=== PATIENT | female | born 1995 | race Caucasian/White ===

== ENCOUNTER → 2017-12-27 08:48 | Outpatient (CLI) | payer OTHER, SELFPAY ==
[2017-12-27 12:28] LABS: Chlamydia Trachomatis by PCR Negative (Negative); Neisserai gonorrhoeae by PCR Negative (Negative); Probe Check PASS; Sample Adequacy Control PASS; Specimen Processing Control PASS
[2017-12-28 10:19] LABS: HIV - WCH Non-Reactive (Nonreactive)
[2017-12-28 20:07] LABS: HCV Quant. RNA PCR HCV Not Detected IU/mL (.)
[2017-12-29 09:24] LABS: HSV 2 IgG < 0.91 index (0.00-0.90)
[2017-12-30 02:54] LABS: Rapid Plasmin Reagin (RPR) NONREACTIVE (NONREACTIVE)
== END ==
PROVIDERS: Nurse Practitioner Women's Health; Family Provider Internal Medicine; PCP Internal Medicine; Visit Provider Obstetrics & Gynecology
DX: Z11.3 Encounter for screening for infections with a predominantly sexual mode of transmission (principal)
CPT/HCPCS: 36415; 86592; 86695; 86696; 86703; 87491; 87522; 87591

== ENCOUNTER → 2018-06-16 09:00 | Outpatient (CLI) | payer OTHER, SELFPAY ==
[2018-06-16 10:14] LABS: Absolute Lymphocyte Count 1.91 X10^3/ul (0.83-4.51); Absolute Neutrophil Count 4.5 X10^3/uL (2.0-7.7); Basophil# 0.04 X10^3/uL; Basophil% 0.5 % (0-1); Eosinophil# 0.52 X10^3/uL; Eosinophils% 6.9 % (0-5); Hematocrit 43.4 % (37-47); Hemoglobin 14.3 g/dl (12.0-15.0); Lymphocyte # 1.91 X10^3/ul (4.0); Lymphocyte % 25.4 % (19-41); Mean Corp Hgb Conc 32.9 g/gl (32-36); Mean Corpuscular Hgb 30.9 pg (27.0-32.0); Mean Corpuscular Volume 93.7 fL (81-99); Mean Platelet Vol. 9.9 fl (6.2-12.0); Monocyte# 0.56 X10^3/uL; Monocyte% 7.5 % (0-10); Neutrophil # 4.47 X10^3/uL (2.7-7.7); Neutrophil % 59.6 % (47-70); Platelet Count 320 K/mm3 (150-450); RBC Distribution Width CV 14.5 % (11.6-14.6); RBC Distribution Width SD 48.8 fl (35.1-43.9); Red Blood Count 4.63 M/mm3 (4.2-5.4); White Blood Count 7.5 K/mm3 (4.4-11.0)
[2018-06-16 10:16] LABS: POSITIVE COUNT NO; POSITIVE DIFFERENTIAL NO; POSITIVE MORPHOLOGY NO
[2018-06-16 10:41] LABS: Vitamin D,25 Hydroxy 53.7 ng/mL (29.95-100.01)
[2018-06-16 10:43] LABS: AST(SGOT) 40 U/L (15-37); Alanine Aminotransfer ALT/SGPT 91 U/L (13-56); Albumin, Serum 3.8 g/dL (3.2-5.0); Alkaline Phosphatase 64 U/L (45-117); Anion Gap 8 (5-15); BUN 21 mg/dL (7-18); BUN/Creat Ratio 22.2 RATIO (10-20); Chloride 105 mmol/L (98-107); Creatinine, Serum 0.94 mg/dL (0.55-1.02); EST Glomerular Filtration Rate 77 mL/min (>60); Est Glom Filt Rate - Afr Amer 93 mL/min (>60); Globulin 3.9 g/dL (2.2-4.2); Glucose 76 mg/dL (74-106); Potassium 4.2 mmol/L (3.5-5.1); Protein, Total 7.7 g/dL (6.4-8.2); Sodium Level 143 mmol/L (136-145)
== END ==
PROVIDERS: Family Provider Internal Medicine; PCP Internal Medicine; Visit Provider Internal Medicine
DX: R53.83 Other fatigue (principal); E55.9 Vitamin D deficiency, unspecified
CPT/HCPCS: 36415; 80053; 82306; 84443; 85025

== ENCOUNTER → 2018-07-13 20:00 | Outpatient (CLI) | payer OTHER, SELFPAY | PROVIDERS: Family Provider Internal Medicine; PCP Internal Medicine; Visit Provider Internal Medicine | DX: G47.10 Hypersomnia, unspecified (principal); R53.82 Chronic fatigue, unspecified | CPT/HCPCS: 95810 ==

== ENCOUNTER → 2018-08-02 07:42 | Outpatient (CLI) | payer OTHER, SELFPAY ==
--- NOTE | 2018-08-02 07:45 | US_ITS ---
STUDY: ULTRASOUND OF THE FEMALE PELVIS - COMPLETE REASON FOR EXAM: Female, 22 years old. Pelvic pain TECHNIQUE: Transabdominal and Transvaginal TECHNICAL QUALITY: Adequate. COMPARISON: None. FINDINGS: The uterus is anteverted and is in a midline position. The uterus measures 7.6 x 4.6 x 3.0 cm. Normal uterine cervix. The endometrium measures 5 mm in thickness, and is hyperechoic. There is no demonstrated endometrial mass. There is an intrauterine device in satisfactory position. There is no demonstrated myometrial mass. The right ovary is visualized. The right ovary measures 3.6 x 3.3 x 1.8 cm. There is no right ovarian cyst or ovarian mass. There is no visualized right adnexal mass or complex lesion. There is normal arterial and normal venous vascularity. The left ovary is visualized. The left ovary measures 3.7 x 3.6 x 1.9 cm. There is no left ovarian cyst or ovarian mass. There is no visualized left adnexal mass or complex lesion. There is normal arterial and normal venous vascularity. There is no fluid in the cul-de-sac. US/Pelvic (Non ) IMPRESSION: Normal female pelvis. Electronically Signed: Sajan Jaky, at 17:05 EDT Tel , Service support ,
--- NOTE | 2018-08-02 08:08 | US_ITS ---
STUDY: ULTRASOUND OF THE FEMALE PELVIS - COMPLETE REASON FOR EXAM: Female, 22 years old. Pelvic pain TECHNIQUE: Transabdominal and Transvaginal TECHNICAL QUALITY: Adequate. COMPARISON: None. FINDINGS: The uterus is anteverted and is in a midline position. The uterus measures 7.6 x 4.6 x 3.0 cm. Normal uterine cervix. The endometrium measures 5 mm in thickness, and is hyperechoic. There is no demonstrated endometrial mass. There is an intrauterine device in satisfactory position. There is no demonstrated myometrial mass. The right ovary is visualized. The right ovary measures 3.6 x 3.3 x 1.8 cm. There is no right ovarian cyst or ovarian mass. There is no visualized right adnexal mass or complex lesion. There is normal arterial and normal venous vascularity. The left ovary is visualized. The left ovary measures 3.7 x 3.6 x 1.9 cm. There is no left ovarian cyst or ovarian mass. There is no visualized left adnexal mass or complex lesion. There is normal arterial and normal venous vascularity. There is no fluid in the cul-de-sac. US/Transvaginal Non- IMPRESSION: Normal female pelvis. Electronically Signed: Sajan Starkey, at 17:05 EDT Tel , Service support ,
== END ==
PROVIDERS: Family Provider Internal Medicine; PCP Internal Medicine; Referring Provider Obstetrics & Gynecology; Visit Provider Obstetrics & Gynecology
DX: R10.2 Pelvic and perineal pain (principal)
CPT/HCPCS: 76830; 76856; 93976

== ENCOUNTER → 2018-08-28 23:37 | Outpatient (CLI) | payer OTHER, SELFPAY | PROVIDERS: Family Provider Internal Medicine; PCP Internal Medicine; Visit Provider Clinical Nurse Specialist Acute Care | DX: G47.10 Hypersomnia, unspecified (principal) | CPT/HCPCS: 95810 ==

== ENCOUNTER → 2018-08-30 14:02 | Outpatient (CLI) | payer OTHER, SELFPAY | PROVIDERS: Family Provider Internal Medicine; PCP Internal Medicine; Visit Provider Clinical Nurse Specialist Acute Care | DX: G47.10 Hypersomnia, unspecified (principal) | CPT/HCPCS: 95805 ==

== ENCOUNTER → 2018-09-19 11:45 | Outpatient (CLI) | payer OTHER, SELFPAY ==
[2018-09-19 11:38] VITALS: BMI 28.6
[2018-09-19 13:15] LABS: HIV - WCH Non-Reactive (Nonreactive)
[2018-09-20 00:37] LABS: Chlamydia Trachomatis by PCR POSITIVE (Negative); Neisserai gonorrhoeae by PCR Negative (Negative); Probe Check PASS; Sample Adequacy Control PASS; Specimen Processing Control PASS
[2018-09-21 16:06] LABS: HCV Quant. RNA PCR HCV Not Detected IU/mL (.)
[2018-09-22 02:02] LABS: Rapid Plasmin Reagin (RPR) NONREACTIVE (NONREACTIVE)
[2018-09-22 08:30] LABS: HSV 2 IgG < 0.91 index (0.00-0.90)
== END ==
PROVIDERS: Family Provider Internal Medicine; PCP Internal Medicine; Referring Provider Nurse Practitioner Women's Health; Visit Provider Nurse Practitioner Women's Health
DX: Z20.2 Contact with and (suspected) exposure to infections with a predominantly sexual mode of transmission (principal)
CPT/HCPCS: 36415; 86592; 86695; 86696; 86703; 87491; 87522; 87591

== ENCOUNTER → 2018-10-18 17:56 | Outpatient (CLI) | payer OTHER, SELFPAY ==
[2018-10-18 09:59] VITALS: BMI 28.6
[2018-10-18 21:21] LABS: Chlamydia Trachomatis by PCR Negative (Negative); Neisserai gonorrhoeae by PCR Negative (Negative); Probe Check PASS; Sample Adequacy Control PASS; Specimen Processing Control PASS
== END ==
PROVIDERS: Family Provider Internal Medicine; PCP Internal Medicine; Referring Provider Nurse Practitioner Women's Health; Visit Provider Nurse Practitioner Women's Health
DX: A64 Unspecified sexually transmitted disease (principal)
CPT/HCPCS: 87491; 87591

== ENCOUNTER → 2019-01-08 17:37 | Outpatient (CLI) | payer OTHER, SELFPAY ==
[2019-01-08 15:40] VITALS: BMI 28.6
[2019-01-08 20:49] LABS: Chlamydia Trachomatis by PCR Negative (Negative); Neisserai gonorrhoeae by PCR Negative (Negative); Probe Check PASS; Sample Adequacy Control PASS; Specimen Processing Control PASS
== END ==
PROVIDERS: Family Provider Internal Medicine; PCP Internal Medicine; Referring Provider Nurse Practitioner Women's Health; Visit Provider Nurse Practitioner Women's Health
DX: A64 Unspecified sexually transmitted disease (principal)
CPT/HCPCS: 87491; 87591

== ENCOUNTER → 2019-03-29 | Outpatient (CLI) | payer OTHER, SELFPAY ==
[2019-03-29 09:15] VITALS: BMI 27.8
--- NOTE | 2019-03-29 12:35 | RAD_ITS ---
STUDY: X-RAY - RIGHT FOOT CLINICAL: Female, 23 years old. Dropped heavy plate on right foot. TECHNIQUE: 3 view(s) of the foot. COMPARISON: None. FINDINGS: Normal talus, calcaneus, and tarsal bones. Normal visualized subtalar, talonavicular, calcaneocuboid, tarsal and tarsometatarsal articulations. Normal metatarsi. Normal metatarsophalangeal joint of the great toe. Normal interphalangeal joint of the great toe. There is a fracture within the distal metaphysis of the first distal phalanx. There is overlying soft tissue swelling. No displacement is visualized. Normal second through fifth metatarsophalangeal joints. Normal interphalangeal joints and phalanges of the lesser toes. RAD/Foot min 3 Views IMPRESSION: First distal phalanx fracture. Electronically Signed: Elaine Alves MD at 17:03 EDT Tel , Service support ,
== END | disposition home or self-care (01) ==
LOC: MTRAD 12:30
PROVIDERS: Family Provider Internal Medicine; PCP Internal Medicine; Referring Provider Nurse Practitioner Family; Visit Provider Nurse Practitioner Family
DX: S99.921A Unspecified injury of right foot, initial encounter (principal)
CPT/HCPCS: 73630

== ENCOUNTER → 2019-04-26 | Outpatient (CLI) | payer OTHER, SELFPAY ==
[2019-04-16 15:33] VITALS: BMI 27.8
--- NOTE | 2019-04-26 09:00 | RAD_ITS ---
STUDY: X-RAY - RIGHT FOOT CLINICAL: Female, 23 years old. Follow-up fracture TECHNIQUE: 3 view(s) of the foot. COMPARISON: 03/29/2019 FINDINGS: Normal talus, calcaneus, and tarsal bones. Normal visualized subtalar, talonavicular, calcaneocuboid, tarsal and tarsometatarsal articulations. Normal metatarsi. Normal metatarsophalangeal joint of the great toe. Normal tibial and fibular sesamoid bones. Normal interphalangeal joint of the great toe. Healing nondisplaced transverse fracture of the tuft of the first distal phalanx. Normal second through fifth metatarsophalangeal joints. Normal interphalangeal joints and phalanges of the lesser toes. The soft tissue structures are unremarkable. RAD/Foot min 3 Views IMPRESSION: Healing nondisplaced transverse fracture of the tuft of the first distal phalanx. Electronically Signed: Waldo Cunningham MD at 15:45 EDT Tel , Service support ,
== END | disposition home or self-care (01) ==
LOC: MTRAD 08:59
PROVIDERS: Family Provider Internal Medicine; PCP Internal Medicine; Referring Provider Nurse Practitioner Family; Visit Provider Nurse Practitioner Family
DX: S92.424A Nondisplaced fracture of distal phalanx of right great toe, initial encounter for closed fracture (principal)
CPT/HCPCS: 73630

== ENCOUNTER → 2019-07-26 13:24 | Outpatient (CLI) | payer OTHER, SELFPAY ==
[2019-07-26 08:49] VITALS: BMI 28.3
[2019-08-01 12:59] LABS: HPV Reflexed? NOT INDICATED
== END ==
PROVIDERS: Family Provider Internal Medicine; PCP Internal Medicine; Referring Provider Nurse Practitioner Women's Health; Visit Provider Nurse Practitioner Women's Health
DX: Z12.4 Encounter for screening for malignant neoplasm of cervix (principal)
CPT/HCPCS: 88175; G0145

== ENCOUNTER → 2019-09-21 14:40 | Outpatient (CLI) | payer OTHER, SELFPAY ==
[2019-09-21 06:45] VITALS: BMI 31.1
== END ==
PROVIDERS: Family Provider Internal Medicine; PCP Internal Medicine; Referring Provider Physician Assistant Surgical; Visit Provider Physician Assistant Surgical
DX: J02.9 Acute pharyngitis, unspecified (principal)
CPT/HCPCS: 87070

== ENCOUNTER → 2019-09-26 15:03 | Outpatient (CLI) | payer OTHER, SELFPAY ==
[2019-09-26 09:10] VITALS: BMI 30.4
[2019-09-26 18:10] LABS: Chlamydia Trachomatis by PCR Negative (Negative); Neisserai gonorrhoeae by PCR Negative (Negative); Probe Check PASS; Sample Adequacy Control PASS; Specimen Processing Control PASS
== END ==
PROVIDERS: Family Provider Internal Medicine; PCP Internal Medicine; Referring Provider Obstetrics & Gynecology; Visit Provider Obstetrics & Gynecology
DX: Z11.3 Encounter for screening for infections with a predominantly sexual mode of transmission (principal)
CPT/HCPCS: 87491; 87591

== ENCOUNTER → 2020-05-14 11:14 | Outpatient (CLI) | payer OTHER, SELFPAY ==
[2020-05-14 10:45] VITALS: BMI 30.4
[2020-05-14 11:16] LABS: Bacteria 0 SEEN /hpf (None Seen); Mucous, Urine 0 SEEN /hpf (<or=2+); Red Blood Cells-Urine 0 SEEN /hpf (0-5); White Blood Cells 0 SEEN /hpf (0-5)
[2020-05-14 12:51] LABS: Color, Urine Straw (Yellow); Glucose, Dipstick Normal (Normal); Ketone-Dipstick Negative (Negative); Leukocyte Esterase-Dipstick Negative /ul (Negative); Nitrite-Dipstick Negative (Negative); Occult Blood-Urine Negative /ul (Negative); Protein-Dipstick Negative (Negative); Urine Bilirubin Dipstick Negative (Negative); Urine Clarity Sl. Cloudy (Clear); Urine Urobilinogen Normal (Normal)
[2020-05-14 12:52] LABS: Absolute Lymphocyte Count 2.31 X10^3/uL (0.83-4.51); Absolute Neutrophil Count 4.8 X10^3/uL (2.0-7.7); Basophil# 0.04 X10^3/uL; Basophil% 0.5 % (0-1); Eosinophil# 0.15 X10^3/uL; Eosinophils% 1.9 % (0-5); Hematocrit 42.9 % (37-47); Lymphocyte # 2.31 X10^3/ul (4.0); Lymphocyte % 28.9 % (19-41); Mean Corp Hgb Conc 32.6 g/dL (32-36); Mean Corpuscular Hgb 30.8 pg (27.0-32.0); Mean Corpuscular Volume 94.3 fL (81-99); Mean Platelet Vol. 10.1 fl (6.2-12.0); Monocyte# 0.62 X10^3/uL; Monocyte% 7.8 % (0-10); NRBC Flagged by Analyzer 0 % (0-5); Neutrophil # 4.84 X10^3/uL (2.7-7.7); Neutrophil % 60.5 % (47-70); Platelet Count 325 K/mm3 (150-450); RBC Distribution Width CV 12.9 % (11.6-14.6); RBC Distribution Width SD 44.2 fl (35.1-43.9); Red Blood Count 4.55 M/mm3 (4.2-5.4)
[2020-05-14 12:58] LABS: Squamous Epithelial Cells - UA 0-5 SEEN /hpf (5-10)
[2020-05-14 13:09] LABS: Vitamin D,25 Hydroxy 43.2 ng/mL
[2020-05-14 13:56] LABS: BUN 24 mg/dL (7-18); Creatinine, Serum 0.91 mg/dL (0.55-1.02); Glucose 84 mg/dL (74-106)
[2020-05-14 13:57] LABS: ALB/GLOB Ratio 1.1 RATIO (0.9-2.4); AST(SGOT) 23 U/L (15-37); Alanine Aminotransfer ALT/SGPT 30 U/L (13-56); Alkaline Phosphatase 52 U/L (45-117); Anion Gap 9 (5-15); BUN/Creat Ratio 26.5 RATIO (10-20); Calcium,Total 9.2 mg/dL (8.5-10.1); Chloride 102 mmol/L (98-107); EST Glomerular Filtration Rate 79 mL/min (>60); Est Glom Filt Rate - Afr Amer 96 mL/min (>60); Globulin 3.7 g/dL (2.2-4.2); Potassium 3.6 mmol/L (3.5-5.1); Protein, Total 7.7 g/dL (6.4-8.2); Sodium Level 136 mmol/L (136-145); Thyroid Stim Hormone (TSH) 1.68 uIU/mL (0.358-3.74)
== END ==
PROVIDERS: Nurse Practitioner Family; PCP Internal Medicine; Referring Provider Internal Medicine; Visit Provider Internal Medicine
DX: R23.8 Other skin changes (principal); R53.82 Chronic fatigue, unspecified; G47.10 Hypersomnia, unspecified; E55.9 Vitamin D deficiency, unspecified
CPT/HCPCS: 36415; 80053; 81001; 82306; 84443; 85025

== ENCOUNTER → 2020-05-30 10:14 | Outpatient (CLI) | payer OTHER, SELFPAY ==
[2020-05-14 10:45] VITALS: BMI 30.4
[2020-05-30 12:43] LABS: ALB/GLOB Ratio 1.1 RATIO (0.9-2.4); AST(SGOT) 21 U/L (15-37); Alanine Aminotransfer ALT/SGPT 29 U/L (13-56); Albumin, Serum 4.1 g/dL (3.2-5.0); Alkaline Phosphatase 53 U/L (45-117); Anion Gap 4 (5-15); BUN 19 mg/dL (7-18); BUN/Creat Ratio 22.1 RATIO (10-20); Calcium,Total 9.3 mg/dL (8.5-10.1); Chloride 106 mmol/L (98-107); Creatinine, Serum 0.86 mg/dL (0.55-1.02); EST Glomerular Filtration Rate 85 mL/min (>60); Est Glom Filt Rate - Afr Amer 102 mL/min (>60); Globulin 3.6 g/dL (2.2-4.2); Glucose 82 mg/dL (74-106); Potassium 3.9 mmol/L (3.5-5.1); Protein, Total 7.7 g/dL (6.4-8.2); Sodium Level 138 mmol/L (136-145)
== END ==
PROVIDERS: PCP Internal Medicine; Referring Provider Nurse Practitioner Family; Visit Provider Nurse Practitioner Family
DX: R17 Unspecified jaundice (principal)
CPT/HCPCS: 36415; 80053

== ENCOUNTER → 2020-07-15 | Outpatient (CLI) | payer OTHER, SELFPAY ==
[2020-07-15 15:35] VITALS: BMI 30.4
[2020-07-17 20:07] LABS: Chlamydia By Nucleic Acid AMP Negative (Negative)
[2020-07-18 02:02] LABS: Gonococcus By Nucleic Acid AMP Negative (Negative)
== END | disposition home or self-care (01) ==
LOC: LABSPEC 16:42
PROVIDERS: PCP Internal Medicine; Referring Provider Nurse Practitioner Women's Health; Visit Provider Nurse Practitioner Women's Health
DX: N89.8 Other specified noninflammatory disorders of vagina (principal)
CPT/HCPCS: 87070; 87205; 87491; 87591

== ENCOUNTER → 2020-08-25 11:24 | Outpatient (CLI) | payer OTHER, SELFPAY ==
[2020-07-15 15:35] VITALS: BMI 30.4
== END ==
PROVIDERS: PCP Internal Medicine; Referring Provider Nurse Practitioner Women's Health; Visit Provider Nurse Practitioner Women's Health
DX: Z80.3 Family history of malignant neoplasm of breast (principal)
CPT/HCPCS: 36415

== ENCOUNTER → 2020-09-15 | Outpatient (CLI) | payer OTHER, SELFPAY ==
[2020-09-15 15:01] VITALS: BMI 28.4
[2020-09-23 11:57] LABS: HPV APTIMA, High Risk Negative (Negative)
[2020-09-23 11:58] LABS: HPV Reflexed? YES, CHARGE PATIENT
== END | disposition home or self-care (01) ==
LOC: LABSPEC 16:46
PROVIDERS: PCP Internal Medicine; Visit Provider Nurse Practitioner Women's Health
DX: N87.0 Mild cervical dysplasia (principal)
CPT/HCPCS: 87624; 88175; G0145

== ENCOUNTER → 2021-03-19 | Outpatient (CLI) | payer OTHER, SELFPAY ==
[2021-03-19 15:32] VITALS: BMI 30.4
== END | disposition home or self-care (01) ==
LOC: LABSPEC 16:55
PROVIDERS: PCP Internal Medicine; Referring Provider Obstetrics & Gynecology; Visit Provider Obstetrics & Gynecology
DX: N89.8 Other specified noninflammatory disorders of vagina (principal)
CPT/HCPCS: 87070; 87205

== ENCOUNTER → 2021-10-29 | Outpatient (CLI) | payer BC, SELFPAY ==
[2021-11-03 17:41] LABS: HPV Reflexed? NOT INDICATED
== END | disposition home or self-care (01) ==
LOC: LABSPEC 12:58
PROVIDERS: PCP Internal Medicine; Referring Provider Nurse Practitioner Women's Health; Visit Provider Nurse Practitioner Women's Health
DX: Z12.4 Encounter for screening for malignant neoplasm of cervix (principal); N87.0 Mild cervical dysplasia
CPT/HCPCS: 88175; G0145

== ENCOUNTER → 2022-12-07 | Outpatient (CLI) | payer BC, SELFPAY ==
[2022-12-13 20:15] LABS: HPV Reflexed? NOT INDICATED
== END | disposition home or self-care (01) ==
PROVIDERS: PCP Internal Medicine; Referring Provider Nurse Practitioner Women's Health; Visit Provider Nurse Practitioner Women's Health
DX: N87.0 Mild cervical dysplasia (principal)
CPT/HCPCS: 88175; G0145

== ENCOUNTER → 2023-03-30 | Outpatient (CLI) | payer BC, SELFPAY ==
[2023-03-31 22:06] LABS: Chlamydia By Nucleic Acid AMP Negative (Negative); Gonococcus By Nucleic Acid AMP Negative (Negative)
== END | disposition home or self-care (01) ==
LOC: LABSPEC 11:31
PROVIDERS: PCP Internal Medicine; Referring Provider Obstetrics & Gynecology; Visit Provider Obstetrics & Gynecology
DX: Z34.90 Encounter for supervision of normal pregnancy, unspecified, unspecified trimester (principal)
CPT/HCPCS: 87086; 87088; 87491; 87591

== ENCOUNTER → 2023-05-27 | Outpatient (CLI) | payer BC, SELFPAY ==
[2023-05-27 10:43] LABS: Absolute Lymphocyte Count 1.84 X10^3/uL (0.83-4.51); Absolute Neutrophil Count 6.7 X10^3/uL (2.0-7.7); Basophil# 0.03 X10^3/uL; Basophil% 0.3 % (0-1); Eosinophil# 0.08 X10^3/uL; Eosinophils% 0.9 % (0-5); Hematocrit 40.1 % (37-47); Hemoglobin 13.3 g/dL (12.0-15.0); Lymphocyte # 1.84 X10^3/ul (0.83-4.51); Lymphocyte % 20.1 % (19-41); Mean Corp Hgb Conc 33.2 g/dL (32-36); Mean Corpuscular Hgb 30.2 pg (27.0-32.0); Mean Corpuscular Volume 91.1 fL (81-99); Mean Platelet Vol. 9.9 fl (6.2-12.0); Monocyte# 0.45 X10^3/uL; Monocyte% 4.9 % (0-10); NRBC Flagged by Analyzer 0 % (0-5); Neutrophil # 6.72 X10^3/uL (2.7-7.7); Neutrophil % 73.5 % (47-70); Platelet Count 306 K/mm3 (150-450); RBC Distribution Width CV 12.3 % (11.6-14.6); RBC Distribution Width SD 41.1 fl (35.1-43.9); White Blood Count 9.2 K/mm3 (4.4-11.0)
[2023-05-27 11:48] LABS: HIV - WCH Non-Reactive (Nonreactive); Hepatitis B Surface Antigen Non-Reactive (Nonreactive); Hepatitis C Antibody Non-Reactive (Nonreactive); Rubella IgG Reactive (Nonreactive); Syphilis Antibodies Non-reactive
== END | disposition home or self-care (01) ==
PROVIDERS: Obstetrics & Gynecology; PCP Internal Medicine; Visit Provider Registered Nurse
DX: Z34.90 Encounter for supervision of normal pregnancy, unspecified, unspecified trimester (principal)
CPT/HCPCS: 36415; 85025; 86703; 86762; 86780; 86803; 86850; 86900; 86901; 87340

== ENCOUNTER → 2023-07-19 | Outpatient (CLI) | payer BC, SELFPAY ==
[2023-07-19 08:25] LABS: Absolute Lymphocyte Count 1.87 X10^3/uL (0.83-4.51); Absolute Neutrophil Count 7.2 X10^3/uL (2.0-7.7); Basophil# 0.04 X10^3/uL; Basophil% 0.4 % (0-1); Eosinophil# 0.28 X10^3/uL; Eosinophils% 2.8 % (0-5); Hematocrit 38.3 % (37-47); Hemoglobin 12.8 g/dL (12.0-15.0); Lymphocyte # 1.87 X10^3/ul (0.83-4.51); Lymphocyte % 18.7 % (19-41); Mean Corp Hgb Conc 33.4 g/dL (32-36); Mean Corpuscular Hgb 31.2 pg (27.0-32.0); Mean Corpuscular Volume 93.4 fL (81-99); Monocyte# 0.47 X10^3/uL; Monocyte% 4.7 % (0-10); NRBC Flagged by Analyzer 0 % (0-5); Neutrophil # 7.24 X10^3/uL (2.7-7.7); Neutrophil % 72.4 % (47-70); Platelet Count 286 K/mm3 (150-450); RBC Distribution Width CV 12.9 % (11.6-14.6); RBC Distribution Width SD 44.2 fl (35.1-43.9)
[2023-07-19 08:55] LABS: Glucose Challenge Gest 1H 50g 132 mg/dL (70-140)
[2023-07-19 09:17] LABS: HIV - WCH Non-Reactive (Nonreactive); Syphilis Antibodies Non-reactive
== END | disposition home or self-care (01) ==
LOC: PAVLAB 08:08
PROVIDERS: PCP Internal Medicine; Referring Provider Registered Nurse; Visit Provider Registered Nurse
DX: O09.90 Supervision of high risk pregnancy, unspecified, unspecified trimester (principal); Z3A.00 Weeks of gestation of pregnancy not specified
CPT/HCPCS: 36415; 82950; 85025; 86703; 86780

== ENCOUNTER → 2023-09-19 | Outpatient (CLI) | payer BC, SELFPAY | END | disposition home or self-care (01) | LOC: LABSPEC 13:32 | PROVIDERS: PCP Internal Medicine; Referring Provider Nurse Practitioner Women's Health; Visit Provider Nurse Practitioner Women's Health | DX: O99.891 Other specified diseases and conditions complicating pregnancy (principal); R30.0 Dysuria; Z3A.00 Weeks of gestation of pregnancy not specified | CPT/HCPCS: 87086 ==

== ENCOUNTER 2023-09-22 09:56 | Outpatient (CLI) | payer BC, SELFPAY ==
[2023-09-22 10:10] VITALS: BP 115/77; PULSE 68; O2SAT 96
[2023-09-22 10:16] VITALS: BMI 32.5
--- NOTE | 2023-09-22 10:30 | OB.TRI.HP_ITS ---
HPI - General General Date of Admission: 09/22/23 Date of Service: 09/22/23 Chief Complaint: decreased movement HPI Narrative SHIRA VELAZQUEZ, is a 27 F who presents at 33.6 with decreased movement over the past few hours. she has taken a bath, drank cold water and changed positions and has only felt the baby move a few times. denies vb/ctx/lof. Maternal Data Information DEE Calculator Estimated Delivery Date Method Current WG Current Estimate 11/04/23 LMP (Certain) 33w 6d Other Estimates 11/06/23 Ultrasound #1 33w 4d PFSH PFSH Medical History Acute pharyngitis, unspecified Contact with or exposure to other viral diseases Fatigue right big toe fracture URI (upper respiratory infection) Home Medications omega-3 fatty acids 1,000 mg capsule (Fish Oil Concentrate) 1,000 mg PO DAILY 08/13/19 [History Last Taken Unknown] prenat.vits,leonard,fvk-ldez-ecxzs 1 tab PO DAILY 12/07/22 [History Last Taken Unknown] doxylamine succinate 25 mg tablet (Unisom (doxylamine)) 25 mg PO QHS PRN see provider 08/09/23 [History Last Taken Unknown] sertraline 50 mg tablet (Zoloft) 50 mg PO QDAY #30 tabs 08/12/23 [Rx Last Taken Unknown] Allergy/AdvReac Type Severity Reaction Status Date / Time No Known Allergies Allergy Verified 09/22/23 10:19 Family History Grandfather Diabetes Hypertension Grandmother Hypertension Mother Rh D negative blood type Surgical History History of tonsillectomy History of wisdom tooth extraction, class II edentulism S/P ACL surgery Social History adopted: No household members: spouse current occupational status: employed 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[employer] current occupational exposures/hazards: No pets and animals: Yes pets and animals: dog(s) history of recent travel: No sexually active: Yes Smoking Status: Never smoker alcohol intake: never substance use type: does not use well-balanced diet: daily or most days caffeine: Yes Type: coffee Number of servings: 1 eating out: 1-3 times/week during the past year weight has: remained stable what type of physical activity do you participate in: walking and weight training frequency: 5-6 times per week duration: 45-60 minutes/day ross/sikhism: Judaism seatbelt use: always do you feel safe at home: Yes additional social history: - Bon History 1 Elective abortions Hx Para 0 Spontaneous abortions Hx # Term Pregnancies Ectopic pregnancies Hx # Pregnancies Multiple births # of living children Visit Details Expected Delivery Route/Plan Labor Preferences- CB/BF classes: encouraged. labor support person: Bon labor intervention preferences: [] pain management options preferred: potentially epidural cut cord/dad catch: yes : yes PP control planned: discussed discussed possible routes of delivery and associated risks: [] special requests: [] Plans Covid status: declined Flu vaccine: at work Tdap vaccine: given Rhogam: na LARC form signed: yes movement and labor precautions reviewed. Problem list reviewed and updated with the most current plan of care details and appropriate orders placed. Relevant counseling for the gestational age provided. Continue routine care and follow up unless otherwise noted in visit notes/problem list details OB Flowsheet Initial Weight: 166 lb Date -?-?-?-?-?-?-?-?-?-?-?-?- EGA Weight BP Urine Prot -?-?-?-?-?-?-?-?-?-?-?-?- Glucose FHR FuHt Pres Dilation -?-?-?-?-?-?-?-?-?-?-?-?- Effaced St Visit Note 03/30/23 -?-?-?-?-?-?-?-?-?-?-?-?- 8w 5d 166 lb 8 oz (+8 oz) 123/75 -?-?-?-?-?-?-?-?-?-?-?-?- 169 -?-?-?-?-?-?-?-?-?-?-?-?- JV- single live iup measuring 8 weeks 3 days and consistent with LMP. does not want NIPT at this time. 04/29/23 -?-?-?-?-?-?-?-?-?-?-?-?- 13w 0d 171 lb 6 oz (+5 lb 6 oz) 111/75 Negative -?-?-?-?-?-?-?-?-?-?-?-?- Negative 170 -?-?-?-?-?-?-?-?-?-?-?-?- KW-no vb/crampin g. no concerns. discussed US and AFP for next visit-desires. 05/27/23 -?-?-?-?-?-?-?-?-?-?-?-?- 17w 0d 168 lb 4 oz (+2 lb 4 oz) 105/69 Negative -?--?-?-?-?-?-?-?-?-?-?-?- Negative 140 -?-?-?-?-?-?-?-?-?-?-?-?- LC- no vb/crampi ng. afp accepted and ordered. has us scheduled. 06/20/23 -?-?-?-?-?-?-?-?-?--?-?-?- 20w 3d 171 lb 4 oz (+5 lb 4 oz) 171 lb 4 oz (+5 lb 4 oz) 115/72 Negative -?-?-?-?-?-?-?-?-?-?-?-?- Negative 145 -?-?-?-?-?-?-?-?-?-?-?-?- LC- no vb/crampi ng. +flutters. normal anatomy scan. 08/12/23 -?-?-?-?-?-?-?-?-?-?-?-?- 28w 0d 5 lb 4 oz (-160 lb 12 oz) 181 lb (+15 lb) 123/74 Negative -?-?-?-?-?-?-?-?-?-?-?-?- Negative 145 28 -?-?-?-?-?-?-?-?-?-?-?-?- SM- no vb lof go od fm no regular ctx 08/29/23 -?-?-?-?-?-?-?-?-?-?-?-?- 30w 3d 5 lb 4 oz (-160 lb 12 oz) 183 lb (+17 lb) 110/74 Negative -?-?-?-?-?-?-?-?-?-?-?-?- Negative 136 30 -?-?-?-?-?-?-?-?-?-?-?-?- MH-No Vb, LOF. G ood FM. Larc. No concerns. 09/12/23 -?-?-?-?-?-?-?-?-?-?-?-?- 32w 3d 185 lb 2 oz (+19 lb 2 oz) 108/72 Negative -?-?-?-?-?-?-?-?-?-?-?-?- Negative 135 31 -?-?-?-?-?-?-?-?-?-?-?-?- LC- no vb/ctx/lo f. good fm. having body image concerns. recommended removing scale from bathroom. LC- no vb/ctx/lof. good fm. having body image concerns. recommended removing scale from bathroom. pelvic floor referral sent for stress incontinence. 09/19/23 -?-?-?-?-?-?-?-?-?-?-?-?- 33w 3d 182 lb (+16 lb) 106/74 Negative -?-?-?-?-?-?-?-?-?-?-?-?- Negative 148 33 Cephalic 0 -?-?-?-?-?-?-?-?-?-?-?-?- -3 -Work in for increased discharge, backache and pressure. UA small leuks only. Cervix closed. Urine culture pending. Physical Exam Const alert, oriented x3 and no apparent distress Resp normal respiratory effort, normal air movement, no retractions and no use of accessory muscles Cardio regular rate and regular rhythm GI soft to palpation and non-tender Inspection: Palpation: soft Rectal Exam: deferred external exam normal Bimanual Exam - Vag & Uterus: uterus non-tender and other gravid uterus, normal for gestational age Manual OB Exam: estimated gestational size appropriate and presentation cephalic Amniotic Fluid: no amniotic fluid noted Extremity normal to inspection and full ROM NST FHR Rate Baby A Baseline: 130 Variability:: Moderate Accelerations:: 15 x 15 Decelerations:: None NST Reactive:: Yes FHR Category:: Category I Uterine Activity:: irreg, does not feel Assessment & Plan (1) Decreased movement: COMMENT: reactive NST, reassurance provided. d/c home. po hydration PLAN: Plan Patient presents for triage evaluation secondary to decreased movement, now with adequate movement FHT: Moderate variability reactive no decelerations category I tracing [place]: irreg Contractions, not felt by patient Assessment and plan: Reactive NST, reassuring maternal and status patient discharged to home to follow-up in office, has appt on tuesday. See problem list details for additional plan information. Charges/Coding Visit Charges Office Visits / Consults: 08095 OV L3 Est Multi Select Codes Urinary/Genital Urinary/Genital CPT Codes: 80106-29 non-stress test Interp
== END 2023-09-22 10:43 | disposition home or self-care (01) ==
LOC: WPOUT 09:59 → WP 10:00
PROVIDERS: PCP Internal Medicine; Referring Provider Registered Nurse; Visit Provider Registered Nurse
DX: O36.8130 Decreased fetal movements, third trimester, not applicable or unspecified (principal); Z79.899 Other long term (current) drug therapy; Z3A.33 33 weeks gestation of pregnancy
CPT/HCPCS: 59025; 59050; 99221; G0378

== ENCOUNTER 2023-09-27 15:45 | Inpatient (IN) | payer BC, SELFPAY ==
[2023-09-27] VITALS (37 sets, daily range): BP systolic 100–151; BP diastolic 51–87; PULSE 61–163; TEMP 36.3–37.7; O2SAT 80–100; BMI 32.8
[2023-09-27 15:42] LABS: ROM Internal Control Test YES-OK TO RESULT pt. (Internal QC)
[2023-09-27 15:43] LABS: ROM Patient Test POSITIVE (Negative); Record Kit Lot#, ROM+ K1409
--- NOTE | 2023-09-27 15:45 | PCM.PN.BLA ---
Progress Note Janice Fong is a 34.4 week who presents to L/D for possible SROM. Positive ROM. Referred to Dr Bryant for labor. Assessment & Plan Assessment/Plan (1) premature rupture of membranes (PPROM) with unknown onset of labor: PLAN: referred to Dr Bryant due to PPROM Multi Select Codes Urinary/Genital Urinary/Genital CPT Codes: No Charge
[2023-09-27] MEDS: Lactated Ringers 1,000 ML 50 ML IV (16:40)
--- NOTE | 2023-09-27 16:58 | HP.PCM.OB_ITS ---
HPI - General General Date of Admission: 09/27/23 HPI Narrative SHIRA VELAZQUEZ, is a 27 F who presents with clear PPROM no regular ctx. no vb no signs of infection at present. Maternal Data Information DEE Calculator Estimated Delivery Date Method Current WG Current Estimate 11/04/23 LMP (Certain) 34w 4d Other Estimates 11/06/23 Ultrasound #1 34w 2d PFSH PFSH Medical History Acute pharyngitis, unspecified Contact with or exposure to other viral diseases Fatigue right big toe fracture URI (upper respiratory infection) Home Medications prenat.vits,leonard,ndp-tynn-wfrrn 2 tab PO DAILY 12/07/22 [History Last Taken 09/26/23 20:30 2 tabs] doxylamine succinate 25 mg tablet (Unisom (doxylamine)) 25 mg PO QHS PRN see provider 08/09/23 [History Last Taken 09/26/23 20:30 25 mg] sertraline 50 mg tablet (Zoloft) 50 mg PO QDAY #30 tabs 08/12/23 [Rx Last Taken 09/26/23 20:30 50 mg] Allergy/AdvReac Type Severity Reaction Status Date / Time No Known Allergies Allergy Verified 09/27/23 15:30 Family History Grandfather Diabetes Hypertension Grandmother Hypertension Mother Rh D negative blood type Surgical History History of tonsillectomy History of wisdom tooth extraction, class II edentulism S/P ACL surgery Social History adopted: No household members: spouse current occupational status: employed 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/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: No pets and animals: Yes pets and animals: dog(s) history of recent travel: No sexually active: Yes Smoking Status: Never smoker alcohol intake: never substance use type: does not use well-balanced diet: daily or most days caffeine: Yes Type: coffee Number of servings: 1 eating out: 1-3 times/week during the past year weight has: remained stable what type of physical activity do you participate in: walking and weight training frequency: 5-6 times per week duration: 45-60 minutes/day ross/orthodoxy: Episcopalian seatbelt use: always do you feel safe at home: Yes additional social history: - Bon History 1 Elective abortions Hx Para 0 Spontaneous abortions Hx # Term Pregnancies Ectopic pregnancies Hx # Pregnancies Multiple births # of living children Visit Details Expected Delivery Route/Plan Labor Preferences- CB/BF classes: encouraged. labor support person: Bon labor intervention preferences: [] pain management options preferred: potentially epidural cut cord/dad catch: yes : yes PP control planned: discussed discussed possible routes of delivery and associated risks: [] special requests: [] Plans Covid status: declined Flu vaccine: at work Tdap vaccine: given Rhogam: na LARC form signed: yes movement and labor precautions reviewed. Problem list reviewed and updated with the most current plan of care details and appropriate orders placed. Relevant counseling for the gestational age provided. Continue routine care and follow up unless otherwise noted in visit notes/problem list details OB Flowsheet Initial Weight: 166 lb Date -?-?-?-?-?-?-?-?-?-?-?-?- EGA Weight BP Urine Prot -?-?-?-?-?-?-?-?-?-?-?-?- Glucose FHR FuHt Pres Dilation -?-?-?-?-?-?-?-?-?-?-?-?- Effaced St Visit Note 03/30/23 -?-?-?-?-?-?-?-?-?-?-?-?- 8w 5d 166 lb 8 oz (+8 oz) 123/75 -?-?-?-?-?-?-?-?-?-?-?-?- 169 -?-?-?-?-?-?-?-?-?-?-?-?- JV- single live iup measuring 8 weeks 3 days and consistent with LMP. does not want NIPT at this time. 04/29/23 -?-?-?-?-?-?-?-?-?-?-?-?- 13w 0d 171 lb 6 oz (+5 lb 6 oz) 111/75 Negative -?-?-?-?-?-?-?-?-?-?-?-?- Negative 170 -?-?-?-?-?-?-?-?-?-?-?-?- KW-no vb/crampin g. no concerns. discussed US and AFP for next visit-desires. 05/27/23 -?-?-?-?-?-?-?-?-?-?-?-?- 17w 0d 168 lb 4 oz (+2 lb 4 oz) 105/69 Negative -?-?-?-?-?-?-?-?-?-?-?-?- Negative 140 -?-?-?-?-?-?-?-?-?-?-?-?- LC- no vb/crampi ng. afp accepted and ordered. has us scheduled. 06/20/23 -?-?-?-?-?-?-?-?-?-?-?-?- 20w 3d 171 lb 4 oz (+5 lb 4 oz) 171 lb 4 oz (+5 lb 4 oz) 115/72 Negative -?-?-?-?-?-?-?-?-?-?-?-?- Negative 145 -?-?-?-?-?-?-?-?-?-?-?-?- LC- no vb/crampi ng. +flutters. normal anatomy scan. 08/12/23 -?-?-?-?-?-?-?-?-?-?-?-?- 28w 0d 5 lb 4 oz (-160 lb 12 oz) 181 lb (+15 lb) 123/74 Negative -?-?-?-?--?-?-?-?-?-?-?-?- Negative 145 28 -?-?-?-?-?-?-?-?-?-?-?-?- SM- no vb lof go od fm no regular ctx 08/29/23 -?-?-?-?-?-?-?-?-?-?-?-?- 30w 3d 5 lb 4 oz (-160 lb 12 oz) 183 lb (+17 lb) 110/74 Negative -?-?-?-?-?-?-?-?-?-?-?-?- Negative 136 30 -?-?-?-?--?-?-?-?-?-?-?-?- MH-No Vb, LOF. G ood FM. Larc. No concerns. 09/12/23 -?-?-?-?-?-?-?-?-?-?-?-?- 32w 3d 185 lb 2 oz (+19 lb 2 oz) 108/72 Negative -?-?-?-?-?-?-?-?-?-?-?-?- Negative 135 31 -?-?-?-?-?-?-?-?-?-?-?-?- LC- no vb/ctx/lo f. good fm. having body image concerns. recommended removing scale from bathroom. LC- no vb/ctx/lof. good fm. having body image concerns. recommended removing scale from bathroom. pelvic floor referral sent for stress incontinence. 09/19/23 -?-?-?-?-?-?-?-?-?-?-?-?- 33w 3d 182 lb (+16 lb) 106/74 Negative -?-?-?-?-?-?-?-?-?-?-?-?- Negative 148 33 Cephalic 0 -?-?-?-?--?-?-?-?-?-?-?-?- -3 -Work in for increased discharge, backache and pressure. UA small leuks only. Cervix closed. Urine culture pending. 09/26/23 -?-?-?-?-?-?-?-?-?-?-?-?- 34w 3d 185 lb 4 oz (+19 lb 4 oz) 114/79 -?-?-?-?-?-?-?-?-?-?-?-?- 140 34 -?-?-?-?-?-?-?-?-?-?-?-?- LC- no vb/ctx/lo f. good fm. no concerns today. NST FHR Rate Baby A Baseline: 130 Variability:: Moderate Accelerations:: 15 x 15 Decelerations:: None NST Reactive:: Yes FHR Category:: Category I Uterine Activity:: irregular ROS Constitutional Constitutional: Reports systems reviewed and no addt'l complaints, except as documented Eyes Eyes: Denies change in vision ENT HEENT: Reports systems reviewed and no addt'l complaints, except as documented; Denies headache(s) Cardiovascular Cardiovascular: Reports systems reviewed and no addt'l complaints, except as documented; Denies chest pain or dyspnea Respiratory/Chest Respiratory/Chest: Reports systems reviewed and no addt'l complaints, except as documented Gastrointestinal Gastrointestinal: Reports systems reviewed and no addt'l complaints, except as documented; Denies abdominal pain Genitourinary Genitourinary: Reports systems reviewed and no addt'l complaints, except as documented, contractions Details: present (irregular) and movement Detai ls: present; Denies dysuria or genital lesions Musculoskeletal Musculoskeletal: Reports systems reviewed and no addt'l complaints, except as documented Neurologic Neurologic: Reports systems reviewed and no addt'l complaints, except as documented Endocrine Endocrinology: Reports systems reviewed and no addt'l complaints, except as documented Vital Signs Vital Signs Vital Signs: 09/27/23 15:08 09/27/23 15:08 09/27/23 15:09 Pulse Rate 85 Blood Pressure 123/85 H BP Systolic 123 BP Diastolic 85 Pulse Ox 98 09/27/23 15:09 Pulse Rate 86 Blood Pressure BP Systolic BP Diastolic Pulse Ox Weight Weight: 185 lb 3.013 oz Body Mass Index (BMI) 32.8 Physical Exam Const alert, oriented x3, no apparent distress and healthy appearing HEENT normocephalic and moist oral mucous membranes Head and Scalp: atraumatic Neck full ROM, no lymphadenopathy, supple and thyroid normal General: trachea midline Lymph Lymphatic: no lymphadenopathy noted Chest inspection of chest normal Resp normal respiratory effort Cardio regular rate GI normal to inspection, nondistended, normoactive bowel sounds, soft to palpation and non-tender Inspection: gravid external exam normal Manual OB Exam: estimated gestational size appropriate, presentation cephalic, dilated 1.5, effaced 70 and station -2 Extremity normal to inspection General Extremity: Negative for edema Skin no rashes or lesions noted Neuro no focal motor deficits and deep tendon reflexes 2+ bilaterally Motor Exam: strength 5/5 throughout and clonus absent Psych mental status grossly normal Labs Labs Labs: Blood Type A POSITIVE Antibody Screen NEGATIVE Hct 38.3 % (37-47) Hgb 12.8 g/dL (12.0-15.0) Syphilis Total Ab Non-reactive Rubella IgG Antibody Reactive (Nonreactive) Hep Bs Antigen Non-Reactive (Nonreactive) Hepatitis C Antibody Non-Reactive (Nonreactive) Chlamydia DNA ([facility]IP) Negative (Negative) N.gonorrhoeae DNA ([facility]) Negative (Negative) HIV 1&2 Antibody Non-Reactive (Nonreactive) Glucose 1 Hr 50 gm 132 mg/dL (70-140) Miscellaneous Test Assessment & Plan (1) premature rupture of membranes (PPROM) with unknown onset of labor: (2) Depression: QUALIFIERS: Depression Type: major depressive disorder Major depression recurrence: recurrent Active/Remission status: in partial remission Qualified Code(s): F33.41 - Major depressive disorder, recurrent, in partial remission COMMENT: counseling, zoloft ordered; stable (3) : QUALIFIERS: Weeks of gestation: 34 weeks Qualified Code(s): Z3A.34 - 34 weeks gestation of COMMENT: Neg AFP discussed genetic & carrier testing. nl anatomy (4) Supervision of high-risk : QUALIFIERS: Trimester: third trimester Qualified Code(s): O09.93 - Supervision of high risk , unspecified, third trimester COMMENT: PRR , DEE 11/04/23 boy Romaine Bon PLAN: Plan Patient presents PPROM start ampicillin, give celestone, discussed exp management vs IOL, plan IOL with cytotec. Pain management: plans epidural most likely. GBS unknown give ampicillin. Management of any complications: PPROM and prematurity I have reviewed the [facility] and made any clinically relevant updates.
[2023-09-27] MEDS: Betamethasone/Betamethasone 30 MG/5 ML Vial 12 MG IM (16:59)
[2023-09-27] MEDS: Ampicillin 2 GM in 0.9% Normal Saline (100mL MB+) 100 ML IV (17:02)
[2023-09-27] MEDS: miSOPROStol 25 MCG TABLET PO (17:18)
[2023-09-27 17:21] LABS: Absolute Lymphocyte Count 1.59 X10^3/uL (0.83-4.51); Absolute Neutrophil Count 7.9 X10^3/uL (2.0-7.7); Basophil# 0.03 X10^3/uL; Basophil% 0.3 % (0-1); Eosinophil# 0.12 X10^3/uL; Eosinophils% 1.1 % (0-5); Hematocrit 40.1 % (37-47); Hemoglobin 13.3 g/dL (12.0-15.0); Lymphocyte # 1.59 X10^3/ul (0.83-4.51); Lymphocyte % 15.1 % (19-41); Mean Corp Hgb Conc 33.2 g/dL (32-36); Mean Corpuscular Hgb 30.4 pg (27.0-32.0); Mean Corpuscular Volume 91.8 fL (81-99); Monocyte# 0.81 X10^3/uL; Monocyte% 7.7 % (0-10); NRBC Flagged by Analyzer 0 % (0-5); Neutrophil # 7.93 X10^3/uL (2.7-7.7); Neutrophil % 75.4 % (47-70); Platelet Count 326 K/mm3 (150-450); RBC Distribution Width CV 12.8 % (11.6-14.6); RBC Distribution Width SD 42.8 fl (35.1-43.9); Red Blood Count 4.37 M/mm3 (4.2-5.4); White Blood Count 10.5 K/mm3 (4.4-11.0)
[2023-09-27] MEDS: 0.9% Saline Lock 10 ML Syringe IV (17:32)
[2023-09-27 18:19] LABS: Syphilis Antibodies Non-reactive
[2023-09-27 19:12] LABS: Group B Strep DNA By PCR Negative (Negative); Internal Control PASS; Probe Check PASS; Specimen Processing Control PASS
[2023-09-27] MEDS: LACTATED RINGERS 500 ML 999 ML IV (20:30)
[2023-09-27] MEDS: Ampicillin 1,000 MG in 0.9% Normal Saline (50mL MB+) 50 ML 150 MG IV (20:52)
[2023-09-27] MEDS: fentaNYL-bupivacaine (epidural) 100 ML BAG EPIDURAL (22:13)
[2023-09-27] MEDS: Sertraline 50 MG Tablet PO (22:46)
[2023-09-27] MEDS: Oxytocin 10 UNITS/ML Vial IM (23:32)
[2023-09-27] MEDS: Oxytocin 15 Units/NS 250ml 15 UNITS/250 ML IV.SOLN 334 UNITS IV (23:34)
[2023-09-27] MEDS: Methylergonovine 0.2 MG/ML Ampul IM (23:40)
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
--- NOTE | 2023-09-27 23:59 | DCINST_ITS ---
Discharge Instructions Diet Discharge Diet: No restrictions Activity Discharge Activity: Return to Normal Activity, May Not Drive (while taking narcotic pain medications.) and May Shower May resume sexual activity in: 4-6 weeks Dressing / Incision Call your doctor if your incision/area has: Continuous Slow Oozing, Sudden Increased Bleeding, Increased Pain/ Swelling, Increased Redness and Foul Smelling Discharge Follow Up Care Please Follow Up With: Chika Bryant MD When: Call [phone] to make an appointment with your doctor in 6 weeks. If you had elevated blood pressure or 4th degree laceration, you will need to be seen in 2 weeks. Test Results: Test results from this visit will be discussed in further detail at your follow- up appointment, if applicable. Discharge Plan Admission Admit Date/Time: 09/27/23 15:45 Attending Provider: Chika Bryant Primary Care Provider: Nirav Perez Discharge Orders/Prescriptions Prescriptions: No Action prenat.vits,leonard,cui-[id number] Tablet 2 tab PO DAILY sertraline [Zoloft] 50 mg tablet 50 mg PO QDAY Qty: 30 12RF Unisom (doxylamine) 25 mg tablet 25 mg PO QHS PRN (Reason: see provider ) Referrals / Follow Up: Nirav Perez MD [Primary Care Provider] -
[2023-09-28] VITALS (34 sets, daily range): BP systolic 107–126; BP diastolic 59–82; PULSE 63–98; RESP 14–16; TEMP 36.6–37.7; O2SAT 89–100
[2023-09-28] MEDS: Acetaminophen 500 MG Tablet 1000 MG PO ×3 (00:52→21:13)
[2023-09-28] MEDS: Benzocaine/Lanolin/Aloe Vera 1 SPRAY EACH TOPICAL (00:52)
--- NOTE | 2023-09-28 08:03 | PN.OBGYN_ITS ---
Subjective Subjective Patient doing well without complaints. Tolerating PO. Ambulating and voiding without difficulty. Pumping. Denies chest pain, shortness of breath, calf pain/swelling, fevers, chills, lightheadedness. Baby doing well in [facility] Objective Data Objective Data Vital Signs: Vital Signs Temp Pulse Resp BP Pulse Ox O2 Del Method 99.8 F H 73 14 115/64 100 Room Air 09/28/23 04:20 09/28/23 04:20 09/28/23 04:20 09/28/23 04:20 09/28/23 02:12 09/28/23 04:20 Oxygen Delivery Method Room Air Weight: 185 lb 3.013 oz Body Mass Index (BMI) 32.8 Intake & Output: Intake and Output for Last 24 Hours 09/26/23 09/27/23 09/28/23 23:59 23:59 23:59 Intake Total 1238.24 / 1238.24 160.93 / 160.93 Output Total 901 / 901 2300 / 2300 Balance 337.24 / 337.24 -2139.07 / -2139.07 Lab / Micro Data 09/27/23 16:40 Labs: Laboratory Results - last 24 hr 09/27/23 15:24: Vag Amniotic Fld Detect POSITIVE H 09/27/23 16:40: WBC 10.5, RBC 4.37, Hgb 13.3, Hct 40.1, MCV 91.8, MCH 30.4, MCHC 33.2, RDW Std Deviation 42.8, RDW Coeff of Dayne 12.8, Plt Count 326, MPV 11.0, Immature Gran % (Auto) 0.400, Neut % (Auto) 75.4 H, Lymph % (Auto) 15.1 L, [place] % (Auto) 7.7, Eos % (Auto) 1.1, Baso % (Auto) 0.3, Absolute Neuts (auto) 7.9 H, Absolute Lymphs (auto) 1.59, Nucleated RBC % 0, Syphilis Total Ab Non-reactive, Group B Strep DNA Negative, Specimen Comment Not Reportable, Blood Type A POSI TIVE, Antibody Screen NEGATIVE Micro: Microbiology 09/27/23 16:40 Interface Orders Chlamydia trachomatis (PCR) - Final 09/27/23 16:40 Interface Orders Neisseria gonorrhoeae (PCR) - Final Physical Exam Const alert and oriented x3 HEENT normocephalic Eyes PERRL Neck full ROM Resp normal respiratory effort GI soft to palpation GI Narrative: FF below U Assessment & Plan (1) Vaginal delivery: COMMENT: SM PPROM 34 boy Gavin PLAN: Plan s/p PPD # 1 1. routine post delivery care 2. breast feeding- support given 3. rh positive 4. rubella immune
[2023-09-28] MEDS: Senna/Docusate Sodium 1 Tablet PO (10:10)
[2023-09-28] MEDS: Naproxen 500 MG Tablet PO (14:10)
[2023-09-28] MEDS: Sertraline 50 MG Tablet PO (21:13)
[2023-09-29 03:11] VITALS: BP 112/80; PULSE 61; RESP 16
[2023-09-29] MEDS: Senna/Docusate Sodium 1 Tablet PO (04:12)
[2023-09-29 07:35] VITALS: BP 101/54; PULSE 60; RESP 16; TEMP 36.6; O2SAT 98
[2023-09-29] MEDS: Acetaminophen 500 MG Tablet 1000 MG PO (08:02)
[2023-09-29] MEDS: oxyCODONE 5 MG Tablet PO (08:03)
--- NOTE | 2023-09-29 13:56 | PN.OBGYN_ITS ---
Subjective Subjective Patient doing well without complaints. Tolerating PO. Ambulating and voiding without difficulty. feeding well. Denies chest pain, shortness of breath, calf pain/swelling, fevers, chills, lightheadedness. Objective Data Objective Data Vital Signs: Vital Signs Temp Pulse Resp BP Pulse Ox O2 Del Method 97.9 F 60 16 101/54 L 98 Room Air 09/29/23 07:35 09/29/23 07:35 09/29/23 07:35 09/29/23 07:35 09/29/23 07:35 09/29/23 07:35 Oxygen Delivery Method Room Air Weight: 185 lb 3.013 oz Body Mass Index (BMI) 32.8 Intake & Output: Intake and Output for Last 24 Hours 09/27/23 09/28/23 09/29/23 23:59 23:59 23:59 Intake Total 1238.24 / 1238.24 160.93 / 160.93 Output Total 901 / 901 2300 / 2300 Balance 337.24 / 337.24 -2139.07 / -2139.07 Lab / Micro Data 09/27/23 16:40 Micro: Microbiology 09/27/23 16:40 Interface Orders Chlamydia trachomatis (PCR) - Final 09/27/23 16:40 Interface Orders Neisseria gonorrhoeae (PCR) - Final ROS Constitutional Constitutional: Reports systems reviewed and no addt'l complaints, except as documented Cardiovascular Cardiovascular: Reports systems reviewed and no addt'l complaints, except as doc umented Respiratory/Chest Respiratory/Chest: Reports systems reviewed and no addt'l complaints, except as documented Gastrointestinal Gastrointestinal: Reports systems reviewed and no addt'l complaints, except as documented Physical Exam Const alert, oriented x3 and no apparent distress HEENT Head and Scalp: atraumatic Resp normal respiratory effort GI soft to palpation and non-tender Bimanual Exam - Vag & Uterus: uterus non-tender Uterus Palpation: uterus fundus firm (below Umbilicus) Assessment & Plan (1) Vaginal delivery: COMMENT: SM PPROM 34 boy Gavin PLAN: Plan s/p PPD # 2 1. routine post delivery care 2. pumping - support given 3. rh positive 4. rubella immune
[2023-09-29] MEDS: Naproxen 500 MG Tablet PO (14:22)
[2023-09-29 15:06] VITALS: BP 112/80; PULSE 74; RESP 16; TEMP 36.6
== END 2023-09-29 17:00 | disposition home or self-care (01) | DRG 807 ==
LOC: WPOUT 15:49 → WP 15:49
PROVIDERS: Admitting Provider Advanced Practice Midwife; PCP Internal Medicine; Referring Provider Advanced Practice Midwife; Visit Provider Obstetrics & Gynecology
DX: O42.913 Preterm premature rupture of membranes, unspecified as to length of time between rupture and onset of labor, third trimester (principal); Z37.0 Single live birth; O99.344 Other mental disorders complicating childbirth; F33.41 Major depressive disorder, recurrent, in partial remission; O69.81X0 Labor and delivery complicated by cord around neck, without compression, not applicable or unspecified; O70.1 Second degree perineal laceration during delivery; Z3A.34 34 weeks gestation of pregnancy; Z79.899 Other long term (current) drug therapy; O76 Abnormality in fetal heart rate and rhythm complicating labor and delivery; O75.89 Other specified complications of labor and delivery
CPT/HCPCS: 59025; 59050; 84112; 85025; 86780; 86850; 86900; 86901; 87081; 87491; 87591; 87653; 99221; J7120; A4216; G0378; J0290; J0702

== ENCOUNTER → 2024-07-18 | Outpatient (CLI) | payer BC, SELFPAY ==
--- NOTE | 2024-07-18 09:00 | RAD_ITS ---
STUDY: X-RAY - LUMBAR SPINE REASON FOR EXAM: Female, 28 years old. Back pain TECHNIQUE: 2 view(s) of the lumbar spine were obtained. COMPARISON: None FINDINGS: Normal lumbar lordosis. There is a levoscoliosis of the lumbar spine. Normal vertebral bodies and endplates. There is disc space narrowing at L5-S1. There is no demonstrated fracture. The soft tissue structures are unremarkable. RAD/Lumbar Spine 2 or 3 Views IMPRESSION: Mild degenerative change. Electronically Signed: Jules Kang MD at 8:55 EDT ,
== END | disposition home or self-care (01) ==
LOC: MTRAD 08:48
PROVIDERS: PCP Internal Medicine; Referring Provider Nurse Practitioner; Visit Provider Nurse Practitioner
DX: M54.50 Low back pain, unspecified (principal)
CPT/HCPCS: 72100

== ENCOUNTER → 2024-10-19 | Outpatient (CLI) | payer BC, SELFPAY ==
[2024-10-19 12:19] LABS: Absolute Neutrophil Count 5.9 X10^3/uL (2.0-7.7); Basophil# 0.04 X10^3/uL; Basophil% 0.5 % (0-1); Eosinophils% 1.1 % (0-5); Hematocrit 42.9 % (37-47); Hemoglobin 14.3 g/dL (12.0-15.0); Lymphocyte % 24.8 % (19-41); Mean Corp Hgb Conc 33.3 g/dL (32-36); Mean Corpuscular Hgb 29.5 pg (27.0-32.0); Mean Corpuscular Volume 88.6 fL (81-99); Mean Platelet Vol. 9.8 fl (6.2-12.0); Monocyte% 6.8 % (0-10); NRBC Flagged by Analyzer 0 % (0-5); Neutrophil % 66.5 % (47-70); Platelet Count 431 K/mm3 (150-450); RBC Distribution Width CV 12.6 % (11.6-14.6); Red Blood Count 4.84 M/mm3 (4.2-5.4); White Blood Count 8.9 K/mm3 (4.4-11.0)
[2024-10-19 13:18] LABS: HIV - WCH Non-Reactive (Nonreactive); Hepatitis B Surface Antigen Non-Reactive (Nonreactive); Hepatitis C Antibody Non-Reactive (Nonreactive); Rubella IgG Reactive (Nonreactive); Syphilis Antibodies Non-reactive
[2024-10-22 21:06] LABS: Chlamydia By Nucleic Acid AMP Negative (Negative); Gonococcus By Nucleic Acid AMP Negative (Negative)
== END | disposition home or self-care (01) ==
LOC: BWCLAB 11:56
PROVIDERS: PCP Internal Medicine; Referring Provider Registered Nurse; Visit Provider Registered Nurse
DX: O09.90 Supervision of high risk pregnancy, unspecified, unspecified trimester (principal); Z3A.00 Weeks of gestation of pregnancy not specified
CPT/HCPCS: 36415; 85025; 86703; 86762; 86780; 86803; 86850; 86900; 86901; 87086; 87340; 87491; 87591

== ENCOUNTER 2024-12-14 19:03 | Emergency (ER) | payer OTHER, SELFPAY ==
[2024-12-14 19:03] VITALS: BP 161/90; PULSE 78; RESP 16; TEMP 36.8; O2SAT 100; BMI 29.2
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
--- NOTE | 2024-12-14 20:14 | US_ITS ---
PROCEDURE: TRANSVAGINAL W/PREG US REASON FOR EXAM: Vaginal bleeding. COMPARISON: None. FINDINGS Single living intrauterine gestation. heart rate 153 beats per minute. No biometrics performed. Variable position. Amniotic fluid volume is subjectively normal. Posterior placenta without evidence of abruption. The lower placental margin completely covered the internal cervical os consistent with grade for previa. The cervix is closed without funneling. Cervical length is approximately 3.3 cm. US/Transvaginal w/Preg US IMPRESSION: Single living IUP. Lower placenta completely covers the internal cervical os c onsistent with grade 4 previa. Reading Location: [facility]
[2024-12-14 20:15] VITALS: BP 106/73
[2024-12-14] MEDS: 0.9% Normal Saline (1000mL) 1,000 ML 999 ML IV (20:23)
[2024-12-14 20:27] LABS: Absolute Lymphocyte Count 2.62 X10^3/uL (0.83-4.51); Basophil# 0.02 X10^3/uL; Basophil% 0.2 % (0-1); Eosinophils% 1.2 % (0-5); Hematocrit 35.6 % (37-47); Hemoglobin 12.4 g/dL (12.0-15.0); Lymphocyte # 2.62 X10^3/ul (0.83-4.51); Lymphocyte % 31.5 % (19-41); Mean Corp Hgb Conc 34.8 g/dL (32-36); Mean Corpuscular Hgb 30.6 pg (27.0-32.0); Mean Corpuscular Volume 87.9 fL (81-99); Mean Platelet Vol. 10.4 fl (6.2-12.0); Monocyte# 0.59 X10^3/uL; Monocyte% 7.1 % (0-10); NRBC Flagged by Analyzer 0 % (0-5); Neutrophil # 4.98 X10^3/uL (2.7-7.7); Neutrophil % 59.8 % (47-70); Platelet Count 330 K/mm3 (150-450); RBC Distribution Width CV 12.8 % (11.6-14.6); RBC Distribution Width SD 41.3 fl (35.1-43.9); Red Blood Count 4.05 M/mm3 (4.2-5.4); White Blood Count 8.3 K/mm3 (4.4-11.0)
[2024-12-14 20:40] LABS: Mucous, Urine 0 SEEN /hpf (<or=2+); White Blood Cells 0 SEEN /hpf (0-5)
[2024-12-14 20:40] LABS: International Normalized Ratio 0.9; Prothrombin Time (Protime)PT. 12.5 SECONDS (11.7-14.9)
[2024-12-14 20:45] LABS: Partial Thromboplast Time 26.2 Seconds (24.1-36.2)
[2024-12-14 20:48] LABS: ALB/GLOB Ratio 0.9 RATIO (0.9-2.4); AST(SGOT) 24 U/L (15-37); Alanine Aminotransfer ALT/SGPT 28 U/L (13-56); Alkaline Phosphatase 65 U/L (45-117); Anion Gap 8 (5-15); BUN 6 mg/dL (7-18); BUN/Creat Ratio 9.5 RATIO (10-20); Calcium,Total 8.8 mg/dL (8.5-10.1); Chloride 104 mmol/L (98-107); Creatinine, Serum 0.63 mg/dL (0.55-1.02); EST Glomerular Filtration Rate 117 mL/min (>60); Est Glom Filt Rate - Afr Amer 141 mL/min (>60); Estimated Creatinine Clearance 125.44 ml/min; Globulin 3.5 g/dL (2.2-4.2); Glucose 80 mg/dL (74-106); Potassium 3.3 mmol/L (3.5-5.1); Protein, Total 6.5 g/dL (6.4-8.2); Sodium Level 137 mmol/L (136-145)
[2024-12-14 20:52] LABS: Color, Urine Yellow (Yellow); Glucose, Dipstick Normal (Normal); Ketone-Dipstick Negative (Negative); Leukocyte Esterase-Dipstick Negative /ul (Negative); Nitrite-Dipstick Negative (Negative); Occult Blood-Urine 150 /ul (Negative); Protein-Dipstick Negative (Negative); Urine Bilirubin Dipstick Negative (Negative); Urine Clarity Clear (Clear); Urine Urobilinogen Normal (Normal); Urine pH 6.5 (5.0 - 8.0)
[2024-12-14 20:59] LABS: LDH 144 U/L (84-246)
[2024-12-14 21:02] LABS: Bacteria RARE /hpf (None Seen); Red Blood Cells-Urine 0-5 SEEN /hpf (0-5); Squamous Epithelial Cells - UA 0-5 SEEN /hpf (5-10)
[2024-12-14 22:00] VITALS: BP 101/68; PULSE 67; PULSE 70; RESP 16; RESP 22; O2SAT 100; O2SAT 98
== END 2024-12-14 23:05 | disposition home or self-care (01) ==
PROVIDERS: Emergency Provider Surgery; PCP Internal Medicine; Visit Provider Surgery
DX: O44.52 Low lying placenta with hemorrhage, second trimester (principal); Z3A.16 16 weeks gestation of pregnancy; Z87.59 Personal history of other complications of pregnancy, childbirth and the puerperium
CPT/HCPCS: 76817; 80053; 81001; 83615; 85025; 85610; 85730; 86900; 86901; 96360; 96361; 99284; A4216

== ENCOUNTER → 2024-12-27 | Outpatient (CLI) | payer OTHER, SELFPAY ==
[2024-12-27 10:00] LABS: ROM Internal Control Test YES-OK TO RESULT pt. (Internal QC); ROM Patient Test Negative (Negative); Record Kit Lot#, ROM+ K2871
== END | disposition home or self-care (01) ==
LOC: LABSPEC 09:21
PROVIDERS: PCP Internal Medicine; Referring Provider Nurse Practitioner Women's Health; Visit Provider Nurse Practitioner Women's Health
DX: R30.0 Dysuria (principal); N89.8 Other specified noninflammatory disorders of vagina
CPT/HCPCS: 84112; 87086; 87088

== ENCOUNTER 2025-02-22 11:55 | Outpatient (CLI) | payer OTHER, SELFPAY ==
[2025-02-22 12:07] VITALS: BP 117/73; PULSE 85; RESP 16; TEMP 36.6
[2025-02-22 12:09] VITALS: BMI 30.6
[2025-02-22 12:29] LABS: Color, Urine Yellow (Yellow); Glucose, Dipstick Normal (Normal); Ketone-Dipstick 5 mg/dl (Negative); Leukocyte Esterase-Dipstick 25 /ul (Negative); Nitrite-Dipstick Negative (Negative); Occult Blood-Urine Negative /ul (Negative); Protein-Dipstick 30 mg/dl (Negative); Specific Gravity, Urine 1.025 (1.002-1.030); Urine Bilirubin Dipstick Negative (Negative); Urine Clarity Sl. Cloudy (Clear); Urine Urobilinogen 1 mg/dl (Normal)
[2025-02-22] MEDS: Phenazopyridine 95 MG Tablet 190 MG PO (13:18)
[2025-02-22] MEDS: Nitrofurantoin Macrocrystals 100 MG Capsule PO (13:18)
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
== END 2025-02-22 13:20 | disposition home or self-care (01) ==
LOC: WPOUT 12:03 → WP 12:03
PROVIDERS: PCP Internal Medicine; Referring Provider Registered Nurse; Visit Provider Registered Nurse
DX: O23.42 Unspecified infection of urinary tract in pregnancy, second trimester (principal); Z3A.26 26 weeks gestation of pregnancy
CPT/HCPCS: 59050; 81002; 87086; 87088; 99221; G0378

== ENCOUNTER → 2025-03-06 | Outpatient (CLI) | payer OTHER, SELFPAY ==
[2025-03-06 13:19] LABS: Absolute Lymphocyte Count 1.77 X10^3/uL (0.83-4.51); Absolute Neutrophil Count 6.6 X10^3/uL (2.0-7.7); Basophil# 0.03 X10^3/uL; Basophil% 0.3 % (0-1); Eosinophil# 0.12 X10^3/uL; Eosinophils% 1.3 % (0-5); Hematocrit 38.2 % (37-47); Hemoglobin 12.7 g/dL (12.0-15.0); Lymphocyte # 1.77 X10^3/ul (0.83-4.51); Lymphocyte % 19.8 % (19-41); Mean Corp Hgb Conc 33.2 g/dL (32-36); Mean Corpuscular Hgb 30.2 pg (27.0-32.0); Mean Corpuscular Volume 90.7 fL (81-99); Mean Platelet Vol. 10.2 fl (6.2-12.0); Monocyte# 0.37 X10^3/uL; Monocyte% 4.1 % (0-10); NRBC Flagged by Analyzer 0 % (0-5); Neutrophil # 6.61 X10^3/uL (2.7-7.7); Neutrophil % 73.8 % (47-70); Platelet Count 298 K/mm3 (150-450); RBC Distribution Width CV 13.1 % (11.6-14.6); RBC Distribution Width SD 42.9 fl (35.1-43.9); Red Blood Count 4.21 M/mm3 (4.2-5.4)
[2025-03-06 14:16] LABS: Glucose Challenge Gest 1H 50g 143 mg/dL (70-140); HIV Nonreactive (Nonreactive); Syphilis Antibodies Nonreactive (Nonreactive)
== END | disposition home or self-care (01) ==
LOC: LAB 12:54
PROVIDERS: PCP Internal Medicine; Referring Provider Nurse Practitioner Women's Health; Visit Provider Nurse Practitioner Women's Health
DX: Z34.92 Encounter for supervision of normal pregnancy, unspecified, second trimester (principal)
CPT/HCPCS: 36415; 82950; 85025; 86703; 86780

== ENCOUNTER 2025-03-19 09:30 | Outpatient (CLI) | payer OTHER, SELFPAY ==
[2025-03-19 09:44] VITALS: BMI 32.0
[2025-03-19 10:01] VITALS: TEMP 36.8
[2025-03-19 10:02] VITALS: BP 117/72; PULSE 85; PULSE 86; RESP 16; TEMP 36.8; O2SAT 98
[2025-03-19 10:49] LABS: Bacteria 0 SEEN /hpf (None Seen); Mucous, Urine 0 SEEN /hpf (<or=2+); Red Blood Cells-Urine 0 SEEN /hpf (0-5); White Blood Cells 0 SEEN /hpf (0-5)
[2025-03-19 10:50] LABS: Color, Urine Yellow (Yellow); Glucose, Dipstick Normal (Normal); Ketone-Dipstick Negative (Negative); Leukocyte Esterase-Dipstick Negative /ul (Negative); Nitrite-Dipstick Negative (Negative); Occult Blood-Urine Negative /ul (Negative); Protein-Dipstick Negative (Negative); Urine Bilirubin Dipstick Negative (Negative); Urine Clarity Clear (Clear); Urine Urobilinogen Normal (Normal)
[2025-03-19 11:01] LABS: Squamous Epithelial Cells - UA 0-5 SEEN /hpf (5-10)
[2025-03-19 13:25] LABS: Fetal Fibronectin Negative; Record Kit Lot#, fFN J4938
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
== END 2025-03-19 13:39 | disposition home or self-care (01) ==
LOC: WPOUT 09:37 → WP 09:38
PROVIDERS: PCP Internal Medicine; Referring Provider Advanced Practice Midwife; Visit Provider Advanced Practice Midwife
DX: O23.13 Infections of bladder in pregnancy, third trimester (principal); N30.01 Acute cystitis with hematuria; O99.810 Abnormal glucose complicating pregnancy; O35.03X0 Maternal care for (suspected) central nervous system malformation or damage in fetus, choroid plexus cysts, not applicable or unspecified; O99.343 Other mental disorders complicating pregnancy, third trimester; F33.41 Major depressive disorder, recurrent, in partial remission; F43.12 Post-traumatic stress disorder, chronic; O34.43 Maternal care for other abnormalities of cervix, third trimester; N87.0 Mild cervical dysplasia; Z3A.29 29 weeks gestation of pregnancy; Z87.59 Personal history of other complications of pregnancy, childbirth and the puerperium; Z62.810 Personal history of physical and sexual abuse in childhood
CPT/HCPCS: 36415; 59025; 59050; 81001; 82731; 99221; G0378

== ENCOUNTER 2025-04-03 16:12 | Outpatient (CLI) | payer OTHER, SELFPAY ==
[2025-04-03 16:33] VITALS: RESP 16; TEMP 36.8; BMI 31.9
[2025-04-03 16:34] VITALS: BP 119/66; PULSE 81
[2025-04-03 17:12] LABS: Mucous, Urine 0 SEEN /hpf (<or=2+)
[2025-04-03] MEDS: Betamethasone/Betamethasone 30 MG/5 ML Vial 12 MG IM (17:44)
[2025-04-03 18:09] LABS: Glucose, Dipstick Normal (Normal); Ketone-Dipstick 15 mg/dl (Negative); Leukocyte Esterase-Dipstick 100 /ul (Negative); Nitrite-Dipstick Negative (Negative); Occult Blood-Urine 25 /ul (Negative); Protein-Dipstick 15 mg/dl (Negative); Specific Gravity, Urine 1.015 (1.002-1.030); Urine Bilirubin Dipstick Negative (Negative); Urine Urobilinogen Normal (Normal); Urine pH 6.5 (5.0 - 8.0)
[2025-04-03 18:14] LABS: Color, Urine Straw (Yellow); Urine Clarity Cloudy (Clear)
[2025-04-03] MEDS: Nitrofurantoin Macrocrystals 100 MG Capsule PO (18:37)
[2025-04-03 20:10] LABS: Red Blood Cells-Urine 0-5 SEEN /hpf (0-5); White Blood Cells 10-25 SEEN /hpf (0-5)
[2025-04-03 20:11] LABS: Bacteria 3+ /hpf (None Seen); Squamous Epithelial Cells - UA 5-10 SEEN /hpf (5-10)
--- OUTSIDE RECORDS SUMMARY | 2025-04-03 22:04 | XMS RPT_ITS | CCD ---
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 Negative [facility] Absolute lymphocyte countOrd ered By: Stephania Velasco on 05-27-2023 Lymphocytes Auto (Unsp spec) [#/Vol] 1.84 10*3/uL 0.83-4.51 [facility] Basophil percentageOrdered B y: Stephania Velasco on 05-27-2023 Basophils/100 WBC (Bld) 0.3 % 0-1 [facility] Eosinophils/100 WBC (Bld) 0.9 % 0-5 [facility] Neutrophils (Bld) [#/Vol] 6.7 10*3/uL 2.0-7.7 [facility] Neutrophils/100 WBC (Bld) 73.5 % 47-70 [facility] WBC (Bld) [#/Vol] 9.2 10*3/uL 4.4-11.0 [facility] Blood erythrocytes count (nu mber/volume)Ordered By: Stephania Velasco on 05-27-2023 RBC (Bld) [#/Vol] 4.40 10*6/uL 4.2-5.4 [facility] Blood hemoglobin measurement (mass/volume)Ordered By: Stephania Velasco on 05-27-2023 Hemoglobin (Bld) [Mass/Vol] 13.3 g/dL 12.0-15.0 [facility] Blood lymphocytes/100 leukoc ytesOrdered By: Stephania Velasco on 05-27-2023 Lymphocytes/100 WBC (Bld) 20.1 % 19-41 [facility] Blood monocytes/100 leukocyt esOrdered By: Stephania Velasco on 05-27-2023 Monocytes/100 WBC (Bld) 4.9 % 0-10 [facility] Blood platelet mean volumeOr dered By: Stephania Velasco on 05-27-2023 Platelet mean volume (Bld) [Entitic vol] 9.9 fL 6.2-12.0 [facility] Determination of erythrocyte mean corpuscular volume (MCV)Ordered By: Stephania Velasco on 05-27-2023 MCV (RBC) [Entitic vol] 91.1 fL 81-99 [facility] HIV 1 and HIV-2 antibody ass ay with HIV-1 p24 antigen detectionOrdered By: Stephania Velasco on 05-27-2023 HIV 1+2 Ab+HIV1 p24 Ag IA Ql Non-Reactive Nonreactive [facility] Hematocrit Auto (Bld) [Volum e fraction]Ordered By: Stephania Velasco on 05-27-2023 Hematocrit (Bld) [Volume fraction] 40.1 % 37-47 [facility] - Chemistry and C hemistry - challengeon 05-27-2023 Glucose Ql (U) Negative [facility] - Hematology and Cell countsOrdered By: Stephania Velasco on 05-27-2023 Erythrocyte distribution width (RBC) [Entitic vol] 41.1 fL 35.1-43.9 [facility] Erythrocyte distribution width (RBC) [Ratio] 12.3 % 11.6-14.6 [facility] Immature granulocytes/100 WBC (Bld) 0.300 % 0.0-0.9 [facility] Comment on above: IG% - Immature Granu locytes (promyelocytes, myelocytes and metamyelocytes) > 1% indicates that a LEFT SHIFT is Present. MCH (RBC) [Entitic mass] 30.2 pg 27.0-32.0 [facility] Nucleated RBC/100 WBC (Bld) [Ratio] 0 % 0-5 [facility] Laboratory - Urinalysison Protein Ql (U) Negative [facility] MCHC Auto (RBC) [Mass/Vol]Or dered By: Stephania Velasco on 05-27-2023 MCHC (RBC) [Mass/Vol] 33.2 g/dL 32-36 [facility] No Panel InformationOrdered By: Stephania Velasco on 05-27-2023 Hepatitis B Surface Antigen Non-Reactive Nonreactive [facility] Hepatitis C Antibody Non-Reactive Nonreactive [facility] Comment on above: Non Reactive: < 0.8 Equivocal: >/= 0.8 to < 1.0 Reactive: >/= 1.0The CDC recommends that a reactive/equivocal HCV antibody result be followed up by the HCV Nucleic Acid Amplificationtest (965661) Miscellaneous Test See comment [facility] Comment on above: TEST RESULTS LIMITSA FP, Serum, Open Spina BifidaResults ReportTest Results: *Screen Negative*Gest. Age on Collection Date 17.0 weeksGestat. Age Based On As providedRecalculations are not recommended when gestational dating by LMP and ultrasound are within 10 days.M[age] yrRace CaucasianWeight 168 lbsInsulin Dep Diabetes Not provided.Multiple Gestation NoAFP Value 67.5 ng/mLAFP MoM 1.84OSBR Risk 1 IN 1162InterpretationInterpretation: Screen NegativeThis result is screen negative for OSB. The AFP MoM calculated is based on the gestational age provided. MS-AFP can identify up to 80% of open neural tube defects. Closed neural tube defects and some open defects may not be detected by this test. This test does not screen for Down Syndrome or Trisomy 18. If screening for Down Syndrome or Trisomy 18 is desired, contact [employer] to discuss available options. The [employer] recommends amniocentesis be offered to women age 35 and older. Comment: Beronica Rutherford, Ph.D., DABCCDirectorReferences: Available Upon Request.Multiples Of Median Cutoffs For AFP ElevationsSingleton 2.5 Black 2.8IDD 2.0 Twins 4.5 Abbreviation DefinitionsIDD - Insulin Dep DiabetesOSBR - Open Spina Bifida RiskFor further inquiries contact [employer] at [phone].This test was developed and its performance characteristicsdetermined by [facility]. It has not been cleared or approvedby the Food and Drug Administration. TESTING PERFORMED AT [facility]. ORIGINAL REPORT ON FILE IN LAB CONTAINS ADDITIONAL TEST SITE INFORMATION. Rubella IgG Antibody Reactive Nonreactive [facility] Comment on above: Antibody Results Int erpretation of Immune Status Non Reactive Presumed Non-Immune Equivocal Equivocal Reactive Presumed Immune Platelets bldOrdered By: Hedy Velasco on 05-27-2023 Platelets (Bld) [#/Vol] 306 10*3/uL 150-450 [facility] Serum Treponema species anti body detectionOrdered By: Stephania Velasco on 05-27-2023 Treponema sp Ab Ql (S) Non-Reactive [facility] Laboratory - Chemistry and C hemistry - challengeon 04-29-2023 Glucose Ql (U) Negative [facility] Laboratory - Urinalysison Protein Ql (U) Negative [facility] Chlamydia trachomatis rRNA d etection by probe and target amplification methodOrdered By: Stephania Velasco on 03-30-2023 C. trachomatis rRNA PHILIP+probe Ql (Unsp spec) Negative Negative [facility] Culture, urineOrdered By: Fabio Velasco on 03-30-2023 Bacteria identified Cx Nom (U) Positive [facility] Laboratory - Microbiology an d Antimicrobial susceptibilityOrdered By: Stephania Velasco on 03-30-2023 N. gonorrhoeae DNA PHILIP+probe Ql (Unsp spec) Negative Negative [facility] Comment on above: Performed at: =[address] [id number] Director: Chantel Sánchez MD, Phone: [phone] Laboratory - Microbiology an d Antimicrobial susceptibilityon 12-13-2022 S. pyogenes Ag IA Ql (Unsp spec) Positive [facility] Cervical or vagninal specime n microscopic examination by cytology stain (reported asOrdered By: Vannessa Chirinos on 12-07-2022 Cytology report Cyto stain Doc (Cvx/Vag) Comment . [facility] Comment on above: The Pap smear is a s creening test designed to aid in thedetection of premalignant and malignant conditions of theuterine cervix. It is not a diagnostic procedure andshould not be used as the sole means of detecting cervicalcancer. Both false-positive and false-negative reports dooccur. Laboratory - CytologyOrdered By: Vannessa Chirinos on 12-07-2022 Waterproof Bag Sewer Cyto stain Nom (Cvx/Vag) [ID] Comment . [facility] Comment on above: Salvador Escobar hnologist (ASCP) Laboratory - Miscellaneous t estsOrdered By: Vannessa Chirinos on 12-07-2022 Service comment (Unsp spec) [Interp] Comment . [facility] Comment on above: This liquid based Th inPrep(R) pap test was screened withthe use of an image guided system. Service comment (Unsp spec) [Interp] . . [facility] No Panel InformationOrdered By: Vannessa Chirinos on 12-07-2022 Human Papillomavirus Screen Comment . [facility] Comment on above: The HPV DNA reflex c emili were not met with this specimenresult therefore, no HPV testing was performed.Performed at: [address] [id number] Director: Chantel Sánchez MD, Phone: [phone] Pathology report final diagnosis Narrative Comment . [facility] Comment on above: NEGATIVE FOR INTRAEP ITHELIAL LESION OR MALIGNANCY. Laboratory - Microbiology an d Antimicrobial susceptibilityon 11-06-2022 S. pyogenes Ag IA Ql (Unsp spec) Negative [facility] Office Visit: est annualon 1 10-31-2016 Documentation of current medications (procedure) Done Invalid Interpretation Code [facility] Fall risk assessment No Invalid Interpretation Code [facility] Tobacco smoking status NHIS Never Invalid Interpretation Code [facility] Tobacco use CPHS Never smoker Invalid Interpretation Code [facility] Lab Report: ,Urineo n 08-11-2017 HCG.beta subunit ( test) Ql (U) Negative Invalid Interpretation Code [facility] Work Phone: [phone] Microbiology: Culture, Throa ton 08-06-2017 CUT Vancomycin $ 1 S Invalid Interpretation Code [facility] Work Phone: [phone] Lab Report: CBC W/Diff, Auto matedon 08-02-2017 Lymphocytes variants/100 leukocytes RARE % Invalid Interpretation Code [facility] Work Phone: [phone] Platelets presence ADEQUATE Invalid Interpretation Code ADEQ [facility] Work Phone: [phone] REACTIVE LYMPH 1+ Invalid Interpretation Code [facility] Work Phone: [phone] SMEAR COMMENT SCANNED Invalid Interpretation Code [facility] Work Phone: [phone] Office Visit: Est. Pt. Visit on 08-02-2017 Documentation of current medications (procedure) Done Invalid Interpretation Code [facility] Work Phone: [phone] Fall risk assessment No Invalid Interpretation Code [facility] Work Phone: [phone] Protein mass conc Done Invalid Interpretation Code [facility] Work Phone: [phone] Tobacco smoking status NHIS Never Invalid Interpretation Code [facility] Work Phone: [phone] Tobacco smoking status NHIS Never smoker Invalid Interpretation Code [facility] Work Phone: [phone] Tobacco use [facility] Never smoker Invalid Interpretation Code [facility] Work Phone: [phone] Replaced Document: (P) CBC W /Diff, Automatedon 08-02-2017 Absolute Neut 3.1 X10 3/UL Invalid Interpretation Code 2.0-7.7 [facility] Work Phone: [phone] Basophils/100 WBC Auto (Bld) 0.6 % Invalid Interpretation Code 0-1 [facility] Work Phone: [phone] Eosinophils/100 leukocytes 0.5 % Invalid Interpretation Code 0-5 [facility] Work Phone: [phone] Erythrocyte distribution width Auto Ratio (RBC) 12.6 % Invalid Interpretation Code 11.6-14.6 [facility] Work Phone: [phone] Erythrocyte distribution width Auto Ratio (RBC) 41.8 fL Invalid Interpretation Code 35.1-43.9 [facility] Work Phone: [phone] Erythrocytes (RBC) 4.45 10*6/uL Invalid Interpretation Code 4.2-5.4 [facility] Work Phone: [phone] Hematocrit (HCT) 41.2 % Invalid Interpretation Code 37-47 [facility] Work Phone: [phone] Hemoglobin mass conc (Bld) 13.5 g/dL Invalid Interpretation Code 12.0-15.0 [facility] Work Phone: [phone] Immature granulocytes #/vol (Bld) 0.200 % Invalid Interpretation Code 0.0-0.9 [facility] Work Phone: [phone] Immature granulocytes/100 WBC (Bld) 0.200 % Invalid Interpretation Code 0.0-0.9 [facility] Work Phone: [phone] Lymphocytes 2.16 X10 3/UL Invalid Interpretation Code 0.83-4.51 [facility] Work Phone: [phone] Lymphocytes/100 leukocytes 34.4 % Invalid Interpretation Code 19-41 [facility] Work Phone: [phone] MCH 30.3 pg Invalid Interpretation Code 27.0-32.0 [facility] Work Phone: [phone] MCHC mass conc (RBC) 32.8 G/GL Invalid Interpretation Code 32-36 [facility] Work Phone: [phone] MCV 92.6 fL Invalid Interpretation Code 81-99 [facility] Work Phone: [phone] Monocytes/100 leukocytes 15.6 % High 0-10 [facility] Work Phone: [phone] Neutrophils Auto #/vol (Bld) 3.1 X10 3/UL Invalid Interpretation Code 2.0-7.7 [facility] Work Phone: [phone] Neutrophils/100 WBC Auto (Bld) 48.7 % Invalid Interpretation Code 47-70 [facility] Work Phone: [phone] Platelets 238 10*3/mm3 Invalid Interpretation Code 150-450 [facility] Work Phone: [phone] PMV by Naty 10.3 fL Invalid Interpretation Code 6.2-12.0 [facility] Work Phone: [phone] RDW SD 41.8 fL Invalid Interpretation Code 35.1-43.9 [facility] Work Phone: [phone] WBC (Leukocytes) 6.3 10*3/uL Invalid Interpretation Code 4.4-11.0 [facility] Work Phone: [phone] Microbiology: Culture, R/O S trep Aon 08-01-2017 CUSTREPA . Invalid Interpretation Code [facility] Work Phone: [phone] Append: UC: Still has a sore throaton 07-30-2017 Rapid strep test Negative Invalid Interpretation Code [facility] Work Phone: S. pyogenes DNA PHILIP+probe Ql (Throat) Negative Invalid Interpretation Code [facility] Work Phone: [phone] Office Visit: UC: Still has a sore throaton 07-30-2017 Documentation of current medications (procedure) Done Invalid Interpretation Code [facility] Work Phone: Fall risk assessment No Invalid Interpretation Code [facility] Work Phone: Tobacco smoking status NHIS Never Invalid Interpretation Code [facility] Work Phone: Tobacco use HS Never smoker Invalid Interpretation Code [facility] Work Phone: Office Visit: acute visit, s trep tonsillitison 07-20-2017 Documentation of current medications (procedure) Done Invalid Interpretation Code [facility] Work Phone: [phone] Fall risk assessment No Invalid Interpretation Code [facility] Work Phone: [phone] Tobacco smoking status NHIS Never Invalid Interpretation Code [facility] Work Phone: [phone] Tobacco use [facility] Never smoker Invalid Interpretation Code [facility] Work Phone: [phone] Office Visit: UC: Sore throa ton 07-19-2017 Documentation of current medications (procedure) Done Invalid Interpretation Code [facility] Work Phone: Fall risk assessment No Invalid Interpretation Code [facility] Work Phone: Tobacco smoking status PRIS Never Invalid Interpretation Code [facility] Work Phone: Tobacco use [facility] Never smoker Invalid Interpretation Code [facility] Work Phone: Lab Report: Hep B Surface An tibodies EMPon 06-29-2017 GE use only - for [employer] import when terms are not otherwise specified Reactive Invalid Interpretation Code . [facility] Work Phone: [phone] Hep B Pema AB Reactive Invalid Interpretation Code . [facility] Work Phone: [phone] Lab Report: CBC, Employeeon 06-28-2017 Absolute Neut 2.3 X10 3/UL Invalid Interpretation Code 2.0-7.7 [facility] Work Phone: [phone] Basophils/100 leukocytes 0.8 % Invalid Interpretation Code 0-1 [facility] Work Phone: [phone] Basophils/100 WBC (Bld) 0.8 % 0-1 [facility] Work Phone: [phone] Eosinophils/100 leukocytes 2.4 % Invalid Interpretation Code 0-5 [facility] Work Phone: [phone] Eosinophils/100 WBC (Bld) 2.4 % 0-5 [facility] Work Phone: [phone] Erythrocyte distribution width Auto Ratio (RBC) 44.0 fL High 35.1-43.9 [facility] Work Phone: [phone] Erythrocyte distribution width Ratio (RBC) 44.0 fL High 35.1-43.9 [facility] Work Phone: [phone] Erythrocyte distribution width Ratio (RBC) 13.2 % 11.6-14.6 [facility] Work Phone: [phone] Erythrocytes (RBC) 4.69 10*6/uL Invalid Interpretation Code 4.2-5.4 [facility] Work Phone: [phone] Hematocrit (HCT) 44.1 % Invalid Interpretation Code 37-47 [facility] Work Phone: [phone] Hematocrit Volume Fraction (Bld) 44.1 % 37-47 [facility] Work Phone: [phone] Hemoglobin (HGB) 14.4 g/dL Invalid Interpretation Code 12.0-15.0 [facility] Work Phone: [phone] Lymphocytes 2.04 X10 3/UL Invalid Interpretation Code 0.83-4.51 [facility] Work Phone: [phone] Lymphocytes #/vol (Bld) 2.04 X10 3/UL 0.83-4.51 [facility] Work Phone: [phone] Lymphocytes/100 leukocytes 41.1 % High 19-41 [facility] Work Phone: [phone] Lymphocytes/100 WBC (Bld) 41.1 % High 19-41 [facility] [facility] Work Phone: [phone] MCH 30.7 pg Invalid Interpretation Code 27.0-32.0 [facility] Work Phone: [phone] MCH Entitic mass (RBC) 30.7 pg 27.0-32.0 Bl [facility] Internal Medicine Work Phone: [phone] MCHC 32.7 G/GL Invalid Interpretation Code 32-36 [facility] Work Phone: [phone] MCHC mass conc (RBC) 32.7 G/GL 32-36 [facility] Internal Medicine Work Phone: [phone] MCV 94.0 fL Invalid Interpretation Code 81-99 [facility] Work Phone: [phone] MCV Entitic volume (RBC) 94.0 fL 81-99 [facility] Work Phone: [phone] Monocytes/100 leukocytes 9.7 % Invalid Interpretation Code 0-10 [facility] Work Phone: [phone] Monocytes/100 WBC (Bld) 9.7 % 0-10 [facility] Work Phone: [phone] neutrophil count, blood 2.3 X10 3/UL Invalid Interpretation Code 2.0-7.7 [facility] Work Phone: [phone] Neutrophils #/vol (Bld) 2.3 X10 3/UL 2.0-7.7 [facility] Work Phone: [phone] Neutrophils Auto #/vol (Bld) 2.3 X10 3/UL Invalid Interpretation Code 2.0-7.7 [facility] Work Phone: [phone] Neutrophils/100 leukocytes 46.0 % Low 47-70 [facility] Work Phone: [phone] Neutrophils/100 WBC (Bld) 46.0 % Low 47-70 [facility] Work Phone: [phone] Platelet mean volume Entitic volume (Bld) 10.8 fL 6.2-12.0 [facility] Work Phone: [phone] Platelets 315 10*3/mm3 Invalid Interpretation Code 150-450 [facility] Work Phone: [phone] Platelets #/vol (Bld) 315 10*3/mm3 150-450 [facility] Work Phone: [phone] PMV by Naty 10.8 fL Invalid Interpretation Code 6.2-12.0 [facility] Work Phone: [phone] RBC #/vol (Bld) 4.69 10*6/uL 4.2-5.4 [facility] Internal Medicine Work Phone: [phone] RDW SD 44.0 fL High 35.1-43.9 [facility] Work Phone: [phone] RDW-CA 13.2 % Invalid Interpretation Code 11.6-14.6 [facility] Work Phone: [phone] red blood cell distribution width, size density 44.0 fL High 35.1-43.9 [facility] Work Phone: [phone] WBC #/vol (Bld) 5.0 10*3/uL 4.4-11.0 [facility] Internal Medicine Work Phone: [phone] WBC (Leukocytes) 5.0 10*3/uL Invalid Interpretation Code 4.4-11.0 [facility] Work Phone: [phone] Lab Report: Employee Profile on 06-28-2017 Alanine aminotransferase (ALT) 51 U/L Invalid Interpretation Code 12-78 [facility] Work Phone: [phone] Albumin 4.3 g/dL Invalid Interpretation Code 3.4-5.0 [facility] Work Phone: [phone] Albumin/Globulin Ratio 1.2 {ratio} Invalid Interpretation Code 0.9-2.4 [facility] Work Phone: [phone] Alkaline phosphatase (ALP) 72 U/L Invalid Interpretation Code 45-117 [facility] Work Phone: [phone] ALP enzyme act/vol (Bld) 72 U/L Invalid Interpretation Code 45-117 [facility] Work Phone: [phone] Anion gap 7 mmol/L Invalid Interpretation Code 5-15 [facility] Work Phone: [phone] Anion gap 4 molar conc 7 Invalid Interpretation Code 5-15 [facility] Work Phone: [phone] Anion gap molar conc 7 mmol/L 5-15 [facility] Work Phone: [phone] Aspartate aminotransferase (AST) 36 U/L Invalid Interpretation Code 15-37 [facility] Work Phone: [phone] Bilirubin (direct) 0.28 mg/dL Invalid Interpretation Code 0.00-0.30 [facility] Work Phone: [phone] Bilirubin (total) 1.40 mg/dL High 0.20-1.00 [facility] Work Phone: [phone] BUN/Creatinine Ratio 18.0 RATIO Invalid Interpretation Code 10-20 [facility] Work Phone: [phone] Calcium 9.3 mg/dL Invalid Interpretation Code 8.5-10.1 [facility] Work Phone: [phone] Chloride 106 mmol/L Invalid Interpretation Code 98-107 [facility] Work Phone: [phone] Cholesterol 168 mg/dL Invalid Interpretation Code 200 [facility] Work Phone: [phone] CO2 29.0 mmol/L Invalid Interpretation Code 21.0-32.0 [facility] Work Phone: [phone] CO2 ppres (BldV) 29.0 mmol/L Invalid Interpretation Code 21.0-32.0 [facility] Work Phone: [phone] Creatinine 0.94 mg/dL Invalid Interpretation Code 0.55-1.02 [facility] Work Phone: [phone] eGFR (non-black) 94 mL/min/{1.73_m2} Invalid Interpretation Code >60 [facility] Work Phone: [phone] eGFR (non-black) 78 mL/min/{1.73_m2} Invalid Interpretation Code >60 [facility] Work Phone: [phone] EST GFR - AA 94 mL/min Invalid Interpretation Code >60 [facility] Work Phone: [phone] Globulin 3.6 g/dL High 2.3-3.5 [facility] Work Phone: [phone] Globulin mass conc (S) 3.6 g/dL High 2.3-3.5 [facility] Work Phone: [phone] Glucose 85 mg/dL Invalid Interpretation Code 70-110 [facility] Work Phone: [phone] Glucose mass conc 85 mg/dL Invalid Interpretation Code 70-110 [facility] Work Phone: [phone] HDL Cholesterol 84 mg/dL Invalid Interpretation Code [facility] Work Phone: [phone] lactate dehydrogenase - serum 233 U/L Invalid Interpretation Code 84-246 [facility] Work Phone: [phone] LDH 233 U/L Invalid Interpretation Code 84-246 [facility] Work Phone: [phone] LDL Cholesterol 74 mg/dL Invalid Interpretation Code 0-130 [facility] Work Phone: [phone] PHOS 3.2 mg/dL Invalid Interpretation Code 2.5-4.9 [facility] Work Phone: [phone] Phosphorus Concentratation-Random 3.2 mg/dL Invalid Interpretation Code 2.5-4.9 [facility] Work Phone: [phone] Potassium 3.8 mmol/L Invalid Interpretation Code 3.5-5.1 [facility] Work Phone: [phone] Protein 7.9 g/dL Invalid Interpretation Code 6.4-8.2 [facility] Work Phone: [phone] Sodium 142 mmol/L Invalid Interpretation Code 136-145 [facility] Work Phone: [phone] Triglyceride 50 mg/dL Invalid Interpretation Code [facility] Work Phone: [phone] Urate 4.2 mg/dL Invalid Interpretation Code 2.6-6.0 [facility] Work Phone: [phone] Urea nitrogen 17 mg/dL Invalid Interpretation Code 7-18 [facility] Work Phone: [phone] very low density lipoproteins 10 mg/dL Invalid Interpretation Code 5-40 [facility] Work Phone: [phone] Lab Report: Nicotine Urine D rug Screenon 06-28-2017 GE use only - for [employer] import when terms are not otherwise specified Negative Invalid Interpretation Code <200 ng/mL [facility] Work Phone: [phone] Lab Report: Urinalysis, Empl oyeeon 06-28-2017 Albumin Ql (U) Negative Invalid Interpretation Code Negative [facility] Work Phone: [phone] Bilirubin Ql (U) Negative Invalid Interpretation Code Negative [facility] Work Phone: [phone] Ketones mass conc (U) Negative Invalid Interpretation Code Negative [facility] Work Phone: [phone] NITRITE UR Negative Invalid Interpretation Code Negative [facility] Work Phone: [phone] Nitrite Urine Negative Invalid Interpretation Code Negative [facility] Work Phone: [phone] Occult Blood, urine Negative Invalid Interpretation Code Negative [facility] Work Phone: [phone] OCCULT BLOOD-UR Negative Invalid Interpretation Code Negative [facility] Work Phone: [phone] pH (U) 7.0 [pH] 5.0 - 8.0 [facility] Work Phone: [phone] specific gravity, urine 1.015 Invalid Interpretation Code 1.002-1.030 [facility] Work Phone: [phone] Urine, bilirubin presence Negative Invalid Interpretation Code Negative [facility] Work Phone: [phone] Urine, clarity Clear Invalid Interpretation Code Clear [facility] Work Phone: [phone] Urine, color Yellow Invalid Interpretation Code Yellow [facility] Work Phone: [phone] Urine, glucose presence Normal mg/dl Invalid Interpretation Code Normal [facility] Work Phone: [phone] Urine, ketones presence Negative Invalid Interpretation Code Negative [facility] Work Phone: [phone] Urine, leukocyte esterase presence Negative Invalid Interpretation Code Negative [facility] Work Phone: [phone] Urine, pH 7.0 [pH] Invalid Interpretation Code 5.0 - 8.0 [facility] Work Phone: [phone] Urine, protein Negative Invalid Interpretation Code Negative [facility] Work Phone: [phone] UROBILI Normal mg/dl Invalid Interpretation Code Normal [facility] Work Phone: [phone] urobilinogen, urine, by dipstick Normal mg/dl Invalid Interpretation Code Normal [facility] Work Phone: [phone] Office Visit: New Pt. Visito n 06-28-2017 Dietary management education, guidance, and counseling (procedure) yes Invalid Interpretation Code [employer] Work Phone: Documentation of current medications (procedure) Done Invalid Interpretation Code [employer] Work Phone: Fall risk assessment No Invalid Interpretation Code [employer] Work Phone: Protein mass conc Done [facility] Work Phone: [phone] Tobacco smoking status NHIS Never Invalid Interpretation Code [employer] Work Phone: Tobacco smoking status NHIS Never smoker [facility] Work Phone: [phone] Tobacco use [facility] Never smoker Invalid Interpretation Code [employer] Work Phone: Office Visiton 10-14-2016 Dietary management education, guidance, and counseling (procedure) yes Invalid Interpretation Code [facility] Work Phone: Documentation of current medications (procedure) Done Invalid Interpretation Code [facility] Work Phone: Protein mass conc Done [place] Work Phone: Replaced Document: [employer] E CG Observationson 10-14-2016 EKG QRS axis 65 deg Invalid Interpretation Code [employer] Work Phone: electrocardiogram interpretation Sinus Bradycardia -Short MA syndrome Yazan = 112BORDERLINE RHYTHM Invalid Interpretation Code [facility] Work Phone: Interpretation Sinus Bradycardia -S hort MA syndrome Yazan = 112BORDERLINE RHYTHM Invalid Interpretation Code [employer] Work Phone: P [place] 34 deg Invalid Interpretation Code [employer] Work Phone: P wave axis, electrocardiogram 34 deg Invalid Interpretation Code [facility] Work Phone: [phone] MA Interval 112 ms Invalid Interpretation Code [employer] Work Phone: MA interval, electrocardiogram 112 ms Invalid Interpretation Code [facility] Work Phone: [phone] Pulse (Heart Rate) 57 /min Invalid Interpretation Code [facility] Work Phone: [phone] QRS axis, electrocardiogram 65 deg Invalid Interpretation Code [facility] Work Phone: [phone] QRS Duration 82 ms Invalid Interpretation Code [facility] Work Phone: QRS duration, electrocardiogram 82 ms Invalid Interpretation Code [facility] Work Phone: [phone] QT Interval new path ms Invalid Interpretation Code [facility] Work Phone: QT interval, electrocardiogram new path ms Invalid Interpretation Code [facility] Work Phone: [phone] QTc Mejai 435 ms [facility] Work Phone: T [place] -1 deg Invalid Interpretation Code [facility] Work Phone: T wave axis, electrocardiogram -1 deg Invalid Interpretation Code [facility] Work Phone: Clinical 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 Tobacco smoking status NHIS Never smoker [facility] Work Phone: Tobacco use [facility] Never smoker Invalid Interpretation Code [facility] Work Phone: [phone] Left ventricular Ejection fraction 60 % Invalid Interpretation Code [facility] Work Phone: Office Visit: Spine Visiton 07-13-2016 Tobacco smoking status PRIS Never Invalid Interpretation Code [facility] Work Phone: Clinical Lists 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 07-06-2016 ALP enzyme act/vol (Bld) 63 U/L [facility] Work Phone: ALT enzyme act/vol 39 U/L [facility] Work Phone: AST enzyme act/vol 28 U/L [facility] Work Phone: Bilirubin mass conc 2.60 mg/dL [facility] Work Phone: Calcium mass conc 8.5 mg/dL [facility] Work Phone: Chloride molar conc 103 mmol/L [facility] Work Phone: Cholesterol in HDL mass conc 88 mg/dL [facility] Work Phone: [phone] Cholesterol in LDL mass conc 57 mg/dL [facility] Work Phone: [phone] Cholesterol mass conc 159 mg/dL [facility] Work Phone: [phone] CO2 ppres (BldV) 28.0 mmol/L [facility] Work Phone: [phone] Creatinine mass conc 0.86 mg/dL [facility] Work Phone: [phone] Glucose mass conc 84 mg/dL [facility] Work Phone: [phone] Hematocrit Volume Fraction (Bld) 39.8 % [facility] Work Phone: [phone] Hemoglobin mass conc (Bld) 13.2 g/dL [facility] Work Phone: [phone] Platelets #/vol (Bld) 298 10*3/mm3 B [facility] Work Phone: [phone] Potassium molar conc 3.5 mmol/L [facility] Work Phone: [phone] Protein mass conc 6.8 g/dL [facility] Work Phone: [phone] Sodium molar conc 137 mmol/L [facility] Work Phone: [phone] Triglyceride mass conc 70 mg/dL [facility] Work Phone: [phone] Urea nitrogen mass conc 13 mg/dL [facility] Work Phone: [phone] Urea nitrogen/Creatinine mass ratio 15.1 mg/mg [facility] Work Phone: [phone] WBC #/vol (Bld) 6.3 10*3/uL [facility] Work Phone: Office Visit: est annualon 0 07-01-2016 General categories [Interpretation] of Cervical or vaginal smear or scraping by Cyto stain Normal Invalid Interpretation Code [facility] Vital Signs Date Time Vital Sign Value Performing Clinician Jamiei reyes 03-19-2025 10:02-0400 Body temperature 98.3 [degF] Dr. Kevin Perez MD Work Phone: [facility] 03-19-2025 10:02-0400 Diastolic blood pressure 72 mm[Hg] Dr. Kevin Perez MD Work Phone: [facility] 03-19-2025 10:02-0400 Heart rate 86 /min Dr. Kevin Perez MD Work Phone: [facility] 03-19-2025 10:02-0400 Respiratory rate 16 /min Dr. Kevin Perez MD Work Phone: [facility] 03-19-2025 10:02-0400 SaO2% (BldA) [Mass fraction] 98 % Dr. Kevin Perez MD Work Phone: [facility] 03-19-2025 10:02-0400 Systolic blood pressure 117 mm[Hg] Dr. Kevin Perez MD Work Phone: [facility] 03-19-2025 09:44-0400 Body height 162.[address] Kevin Perez MD Work Phone: [facility] 03-19-2025 09:44-0400 Body mass index (BMI) [Ratio] 32 kg/m2 Dr. Kevin Perez MD Work Phone: [facility] 03-19-2025 09:44-0400 Body weight 84.[address] Kevin Perez MD Work Phone: [facility] 03-06-2025 13:09-0400 Body height 162.[address] Kevin Perez MD Work Phone: [facility] 03-06-2025 13:09-0400 Body mass index (BMI) [Ratio] 31.1 kg/m2 Dr. Kevin Perez MD Work Phone: [facility] 03-06-2025 13:09-0400 Body weight 82.[address] Kevin Perez MD Work Phone: [facility] 03-06-2025 13:09-0400 Diastolic blood pressure 74 mm[Hg] Dr. Kevin Perez MD Work Phone: [facility] 03-06-2025 13:09-0400 Systolic blood pressure 112 mm[Hg] Dr. Kevin Perez MD Work Phone: [facility] 02-22-2025 12:09-0400 Body height 162.[address] Kevin Perez MD Work Phone: [facility] 02-22-2025 12:09-0400 Body mass index (BMI) [Ratio] 30.6 kg/m2 Dr. Kevin Perez MD Work Phone: [facility] 02-22-2025 12:09-0400 Body weight 80.[address] Kevin Perez MD Work Phone: [facility] 02-22-2025 12:07-0400 Body temperature 97.9 [degF] Dr. Kevin Perez MD Work Phone: [facility] 02-22-2025 12:07-0400 Diastolic blood pressure 73 mm[Hg] Dr. Kevin Perez MD Work Phone: [facility] 02-22-2025 12:07-0400 Heart rate 85 /min Dr. Kevin Perez MD Work Phone: [facility] 02-22-2025 12:07-0400 Respiratory rate 16 /min Dr. Kevin Perez MD Work Phone: [facility] 02-22-2025 12:07-0400 Systolic blood pressure 117 mm[Hg] Dr. Kevin Perez MD Work Phone: [facility] 02-07-2025 10:24-0400 Body mass index (BMI) [Ratio] 30.7 kg/m2 Dr. Kevin Perez MD Work Phone: [facility] 02-07-2025 10:24-0400 Body weight 78.[address] Kevin Perez MD Work Phone: [facility] 02-07-2025 10:24-0400 Diastolic blood pressure 79 mm[Hg] Dr. Kevin Perez MD Work Phone: [facility] 02-07-2025 10:24-0400 Systolic blood pressure 117 mm[Hg] Dr. Kevin Perez MD Work Phone: [facility] 01-11-2025 10:24-0400 Body mass index (BMI) [Ratio] 29.6 kg/m2 Dr. Kevin Perez MD Work Phone: [facility] 01-11-2025 10:24-0400 Body weight 75.[address] Kevin Perez MD Work Phone: [facility] 01-11-2025 10:24-0400 Diastolic blood pressure 73 mm[Hg] Dr. Kevin Perez MD Work Phone: [facility] 01-11-2025 10:24-0400 Systolic blood pressure 114 mm[Hg] Dr. Kevin Perez MD Work Phone: [facility] 12-27-2024 08:58-0500 Body height 160.[address] Kevin Perez MD Work Phone: [facility] 12-27-2024 08:58-0500 Body mass index (BMI) [Ratio] 28.8 kg/m2 Dr. Kevin Perez MD Work Phone: [facility] 12-27-2024 08:58-0500 Body weight 73.[address] Kevin Perez MD Work Phone: [facility] 12-27-2024 08:58-0500 Diastolic blood pressure 70 mm[Hg] Dr. Kevin Perez MD Work Phone: [facility] 12-27-2024 08:58-0500 Systolic blood pressure 108 mm[Hg] Dr. Kevin Perez MD Work Phone: [facility] 12-20-2024 11:26-0500 Body mass index (BMI) [Ratio] 29 kg/m2 Dr. Kevin Perez MD Work Phone: [facility] 12-20-2024 11:26-0500 Body weight 74.[address] Kevin Perez MD Work Phone: [facility] 12-20-2024 11:26-0500 Diastolic blood pressure 67 mm[Hg] Dr. Kevin Perez MD Work Phone: [facility] 12-20-2024 11:26-0500 Systolic blood pressure 98 mm[Hg] Dr. Kevin Perez MD Work Phone: [facility] 12-14-2024 22:00-0500 Diastolic blood pressure 68 mm[Hg] Dr. Kevin Perez MD Work Phone: [facility] 12-14-2024 22:00-0500 Heart rate 70 /min Dr. Kevin Perez MD Work Phone: [facility] 12-14-2024 22:00-0500 Respiratory rate 16 /min Dr. Kevin Perez MD Work Phone: [facility] 12-14-2024 22:00-0500 SaO2% (BldA) [Mass fraction] 100 % Dr. Kevin Perez MD Work Phone: [facility] 12-14-2024 22:00-0500 Systolic blood pressure 101 mm[Hg] Dr. Kevin Perez MD Work Phone: [facility] 12-14-2024 19:03-0500 Body mass index (BMI) [Ratio] 29.2 kg/m2 Dr. Kevin Perez MD Work Phone: [facility] 12-14-2024 19:03-0500 Body temperature 98.2 [degF] Dr. Kevin Perez MD Work Phone: [facility] 12-14-2024 19:03-0500 Body weight 74.[address] Kevin Perez MD Work Phone: [facility] 12-13-2024 10:41-0500 Body mass index (BMI) [Ratio] 29 kg/m2 Dr. Kevin Perez MD Work Phone: [facility] 12-13-2024 10:41-0500 Body weight 74.[address] Kevin Perez MD Work Phone: [facility] 12-13-2024 10:41-0500 Diastolic blood pressure 70 mm[Hg] Dr. Kevin Perez MD Work Phone: [facility] 12-13-2024 10:41-0500 Systolic blood pressure 118 mm[Hg] Dr. Kevin Perez MD Work Phone: [facility] 11-16-2024 13:30-0500 Body mass index (BMI) [Ratio] 29.1 kg/m2 Dr. Kevin Perez MD Work Phone: [facility] 11-16-2024 13:30-0500 Body weight 74.[address] Kevin Perez MD Work Phone: [facility] 11-16-2024 13:30-0500 Diastolic blood pressure 87 mm[Hg] Dr. Kevin Perez MD Work Phone: [facility] 11-16-2024 13:30-0500 Systolic blood pressure 120 mm[Hg] Dr. Kevin Perez MD Work Phone: [facility] 10-19-2024 11:17-0500 Body mass index (BMI) [Ratio] 29 kg/m2 Dr. Kevin Perez MD Work Phone: [facility] 10-19-2024 11:17-0500 Body weight 74.[address] Kevin Perez MD Work Phone: [facility] 10-19-2024 11:17-0500 Diastolic blood pressure 81 mm[Hg] Dr. Kevin Perez MD Work Phone: [facility] 10-19-2024 11:17-0500 Systolic blood pressure 120 mm[Hg] Dr. Kevin Perez MD Work Phone: [facility] 09-22-2023 10:16-0500 Body height 160.[address] Kevin Perez Work Phone: [facility] 09-22-2023 10:16-0500 Body mass index (BMI) [Ratio] 32.5 kg/m2 Dr. Kevin Perez Work Phone: [facility] 09-22-2023 10:16-0500 Body weight 83.[address] Kevin Perez Work Phone: [facility] 09-22-2023 10:10-0500 Diastolic blood pressure 77 mm[Hg] Dr. Kevin Perez Work Phone: [facility] 09-22-2023 10:10-0500 Heart rate 68 /min Dr. Kevin Perez Work Phone: [facility] 09-22-2023 10:10-0500 SaO2% (BldA) [Mass fraction] 96 % Dr. Kevin Perez Work Phone: [facility] 09-22-2023 10:10-0500 Systolic blood pressure 115 mm[Hg] Dr. Kevin Perez Work Phone: [facility] 09-19-2023 08:05-0500 Body mass index (BMI) [Ratio] 31.2 kg/m2 Dr. Kevin Perez Work Phone: [facility] 09-19-2023 08:05-0500 Body weight 82.[address] Kevin Perez Work Phone: [facility] 09-19-2023 08:05-0500 Diastolic blood pressure 74 mm[Hg] Dr. Kevin Perez Work Phone: [facility] 09-19-2023 08:05-0500 Systolic blood pressure 106 mm[Hg] Dr. Kevin Perez Work Phone: [facility] 09-12-2023 10:56-0500 Body mass index (BMI) [Ratio] 31.7 kg/m2 Dr. Kevin Perez Work Phone: [facility] 09-12-2023 10:56-0500 Body weight 83.[address] Kevin Perez Work Phone: [facility] 09-12-2023 10:56-0500 Diastolic blood pressure 72 mm[Hg] Dr. Kevin Perez Work Phone: [facility] 09-12-2023 10:56-0500 Systolic blood pressure 108 mm[Hg] Dr. Kevin Perez Work Phone: [facility] 08-29-2023 09:59-0400 Body weight [address] Kevin Perez Work Phone: [facility] 08-29-2023 09:41-0400 Body mass index (BMI) [Ratio] 0.8 kg/m2 Dr. Kevin Perez Work Phone: [facility] 08-29-2023 09:41-0400 Diastolic blood pressure 74 mm[Hg] Dr. Kevin Perez Work Phone: [facility] 08-29-2023 09:41-0400 Systolic blood pressure 110 mm[Hg] Dr. Kevin Perez Work Phone: [facility] 08-12-2023 14:52-0400 Body weight 82.[address] Kevin Perez Work Phone: [facility] 08-12-2023 14:04-0400 Body mass index (BMI) [Ratio] 0.8 kg/m2 Dr. Kevin Perez Work Phone: [facility] 08-12-2023 14:04-0400 Diastolic blood pressure 74 mm[Hg] Dr. Kevin Perez Work Phone: [facility] 08-12-2023 14:04-0400 Systolic blood pressure 123 mm[Hg] Dr. Kevin Perez Work Phone: [facility] 08-09-2023 10:09-0400 Body temperature 98.6 [degF] Dr. Kevin Perez Work Phone: [facility] 08-09-2023 10:09-0400 Diastolic blood pressure 79 mm[Hg] Dr. Kevin Perez Work Phone: [facility] 08-09-2023 10:09-0400 Heart rate 97 /min Dr. Kevin Perez Work Phone: [facility] 08-09-2023 10:09-0400 Respiratory rate 16 /min Dr. Kevin Perez Work Phone: [facility] 08-09-2023 10:09-0400 SaO2% (BldA) [Mass fraction] 96 % Dr. Kevin Perez Work Phone: [facility] 08-09-2023 10:09-0400 Systolic blood pressure 115 mm[Hg] Dr. Kevin Perez Work Phone: [facility] 07-18-2023 13:44-0400 Body height 162.[address] Kevin Perez Work Phone: [facility] 06-21-2023 08:34-0400 Body mass index (BMI) [Ratio] 30.2 kg/m2 Dr. Kevin Perez Work Phone: [facility] 06-21-2023 08:34-0400 Body weight 79.[address] Kevin Perez Work Phone: [facility] 06-21-2023 08:34-0400 Diastolic blood pressure 78 mm[Hg] Dr. Kevin Perez Work Phone: [facility] 06-21-2023 08:34-0400 Systolic blood pressure 117 mm[Hg] Dr. Kevin Perez Work Phone: [facility] 06-20-2023 16:03-0400 Body mass index (BMI) [Ratio] 29.4 kg/m2 Dr. Kevin Perez Work Phone: [facility] 06-20-2023 16:03-0400 Body weight 77.[address] Kevin Perez Work Phone: [facility] 06-20-2023 16:03-0400 Diastolic blood pressure 72 mm[Hg] Dr. Kevin Perez Work Phone: [facility] 06-20-2023 16:03-0400 Systolic blood pressure 115 mm[Hg] Dr. Kevin Perez Work Phone: [facility] 05-27-2023 09:57-0400 Body height 162.[address] Kevin Perez Work Phone: [facility] 05-27-2023 09:47-0400 Body mass index (BMI) [Ratio] 28.8 kg/m2 Dr. Kevin Perez Work Phone: [facility] 05-27-2023 09:47-0400 Body weight 76.[address] Kevin Perez Work Phone: [facility] 05-27-2023 09:47-0400 Diastolic blood pressure 69 mm[Hg] Dr. Kevin Perez Work Phone: [facility] 05-27-2023 09:47-0400 Systolic blood pressure 105 mm[Hg] Dr. Kevin Perez Work Phone: [facility] 04-29-2023 13:51-0400 Body height 162.[address] Kevin Perez Work Phone: [facility] 04-29-2023 13:44-0400 Body mass index (BMI) [Ratio] 29.4 kg/m2 Dr. Kevin Perez Work Phone: [facility] 04-29-2023 13:44-0400 Body weight 77.[address] Kevin Perez Work Phone: [facility] 04-29-2023 13:44-0400 Diastolic blood pressure 75 mm[Hg] Dr. Kevin Perez Work Phone: [facility] 04-29-2023 13:44-0400 Systolic blood pressure 111 mm[Hg] Dr. Kevin Perez Work Phone: [facility] 03-30-2023 09:26-0400 Body mass index (BMI) [Ratio] 28.5 kg/m2 Dr. Kevin Perez Work Phone: [facility] 03-30-2023 09:26-0400 Body weight 75.[address] Kevin Perez Work Phone: [facility] 03-30-2023 09:26-0400 Diastolic blood pressure 75 mm[Hg] Dr. Kevin Perez Work Phone: [facility] 03-30-2023 09:26-0400 Systolic blood pressure 123 mm[Hg] Dr. Kevin Perez Work Phone: [facility] 12-13-2022 06:21-0500 Body temperature 98.2 [degF] Dr. Kevin Perez Work Phone: [facility] 12-13-2022 06:21-0500 Diastolic blood pressure 64 mm[Hg] Dr. Kevin Perez Work Phone: [facility] 12-13-2022 06:21-0500 Heart rate 72 /min Dr. Kevin Perez Work Phone: [facility] 12-13-2022 06:21-0500 Respiratory rate 14 /min Dr. Kevin Perez Work Phone: [facility] 12-13-2022 06:21-0500 Systolic blood pressure 102 mm[Hg] Dr. Kevin Perez Work Phone: [facility] 12-13-2022 06:12-0500 Body height 162.[address] Kevin Perez Work Phone: [facility] 12-07-2022 08:08-0500 Body mass index (BMI) [Ratio] 30.2 kg/m2 Dr. Kevin Perez Work Phone: [facility] 12-07-2022 08:08-0500 Body weight [address] Kevin Perez Work Phone: [facility] 12-07-2022 08:08-0500 Diastolic blood pressure 84 mm[Hg] Dr. Kevin Perez Work Phone: [facility] 12-07-2022 08:08-0500 Systolic blood pressure 122 mm[Hg] Dr. Kevin Perez Work Phone: [facility] 11-06-2022 10:12-0500 Body temperature 98.2 [degF] Dr. Kevin Perez Work Phone: [facility] 11-06-2022 10:12-0500 Diastolic blood pressure 68 mm[Hg] Dr. Kevin Perez Work Phone: [facility] 11-06-2022 10:12-0500 Heart rate 73 /min Dr. Kevin Perez Work Phone: [facility] 11-06-2022 10:12-0500 Respiratory rate 14 /min Dr. Kevin Perez Work Phone: [facility] 11-06-2022 10:12-0500 SaO2% (BldA) [Mass fraction] 97 % Dr. Kevin Perez Work Phone: [facility] 11-06-2022 10:12-0500 Systolic blood pressure 116 mm[Hg] Dr. Kevin Perez Work Phone: [facility] 08-31-2017 08:30-0400 BMI (Body Mass Index) 25.88 kg/m2 Chika Nieto MD [facility] 08-31-2017 08:30-0400 Body Temperature 96.7 [degF] Chika Nieto MD [facility] 08-31-2017 08:30-0400 Body Temperature 96.69 [degF] Chika Nieto MD [facility] 08-31-2017 08:30-0400 BP Diastolic 71 mm[Hg] Chika Nieto MD [facility] 08-31-2017 08:30-0400 BP Systolic 105 mm[Hg] Chika Nieto MD [facility] 08-31-2017 08:30-0400 Height 162.56 cm Chika Nieto MD [facility] 08-31-2017 08:30-0400 Pulse (Heart Rate) 78 /min Chika Nieto MD [facility] 08-31-2017 08:30-0400 Respiratory Rate 16 /min Chika Nieto MD [facility] 08-31-2017 08:30-0400 Weight 68.4 kg Chika Nieto MD [facility] 08-02-2017 16:03-0400 BMI (Body Mass Index) 25.16 kg/m2 Oc DILLON-C [facility] Work Phone: 08-02-2017 16:03-0400 Body Temperature 99.6 [degF] Oc DILLON-C [facility] Work Phone: 08-02-2017 16:03-0400 BP Diastolic 79 mm[Hg] Oc DILLON-C [facility] Work Phone: 08-02-2017 16:03-0400 BP Systolic 116 mm[Hg] Oc DILLON-C [facility] Work Phone: 08-02-2017 16:03-0400 Height 165.1 cm Oc DILLON-C [facility] Work Phone: 08-02-2017 16:03-0400 Pulse (Heart Rate) 62 /min Oc DILLON-C [facility] Work Phone: 08-02-2017 16:03-0400 Respiratory Rate 16 /min Oc DILLON-C [facility] Work Phone: 08-02-2017 16:03-0400 Weight 68.58 kg Oc DILLON-Donato [facility] Work Phone: 07-30-2017 09:22-0400 BMI (Body Mass Index) 25.29 kg/m2 Oc Carvajal PA-C [facility] Work Phone: 07-30-2017 09:22-0400 Body Temperature 99.1 [degF] Oc Carvajal PA-C [facility] Work Phone: 07-30-2017 09:22-0400 BP Diastolic 72 mm[Hg] Oc Carvajal PA-C [facility] Work Phone: 07-30-2017 09:22-0400 BP Systolic 106 mm[Hg] Oc Carvajal PA-C [facility] Work Phone: 07-30-2017 09:22-0400 Height 165.1 cm Oc Carvajal PA-C [facility] Work Phone: 07-30-2017 09:22-0400 Pulse (Heart Rate) 77 /min Oc Carvajal COLUMBA-C [facility] Work Phone: 07-30-2017 09:22-0400 Respiratory Rate 14 /min Oc Carvajal COLUMBA-C [facility] Work Phone: 07-30-2017 09:22-0400 Weight 68.95 kg Oc Carvajal COLUMBA-C [facility] Work Phone: 07-20-2017 10:42-0400 BMI (Body Mass Index) 25.96 kg/m2 [facility] Work Phone: 07-20-2017 10:42-0400 Body Temperature 98.4 [degF] [facility] Work Phone: 07-20-2017 10:42-0400 BP Diastolic 74 mm[Hg] [facility] Work Phone: 07-20-2017 10:42-0400 BP Systolic 109 mm[Hg] Radha [facility] Work Phone: 07-20-2017 10:42-0400 Height 165.1 cm Radha Martdeandray [facility] Work Phone: 07-20-2017 10:42-0400 Pulse (Heart Rate) 66 /min Radha Daray [facility] Work Phone: 07-20-2017 10:42-0400 Respiratory Rate 16 /min [facility] Work Phone: 07-20-2017 10:42-0400 Weight 70.76 kg [facility] Work Phone: 07-19-2017 06:44-0400 BMI (Body Mass Index) 25.46 kg/m2 Jaci Syed LPN [facility] Work Phone: 07-19-2017 06:44-0400 Body Temperature 97.1 [degF] Jaci Syed LPN [facility] Work Phone: 07-19-2017 06:44-0400 BP Diastolic 72 mm[Hg] Jaci Syed LPN [facility] Work Phone: 07-19-2017 06:44-0400 BP Systolic 108 mm[Hg] Jaci Syed LPN [facility] Work Phone: 07-19-2017 06:44-0400 Height 165.1 cm Jaci Syed LPN [facility] Work Phone: 07-19-2017 06:44-0400 Pulse (Heart Rate) 80 /min Jaci Syed LPN [facility] Work Phone: 07-19-2017 06:44-0400 Respiratory Rate 14 /min Jaci Syed LPN [facility] Work Phone: 07-19-2017 06:44-0400 Weight 69.4 kg Jaci Syed LPN [facility] Work Phone: 06-28-2017 08:05-0400 BMI (Body Mass Index) 25.65 kg/m2 [employer] [facility] Work Phone: 06-28-2017 08:05-0400 Body Temperature 98.4 [degF] [facility] [employer] [facility] Work Phone: 06-28-2017 08:05-0400 BP Diastolic 75 mm[Hg] [employer] [facility] Work Phone: 06-28-2017 08:05-0400 BP Systolic 111 mm[Hg] [employer] [facility] Work Phone: 06-28-2017 08:05-0400 Height 165.1 cm [employer] [facility] Work Phone: 06-28-2017 08:05-0400 Pulse (Heart Rate) 58 /min [employer] [facility] Work Phone: 06-28-2017 08:05-0400 Weight 69.91 kg [employer] [facility] Work Phone: 10-14-2016 11:57-0500 Heart rate 57 /min Harmeet Giordano [facility] [employer] [facility] Work Phone: 10-14-2016 11:43-0500 BMI (Body Mass Index) 28.16 kg/m2 Harmeet Giordano [facility] [employer] Work Phone: 10-14-2016 11:43-0500 BP Diastolic 68 mm[Hg] Harmeet Girodano [facility] [employer] [facility] Work Phone: 10-14-2016 11:43-0500 BP Systolic 100 mm[Hg] Harmeet Giordano [facility] [employer] [facility] Work Phone: 10-14-2016 11:43-0500 BSA (Body Surface Area) 1.71 m2 Kevin Perez MD [facility] Work Phone: 10-14-2016 11:43-0500 Pulse (Heart Rate) 64 /min Harmeet Giordano [facility] [employer] [facility] Work Phone: 10-14-2016 11:43-0500 Respiratory Rate 16 /min Harmeet Giordano [facility] [employer] [facility] Work Phone: 10-14-2016 11:43-0500 Weight 69.85 kg Harmeet Giordano [employer] [facility] Work Phone: 07-13-2016 09:22-0400 Height 157.48 cm [facility] [employer] [facility] Work Phone: Encounters Encounter Date Encounter Type Care Provider Facility Start: 03-21-2025 End: 03-21-2025 ambulatory Efewongbe Oleghe Facility:[facility] Start: 03-19-2025 ambulatory Efewongbe Oleghe Facili ty:[facility] Start: 03-19-2025 Non-patient / Non-visit Giuliana Mojica ms CNM -[facility] Start: 03-19-2025 End: 03-19-[address] Kevin Perez MD Work Phone: [facility] Work Phone: Start: 03-19-2025 End: 03-19-2025 Patient encounter procedure Giuliana Schilling CN[facility] Work Phone: Start: 03-06-2025 End: 03-06-2025 Patient encounter procedure Vannessa RODARTE -[facility] Work Phone: Start: 03-06-2025 End: 03-06-[address] Kevin Perez MD Work Phone: [facility] Work Phone: Start: 03-06-2025 End: 03-06-2025 ambulatory [facility] Facility:[facility] Start: 02-22-2025 ambulatory Dayanara Pratik Facilit y:[facility] Start: 02-22-2025 Non-patient / Non-visit Dayanara Brown lillian [facility] -[facility] Start: 02-22-2025 End: 02-22-[address] Kevin Perez MD Work Phone: [facility] Work Phone: Start: 02-22-2025 End: 02-22-2025 Patient encounter procedure Dayanara BOSCH -[facility] [place] Work Phone: Start: 02-07-2025 End: 02-07-2025 Patient encounter procedure Vannessa RODARTE -[facility] Work Phone: Start: 02-07-2025 End: 02-07-2025 ambulatory Kevin Perez Facility:[facility] Start: 01-31-2025 End: 01-31-2025 ambulatory LACY Dickerson [facility] Start: 01-16-2025 End: 01-16-2025 Subsequent hospital visit by physician Rashmi Taylor DO Work Phone: [facility] Comment on above: Maternal care for (s uspected) central nervous system malformation or damage in fetus, choroid plexus cysts, fetus 1 Start: 01-16-2025 End: 01-16-2025 [facility] Start: 01-16-2025 End: 01-16-2025 [facility] Start: 01-11-2025 End: 01-11-[address] Chika Nieto MD -[facility] Work Phone: Start: 01-11-2025 End: 01-11-2025 ambulatory [facility] Facility:[facility] Start: 01-02-2025 End: 01-02-2025 [facility] Start: 12-27-2024 End: 12-27-2024 Patient encounter procedure Vannessa Chirinos DIPLOMA DENTAL ASSISTANT-C -[facility] Work Phone: Start: 12-27-2024 End: 12-27-[address] Kevin Perez MD Work Phone: [facility] Work Phone: Start: 12-27-2024 End: 12-27-2024 ambulatory Vannessa Chirinos NP Facility:[facility] Start: 12-20-2024 End: 12-20-[address] Chika Nieto MD -[facility] Work Phone: Start: 12-20-2024 End: 12-20-2024 ambulatory Arbenlatashabhavya Perez Facility:[facility] Start: 12-19-2024 End: 12-19-2024 ambulatory STEPHANIA CA [facility] Start: 12-14-2024 End: 12-14-2024 Emergency department patient visit Dr. Jerardo Garcia DO -Emergency Department Work Phone: Start: 12-13-2024 End: 12-13-2024 Patient encounter procedure Vannessa Chirinos DIPLOMA DENTAL ASSISTANT-C -[facility] Work Phone: Start: 12-13-2024 End: 12-13-2024 ambulatory Kevin Perez Facility:[facility] Start: 11-16-2024 End: 11-16-[address] Stephania Montoya DO -[facility] Work Phone: Start: 11-16-2024 End: 11-16-2024 ambulatory Kevin Perez Facility:[facility] Start: 10-19-2024 End: 10-19-2024 Patient encounter procedure Dayanara Christie [facility] -[facility] Work Phone: Start: 10-19-2024 End: 10-19-2024 ambulatory Dayanara Christie Facility:[facility] Start: 10-19-2024 End: 10-19-2024 ambulatory Dayanara Christie Facility:[facility] Start: 08-14-2024 End: 08-14-2024 ambulatory Kevin Perez Facility:[facility] Start: 07-17-2024 End: 07-18-2024 ambulatory Jaci Moore Facility:[facility] Start: 09-22-2023 Non-patient / Non-visit Dr. Arben Perez Work Phone: [facility] Start: 09-22-2023 End: 09-22-[address] Kevin Perez Work Phone: [facility] Work Phone: Start: 09-22-2023 End: 09-22-[address] Kevin Perez Work Phone: [facility] Work Phone: Start: 09-19-2023 End: 09-19-[address] Kevin Perez Work Phone: [facility] Work Phone: Start: 09-19-2023 End: 09-19-[address] Kevin Perez Work Phone: [facility]atory[facility] Specimen Work Phone: Start: 09-19-2023 End: 09-19-[address] Kevin Perez Work Phone: [facility] Work Phone: Start: 09-12-2023 End: 09-12-[address] Kevin Perez Work Phone: [facility] Work Phone: Start: 08-29-2023 End: 08-29-[address] Kevin Perez Work Phone: [facility] Work Phone: Start: 08-12-2023 End: 08-12-[address] Kevin Perez Work Phone: [facility] Work Phone: Start: 08-09-2023 End: 08-09-[address] Kevin Perez Work Phone: [facility] Work Phone: Start: 07-19-2023 End: 07-19-[address] Kevin Perez Work Phone: [facility] Work Phone: Start: 07-19-2023 End: 07-19-[address] Kevin Perez Work Phone: [facility] Pavilion Start: 07-18-2023 End: 07-18-[address] Kevin Perez Work Phone: [facility] Work Phone: Start: 06-20-2023 End: 06-20-[address] Kevin Perez Work Phone: [facility] Work Phone: Start: 05-27-2023 End: 05-27-[address] Kevin Perez Work Phone: [facility] Work Phone: Start: 05-27-2023 End: 05-27-[address] Kevin Perez Work Phone: [facility] Work Phone: Start: 04-29-2023 End: 04-29-[address] Kevin Perez Work Phone: [facility] Work Phone: Start: 03-30-2023 End: 03-30-[address] Kevin Perez Work Phone: [facility] Work Phone: Start: 03-30-2023 End: 03-30-[address] [facility] Work [facility] Start: 03-30-2023 End: 03-30-[address] Kevin Perez Work Phone: [facility] Work Phone: Start: 12-13-2022 End: 12-13-[address] Kevin Perez Work Phone: [facility] Start: 12-07-2022 End: 12-07-[address] Kevin Perez Work Phone: [facility] Work Phone: Start: 12-07-2022 End: 12-07-[address] Kevin Perez Work Phone: [facility] Spec[facility] Start: 12-07-2022 End: 12-07-[address] Kevin Perez Work Phone: [facility] Start: 11-06-2022 End: 11-06-[address] Kevin Perez Work Phone: [facility] Start: 06-23-2012 End: 06-23-2012 Telephone encounter Kailee Carbajal Work Phone: Pediatrics Procedures Date Procedure Procedure Detail Performing Clinician Start: 03-19-2025 Urnls dip stick/tabl et reagent auto microscopy Dr. Kevin Perez MD Work Phone: Start: 03-06-2025 Serologic test for syphilis Dr. Kevin Perez MD Work Phone: Start: 02-22-[address] Chandra Perez MD Work Phone: Start: 02-22-2025 Urnls dip stick/tabl et reagent auto microscopy Dr. Kevin Perez MD Work Phone: Start: 12-27-2024 Measurement of pH in vaginal fluid specimen using nitrazine yellow for detection of rupture of amniotic membrane Dr. Kevin Perez MD Work Phone: Comment on above: Amniotic fluid not p resent indicates No Rupture of FetalMembranes at time of specimen collection. Start: 12-27-[address] Chandra Perez MD Work Phone: Start: 12-14-2024 Urnls dip stick/tabl et reagent auto microscopy Dr. Kevin Perez MD Work Phone: Start: 12-14-2024 Transvaginal obstetr ic ultrasonography Dr. Kevin Perez MD Work Phone: Start: 12-14-[address] Kevin Perez MD Work Phone: Start: 12-14-2024 Measurement of renal function Dr. Kevin Perez MD Work Phone: Comment on above: GFR Calc Start: 10-19-[address] Chandra Perez MD Work Phone: Start: 09-19-[address] Chandra Perez Work Phone: Start: 03-30-[address] Chandra Perez Work Phone: Start: 08-31-2017 End: 08-31-2017 Us pelvic nonobstetric image dcmtn limited/f/u Chika Nieto MD Work Phone: Start: 08-06-2017 End: 08-06-2017 Throat culture Oc Vargasder LUNCH COUNTER MANAGER-C Start: 08-05-2017 End: 08-05-2017 Throat culture Oc Jean LUNCH COUNTER MANAGER-C Start: 08-04-2017 End: 08-04-2017 Throat culture Oc Jean LUNCH COUNTER MANAGER-C Start: 08-03-2017 End: 08-03-2017 Throat culture Viji Holley Start: 08-02-2017 End: 08-03-2017 *CBC with Differential Oc Jean LUNCH COUNTER MANAGER- C Start: 08-02-2017 End: 08-09-2017 Bacteria identified in Throat by Culture Oc Jean LUNCH COUNTER MANAGER-C Start: 08-02-2017 End: 08-03-2017 Heterophile Ab [Presence] in Serum Oc Jean LUNCH COUNTER MANAGER-C Start: 08-02-2017 End: 08-02-2017 Iaadiadoo streptococcus group a Oc Jean LUNCH COUNTER MANAGER-C Start: 07-30-2017 End: 07-30-2017 Iaadiadoo streptococcus group a Oc Carvajal PA-C Work Phone: Start: 07-30-2017 End: 07-30-2017 Rapid strep test Oc Man Carvajal PA-C Work Phone: Start: 07-20-2017 End: 07-21-2017 ENT Referral Oc Jean LUNCH COUNTER MANAGER-C Start: 06-28-2017 End: 06-28-2017 Urinalysis Kevin Perez MD Start: 06-28-2017 End: 06-28-2017 Dietary management education, guidance, and counseling Kevin Perez MD Start: 11-08-2016 End: 11-10-2016 Transesophageal echocardiogram (MIKE) Corey Garza MD Start: 11-08-2016 End: 11-10-2016 Transesophageal echocardiogram (MIKE) Corey Garza MD Start: 10-14-2016 End: 10-14-2016 Ecg routine ecg w/least 12 lds w/i&r Corey Garza MD Start: 10-14-2016 End: 10-14-2016 Follow Up Appt Other Corey Garza MD Start: 10-14-2016 End: 10-14-2016 PFM Corey Garza MD Start: 10-14-2016 End: 10-14-2016 Dietary management education, guidance, and counseling Harmeet Giordano Start: 10-14-2016 End: 10-14-2016 Electrocardiogram, complete Corey orellana MD Start: 10-14-2016 End: 10-14-2016 Follow Up Appt Other Corey Garza MD Start: 10-14-2016 End: 10-14-2016 PFM Corey Garza MD Start: 07-20-2016 End: 07-20-2016 Appl modality 1/> areas elec stimj unattended Mckenna B Dossi DC Work Phone: Start: 07-20-2016 End: 07-20-2016 Appl modality 1/> areas traction mechanical Mckenna B Dossi DC Work Phone: Start: 07-20-2016 End: 07-20-2016 Chiropractic manipulative tx spinal 1-2 regions Mckenna B Dossi DC Work Phone: Start: 07-20-2016 End: 07-20-2016 Ther px 1/> areas each 15 minutes massage Mckenna B Dossi DC Work Phone: Start: 07-20-2016 End: 07-20-2016 Chiropract manj 1-2 regions Mckenna B Richar i DC Work Phone: Start: 07-20-2016 End: 07-20-2016 Electric stimulation therapy Mckenna B Dossi DC Work Phone: Start: 07-20-2016 End: 07-20-2016 Massage therapy Mckenna B Dossi DC Work Phone: Start: 07-20-2016 End: 07-20-2016 Mechanical traction therapy Mckenna B Richar i DC Work Phone: Start: 07-15-2016 End: 07-15-2016 Appl modality 1/> areas elec stimj unattended Mckenna B Dossi DC Work Phone: Start: 07-15-2016 End: 07-15-2016 Appl modality 1/> areas traction mechanical Mckenna B Dossi DC Work Phone: Start: 07-15-2016 End: 07-15-2016 Chiropractic manipulative tx spinal 1-2 regions Mckenna B Dossi DC Work Phone: Start: 07-15-2016 End: 07-15-2016 Ther px 1/> areas each 15 minutes massage Mckenna B Dossi DC Work Phone: Start: 07-15-2016 End: 07-15-2016 Chiropract manj 1-2 regions Mcknena B Richar i DC Work Phone: Start: 07-15-2016 End: 07-15-2016 Electric stimulation therapy Mckenna B Dossi DC Work Phone: Start: 07-15-2016 End: 07-15-2016 Massage therapy Mckenna B Dossi DC Work Phone: Start: 07-15-2016 End: 07-15-2016 Mechanical traction therapy Mckenna B Richar i DC Work Phone: Start: 07-13-2016 End: 07-13-2016 Appl modality 1/> areas elec stimj unattended Mckenna B Dossi DC Work Phone: Start: 07-13-2016 End: 07-13-2016 Appl modality 1/> areas traction mechanical Mckenna Inman Dossi DC Work Phone: Start: 07-13-2016 End: 07-13-2016 Chiropractic manipulative tx spinal 1-2 regions Mckenna Inman Dossi DC Work Phone: Start: 07-13-2016 End: 07-13-2016 Ther px 1/> areas each 15 minutes massage Mckenna Inman Dossi DC Work Phone: Start: 07-13-2016 End: 07-13-2016 Chiropract manj 1-2 regions Mckenna Inman Richar i DC Work Phone: Start: 07-13-2016 End: 07-13-2016 Electric stimulation therapy Mckenna Inman Dossi DC Work Phone: Start: 07-13-2016 End: 07-13-2016 Massage therapy Mckenna Inman Dossi DC Work Phone: Start: 07-13-2016 End: 07-13-2016 Mechanical traction therapy Mckenna Inman Richar i DC Work Phone: Plan of Treatment Date Care Activity Detail Author Start: 03-19-2025 Nonstress test [facility] Start: 03-19-[address] [facility] Start: 03-19-2025 [facility] Start: 03-19-2025 Vital signs measurements [facility] Start: 03-19-2025 Patient discharge [facility] Start: 02-22-2025 Bacteria identified in Urine by Culture Urine Culture [facility] Start: 02-22-2025 Nonstress test [facility] Start: 02-22-[address] [facility] Start: 02-22-2025 Vital signs measurements [facility] Start: 02-22-2025 End: 02-22-2025 [facility] Start: 02-22-2025 Patient discharge [facility] Start: 01-31-2025 End: 01-31-2025 Professional / ancillary services management 01/31/2025 11:00 AM EDT Ancillary Procedure Visit [facility] [address] [place] [address] Return for 60 min US in 2 weeks. [facility] Comment on above: Return for 60 min US in 2 weeks. Start: 12-14-2024 [facility] Start: 12-13-2024 Patient referral [facility] Work Phone: Start: 07-01-2024 COVID-19 (2023-12 season) COVID-19 ( season) [facility] Start: 07-01-2024 FLU (#1) FLU (#1) [facility] Start: 09-22-2023 Nonstress test [facility] Start: 09-22-[address] [facility] Start: 09-22-2023 Vital signs measurements [facility] Start: 09-22-2023 [facility] Start: 09-22-2023 [facility] [facility] Start: 09-12-2023 Patient referral [facility] Work Phone: Start: 07-01-2021 Influenza vaccination INFLUENZA (Sea son Ended) [facility] Start: 07-16-2019 PAP TESTING PAP TESTING [facility] Start: 08-31-2017 End: 08-31-2017 [facility] Work Phone: Start: 08-02-2017 End: 08-02-2017 Appointment Appointment [facility] Work Phone: Start: 08-02-2017 End: 08-03-2017 *CBC with Differential *CBC with Differential [facility] Work Phone: Start: 08-02-2017 End: 08-09-2017 Bacteria identified in Throat by Culture *CUT - Throat Culture [facility] Work Phone: Start: 08-02-2017 End: 08-03-2017 Heterophile antibody presence *Infectious [place] Screen [facility] Work Phone: Start: 07-30-2017 End: 07-30-2017 Streptococcus.beta-hemol ytic [Presence] in Throat by Organism specific culture *Culture, R/O Strep A Swab [facility] Work Phone: Start: 07-30-2017 End: 07-30-2017 Appointment Appointment [facility] Work Phone: Start: 07-30-2017 End: 07-30-2017 Streptococcus.beta-hemol ytic [Presence] in Throat by Organism specific culture *Culture, R/O Strep A Swab [facility] Work Phone: Start: 07-20-2017 End: 08-09-2017 ENT Referral ENT Referral [facility] Work Phone: Start: 07-20-2017 End: 07-20-2017 Appointment Appointment [facility] Work Phone: Start: 07-20-2017 End: 07-20-2017 ENT Referral ENT Referral [facility] Work Phone: Start: 07-19-2017 End: 07-19-2017 Appointment Appointment [facility] Work Phone: Start: 06-28-2017 End: 06-28-2017 Dermatology Referral Dermatology Referral [address] [place], [address] [facility] Work Phone: Start: 06-28-2017 End: 06-28-2017 Follow Up Appt 1 year Follow Up Appt 1 year [facility] Work Phone: Start: 06-28-2017 End: 06-28-2017 Appointment Appointment [facility] Work Phone: Start: 06-28-2017 End: 06-28-2017 Dermatology Referral Dermatology Referral Lou Ballesteros [address] [place], [address] [facility] Work Phone: Start: 06-28-2017 End: 06-28-2017 Follow Up Appt 1 year Follow Up Appt 1 year [facility] Work Phone: Start: 10-14-2016 End: 10-14-2016 Ecg routine ecg w/least 12 lds w/i&r EKG (In office) [facility] Work Phone: Start: 10-14-2016 End: 10-14-2016 Follow Up Appt Other Follow Up Appt Other [facility] Work Phone: Start: 10-14-2016 End: 10-14-2016 PFM PFM [facility] Work Phone: Start: 10-14-2016 End: 10-14-2016 Transesophageal echocardiogram (MIKE) Transesophageal echocardiogram (MIKE) [facility] Work Phone: Start: 10-14-2016 End: 10-14-2016 Electrocardiogram, complete EKG (In office) [facility] Work Phone: Start: 10-14-2016 End: 10-14-2016 Follow Up Appt Other Follow Up Appt Other [facility] Work Phone: Start: 10-14-2016 End: 10-14-2016 [facility] Work Phone: Start: 10-14-2016 End: 10-14-2016 Transesophageal echocardiogram (MIKE) Transesophageal echocardiogram (MIKE) [facility] Work Phone: Start: 07-20-2016 End: 07-20-2016 Follow up Appt 2x/week Follow up Appt 2x/week [facility] Work Phone: Start: 07-20-2016 End: 07-20-2016 Follow up Appt 2x/week Follow up Appt 2x/week [facility] Work Phone: Start: 07-15-2016 End: 07-15-2016 Follow up Appt 2x/week Follow up Appt 2x/week [facility] Work Phone: Start: 07-15-2016 End: 07-15-2016 Follow up Appt 2x/week Follow up Appt 2x/week [facility] Work Phone: Start: 07-13-2016 End: 07-13-2016 Follow up Appt 3x/week Follow up Appt 3x/week [facility] Work Phone: Start: 07-13-2016 End: 07-13-2016 Follow up Appt 3x/week Follow up Appt 3x/week [facility] Work Phone: Start: 04-11-2016 Urine microalbumin profile DTAP,TDAP,TD (7 - Td) [facility] Start: 2014 Microscopic observat ion [Identifier] in Cervix by Cyto stain Pap Smear [facility] Start: 2012 Hepatitis B (1 of 3 - 19+ 3-dose series) Hepatitis B (1 of 3 - 19+ 3-dose series) [facility] Start: 2009 MenB (1 of 2 - MenB 2-Dose Series Bexsero) MenB (1 of 2 - MenB 2-Dose Series Bexsero) [facility] Start: 2006 Varicella (1 of 2 - 13+ 2-dose series) Varicella (1 of 2 - 13+ 2-dose series) [facility] Start: 2005 Adult depression screening assessment DEPRESSION SCREENING [facility] Start: 2000 Tetanus Diphtheria a nd Pertussis Vaccines (1 - Tdap) Tetanus Diphtheria and Pertussis Vaccines (1 - Tdap) [facility] Start: 1994 MMR (1 of 1 - Standa rd series) MMR (1 of 1 - Standard series) [facility] CBC W Auto Different ial panel - Blood [facility] CBC W Auto Different ial panel - Blood [facility] Hepatitis B surface antigen measurement [facility] Hepatitis C antibody measurement [facility] HIV 1+2 Ab+HIV1 p24 Ag [Presence] in Serum or Plasma by Immunoassay [facility] Measurement of gluco se 2 hours after glucose challenge for glucose tolerance test [facility] End: 01-16-2025 PANORAMA TEST [facility] Work Phone: Comment on above: 1 Occurrences starti ng 01/16/2025 until 01/16/2025 Patient Education [facility] Now Cl in Work Phone: Patient referral [facility] Work Phone: Rubella IgG measurement [facility] Serologic test for syphilis [facility] Treponema sp Ab [Presence] in Serum [facility] Urine culture [facility] Immunizations Immunization Date Immunization Notes Care Provider Michelle adam 03-06-2025 tetanus toxoid, redu patsy diphtheria toxoid, and acellular pertussis vaccine, adsorbed Dr. Kevin Perez MD Work Phone: [facility] 08-12-2023 tetanus toxoid, redu patsy diphtheria toxoid, and acellular pertussis vaccine, adsorbed Dr. Kevin Perez Work Phone: [facility] 08-16-[address] Kevin Perez Work Phone: [facility] 07-28-2018 influenza, injectabl e, quadrivalent, preservative free Dr. Kevin Perez Work Phone: [facility] 07-28-2018 influenza, seasonal, injectable Dr. Kevin Perez Work Phone: [facility] 07-27-2017 influenza, injectabl e, quadrivalent, preservative free Dr. Kevin Perez Work Phone: [facility] 07-27-2017 influenza, seasonal, injectable Dr. Kevin Perez Work Phone: [facility] 09-22-2016 hepatitis B vaccine, pediatric or pediatric/adolescent dosage Dr. Kevin Perez Work Phone: [facility] 07-29-2016 influenza, injectabl e, quadrivalent, preservative free Dr. Kevin Perez Work Phone: [facility] 07-29-2016 influenza, seasonal, injectable Dr. Kevin Perez Work Phone: [facility] 04-21-2016 hepatitis B vaccine, pediatric or pediatric/adolescent dosage Dr. Kevin Perez Work Phone: [facility] 03-17-2016 hepatitis B vaccine, pediatric or pediatric/adolescent dosage Dr. Kevin Perez Work Phone: [facility] 02-12-2016 tetanus and diphther ia toxoids, adsorbed, preservative free, for adult use (2 Lf of tetanus toxoid and 2 Lf of diphtheria toxoid) Dr. Kevin Perez Work Phone: [facility] 06-13-2012 hepatitis A vaccine, unspecified formulation Kailee Carbajal Work Phone: [facility] 06-13-2012 human papilloma viru s vaccine, quadrivalent Kailee Carbajal Work Phone: [facility] 06-13-2012 Meningococcal, MCV4, unspecified conjugate formulation(groups A, C, Y and W-135) Kailee Carbajal Work Phone: [facility] 06-05-2010 hepatitis A vaccine, unspecified formulation Kailee Carbajal Work Phone: [facility] 10-22-2008 influenza virus vaccine, live, attenuated, for intranasal use Kailee Carbajal Work Phone: [facility] 04-11-2006 Meningococcal, MCV4, unspecified conjugate formulation(groups A, C, Y and W-135) Kailee Carbajal Work Phone: [facility] 04-11-2006 tetanus toxoid, redu patsy diphtheria toxoid, and acellular pertussis vaccine, adsorbed Kailee Carbajal Work Phone: [facility] 05-27-1999 diphtheria, tetanus toxoids and acellular pertussis vaccine Kailee Carbajal Work Phone: [facility] 05-27-1999 measles, mumps and rubella virus vaccine Kailee Carbajal Work Phone: [facility] 05-27-1999 trivalent poliovirus vaccine, live, oral Kailee Carbajal Work Phone: [facility] 04-18-1998 Chicken Pox (disease) Kailee Carbajal Work Phone: [facility] 03-08-1995 diphtheria, tetanus toxoids and acellular pertussis vaccine Kailee Carbajal Work Phone: [facility] 03-08-1995 haemophilus influenz ae type b vaccine, HbOC conjugate Kailee Carbajal Work Phone: [facility] 12-07-1994 measles, mumps and rubella virus vaccine Kailee Carbajal Work Phone: [facility] 08-12-1994 hepatitis B vaccine, pediatric or pediatric/adolescent dosage Kailee Carbajal Work Phone: [facility] 06-29-1994 diphtheria, tetanus toxoids and pertussis vaccine Kailee Carbajal Work Phone: [facility] 06-29-1994 haemophilus influenz ae type b vaccine, HbOC conjugate Kailee Carbajal Work Phone: [facility] 06-29-1994 trivalent poliovirus vaccine, live, oral Kailee Carbajal Work Phone: [facility] 04-29-1994 diphtheria, tetanus toxoids and pertussis vaccine Kailee Carbajal Work Phone: [facility] 04-29-1994 haemophilus influenz ae type b vaccine, HbOC conjugate Kailee Carbajal Work Phone: [facility] 04-29-1994 hepatitis B vaccine, pediatric or pediatric/adolescent dosage Kailee Carbajal Work Phone: [facility] 04-29-1994 trivalent poliovirus vaccine, live, oral Kailee Carbajal Work Phone: [facility] 02-04-1994 diphtheria, tetanus toxoids and pertussis vaccine Kailee Carbajal Work Phone: [facility] 02-04-1994 haemophilus influenz ae type b vaccine, HbOC conjugate Kailee Carbajal Work Phone: [facility] 02-04-1994 hepatitis B vaccine, pediatric or pediatric/adolescent dosage Kailee Carbajal Work Phone: [facility] 02-04-1994 trivalent poliovirus vaccine, live, oral Kailee Carbajal Work Phone: [facility] Payers Date Payer Category [place] [id number] 2024 Unknown [id number] 2024 Unknown [id number] 2024 Self-pay [id number] 2024 Unknown [id number] 2016 Unknown [id number] 2005 Self-pay SELF PAY HSP/MED ICAL SELF PAY [id number] 2005-2015 SELF PAY Indemnity [id number] 2004 Unknown [employer] [id number] 2004-2016 Indemnity [id number] 1993 Unknown [id number] [id number] 1993 Unknown [id number] 2.16.840.1.616921.3.579.2.9 1993 Unknown [id number] 2.16.840.1.918922.3.579.2.479 1993 Unknown [id number] 2.16.840.1.741826.3.579.2.479 1993 Unknown [id number] 2.840.1.162027.3.579.2.479 1993 Unknown [id number] 2.16.840.1.926544.3.579.2.479 Unknown ANTHEM [id number] Unknown [id number] 2.840.1.605011.3.579.2.462 Unknown [id number] 2.840.1.526230.3.579.2.462 Unknown [id number] 2.840.1.923039.3.579.2.462 Unknown [id number] 2.840.1.434060.3.579.2.462 Unknown [id number] 2.840.1.980332.3.579.2.462 Unknown [id number] .840.1.027303.3.579.2.462 Unknown [id number] 2.840.1.104076.3.579.2.462 Unknown [id number] 2.840.1.340382.3.579.2.462 Unknown [id number] 2.840.1.335354.3.579.2.462 Unknown [id number] .840.1.834510.3.579.2.462 Unknown [id number] .840.1.084833.3.579.2.462 Unknown [id number] 2.840.1.996963.3.579.2.462 Unknown [id number] 2.840.1.425633.3.579.2.462 Unknown [id number] 2.840.1.568165.3.579.2.462 Unknown [id number] 2.840.1.586339.3.579.2.462 Unknown [id number] 2.16.840.1.432988.3.579.2.462 Unknown [id number] 2.16.840.1.992018.3.579.2.462 Unknown [id number] 2.16.840.1.597215.3.579.2.462 Unknown [id number] 2.16.840.1.057950.3.579.2.462 Unknown [id number] 2.16.840.1.385979.3.579.2.462 Social History Date Type Detail Facility Start: 06-13-2012 End: 02-07-2025 Tobacco smoking status PRIS Never smoker [facility] Start: 06-13-2012 Tobacco use and exposure Never used [facility] Work Phone: Start: 06-13-2012 Alcohol intake Current non-dr check processor of alcohol (finding) [facility] Start: 1995 Sex Assigned At Not on file [facility] Start: 12-13-2022 End: 09-19-2023 Tobacco smoking status [facility] Unknown if ever smoked [facility] Start: 1995 Sex Assigned At Female [facility] Start: 11-19-2015 None [facility] Start: 11-19-2015 With Family [facility] Gender identity Not on file [facility] Start: 01-10-2025 End: 02-22-2025 Sex Female (finding) [facility] Goals Date Patient Goal Desired Activity /State Clinical Notes 02-05-2010 to 03-19-2025 Note Date & Type Note Facility 03-19-2025 Progress note [facility] 12-13-2024 Evaluation note Diagnosis Onset Date Resolution Depression acute December 13, 2024 10:39am History of premature rupture of membranes (PPROM) acute December 13, 2024 10:39am acute December 13, 2024 10:39am Supervision of high-risk acute December 10:39am External constriction of lower back and pelvis, sequela resolved December 13, 10:39am Depression acute December 20, 2024 11:20am Dysplasia of cervix, low grade (KARAN 1) acute December 20, 2024 11:20am History of premature rupture of membranes (PPROM) acute December 20, 2024 11:20am acute December 20, 2024 11:20am PTSD (post-traumatic stress disorder) acute December 20, 2024 11:20am Supervision of high-risk acute December 11:20am Placenta previa inactive December 20, 2024 11:20am Depression acute December 27, 2024 8:54am Dysplasia of cervix, low grade (KARAN 1) acute December 27, 2024 8:54am History of premature rupture of membranes (PPROM) acute December 27, 2024 8:54am acute December 27, 2024 8:54am PTSD (post-traumatic stress disorder) acute December 27, 2024 8:54am Supervision of high-risk acute December 8:54am Placenta previa resolved December 27, 2024 8:54am Vaginal discharge resolved 2024 8:54am Depression acute January 11 10:15am Dysplasia of cervix, low grade (KARAN 1) acute January 11 10:15am History of premature rupture of membranes (PPROM) acute January 11 10:15am acute January 11 10:15am PTSD (post-traumatic stress disorder) acute January 11 10:15am Supervision of high-risk acute January 11, 2025 10:15am Placenta previa resolved December 10:15am Choroid plexus cyst of fetus acute February 07, 2025 10:22am Depression acute February 07 10:22am Dysplasia of cervix, low grade (KARAN 1) acute February 07 10:22am History of premature rupture of membranes (PPROM) acute February 07 10:22am acute February 07 10:22am PTSD (post-traumatic stress disorder) acute February 07 10:22am Supervision of high-risk acute February 07, 2025 10:22am UTI (urinary tract infection) acute February 22, 2025 11:55am Choroid plexus cyst of fetus acute March 06, 2025 12 :50pm Depression acute March 06, 2025 12:50pm Dysplasia of cervix, low grade (KARAN 1) acute March 06, 2025 12:50pm History of premature rupture of membranes (PPROM) acute March 06, 2025 12:50pm acute March 06, 2025 12:50pm PTSD (post-traumatic stress disorder) acute March 06, 2025 1 2:50pm Supervision of high-risk acute March 06 12:50pm UTI (urinary tract infection) acute March 06, 2025 12 :50pm Abnormal glucose affecting acute March 19 9:30am Back pain affecting acute March 19, 2025 9 :30am Choroid plexus cyst of fetus acute March 19, 2025 9 :30am Depression acute March 19, 2025 9:30am Dysplasia of cervix, low grade (KARAN 1) acute March 19, 2025 9:30am History of premature rupture of membranes (PPROM) acute March 19, 2025 9:30am acute March 19, 2025 9:30am PTSD (post-traumatic stress disorder) acute March 19, 2025 9:30am Supervision of high-risk acute March 19 9:30am UTI (urinary tract infection) acute March 19, 2025 9 :30am [facility] Work Phone: 1(145) 172-841101-17-2025 Evaluation note* Diagnosis Onset Date Resolution Status Admit Date Depression acute November 16, 2024 1:25pm Dysplasia of cervix, low grade (KARAN 1) acute November 16 1:25pm History of premature rupture of membranes (PPROM) acute Octry 2024 1:25pm acute November 16, 2024 1:25pm PTSD (post-traumatic stress disorder) acute November 16 1:25pm Supervision of high-risk acute November 16 1:25pm Low back pain resolved October 1:25pm Strain of right knee resolved Jorgito oseguera 2024 1:25pm Depression acute December 13, 2024 10:39am History of premature rupture of membranes (PPROM) acute Feb ruary 2024 10:39am acute December 13, 2024 10:39am Supervision of high-risk acute December 13, 2 025 10:39am External constriction of lower back and pelvis, sequela resolved December 13 10:39am Depression acute December 20, 2024 11:20am Dysplasia of cervix, low grade (KARAN 1) acute December 20 11:20am History of premature rupture of membranes (PPROM) acute 2024 11:20am acute December 20, 2024 11:20am PTSD (post-traumatic stress disorder) acute December 20 11:20am Supervision of high-risk acute December 20 11:20am Placenta previa inactive December 20, 2024 11:20am Depression acute December 27, 2024 8:54am Dysplasia of cervix, low grade (KARAN 1) acute December 27 8:54am History of premature rupture of membranes (PPROM) acute [facility] 2024 8:54am acute December 27, 2024 8:54am PTSD (post-traumatic stress disorder) acute December 27 8:54am Supervision of high-risk acute December 27 8:54am Placenta previa resolved December 27, 2024 8:54am Vaginal discharge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 Schilling CNM Attending Provider Active S tart: March 19, 2025 Giuliana Schilling CNM Referring Provider Active S tart: March 19, 2025 Giuliana Schilling CNM Other Provider Active Start : March 19, 2025 INFORMATION SOURCE (unrecogn ized section and content) DATE CREATED AUTHOR 02/03/[address] [facility] DATE CREATED AUTHOR AUTHOR'S ORGANIZ ATION 04/03/2025 [facility] FOR RECORDS PERTAINING TO PATIENTS WHO ARE OR HAVE BEEN ENROLLED IN A CHEMICAL DEPENDENCY/SUBSTANCEABUSE PROGRAM, SOME INFORMATION MAY BE OMITTED. This clinical summary was aggregated from multiple sources. Caution should be exercised in using it in the provision of clinical care. This summary normalizes information from multiple sources, and as a consequence, information in this document may materially change the coding, format and clinical context of patient data. In addition, data may be omitted in some cases. CLINICAL DECISIONS SHOULD BE BASED ON THE PRIMARY CLINICAL RECORDS. [employer] provides no warranty or guarantee of the accuracy or completeness of information in this document.
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
== END 2025-04-03 18:40 | disposition home or self-care (01) ==
LOC: WPOUT 16:18 → WP 16:30
PROVIDERS: PCP Internal Medicine; Referring Provider Registered Nurse; Visit Provider Registered Nurse
DX: O60.03 Preterm labor without delivery, third trimester (principal); O23.43 Unspecified infection of urinary tract in pregnancy, third trimester; Z3A.32 32 weeks gestation of pregnancy; Z87.59 Personal history of other complications of pregnancy, childbirth and the puerperium
CPT/HCPCS: 59025; 59050; 81001; 96372; 99221; G0378; J0702

== ENCOUNTER 2025-04-04 17:18 | Outpatient (CLI) | payer OTHER, SELFPAY ==
[2025-04-04 17:28] VITALS: BMI 31.9
[2025-04-04 17:40] VITALS: BP 116/65; PULSE 86
[2025-04-04] MEDS: Betamethasone/Betamethasone 30 MG/5 ML Vial 12 MG IM (18:18)
--- OUTSIDE RECORDS SUMMARY | 2025-04-04 22:17 | XMS RPT_ITS | CCD ---
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 estimationOrdered By: Jerardo Garcia on 12-14-2024 Estimated GFR (MDRD) Non-Af Amer 117 mL/min >60 [facility] Comment on above: Non- GFR Calc GFR/1.73 sq M.predicted among non-blacks MDRD (S/P/Bld) [Vol rate/Area] 117 mL/min/{1.73_m2} >60 [facility] Comment on above: Non- GFR Calc Glucose Ql (U)Ordered By: Mathew Garcia on 12-14-2024 Urine Glucose (UA) Normal mg/dl Normal [facility] Glucose measurementOrdered B y: Jerardo Garcia on 12-14-2024 Glucose [Mass/Vol] 80 mg/dL 74-106 [facility] Hematocrit Auto (Bld) [Volum e fraction]Ordered By: Jerardo Garcia on 12-14-2024 Hematocrit (Bld) [Volume fraction] 35.6 % Low 37-47 [facility] Hemoglobin measurementOrdere d By: Jerardo Garcia on 12-14-2024 Hemoglobin (Bld) [Mass/Vol] 12.4 g/dL 12.0-15.0 [facility] Immature granulocytes/100 WB C Auto (Bld)Ordered By: Jerardo Garcia on 12-14-2024 Immature granulocytes/100 WBC (Bld) 0.200 % 0.0-0.9 [facility] Comment on above: IG% - Immature Granu locytes (promyelocytes, myelocytes and metamyelocytes) > 1% indicates that a LEFT SHIFT is Present. International normalized rat io (INR) calculationOrdered By: Jerardo Garcia on 12-14-2024 INR Coag (Bld) [Relative time] 0.9 {INR} [facility] Ketones Test strip Ql (U)Ord ered By: Jerardo Garcia on 12-14-2024 Ketones Ql (U) Negative Negative [facility] LDHon 12-14-2024 LDH 144 U/L Normal 84-246 [facility] Comment on above: Performed By: #### L 400.0001 #### [facility] [place] [address] [place], [address] Laboratory - Chemistry and C hemistry - challengeOrdered By: Jerardo Garcia on 12-14-2024 AST [Catalytic activity/Vol] 24 U/L 15-37 [facility] Lactate dehydrogenase (LDH) measurementOrdered By: Jerardo Garcia on 02-14-2025 LDH [Catalytic activity/Vol] 144 U/L 84-246 [facility] Lymphocytes Auto (Unsp spec) [#/Vol]Ordered By: Jerardo Garcia on 12-14-2024 Lymphocytes (Bld) [#/Vol] 2.62 10*3/uL 0.83-4.51 [facility] Lymphocytes/100 WBC Auto (Un sp spec)Ordered By: Jerardo Garcia on 12-14-2024 Lymphocytes/100 WBC (Bld) 31.5 % 19-41 [facility] MCV (mean corpuscular volume ) determinationOrdered By: Jerardo Garcia on 12-14-2024 MCV (RBC) [Entitic vol] 87.9 fL 81-99 [facility] Mean corpuscular hemoglobin (MCH) determinationOrdered By: Jerardo Garcia on 12-14-2024 MCH (RBC) [Entitic mass] 30.6 pg 27.0-32.0 [facility] Mean corpuscular hemoglobin concentration (MCHC) determinationOrdered By: Jerardo Garcia on 12-14-2024 MCHC (RBC) [Mass/Vol] 34.8 g/dL 32-36 [facility] Mean platelet volume determi nationOrdered By: Jerardo Garcia on 12-14-2024 Platelet mean volume (Bld) [Entitic vol] 10.4 fL 6.2-12.0 [facility] Microscopic analysis of urin e for red blood cells (RBC)Ordered By: Jerardo Garcia on 12-14-2024 Microscopic analysis of urine for red blood cells (RBC) 0-5 SEEN /hpf 0-5 [facility] Urine RBC 0-5 SEEN /hpf 0-5 [facility] Monocyte percentageOrdered B y: Jerardo Garcia on 12-14-2024 Monocytes/100 WBC (Bld) 7.1 % 0-10 [facility] Mucus LM Ql (Urine sed)Order ed By: Jerardo Garcia on 12-14-2024 Mucus Ql (Urine sed) 0 SEEN /hpf [facility] Neutrophil percentageOrdered By: Jerardo Garcia on 12-14-2024 Neutrophils/100 WBC (Bld) 59.8 % 47-70 [facility] Nitrite Test strip Ql (U)Ord ered By: Jerardo Garcia on 12-14-2024 Nitrite Ql (U) Negative Negative [facility] Nucleated red blood cell per centageOrdered By: Jerardo Garcia on 12-14-2024 Nucleated RBC/100 WBC (Bld) [Ratio] 0 % 0-5 [facility] Partial Thromboplast Timeon 12-14-2024 aPTT Coag (Bld) [Time] 26.2 s Normal 24.1-36.2 [facility] Comment on above: Performed By: #### M 100.2200 #### [facility] [address] [place], [place], [id number] Platelet countOrdered By: Mathew Garcia on 12-14-2024 Platelets (Bld) [#/Vol] 330 10*3/uL 150-450 [facility] Potassium measurementOrdered By: Jerardo Garcia on 12-14-2024 Potassium [Moles/Vol] 3.3 mmol/L Low 3.5-5.1 [facility] Protein Test strip Ql (U)Ord ered By: Jerardo Garcia on 12-14-2024 Protein Ql (U) Negative Negative [facility] Prothrombin Time w/INRon INR Coag (PPP) [Relative time] 0.9 {INR} Normal [facility] Comment on above: Performed By: #### M 100.2200 #### [facility] [address] [place], [address] PT Coag (PPP) [Time] 12.5 s Normal 11.7-14.9 [facility] Comment on above: Performed By: #### M 100.2200 #### [facility] [address] [place], [address] Prothrombin timeOrdered By: Jerardo Garcia on 12-14-2024 PT Coag (PPP) [Time] 12.5 s 11.7-14.9 [facility] RBC Auto (Bld) [#/Vol]Ordere d By: Jerardo Garcia on 12-14-2024 RBC (Bld) [#/Vol] 4.05 10*6/uL Low 4.2-5.4 [facility] Serum anion gap measurementO rdered By: Jerardo Garcia on 12-14-2024 Anion gap [Moles/Vol] 8 mmol/L 5-15 [facility] Serum globulin measurementOr dered By: Jerardo Garcia on 12-14-2024 Globulin (S) [Mass/Vol] 3.5 g/dL 2.2-4.2 [facility] Serum or plasma alanine rosas otransferase (ALT) measurementOrdered By: Jerardo Garcia on 12-14-2024 ALT [Catalytic activity/Vol] 28 U/L 13-56 [facility] Serum or plasma albumin tabatha urement (mass/volume)Ordered By: Jerardo De Los Santos on 12-14-2024 Albumin [Mass/Vol] 3.0 g/dL Low 3.2-5.0 [facility] Serum or plasma alkaline courtney sphatase measurementOrdered By: Jerardo Garcia on 12-14-2024 ALP [Catalytic activity/Vol] 65 U/L 45-117 [facility] Serum or plasma calcium tabatha urement (mass/volume)Ordered By: Jerardo De Los Santos on 12-14-2024 Calcium [Mass/Vol] 8.8 mg/dL 8.5-10.1 [facility] Serum or plasma creatinine m easurement (mass/volume)Ordered By: Jerardo De Los Santos on 12-14-2024 Creatinine [Mass/Vol] 0.63 mg/dL 0.55-1.02 [facility] Comment on above: The validity of the calculated GFR & GFRAA in patients over 70 years has not been determined. Clinical correlation is essential. Serum or plasma urea nitroge n measurement (mass/volume)Ordered By: Jerardo Garcia on 12-14-2024 Urea nitrogen [Mass/Vol] 6 mg/dL Low 7-18 [facility] Sodium levelOrdered By: Juwan Garcia on 12-14-2024 Sodium [Moles/Vol] 137 mmol/L 136-145 [facility] Squamous epithelial cells de tection in urine sediment by light microscopyOrdered By: Jerardo Garcia on 12-14-2024 Epithelial cells.squamous LM Ql (Urine sed) 0-5 SEEN /hpf 5-10 [facility] Total proteinOrdered By: Ollie Garcia on 12-14-2024 Protein [Mass/Vol] 6.5 g/dL 6.4-8.2 [facility] Transvaginal w/Preg USon Transvaginal w/Preg US [facility] [address] [place] [id number] Transvaginal w/Preg US MR#: [id number] Acct: [id number] Name: JANICE VELAZQUEZ Rep #: [id number] : 1995 F 29 From: Renato Hol[place] DO PCP: Dr. Kevin Perez MD Status: [facility] Study: Transvaginal w/Preg US Date of Exam: 12/14/24 Exam# [id number] Ordering Dr: Jerardo Garcia DO PROCEDURE: TRANSVAGINAL [...] Jerardo Garcia, DO; Dr. Kevin Perez MD Proof Operator: Signed Normal [facility] Urinalysis, Completeon 12-14 BACTERIA RARE Normal None Seen [facility] Comment on above: Order Comment: CLEAN CATCH Performed By: #### L 400.0001 #### [facility] [address] [place], [address] EPI,SQUAMOUS 0-5 SEEN Normal 5-10 [facility] Comment on above: Order Comment: CLEAN CATCH Performed By: #### L 400.0001 #### [facility] [address] [place], [address] RBC 0-5 SEEN Normal 0-5 [facility] Comment on above: Order Comment: CLEAN CATCH Performed By: #### L 400.0001 #### [facility] [address] [place], [address] Mucus Ql (Urine sed) 0 SEEN Normal [facility] Comment on above: Order Comment: CLEAN CATCH Performed By: #### L 400.0001 #### [facility] [address] [place], [address] WBC 0 SEEN Normal 0-5 [facility] Comment on above: Order Comment: CLEAN CATCH Performed By: #### L 400.0001 #### [facility] [address] [place], [address] Urine blood detectionOrdered By: Jerardo Garcia on 12-14-2024 Urine Occult Blood 150 /ul High Negative [facility] Urine clarityOrdered By: Ollie Garcia on 12-14-2024 Clarity (U) Clear Clear [facility] Urine color determinationOrd ered By: Jerardo Garcia on 12-14-2024 Color (U) Yellow Yellow [facility] Urine glucose detectionOrder ed By: Jerardo Garcia on 12-14-2024 Glucose Ql (U) Normal mg/dl Normal [facility] Urine leukocyte esterase det ection by dipstickOrdered By: Jerardo Garcia on 12-14-2024 Leukocyte esterase Test strip Ql (U) Negative Negative [facility] Urine pHOrdered By: Jerardo Del Real on 12-14-2024 pH (U) 6.5 [pH] 5.0 - 8.0 [facility] Urine sediment bacteria coun t by microscopy (number/high power field)Ordered By: Jerardo Garcia on 12-14-2024 Bacteria LM.HPF (Urine sed) [#/Area] RARE /hpf None Seen [facility] Urine specific gravity measu rementOrdered By: Jerardo Garcia on 12-14-2024 Specific gravity (U) [Rel density] 1.010 1.002-1.030 [facility] Urine urobilinogen measureme ntOrdered By: Jerardo Garcia on 12-14-2024 Urobilinogen Ql (U) Normal mg/dl Normal [facility] Urobilinogen Ql (U)Ordered B y: Jerardo Garcia on 12-14-2024 Urine Urobilinogen Normal mg/dl Normal [facility] White blood cell (WBC) count Ordered By: Jerardo Garcia on 12-14-2024 WBC (Bld) [#/Vol] 8.3 10*3/uL 4.4-11.0 [facility] White blood cell countOrdere d By: Jerardo Garcia on 12-14-2024 Urine WBC 0 SEEN /hpf 0-5 [facility] White blood cell count 0 SEEN /hpf 0-5 [facility] aPTT Coag (PPP) [Time]Ordere d By: Jerardo Garcia on 12-14-2024 aPTT Coag (Bld) [Time] 26.2 s 24.1-36.2 [facility] Laboratory - Chemistry and C hemistry - challengeOrdered By: Vannessa Chirinos on 12-13-2024 Glucose Ql (U) Negative [facility] Laboratory - UrinalysisOrder ed By: Vannessa Chirinos on 12-13-2024 Protein Ql (U) Negative [facility] Rig Welder Office Visit Reporton 12-13-2024 Rig Welder Office Visit Report [facility] [address], [address] [place] [address] OFFICE VISIT Date of Service: 12/13/24 MR#: [id number] Acct: [id number] Name: JANICE VELAZQUEZ Rep #: [id number] : 1995 Provider: ASTER samuel Age/Sex: 29/F Location: [place] Status: Signed Intake Vital Signs 10/19/24 11:22 11/16/24 13:30 12/13/24 10:41 Height 5 ft 3 in 5 ft 3 in 5 ft 3 in Weight: 164 lb BMI 29.0 BP 118/70 Intake Visit Reasons: 16 wk OB Chief Complaint: 16 Week OB Tool Worker Required: No Is patient in pain?: No Allergies No Known Allergies Allergy (Verified 12/13/24 10:40) Medications ???Medication ???Instructions ???Recorded ???Confirmed ???Type doxylamine succinate 25 mg tablet 25 mg PO QHS PRN 10/12/24 5 History (Unisom (doxylamine)) multivit-min no.71-iron fum 28 cap PO 10/12/24 12/13/24 History mg-folate no.1 1 mg-dha 300 mg capsule (PNV-Redfield) Last Menstrual Period: 08/22/24 Zika: Zika virus [...] 5-6 times per week duration: 45-60 minutes/day ross/gnosticism: Taoist seatbelt use: always do you feel safe [...] 34 live - 5# 15oz Male epidural [facility] Delivery Date: 09/27/23 Last Updated by: Davina [...] PTB. 10/31 (more content not included)... Normal [facility] Laboratory - Chemistry and C hemistry - challengeon 11-16-2024 Glucose Ql (U) Negative [facility] Laboratory - Urinalysison Protein Ql (U) Negative [facility] Rig Welder Office Visit Reporton 11-16-2024 Rig Welder Office Visit Report [facility] [address], [address] [place] [address] OFFICE VISIT Date of Service: 11/16/24 MR#: [id number] Acct: [id number] Name: JANICE VELAZQUEZ Rep #: [id number] : 1995 Provider: Dr. Stephania Taylor DO Age/Sex: 29/F Location: [place] Status: Signed Intake Vital Signs 07/17/24 14:52 10/19/24 11:22 11/16/24 13:30 Height 5 ft 3 in 5 ft 3 in 5 ft 3 in Weight: 164 lb 6 oz BMI 29.1 BP 120/87 H Intake Visit Reasons: 12wk OB Tool Worker Required: No Is patient in pain?: No Allergies No Known Allergies Allergy (Verified 11/16/24 13:35) Medications ???Medication ???Instructions ???Recorded ???Confirmed ???Type doxylamine succinate 25 mg tablet 25 mg PO QHS PRN 10/12/24 11/16/24 History (Unisom (doxylamine)) multivit-min no.71-iron fum 28 cap PO 10/12/24 11/16/24 History mg-folate no.1 1 mg-dha 300 mg capsule (PNV-[place]field) Last Menstrual Period: 08/22/24 Zika: Zika virus [...] 5-6 times per week duration: 45-60 minutes/day ross/gnosticism: Taoist seatbelt use: always do you feel safe [...] 32 live - 5# 15oz Male epidural [facility] Delivery Date: 09/27/23 Last Updated by: Davina [...] 11/16/24 -???-???-???-??? (more content not included)... Normal [facility] Chlamydia/GC PHILIP aptimaon CHLAMY,NUC ACID Negative Normal Negative [facility] Comment on above: Performed By: #### L 400.0001 #### [facility] Laboratory [address] [place], [address] GC BY NUC ACID Negative Normal Negative [facility] Comment on above: Result Comment: Perf ormed at: =G - [facility] [address] [place] [id number] Client Integration Manager: Chantel Sánchez MD, Phone: [phone] Performed By: #### L 400.0001 #### [facility] Laboratory [address] [place], [address] Urine Cultureon 10-20-2024 URC Culture exhibits no growth. Normal [facility] Comment on above: Performed By: #### L 400.0001 #### [facility] Laboratory [address] [place], [address] Absolute neutrophil countOrd ered By: Dayanara Christie on 10-19-2024 Neutrophils (Bld) [#/Vol] 5.9 10*3/uL 2.0-7.7 [facility] Basophil percentageOrdered B y: Dayanara Christie on 10-19-2024 Basophils/100 WBC (Bld) 0.5 % 0-1 [facility] C. trachomatis rRNA PHILIP+prob e Ql (Unsp spec)Ordered By: Dayanara Christie on 10-19-2024 Chlamydia DNA (PHILIP) Negative Negative [facility] CBC W/Diff, Automatedon 10-01 Absolute Lymph 2.20 X10 3/uL Normal 0.83-4.51 [facility] Comment on above: Performed By: #### M 100.2200 #### [facility] Laboratory [address] [place], [address] Absolute Neut 5.9 X10 3/uL Normal 2.0-7.7 [facility] Comment on above: Performed By: #### M 100.2200 #### [facility] Laboratory [address] [place], [address] Basophils/100 WBC (Bld) 0.5 % Normal 0-1 [facility] Comment on above: Performed By: #### M 100.2200 #### [facility] [address] [place], [address] Eosinophils/100 WBC (Bld) 1.1 % Normal 0-5 [facility] Comment on above: Performed By: #### M 100.2200 #### [facility] Laboratory [address] [place], [address] Erythrocyte distribution width (RBC) [Ratio] 12.6 % Normal 11.6-14.6 [facility] Comment on above: Performed By: #### M 100.2200 #### [facility] Laboratory [address] [place], [address] Hematocrit (Bld) [Volume fraction] 42.9 % Normal 37-47 [facility] Comment on above: Performed By: #### M 100.2200 #### [facility] [address] [place], [address] Hemoglobin (Bld) [Mass/Vol] 14.3 g/dL Normal 12.0-15.0 [facility] Comment on above: Performed By: #### M 100.2200 #### [facility] [address] [place], [address] IG% 0.300 Normal 0.0-0.9 [facility] Comment on above: Result Comment: IG% - Immature Granulocytes (promyelocytes, myelocytes and metamyelocytes) > 1% indicates that a LEFT SHIFT is Present. Performed By: #### M 100.2200 #### [facility] [address] [place], [address] Lymphocytes/100 WBC (Bld) 24.8 % Normal 19-41 [facility] Comment on above: Performed By: #### M 100.2200 #### [facility] [address] [place], [address] MCH (RBC) [Entitic mass] 29.5 pg Normal 27.0-32.0 [facility] Comment on above: Performed By: #### M 100.2200 #### [facility] [address] [place], [address] MCHC (RBC) [Mass/Vol] 33.3 g/dL Normal 32-36 [facility] Comment on above: Performed By: #### M 100.2200 #### [facility] [address] [place], [address] MCV (RBC) [Entitic vol] 88.6 fL Normal 81-99 [facility] Comment on above: Performed By: #### M 100.2200 #### [facility] Laboratory [address] [place], [address] Monocytes/100 WBC (Bld) 6.8 % Normal 0-10 [facility] Comment on above: Performed By: #### M 100.2200 #### [facility] [address] [place], [address] Neutrophils/100 WBC (Bld) 66.5 % Normal 47-70 [facility] Comment on above: Performed By: #### M 100.2200 #### [facility] [address] [place], [address] Nucleated RBC (Bld) [#/Vol] 0 10*3/uL Normal 0-5 [facility] Comment on above: Performed By: #### M 100.2200 #### [facility] [address] [place], [address] Platelet mean volume (Bld) [Entitic vol] 9.8 fL Normal 6.2-12.0 [facility] Comment on above: Performed By: #### M 100.2200 #### [facility] [address] [place], [address] Platelets (Bld) [#/Vol] 431 10*3/uL Normal 150-450 [facility] Comment on above: Performed By: #### M 100.2200 #### [facility] [address] [place], [address] RBC (Bld) [#/Vol] 4.84 10*6/uL Normal 4.2-5.4 [facility] Comment on above: Performed By: #### M 100.2200 #### [facility] [address] [place], [address] RDW SD 41.0 fl Normal 35.1-43.9 [facility] Comment on above: Performed By: #### M 100.2200 #### [facility] Laboratory [address] [place], [address] WBC (Bld) [#/Vol] 8.9 10*3/uL Normal 4.4-11.0 [facility] Comment on above: Performed By: #### M 100.2200 #### [facility] [address] [place], [address] Eosinophil percentageOrdered By: Dayanara Christie on 10-19-2024 Eosinophils/100 WBC (Bld) 1.1 % 0-5 [facility] Erythrocyte distribution wid th ratioOrdered By: Dayanara Christie on 10-19-2024 Erythrocyte distribution width (RBC) [Ratio] 12.6 % 11.6-14.6 [facility] Erythrocyte distribution wid th standard deviationOrdered By: Dayanara Christie on 10-19-2024 Erythrocyte distribution width (RBC) [Entitic vol] 41.0 fL 35.1-43.9 [facility] HIV - WCHon 10-19-2024 HIV Non-Reactive Normal Nonreactive [facility] Comment on above: Order Comment: Reaso n for Exam: Performed By: #### M 100.2200 #### [facility] [address] [place], [address] HIV 1+2 Ab+HIV1 p24 Ag IA Ql Ordered By: Dayanara Christie on 10-19-2024 HIV (1&2) Antibody Non-Reactive Nonreactive [facility] Hematocrit Auto (Bld) [Volum e fraction]Ordered By: Dayanara Christie on 10-19-2024 Hematocrit (Bld) [Volume fraction] 42.9 % 37-47 [facility] Hemoglobin measurementOrdere d By: Dayanara Christie on 10-19-2024 Hemoglobin (Bld) [Mass/Vol] 14.3 g/dL 12.0-15.0 [facility] Hepatitis B Surface Antigeno n 10-19-2024 HEP B Surf Ag Non-Reactive Normal Nonreactive [facility] Comment on above: Order Comment: Reaso n for Exam: Performed By: #### M 100.2200 #### [facility] [address], [place], [id number] Hepatitis B surface antigen detectionOrdered By: Dayanara Christie on 10-19-2024 Hepatitis B Surface Antigen Non-Reactive Nonreactive [facility] Hepatitis C Antibodyon 10-19 Hepatitis C AB Non-Reactive Normal Nonreactive [facility] Comment on above: Order Comment: Reaso n for Exam: Result Comment: Non Reactive: < 0.8 Equivocal: >/= 0.8 to < 1.0 Reactive: >/= 1.0 The [facility] requires that a reactive/equivocal HCV antibody result be sent out for confirmation. HCV Quant by PCR testing. Performed By: #### M 100.2199 #### [facility] [address] [place], [address] Hepatitis C virus antibody a ssayOrdered By: Dayanara Christie on 10-19-2024 Hepatitis C Antibody Non-Reactive Nonreactive [facility] Comment on above: Non Reactive: < 0.8 Equivocal: >/= 0.8 to < 1.0 Reactive: >/= 1.0The [facility] requires that a reactive/equivocal HCV antibody result be sent out for confirmation. HCV Quant by PCR testing. Immature granulocytes/100 WB C Auto (Bld)Ordered By: Dayanara Christie on 10-19-2024 Immature granulocytes/100 WBC (Bld) 0.300 % 0.0-0.9 [facility] Comment on above: IG% - Immature Granu locytes (promyelocytes, myelocytes and metamyelocytes) > 1% indicates that a LEFT SHIFT is Present. L509.8000on 10-19-2024 Syphilis Abs Non-Reactive Normal [facility] Comment on above: Order Comment: Reaso n for Exam: Performed By: #### M 100.2200 #### [facility] [facility] [address] [place], [address] Lymphocytes Auto (Unsp spec) [#/Vol]Ordered By: Dayanara Christie on 10-19-2024 Lymphocytes (Bld) [#/Vol] 2.20 10*3/uL 0.83-4.51 [facility] Lymphocytes/100 WBC Auto (Un sp spec)Ordered By: Dayanara Christie on 10-19-2024 Lymphocytes/100 WBC (Bld) 24.8 % 19-41 [facility] MCV (mean corpuscular volume ) determinationOrdered By: Dayanara Christie on 10-19-2024 MCV (RBC) [Entitic vol] 88.6 fL 81-99 [facility] Mean corpuscular hemoglobin (MCH) determinationOrdered By: Dayanara Christie on 10-19-2024 MCH (RBC) [Entitic mass] 29.5 pg 27.0-32.0 [facility] Mean corpuscular hemoglobin concentration (MCHC) determinationOrdered By: Dayanara Christie on 10-19-2024 MCHC (RBC) [Mass/Vol] 33.3 g/dL 32-36 [facility] Mean platelet volume determi nationOrdered By: Dayanara Christie on 10-19-2024 Platelet mean volume (Bld) [Entitic vol] 9.8 fL 6.2-12.0 [facility] Monocyte percentageOrdered B y: Dayanara Christie on 10-19-2024 Monocytes/100 WBC (Bld) 6.8 % 0-10 [facility] Neisseria gonorrhoeae nuclei c acid detection by amplified probe techniqueOrdered By: Dayanara Christie on 10-19-2024 N. gonorrhoeae DNA PHILIP+probe Ql (Unsp spec) Negative Negative [facility] Comment on above: Performed at: =[facility] [address] [place] [id number] Director: Chantel Sánchez MD, Phone: [phone] Neutrophil percentageOrdered By: Dayanara Christie on 10-19-2024 Neutrophils/100 WBC (Bld) 66.5 % 47-70 [facility] Nucleated red blood cell per centageOrdered By: Dayanara Christie on 10-19-2024 Nucleated RBC/100 WBC (Bld) [Ratio] 0 % 0-5 [facility] Rig Welder Office Visit Reporton 10-19-2024 Rig Welder Office Visit Report [facility] [address], [address] [place] [address] OFFICE VISIT Date of Service: 10/19/24 MR#: [id number] Acct: [id number] Name: JANICE VELAZQUEZ Rep #: [id number] : 1995 Provider: DEEP boston Age/Sex: 28/F [place] [facility] [place] Status: Signed Intake Vital Signs 07/17/24 14:52 10/19/24 11:17 10/19/24 11:22 Height 5 ft 3 in 5 ft 3 in 5 ft 3 in Weight: 164 lb 2 oz BMI 29.0 BP 120/81 H Intake Visit Reasons: New OB, LMP 08/22/24, DEE 05/29/25 Tool Worker Required: No Is patient in pain?: No Allergies No Known Allergies Allergy (Verified 10/19/24 11:18) Medications ???Medication ???Instructions ???Recorded ???Confirmed ???Type doxylamine succinate 25 mg tablet 25 mg PO QHS PRN 10/12/24 10/12/24 History (Unisom (doxylamine)) multivit-min no.71-iron fum 28 cap PO 10/12/24 10/12/24 History mg-folate no.1 1 mg-dha 300 mg capsule (PNV-[place]) Last Menstrual Period: 08/22/24 Zika: Zika virus [...] 5-6 times per week duration: 45-60 minutes/day ross/gnosticism: Taoist seatbelt use: always do you feel safe [...] 34 live - 5# 15oz Male epidural [facility] Delivery Date: 09/27/23 Last Updated by: Davina [...] 146 -???-???- (more content not included)... Normal [facility] Platelet countOrdered By: Anamaria Christie on 10-19-2024 Platelets (Bld) [#/Vol] 431 10*3/uL 150-450 [facility] RBC Auto (Bld) [#/Vol]Ordere d By: Dayanara Chrisite on 10-19-2024 RBC (Bld) [#/Vol] 4.84 10*6/uL 4.2-5.4 [facility] Rubella IgGon 10-19-2024 Rubella IgG Reactive Normal Nonreactive [facility] Comment on above: Order Comment: Reaso n for Exam: Result Comment: Anti body Results Interpretation of Immune Status Non Reactive Presumed Non-Immune Equivocal Equivocal Reactive Presumed Immune Performed By: #### M 100.2200 #### [facility] Laboratory [address] [place], [place], [id number] Rubella immune status IgGOrd ered By: Dayanara Christie on 10-19-2024 Rubella IgG Antibody Reactive Nonreactive [facility] Comment on above: Antibody Results Int erpretation of Immune Status Non Reactive Presumed Non-Immune Equivocal Equivocal Reactive Presumed Immune Treponema sp Ab Ql (S)Ordere d By: Dayanara Christie on 10-19-2024 Syphilis Total Antibody Non-Reactive [facility] Type AND Screenon 10-19-2024 ABO and Rh group Nom (Bld) Blood group A Rh(D) positive Normal [facility] Comment on above: Order Comment: PN Performed By: #### M 100.2200 #### [facility] [address] [place], [place], [address] Urine cultureOrdered By: Sue Christie on 10-19-2024 Bacteria identified Cx Nom (U) Culture exhibits no growth. [facility] White blood cell (WBC) count Ordered By: Dayanara Christie on 10-19-2024 WBC (Bld) [#/Vol] 8.9 10*3/uL 4.4-11.0 [facility] Urgent Care Visit Reporton 1 Urgent Care Visit Report [facility] [address], [address] [place] [address] OFFICE VISIT Date of Service: 08/14/24 MR#: [id number] Acct: [id number] Name: JANICE VELAZQUEZ Rep #: [id number] : 1995 Provider: COLUMBA Obrien Age/Sex: 28/F [place] [facility] [place] Status: Signed Intake Vital Signs 07/17/24 14:52 [...] KNEE PAIN Chief Complaint: right knee pain Tool Worker Required: No Is patient in pain?: Yes [...] repair to right side 15 years ago. 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 No cmcd-nub-vzbyvad products been taken to assist. No other [...] Status: Acut (more content not included)... Normal [facility] Lumbar Spine 2 or 3 Viewson 07-18-2024 Lumbar Spine 2 or 3 Views [facility] [address] [place], [place] [id number] Lumbar Spine 2 or 3 Views MR#: [id number] Acct: [id number] Name: JANICE VELAZQUEZ Rep #: [id number] : 1995 F 28 From: Jules Kang MD PCP: Dr. Kevin Perez MD Status: REG CLI Study: Lumbar Spine 2 or 3 Views Date of Exam: Exam# [id number] Ordering Dr: Jaci Moore [id number] STUDY: X-RAY - LUMBAR SPINE REASON FOR [...] CC: ASTER Moore; Dr. 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 Normal [facility] Culture, urineOrdered By: Joseph Chirinos on 09-19-2023 Bacteria identified Cx Nom (U) Culture exhibits no growth. [facility] Laboratory - Chemistry and C hemistry - challengeon 09-19-2023 Bilirubin Ql (U) Negative [facility] Glucose Ql (U) Negative [facility] Ketones Ql (U) Negative [facility] pH (U) 5.0 [pH] [facility] Specific gravity (U) [Rel density] 1.010 [facility] Urobilinogen (U) [Mass/Vol] Negative [facility] Laboratory - Hematology and Cell countson 09-19-2023 Hemoglobin Ql (U) Negative [facility] Laboratory - Specimen inform ationon 09-19-2023 Clarity (U) Cloudy [facility] Color (U) YELLOW [facility] Laboratory - Urinalysison Nitrite Ql (U) Negative [facility] Protein Ql (U) Negative [facility] No Panel Informationon 09-19 Urine Leukocytes Positive [facility] Urine Non-Hemolyzed Blood Negative [facility] Laboratory - Chemistry and C hemistry - challengeon 09-12-2023 Glucose Ql (U) Negative [facility] Laboratory - Urinalysison Protein Ql (U) Negative [facility] Laboratory - Chemistry and C hemistry - challengeon 08-29-2023 Glucose Ql (U) Negative [facility] Laboratory - Urinalysison Protein Ql (U) Negative [facility] Laboratory - Chemistry and C hemistry - challengeon 08-12-2023 Glucose Ql (U) Negative [facility] Laboratory - Urinalysison Protein Ql (U) Negative [facility] Laboratory - Microbiology an d Antimicrobial susceptibilityon 08-09-2023 S. pyogenes Ag IA Ql (Unsp spec) Negative [facility] SARS-CoV-2 (COVID-19) RNA PHILIP+probe Ql (Unsp spec) Not detected [facility] No Panel Informationon 08-09 Influenza Types A,B Rapid (Clinic) Not detected [facility] Absolute lymphocyte countOrd ered By: Dayanara Christie on 07-19-2023 Lymphocytes Auto (Unsp spec) [#/Vol] 1.87 10*3/uL 0.83-4.51 [facility] Basophil percentageOrdered B y: Dayanara Christie on 07-19-2023 Basophils/100 WBC (Bld) 0.4 % 0-1 [facility] Eosinophils/100 WBC (Bld) 2.8 % 0-5 [facility] Neutrophils (Bld) [#/Vol] 7.2 10*3/uL 2.0-7.7 [facility] Neutrophils/100 WBC (Bld) 72.4 % 47-70 [facility] WBC (Bld) [#/Vol] 10.0 10*3/uL 4.4-11.0 [facility] Blood erythrocytes count (nu mber/volume)Ordered By: Dayanara Christie on 07-19-2023 RBC (Bld) [#/Vol] 4.10 10*6/uL 4.2-5.4 [facility] Blood hemoglobin measurement (mass/volume)Ordered By: Dayanara Christie on 07-19-2023 Hemoglobin (Bld) [Mass/Vol] 12.8 g/dL 12.0-15.0 [facility] Blood lymphocytes/100 leukoc ytesOrdered By: Dayanara Christie on 07-19-2023 Lymphocytes/100 WBC (Bld) 18.7 % 19-41 [facility] Blood monocytes/100 leukocyt esOrdered By: Dayanara Christie on 07-19-2023 Monocytes/100 WBC (Bld) 4.7 % 0-10 [facility] Blood platelet mean volumeOr dered By: Dayanara Christie on 07-19-2023 Platelet mean volume (Bld) [Entitic vol] 10.0 fL 6.2-12.0 [facility] Determination of erythrocyte mean corpuscular volume (MCV)Ordered By: Dayanara Christie on 07-19-2023 MCV (RBC) [Entitic vol] 93.4 fL 81-99 [facility] Gestational diabetes screen 1-hour screen with 50g oral glucose loadOrdered By: Dayanara Christie on 07-19-2023 Glucose 1 Hr post 50 g glucose PO [Mass/Vol] 132 mg/dL 70-140 [facility] HIV 1 and HIV-2 antibody ass ay with HIV-1 p24 antigen detectionOrdered By: Dayanara Christie on 07-19-2023 HIV 1+2 Ab+HIV1 p24 Ag IA Ql Non-Reactive Nonreactive [facility] Hematocrit Auto (Bld) [Volum e fraction]Ordered By: Dayanara Christie on 07-19-2023 Hematocrit (Bld) [Volume fraction] 38.3 % 37-47 [facility] Laboratory - Hematology and Cell countsOrdered By: Dayanara Christie on 07-19-2023 Erythrocyte distribution width (RBC) [Entitic vol] 44.2 fL 35.1-43.9 [facility] Erythrocyte distribution width (RBC) [Ratio] 12.9 % 11.6-14.6 [facility] Immature granulocytes/100 WBC (Bld) 1.000 % 0.0-0.9 [facility] Comment on above: IG% - Immature Granu locytes (promyelocytes, myelocytes and metamyelocytes) > 1% indicates that a LEFT SHIFT is Present. MCH (RBC) [Entitic mass] 31.2 pg 27.0-32.0 [facility] Nucleated RBC/100 WBC (Bld) [Ratio] 0 % 0-5 [facility] MCHC Auto (RBC) [Mass/Vol]Or dered By: Dayanara Christie on 07-19-2023 MCHC (RBC) [Mass/Vol] 33.4 g/dL 32-36 [facility] Platelets bldOrdered By: Sue Christie on 07-19-2023 Platelets (Bld) [#/Vol] 286 10*3/uL 150-450 [facility] Serum Treponema species anti body detectionOrdered By: Dayanara Christie on 07-19-2023 Treponema sp Ab Ql (S) Non-Reactive [facility] Laboratory - Chemistry and C hemistry - challengeon 07-18-2023 Glucose Ql (U) Negative [facility] Laboratory - Urinalysison Protein Ql (U) Negative [facility] Laboratory - Chemistry and C hemistry - challengeon 06-20-2023 Glucose Ql (U) Negative [facility] Laboratory - Urinalysison Protein Ql (U) Negative [facility] Absolute lymphocyte countOrd ered By: Stephania Velasco on 05-27-2023 Lymphocytes Auto (Unsp spec) [#/Vol] 1.84 10*3/uL 0.83-4.51 [facility] Basophil percentageOrdered B y: Stephania Velasco on 05-27-2023 Basophils/100 WBC (Bld) 0.3 % 0-1 [facility] Eosinophils/100 WBC (Bld) 0.9 % 0-5 [facility] Neutrophils (Bld) [#/Vol] 6.7 10*3/uL 2.0-7.7 [facility] Neutrophils/100 WBC (Bld) 73.5 % 47-70 [facility] WBC (Bld) [#/Vol] 9.2 10*3/uL 4.4-11.0 [facility] Blood erythrocytes count (nu mber/volume)Ordered By: Stephania Velasco on 05-27-2023 RBC (Bld) [#/Vol] 4.40 10*6/uL 4.2-5.4 [facility] Blood hemoglobin measurement (mass/volume)Ordered By: Stephania Velasco on 05-27-2023 Hemoglobin (Bld) [Mass/Vol] 13.3 g/dL 12.0-15.0 [facility] Blood lymphocytes/100 leukoc ytesOrdered By: Stephania Velasco on 05-27-2023 Lymphocytes/100 WBC (Bld) 20.1 % 19-41 [facility] Blood monocytes/100 leukocyt esOrdered By: Stephania Velasco on 05-27-2023 Monocytes/100 WBC (Bld) 4.9 % 0-10 [facility] Blood platelet mean volumeOr dered By: Stephania Velasco on 05-27-2023 Platelet mean volume (Bld) [Entitic vol] 9.9 fL 6.2-12.0 [facility] Determination of erythrocyte mean corpuscular volume (MCV)Ordered By: Stephania Velasco on 05-27-2023 MCV (RBC) [Entitic vol] 91.1 fL 81-99 [facility] HIV 1 and HIV-2 antibody ass ay with HIV-1 p24 antigen detectionOrdered By: Stephania Velasco on 05-27-2023 HIV 1+2 Ab+HIV1 p24 Ag IA Ql Non-Reactive Nonreactive [facility] Hematocrit Auto (Bld) [Volum e fraction]Ordered By: Stephania Velasco on 05-27-2023 Hematocrit (Bld) [Volume fraction] 40.1 % 37-47 [facility] Laboratory - Chemistry and C hemistry - challengeon 05-27-2023 Glucose Ql (U) Negative [facility] Laboratory - Hematology and Cell countsOrdered By: Stephania Velasco on 05-27-2023 Erythrocyte distribution width (RBC) [Entitic vol] 41.1 fL 35.1-43.9 [facility] Erythrocyte distribution width (RBC) [Ratio] 12.3 % 11.6-14.6 [facility] Immature granulocytes/100 WBC (Bld) 0.300 % 0.0-0.9 [facility] Comment on above: IG% - Immature Granu locytes (promyelocytes, myelocytes and metamyelocytes) > 1% indicates that a LEFT SHIFT is Present. MCH (RBC) [Entitic mass] 30.2 pg 27.0-32.0 [facility] Nucleated RBC/100 WBC (Bld) [Ratio] 0 % 0-5 [facility] Laboratory - Urinalysison Protein Ql (U) Negative [facility] MCHC Auto (RBC) [Mass/Vol]Or dered By: Stephania Velasco on 05-27-2023 MCHC (RBC) [Mass/Vol] 33.2 g/dL 32-36 [facility] No Panel InformationOrdered By: Stephania Velasco on 05-27-2023 Hepatitis B Surface Antigen Non-Reactive Nonreactive [facility] Hepatitis C Antibody Non-Reactive Nonreactive [facility] Comment on above: Non Reactive: < 0.8 Equivocal: >/= 0.8 to < 1.0 Reactive: >/= 1.0The CDC recommends that a reactive/equivocal HCV antibody result be followed up by the HCV Nucleic Acid Amplificationtest (138142) Miscellaneous Test See comment [facility] Comment on above: TEST RESULTS LIMITSA FP, [...] Genetic CustomerServices to discuss available options. The [employer] recommends amniocentesis be offered to women age 35 and older. Comment: Beronica Rutherford, Ph.D., DABCCDirectorReferences: Available Upon Request.Multiples Of Median Cutoffs For AFP ElevationsSingleton 2.5 Black 2.8IDD 2.0 Twins 4.5 Abbreviation DefinitionsIDD - Insulin Dep DiabetesOSBR - Open Spina Bifida RiskFor further inquiries contact [employer] at [phone].This test was developed and its performance characteristicsdetermined by [employer]. It has not been cleared or approvedby the Food and Drug Administration. TESTING PERFORMED AT [facility]. ORIGINAL REPORT ON FILE IN LAB CONTAINS ADDITIONAL TEST SITE INFORMATION. Rubella IgG Antibody Reactive Nonreactive [facility] Comment on above: Antibody Results Int erpretation of Immune Status Non Reactive Presumed Non-Immune Equivocal Equivocal Reactive Presumed Immune Platelets bldOrdered By: Hedy Velasco on 05-27-2023 Platelets (Bld) [#/Vol] 306 10*3/uL 150-450 [facility] Serum Treponema species anti body detectionOrdered By: Stephania Velasco on 05-27-2023 Treponema sp Ab Ql (S) Non-Reactive [facility] Laboratory - Chemistry and C hemistry - challengeon 04-29-2023 Glucose Ql (U) Negative [facility] Laboratory - Urinalysison Protein Ql (U) Negative [facility] Chlamydia trachomatis rRNA d etection by probe and target amplification methodOrdered By: Stephania Velasco on 03-30-2023 C. trachomatis rRNA PHILIP+probe Ql (Unsp spec) Negative Negative [facility] Culture, urineOrdered By: Fabio Velasco on 03-30-2023 Bacteria identified Cx Nom (U) Positive [facility] Laboratory - Microbiology an d Antimicrobial susceptibilityOrdered By: Stephania Velasco on 03-30-2023 N. gonorrhoeae DNA PHILIP+probe Ql (Unsp spec) Negative Negative [facility] Comment on above: Performed at: =[address] [id number] Director: Chantel Sánchez MD, Phone: [phone] Laboratory - Microbiology an d Antimicrobial susceptibilityon 12-13-2022 S. pyogenes Ag IA Ql (Unsp spec) Positive [facility] Cervical or vagninal specime n microscopic examination by cytology stain (reported asOrdered By: Vannessa Chirinos on 12-07-2022 Cytology report Cyto stain Doc (Cvx/Vag) Comment . [facility] Comment on above: The Pap smear is a s creening test designed to aid in thedetection of premalignant and malignant conditions of theuterine cervix. It is not a diagnostic procedure andshould not be used as the sole means of detecting cervicalcancer. Both false-positive and false-negative reports dooccur. Laboratory - CytologyOrdered By: Vannessa Chirinos on 12-07-2022 [employer] Cyto stain Nom (Cvx/Vag) [ID] Comment . [facility] Comment on above: Salvador Escobar hnologist (ASCP) Laboratory - Miscellaneous t estsOrdered By: Vannessa Chirinos on 12-07-2022 Service comment (Unsp spec) [Interp] Comment . [facility] Comment on above: This liquid based Th inPrep(R) pap test was screened withthe use of an image guided system. Service comment (Unsp spec) [Interp] . . [facility] No Panel InformationOrdered By: Vannessa Chirinos on 12-07-2022 Human Papillomavirus Screen Comment . [facility] Comment on above: The HPV DNA reflex c emili were not met with this specimenresult therefore, no HPV testing was performed.Performed at: [address] [id number] Director: Chantel Sánchez MD, Phone: [phone] Pathology report final diagnosis Narrative Comment . [facility] Comment on above: NEGATIVE FOR INTRAEP ITHELIAL LESION OR MALIGNANCY. Laboratory - Microbiology an d Antimicrobial susceptibilityon 11-06-2022 S. pyogenes Ag IA Ql (Unsp spec) Negative [facility] Office Visit: est annualon 1 10-31-2016 Documentation of current medications (procedure) Done Invalid Interpretation Code [facility] Fall risk assessment No Invalid Interpretation Code [facility] Tobacco smoking status NHIS Never Invalid Interpretation Code [facility] Tobacco use CPHS Never smoker Invalid Interpretation Code [facility] Lab Report: ,Urineo n 08-11-2017 HCG.beta subunit ( test) Ql (U) Negative Invalid Interpretation Code [facility] Work Phone: [phone] Microbiology: Culture, Throa ton 08-06-2017 CUT Vancomycin $ 1 S Invalid Interpretation Code [facility] Work Phone: [phone] Lab Report: CBC W/Diff, Auto matedon 08-02-2017 Lymphocytes variants/100 leukocytes RARE % Invalid Interpretation Code [facility] Work Phone: [phone] Platelets presence ADEQUATE Invalid Interpretation Code ADEQ [facility] Work Phone: [phone] REACTIVE LYMPH 1+ Invalid Interpretation Code [facility] Work Phone: [phone] SMEAR COMMENT SCANNED Invalid Interpretation Code [facility] Work Phone: [phone] Office Visit: Est. Pt. Visit on 08-02-2017 Documentation of current medications (procedure) Done Invalid Interpretation Code [facility] Work Phone: [phone] Fall risk assessment No Invalid Interpretation Code [facility] Work Phone: [phone] Protein mass conc Done Invalid Interpretation Code [facility] Work Phone: [phone] Tobacco smoking status NHIS Never Invalid Interpretation Code [facility] Work Phone: [phone] Tobacco smoking status NHIS Never smoker Invalid Interpretation Code [facility] Work Phone: [phone] Tobacco use [facility] Never smoker Invalid Interpretation Code [facility] Work Phone: [phone] Replaced Document: (P) CBC W /Diff, Automatedon 08-02-2017 Absolute Neut 3.1 X10 3/UL Invalid Interpretation Code 2.0-7.7 [facility] Work Phone: [phone] Basophils/100 WBC Auto (Bld) 0.6 % Invalid Interpretation Code 0-1 [facility] Work Phone: [phone] Eosinophils/100 leukocytes 0.5 % Invalid Interpretation Code 0-5 [facility] Work Phone: [phone] Erythrocyte distribution width Auto Ratio (RBC) 12.6 % Invalid Interpretation Code 11.6-14.6 [facility] Work Phone: [phone] Erythrocyte distribution width Auto Ratio (RBC) 41.8 fL Invalid Interpretation Code 35.1-43.9 [facility] Work Phone: [phone] Erythrocytes (RBC) 4.45 10*6/uL Invalid Interpretation Code 4.2-5.4 [facility] Work Phone: [phone] Hematocrit (HCT) 41.2 % Invalid Interpretation Code 37-47 [facility] Work Phone: [phone] Hemoglobin mass conc (Bld) 13.5 g/dL Invalid Interpretation Code 12.0-15.0 [facility] Work Phone: [phone] Immature granulocytes #/vol (Bld) 0.200 % Invalid Interpretation Code 0.0-0.9 [facility] Work Phone: [phone] Immature granulocytes/100 WBC (Bld) 0.200 % Invalid Interpretation Code 0.0-0.9 [facility] Work Phone: [phone] Lymphocytes 2.16 X10 3/UL Invalid Interpretation Code 0.83-4.51 [facility] Work Phone: [phone] Lymphocytes/100 leukocytes 34.4 % Invalid Interpretation Code 19-41 [facility] Work Phone: [phone] MCH 30.3 pg Invalid Interpretation Code 27.0-32.0 [facility] Work Phone: [phone] MCHC mass conc (RBC) 32.8 G/GL Invalid Interpretation Code 32-36 [facility] Work Phone: [phone] MCV 92.6 fL Invalid Interpretation Code 81-99 [facility] Work Phone: [phone] Monocytes/100 leukocytes 15.6 % High 0-10 [facility] Work Phone: [phone] Neutrophils Auto #/vol (Bld) 3.1 X10 3/UL Invalid Interpretation Code 2.0-7.7 [facility] Work Phone: [phone] Neutrophils/100 WBC Auto (Bld) 48.7 % Invalid Interpretation Code 47-70 [facility] Work Phone: [phone] Platelets 238 10*3/mm3 Invalid Interpretation Code 150-450 [facility] Work Phone: [phone] PMV by Naty 10.3 fL Invalid Interpretation Code 6.2-12.0 [facility] Work Phone: [phone] RDW SD 41.8 fL Invalid Interpretation Code 35.1-43.9 [facility] Work Phone: [phone] WBC (Leukocytes) 6.3 10*3/uL Invalid Interpretation Code 4.4-11.0 [facility] Work Phone: [phone] Microbiology: Culture, R/O S trep Aon 08-01-2017 CUSTREPA . Invalid Interpretation Code [facility] Work Phone: [phone] Append: UC: Still has a sore throaton 07-30-2017 Rapid strep test Negative Invalid Interpretation Code [facility] Work Phone: S. pyogenes DNA PHILIP+probe Ql (Throat) Negative Invalid Interpretation Code [facility] Work Phone: [phone] Office Visit: UC: Still has a sore throaton 07-30-2017 Documentation of current medications (procedure) Done Invalid Interpretation Code [facility] Work Phone: Fall risk assessment No Invalid Interpretation Code [facility] Work Phone: Tobacco smoking status NHIS Never Invalid Interpretation Code [facility] Work Phone: Tobacco use HS Never smoker Invalid Interpretation Code [facility] Work Phone: Office Visit: acute visit, s trep tonsillitison 07-20-2017 Documentation of current medications (procedure) Done Invalid Interpretation Code [facility] Work Phone: [phone] Fall risk assessment No Invalid Interpretation Code [facility] Work Phone: [phone] Tobacco smoking status NHIS Never Invalid Interpretation Code [facility] Work Phone: [phone] Tobacco use [facility] Never smoker Invalid Interpretation Code [facility] Work Phone: [phone] Office Visit: UC: Sore throa ton 07-19-2017 Documentation of current medications (procedure) Done Invalid Interpretation Code [facility] Work Phone: Fall risk assessment No Invalid Interpretation Code [facility] Work Phone: Tobacco smoking status WAIS Never Invalid Interpretation Code [facility] Work Phone: Tobacco use [facility] Never smoker Invalid Interpretation Code [facility] Work Phone: Lab Report: Hep B Surface An tibodies EMPon 06-29-2017 GE use only - for [employer] import when terms are not otherwise specified Reactive Invalid Interpretation Code . [facility] Work Phone: [phone] Hep B Pema AB Reactive Invalid Interpretation Code . [facility] Work Phone: [phone] Lab Report: CBC, Employeeon 06-28-2017 Absolute Neut 2.3 X10 3/UL Invalid Interpretation Code 2.0-7.7 [facility] Work Phone: [phone] Basophils/100 leukocytes 0.8 % Invalid Interpretation Code 0-1 [facility] Work Phone: [phone] Basophils/100 WBC (Bld) 0.8 % 0-1 [facility] Work Phone: [phone] Eosinophils/100 leukocytes 2.4 % Invalid Interpretation Code 0-5 [facility] Work Phone: [phone] Eosinophils/100 WBC (Bld) 2.4 % 0-5 [facility] Work Phone: [phone] Erythrocyte distribution width Auto Ratio (RBC) 44.0 fL High 35.1-43.9 [facility] Work Phone: [phone] Erythrocyte distribution width Ratio (RBC) 44.0 fL High 35.1-43.9 [facility] Work Phone: [phone] Erythrocyte distribution width Ratio (RBC) 13.2 % 11.6-14.6 [facility] Work Phone: [phone] Erythrocytes (RBC) 4.69 10*6/uL Invalid Interpretation Code 4.2-5.4 [facility] Work Phone: [phone] Hematocrit (HCT) 44.1 % Invalid Interpretation Code 37-47 [facility] Work Phone: [phone] Hematocrit Volume Fraction (Bld) 44.1 % 37-47 [facility] Work Phone: [phone] Hemoglobin (HGB) 14.4 g/dL Invalid Interpretation Code 12.0-15.0 [facility] Work Phone: [phone] Lymphocytes 2.04 X10 3/UL Invalid Interpretation Code 0.83-4.51 [facility] Work Phone: [phone] Lymphocytes #/vol (Bld) 2.04 X10 3/UL 0.83-4.51 [facility] Work Phone: [phone] Lymphocytes/100 leukocytes 41.1 % High 19-41 [facility] Work Phone: [phone] Lymphocytes/100 WBC (Bld) 41.1 % High 19-41 [facility] Work Phone: [phone] MCH 30.7 pg Invalid Interpretation Code 27.0-32.0 [facility] Work Phone: [phone] MCH Entitic mass (RBC) 30.7 pg 27.0-32.0 Bl [facility] Work Phone: [phone] MCHC 32.7 G/GL Invalid Interpretation Code 32-36 [facility] Work Phone: [phone] MCHC mass conc (RBC) 32.7 G/GL 32-36 [facility] Work Phone: [phone] MCV 94.0 fL Invalid Interpretation Code 81-99 [facility] Work Phone: [phone] MCV Entitic volume (RBC) 94.0 fL 81-99 [facility] Work Phone: [phone] Monocytes/100 leukocytes 9.7 % Invalid Interpretation Code 0-10 [facility] Work Phone: [phone] Monocytes/100 WBC (Bld) 9.7 % 0-10 [facility] Work Phone: [phone] neutrophil count, blood 2.3 X10 3/UL Invalid Interpretation Code 2.0-7.7 [facility] Work Phone: [phone] Neutrophils #/vol (Bld) 2.3 X10 3/UL 2.0-7.7 [facility] Work Phone: [phone] Neutrophils Auto #/vol (Bld) 2.3 X10 3/UL Invalid Interpretation Code 2.0-7.7 [facility] Work Phone: [phone] Neutrophils/100 leukocytes 46.0 % Low 47-70 [facility] Work Phone: [phone] Neutrophils/100 WBC (Bld) 46.0 % Low 47-70 [facility] Work Phone: [phone] Platelet mean volume Entitic volume (Bld) 10.8 fL 6.2-12.0 [facility] Work Phone: [phone] Platelets 315 10*3/mm3 Invalid Interpretation Code 150-450 [facility] Work Phone: [phone] Platelets #/vol (Bld) 315 10*3/mm3 150-450 [facility] Work Phone: [phone] PMV by Naty 10.8 fL Invalid Interpretation Code 6.2-12.0 [facility] Work Phone: [phone] RBC #/vol (Bld) 4.69 10*6/uL 4.2-5.4 [facility] Work Phone: [phone] RDW SD 44.0 fL High 35.1-43.9 [facility] Work Phone: [phone] RDW-CA 13.2 % Invalid Interpretation Code 11.6-14.6 [facility] Work Phone: [phone] red blood cell distribution width, size density 44.0 fL High 35.1-43.9 [facility] Work Phone: [phone] WBC #/vol (Bld) 5.0 10*3/uL 4.4-11.0 [facility] Work Phone: [phone] WBC (Leukocytes) 5.0 10*3/uL Invalid Interpretation Code 4.4-11.0 [facility] Work Phone: [phone] Lab Report: Employee Profile on 06-28-2017 Alanine aminotransferase (ALT) 51 U/L Invalid Interpretation Code 12-78 [facility] Work Phone: [phone] Albumin 4.3 g/dL Invalid Interpretation Code 3.4-5.0 [facility] Work Phone: [phone] Albumin/Globulin Ratio 1.2 {ratio} Invalid Interpretation Code 0.9-2.4 [facility] Work Phone: [phone] Alkaline phosphatase (ALP) 72 U/L Invalid Interpretation Code 45-117 [facility] Work Phone: [phone] ALP enzyme act/vol (Bld) 72 U/L Invalid Interpretation Code 45-117 [facility] Work Phone: [phone] Anion gap 7 mmol/L Invalid Interpretation Code 5-15 [facility] Work Phone: [phone] Anion gap 4 molar conc 7 Invalid Interpretation Code 5-15 [facility] Work Phone: [phone] Anion gap molar conc 7 mmol/L 5-15 [facility] Work Phone: [phone] Aspartate aminotransferase (AST) 36 U/L Invalid Interpretation Code 15-37 [facility] Work Phone: [phone] Bilirubin (direct) 0.28 mg/dL Invalid Interpretation Code 0.00-0.30 [facility] Work Phone: [phone] Bilirubin (total) 1.40 mg/dL High 0.20-1.00 [facility] Work Phone: [phone] BUN/Creatinine Ratio 18.0 RATIO Invalid Interpretation Code 10-20 [facility] Work Phone: [phone] Calcium 9.3 mg/dL Invalid Interpretation Code 8.5-10.1 [facility] Work Phone: [phone] Chloride 106 mmol/L Invalid Interpretation Code 98-107 [facility] Work Phone: [phone] Cholesterol 168 mg/dL Invalid Interpretation Code 200 [facility] Work Phone: [phone] CO2 29.0 mmol/L Invalid Interpretation Code 21.0-32.0 [facility] Work Phone: [phone] CO2 ppres (BldV) 29.0 mmol/L Invalid Interpretation Code 21.0-32.0 [facility] Work Phone: [phone] Creatinine 0.94 mg/dL Invalid Interpretation Code 0.55-1.02 [facility] Work Phone: [phone] eGFR (non-black) 94 mL/min/{1.73_m2} Invalid Interpretation Code >60 [facility] Work Phone: [phone] eGFR (non-black) 78 mL/min/{1.73_m2} Invalid Interpretation Code >60 [facility] Work Phone: [phone] EST GFR - AA 94 mL/min Invalid Interpretation Code >60 [facility] Work Phone: [phone] Globulin 3.6 g/dL High 2.3-3.5 [facility] Work Phone: [phone] Globulin mass conc (S) 3.6 g/dL High 2.3-[facility].5 [facility] Work Phone: [phone] Glucose 85 mg/dL Invalid Interpretation Code 70-110 [facility] Work Phone: [phone] Glucose mass conc 85 mg/dL Invalid Interpretation Code 70-110 [facility] Work Phone: [phone] HDL Cholesterol 84 mg/dL Invalid Interpretation Code [facility] Work Phone: [phone] lactate dehydrogenase - serum 233 U/L Invalid Interpretation Code 84-246 [facility] Work Phone: [phone] LDH 233 U/L Invalid Interpretation Code 84-246 [facility] Work Phone: [phone] LDL Cholesterol 74 mg/dL Invalid Interpretation Code 0-130 [facility] Work Phone: [phone] PHOS 3.2 mg/dL Invalid Interpretation Code 2.5-4.9 [facility] Work Phone: [phone] Phosphorus Concentratation-Random 3.2 mg/dL Invalid Interpretation Code 2.5-4.9 [facility] Work Phone: [phone] Potassium 3.8 mmol/L Invalid Interpretation Code 3.5-5.1 [facility] Work Phone: [phone] Protein 7.9 g/dL Invalid Interpretation Code 6.4-8.2 [facility] Work Phone: [phone] Sodium 142 mmol/L Invalid Interpretation Code 136-145 [facility] Work Phone: [phone] Triglyceride 50 mg/dL Invalid Interpretation Code [facility] Work Phone: [phone] Urate 4.2 mg/dL Invalid Interpretation Code 2.6-6.0 [facility] Work Phone: [phone] Urea nitrogen 17 mg/dL Invalid Interpretation Code 7-18 [facility] Work Phone: [phone] very low density lipoproteins 10 mg/dL Invalid Interpretation Code 5-40 [facility] Work Phone: [phone] Lab Report: Nicotine Urine D rug Screenon 06-28-2017 GE use only - for [employer] import when terms are not otherwise specified Negative Invalid Interpretation Code <200 ng/mL [facility] Work Phone: [phone] Lab Report: Urinalysis, Empl oyeeon 06-28-2017 Albumin Ql (U) Negative Invalid Interpretation Code Negative [facility] Work Phone: [phone] Bilirubin Ql (U) Negative Invalid Interpretation Code Negative [facility] Work Phone: [phone] Ketones mass conc (U) Negative Invalid Interpretation Code Negative [facility] Work Phone: [phone] NITRITE UR Negative Invalid Interpretation Code Negative [facility] Work Phone: [phone] Nitrite Urine Negative Invalid Interpretation Code Negative [facility] Work Phone: [phone] Occult Blood, urine Negative Invalid Interpretation Code Negative [facility] Work Phone: [phone] OCCULT BLOOD-UR Negative Invalid Interpretation Code Negative [facility] Work Phone: [phone] pH (U) 7.0 [pH] 5.0 - 8.0 [facility] Work Phone: [phone] specific gravity, urine 1.015 Invalid Interpretation Code 1.002-1.030 [facility] Work Phone: [phone] Urine, bilirubin presence Negative Invalid Interpretation Code Negative [facility] Work Phone: [phone] Urine, clarity Clear Invalid Interpretation Code Clear [facility] Work Phone: [phone] Urine, color Yellow Invalid Interpretation Code Yellow [facility] Work Phone: [phone] Urine, glucose presence Normal mg/dl Invalid Interpretation Code Normal [facility] Work Phone: [phone] Urine, ketones presence Negative Invalid Interpretation Code Negative [facility] Work Phone: [phone] Urine, leukocyte esterase presence Negative Invalid Interpretation Code Negative [facility] Work Phone: [phone] Urine, pH 7.0 [pH] Invalid Interpretation Code 5.0 - 8.0 [facility] Work Phone: [phone] Urine, protein Negative Invalid Interpretation Code Negative [facility] Work Phone: [phone] UROBILI Normal mg/dl Invalid Interpretation Code Normal [facility] Work Phone: [phone] urobilinogen, urine, by dipstick Normal mg/dl Invalid Interpretation Code Normal [facility] Work Phone: [phone] Office Visit: New Pt. Visito n 06-28-2017 Dietary management education, guidance, and counseling (procedure) yes Invalid Interpretation Code [facility] Work Phone: Documentation of current medications (procedure) Done Invalid Interpretation Code [facility] Work Phone: Fall risk assessment No Invalid Interpretation Code [facility] Work Phone: Protein mass conc Done [facility] Work Phone: [phone] Tobacco smoking status NHIS Never Invalid Interpretation Code [facility] Work Phone: Tobacco smoking status NHIS Never smoker [facility] Work Phone: [phone] Tobacco use [facility] Never smoker Invalid Interpretation Code [facility] Work Phone: Office Visiton 10-14-2016 Dietary management education, guidance, and counseling (procedure) yes Invalid Interpretation Code [facility] Work Phone: Documentation of current medications (procedure) Done Invalid Interpretation Code [facility] Work Phone: Protein mass conc Done [employer] Work Phone: Replaced Document: [employer] E CG Observationson 10-14-2016 EKG QRS axis 65 deg Invalid Interpretation Code [facility] Work Phone: electrocardiogram interpretation Sinus Bradycardia -Short NC syndrome Yazan = 112BORDERLINE RHYTHM Invalid Interpretation Code [facility] Work Phone: Interpretation Sinus Bradycardia -S hort NC syndrome Yazan = 112BORDERLINE RHYTHM Invalid Interpretation Code [facility] Work Phone: P [place] 34 deg Invalid Interpretation Code [facility] Work Phone: P wave axis, electrocardiogram 34 deg Invalid Interpretation Code [facility] Work Phone: [phone] NC Interval 112 ms Invalid Interpretation Code [facility] Work Phone: NC interval, electrocardiogram 112 ms Invalid Interpretation Code [facility] Work Phone: [phone] Pulse (Heart Rate) 57 /min Invalid Interpretation Code [facility] Work Phone: [phone] QRS axis, electrocardiogram 65 deg Invalid Interpretation Code [facility] Work Phone: [phone] QRS Duration 82 ms Invalid Interpretation Code [facility] Work Phone: QRS duration, electrocardiogram 82 ms Invalid Interpretation Code [facility] Work Phone: [phone] QT Interval new path ms Invalid Interpretation Code [employer] [facility] Work Phone: QT interval, electrocardiogram new path ms Invalid Interpretation Code [facility] Work Phone: [phone] QTc Mejia 435 ms [facility] Work Phone: T [place] -1 deg Invalid Interpretation Code [employer] [facility] Work Phone: T wave axis, electrocardiogram -1 deg Invalid Interpretation Code 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 Work Phone: [phone] Left ventricular Ejection fraction 60 % Invalid Interpretation Code [facility] Work Phone: Office Visit: Spine Visiton 07-13-2016 Tobacco smoking status WAIS Never Invalid Interpretation Code [employer] [facility] Work Phone: Clinical Lists Update: Prelo hooker inspector 07-06-2016 ALP enzyme act/vol (Bld) 63 U/L [employer] [facility] Work Phone: ALT enzyme act/vol 39 U/L [facility] Work Phone: AST enzyme act/vol 28 U/L [facility] Work Phone: Bilirubin mass conc 2.60 mg/dL [facility] [employer] [facility] Work Phone: Calcium mass conc 8.5 mg/dL [facility] Work Phone: Chloride molar conc 103 mmol/L [facility] [employer] [facility] Work Phone: Cholesterol in HDL mass conc 88 mg/dL [employer] [facility] Work Phone: [phone] Cholesterol in LDL mass conc 57 mg/dL [facility] Work Phone: [phone] Cholesterol mass conc 159 mg/dL [facility] Work Phone: [phone] CO2 ppres (BldV) 28.0 mmol/L [facility] Work Phone: [phone] Creatinine mass conc 0.86 mg/dL [facility] Work Phone: [phone] Glucose mass conc 84 mg/dL [facility] Work Phone: [phone] Hematocrit Volume Fraction (Bld) 39.8 % [facility] Work Phone: [phone] Hemoglobin mass conc (Bld) 13.2 g/dL [facility] Work Phone: [phone] Platelets #/vol (Bld) 298 10*3/mm3 B [facility] Work Phone: [phone] Potassium molar conc 3.5 mmol/L [facility] Work Phone: [phone] Protein mass conc 6.8 g/dL [facility] Work Phone: [phone] Sodium molar conc 137 mmol/L [facility] Work Phone: [phone] Triglyceride mass conc 70 mg/dL [facility] Work Phone: [phone] Urea nitrogen mass conc 13 mg/dL [facility] Work Phone: [phone] Urea nitrogen/Creatinine mass ratio 15.1 mg/mg [facility] Work Phone: [phone] WBC #/vol (Bld) 6.3 10*3/uL [facility] Work Phone: Office Visit: est annualon 0 07-01-2016 General categories [Interpretation] of Cervical or vaginal smear or scraping by Cyto stain Normal Invalid Interpretation Code [facility] Vital Signs Date Time Vital Sign Value Performing Clinician Jamiei reyes 03-19-2025 10:02-0400 Body temperature 98.3 [degF] Dr. Kevin Perez MD Work Phone: [facility] 03-19-2025 10:02-0400 Diastolic blood pressure 72 mm[Hg] Dr. Kevin Perez MD Work Phone: [facility] 03-19-2025 10:02-0400 Heart rate 86 /min Dr. Kevin Perez MD Work Phone: [facility] 03-19-2025 10:02-0400 Respiratory rate 16 /min Dr. Kevin Perez MD Work Phone: [facility] 03-19-2025 10:02-0400 SaO2% (BldA) [Mass fraction] 98 % Dr. Kevin Perez MD Work Phone: [facility] 03-19-2025 10:02-0400 Systolic blood pressure 117 mm[Hg] Dr. Kevin Perez MD Work Phone: [facility] 03-19-2025 09:44-0400 Body height 162.[address] Kevin Perez MD Work Phone: [facility] 03-19-2025 09:44-0400 Body mass index (BMI) [Ratio] 32 kg/m2 Dr. Kevin Perez MD Work Phone: [facility] 03-19-2025 09:44-0400 Body weight 84.[address] Kevin Perez MD Work Phone: [facility] 03-06-2025 13:09-0400 Body height 162.[address] Kevin Perez MD Work Phone: [facility] 03-06-2025 13:09-0400 Body mass index (BMI) [Ratio] 31.1 kg/m2 Dr. Kevin Perez MD Work Phone: [facility] 03-06-2025 13:09-0400 Body weight 82.[address] Kevin Perez MD Work Phone: [facility] 03-06-2025 13:09-0400 Diastolic blood pressure 74 mm[Hg] Dr. Kevin Perez MD Work Phone: [facility] 03-06-2025 13:09-0400 Systolic blood pressure 112 mm[Hg] Dr. Kevin Perez MD Work Phone: [facility] 02-22-2025 12:09-0400 Body height 162.[address] Kevin Perez MD Work Phone: [facility] 02-22-2025 12:09-0400 Body mass index (BMI) [Ratio] 30.6 kg/m2 Dr. Kevin Perez MD Work Phone: [facility] 02-22-2025 12:09-0400 Body weight 80.[address] Kevin Perez MD Work Phone: [facility] 02-22-2025 12:07-0400 Body temperature 97.9 [degF] Dr. Kevin Perez MD Work Phone: [facility] 02-22-2025 12:07-0400 Diastolic blood pressure 73 mm[Hg] Dr. Kevin Perez MD Work Phone: [facility] 02-22-2025 12:07-0400 Heart rate 85 /min Dr. Kevin Perez MD Work Phone: [facility] 02-22-2025 12:07-0400 Respiratory rate 16 /min Dr. Kevin Perez MD Work Phone: [facility] 02-22-2025 12:07-0400 Systolic blood pressure 117 mm[Hg] Dr. Kevin Perez MD Work Phone: [facility] 02-07-2025 10:24-0400 Body mass index (BMI) [Ratio] 30.7 kg/m2 Dr. Kevin Perez MD Work Phone: [facility] 02-07-2025 10:24-0400 Body weight 78.[address] Kevin Perez MD Work Phone: [facility] 02-07-2025 10:24-0400 Diastolic blood pressure 79 mm[Hg] Dr. Kevin Perez MD Work Phone: [facility] 02-07-2025 10:24-0400 Systolic blood pressure 117 mm[Hg] Dr. Kevin Perez MD Work Phone: [facility] 01-11-2025 10:24-0400 Body mass index (BMI) [Ratio] 29.6 kg/m2 Dr. Kevin Perez MD Work Phone: [facility] 01-11-2025 10:24-0400 Body weight 75.[address] Kevin Perez MD Work Phone: [facility] 01-11-2025 10:24-0400 Diastolic blood pressure 73 mm[Hg] Dr. Kevin Perez MD Work Phone: [facility] 01-11-2025 10:24-0400 Systolic blood pressure 114 mm[Hg] Dr. Kvein Perez MD Work Phone: [facility] 12-27-2024 08:58-0500 Body height 160.[address] Kevin Perez MD Work Phone: [facility] 12-27-2024 08:58-0500 Body mass index (BMI) [Ratio] 28.8 kg/m2 Dr. Kvein Perez MD Work Phone: [facility] 12-27-2024 08:58-0500 Body weight 73.[address] Kevin Perez MD Work Phone: [facility] 12-27-2024 08:58-0500 Diastolic blood pressure 70 mm[Hg] Dr. Kevin Perez MD Work Phone: [facility] 12-27-2024 08:58-0500 Systolic blood pressure 108 mm[Hg] Dr. Kevin Perez MD Work Phone: [facility] 12-20-2024 11:26-0500 Body mass index (BMI) [Ratio] 29 kg/m2 Dr. Kevin Perez MD Work Phone: [facility] 12-20-2024 11:26-0500 Body weight 74.[address] Kevin Perez MD Work Phone: [facility] 12-20-2024 11:26-0500 Diastolic blood pressure 67 mm[Hg] Dr. Kevin Perez MD Work Phone: [facility] 12-20-2024 11:26-0500 Systolic blood pressure 98 mm[Hg] Dr. Kevin Perez MD Work Phone: [facility] 12-14-2024 22:00-0500 Diastolic blood pressure 68 mm[Hg] Dr. Kevin Perez MD Work Phone: [facility] 12-14-2024 22:00-0500 Heart rate 70 /min Dr. Kevin Perez MD Work Phone: [facility] 12-14-2024 22:00-0500 Respiratory rate 16 /min Dr. Kevin Perez MD Work Phone: [facility] 12-14-2024 22:00-0500 SaO2% (BldA) [Mass fraction] 100 % Dr. Kevin Perez MD Work Phone: [facility] 12-14-2024 22:00-0500 Systolic blood pressure 101 mm[Hg] Dr. Kevin Perez MD Work Phone: [facility] 12-14-2024 19:03-0500 Body mass index (BMI) [Ratio] 29.2 kg/m2 Dr. Kevin Perez MD Work Phone: [facility] 12-14-2024 19:03-0500 Body temperature 98.2 [degF] Dr. Kevin Perez MD Work Phone: [facility] 12-14-2024 19:03-0500 Body weight 74.[address] Kevin Perez MD Work Phone: [facility] 12-13-2024 10:41-0500 Body mass index (BMI) [Ratio] 29 kg/m2 Dr. Kevin Perez MD Work Phone: [facility] 12-13-2024 10:41-0500 Body weight 74.[address] Kevin Perez MD Work Phone: [facility] 12-13-2024 10:41-0500 Diastolic blood pressure 70 mm[Hg] Dr. Kevin Perez MD Work Phone: [facility] 12-13-2024 10:41-0500 Systolic blood pressure 118 mm[Hg] Dr. Kevin Perez MD Work Phone: [facility] 11-16-2024 13:30-0500 Body mass index (BMI) [Ratio] 29.1 kg/m2 Dr. Kevin Perez MD Work Phone: [facility] 11-16-2024 13:30-0500 Body weight 74.[address] Kevin Perez MD Work Phone: [facility] 11-16-2024 13:30-0500 Diastolic blood pressure 87 mm[Hg] Dr. Kevin Perez MD Work Phone: [facility] 11-16-2024 13:30-0500 Systolic blood pressure 120 mm[Hg] Dr. Kevin Perez MD Work Phone: [facility] 10-19-2024 11:17-0500 Body mass index (BMI) [Ratio] 29 kg/m2 Dr. Kevin Perez MD Work Phone: [facility] 10-19-2024 11:17-0500 Body weight 74.[address] Kevin Perez MD Work Phone: [facility] 10-19-2024 11:17-0500 Diastolic blood pressure 81 mm[Hg] Dr. Kevin Perez MD Work Phone: [facility] 10-19-2024 11:17-0500 Systolic blood pressure 120 mm[Hg] Dr. Kevin Perez MD Work Phone: [facility] 09-22-2023 10:16-0500 Body height 160.[address] Kevin Perez Work Phone: [facility] 09-22-2023 10:16-0500 Body mass index (BMI) [Ratio] 32.5 kg/m2 Dr. Kevin Perez Work Phone: [facility] 09-22-2023 10:16-0500 Body weight 83.[address] Kevin Perez Work Phone: [facility] 09-22-2023 10:10-0500 Diastolic blood pressure 77 mm[Hg] Dr. Kevin Perez Work Phone: [facility] 09-22-2023 10:10-0500 Heart rate 68 /min Dr. Kevin Perez Work Phone: [facility] 09-22-2023 10:10-0500 SaO2% (BldA) [Mass fraction] 96 % Dr. Kevin Perez Work Phone: [facility] 09-22-2023 10:10-0500 Systolic blood pressure 115 mm[Hg] Dr. Kevin Perez Work Phone: [facility] 09-19-2023 08:05-0500 Body mass index (BMI) [Ratio] 31.2 kg/m2 Dr. Kevin Perez Work Phone: [facility] 09-19-2023 08:05-0500 Body weight 82.[address] Kevin Perez Work Phone: [facility] 09-19-2023 08:05-0500 Diastolic blood pressure 74 mm[Hg] Dr. Kevin Perez Work Phone: [facility] 09-19-2023 08:05-0500 Systolic blood pressure 106 mm[Hg] Dr. Kevin Perez Work Phone: [facility] 09-12-2023 10:56-0500 Body mass index (BMI) [Ratio] 31.7 kg/m2 Dr. Kevin Perez Work Phone: [facility] 09-12-2023 10:56-0500 Body weight 83.[address] Kevin Perez Work Phone: [facility] 09-12-2023 10:56-0500 Diastolic blood pressure 72 mm[Hg] Dr. Kevin Perez Work Phone: [facility] 09-12-2023 10:56-0500 Systolic blood pressure 108 mm[Hg] Dr. Kevin Perez Work Phone: [facility] 08-29-2023 09:59-0400 Body weight [address] Kevin Perez Work Phone: [facility] 08-29-2023 09:41-0400 Body mass index (BMI) [Ratio] 0.8 kg/m2 Dr. Kevin Perez Work Phone: [facility] 08-29-2023 09:41-0400 Diastolic blood pressure 74 mm[Hg] Dr. Kevin Perez Work Phone: [facility] 08-29-2023 09:41-0400 Systolic blood pressure 110 mm[Hg] Dr. Kevin Perez Work Phone: [facility] 08-12-2023 14:52-0400 Body weight 82.[address] Kevin Perez Work Phone: [facility] 08-12-2023 14:04-0400 Body mass index (BMI) [Ratio] 0.8 kg/m2 Dr. Kevin Perez Work Phone: [facility] 08-12-2023 14:04-0400 Diastolic blood pressure 74 mm[Hg] Dr. Kevin Perez Work Phone: [facility] 08-12-2023 14:04-0400 Systolic blood pressure 123 mm[Hg] Dr. Kevin Perez Work Phone: [facility] 08-09-2023 10:09-0400 Body temperature 98.6 [degF] Dr. Kevin Perez Work Phone: [facility] 08-09-2023 10:09-0400 Diastolic blood pressure 79 mm[Hg] Dr. Kevin Perez Work Phone: [facility] 08-09-2023 10:09-0400 Heart rate 97 /min Dr. Kevin Perez Work Phone: [facility] 08-09-2023 10:09-0400 Respiratory rate 16 /min Dr. Kevin Perez Work Phone: [facility] 08-09-2023 10:09-0400 SaO2% (BldA) [Mass fraction] 96 % Dr. Kevin Perez Work Phone: [facility] 08-09-2023 10:09-0400 Systolic blood pressure 115 mm[Hg] Dr. Kevin Perez Work Phone: [facility] 07-18-2023 13:44-0400 Body height 162.[address] Kevin Perez Work Phone: [facility] 06-21-2023 08:34-0400 Body mass index (BMI) [Ratio] 30.2 kg/m2 Dr. Kevin Perez Work Phone: [facility] 06-21-2023 08:34-0400 Body weight 79.[address] Kevin Perez Work Phone: [facility] 06-21-2023 08:34-0400 Diastolic blood pressure 78 mm[Hg] Dr. Kevin Perez Work Phone: [facility] 06-21-2023 08:34-0400 Systolic blood pressure 117 mm[Hg] Dr. Kevin Perez Work Phone: [facility] 06-20-2023 16:03-0400 Body mass index (BMI) [Ratio] 29.4 kg/m2 Dr. Kevin Perez Work Phone: [facility] 06-20-2023 16:03-0400 Body weight 77.[address] Kevin Perez Work Phone: [facility] 06-20-2023 16:03-0400 Diastolic blood pressure 72 mm[Hg] Dr. Kevin Perez Work Phone: [facility] 06-20-2023 16:03-0400 Systolic blood pressure 115 mm[Hg] Dr. Kevin Perez Work Phone: [facility] 05-27-2023 09:57-0400 Body height 162.[address] Kevin Perez Work Phone: [facility] 05-27-2023 09:47-0400 Body mass index (BMI) [Ratio] 28.8 kg/m2 Dr. Kevin Perez Work Phone: [facility] 05-27-2023 09:47-0400 Body weight 76.[address] Kevin Perez Work Phone: [facility] 05-27-2023 09:47-0400 Diastolic blood pressure 69 mm[Hg] Dr. Kevin Perez Work Phone: [facility] 05-27-2023 09:47-0400 Systolic blood pressure 105 mm[Hg] Dr. Kevin Perez Work Phone: [facility] 04-29-2023 13:51-0400 Body height 162.[address] Kevin Perez Work Phone: [facility] 04-29-2023 13:44-0400 Body mass index (BMI) [Ratio] 29.4 kg/m2 Dr. Kevin Perez Work Phone: [facility] 04-29-2023 13:44-0400 Body weight 77.[address] Kevin Perez Work Phone: [facility] 04-29-2023 13:44-0400 Diastolic blood pressure 75 mm[Hg] Dr. Kevin Perez Work Phone: [facility] 04-29-2023 13:44-0400 Systolic blood pressure 111 mm[Hg] Dr. Kevin Perez Work Phone: [facility] 03-30-2023 09:26-0400 Body mass index (BMI) [Ratio] 28.5 kg/m2 Dr. Kevin Perez Work Phone: [facility] 03-30-2023 09:26-0400 Body weight 75.[address] Kevin Perez Work Phone: [facility] 03-30-2023 09:26-0400 Diastolic blood pressure 75 mm[Hg] Dr. Kevin Perez Work Phone: [facility] 03-30-2023 09:26-0400 Systolic blood pressure 123 mm[Hg] Dr. Kevin Perez Work Phone: [facility] 12-13-2022 06:21-0500 Body temperature 98.2 [degF] Dr. Kevin Perez Work Phone: [facility] 12-13-2022 06:21-0500 Diastolic blood pressure 64 mm[Hg] Dr. Kevin Perez Work Phone: [facility] 12-13-2022 06:21-0500 Heart rate 72 /min Dr. Kevin Perez Work Phone: [facility] 12-13-2022 06:21-0500 Respiratory rate 14 /min Dr. Kevin Perez Work Phone: [facility] 12-13-2022 06:21-0500 Systolic blood pressure 102 mm[Hg] Dr. Kevin Perez Work Phone: [facility] 12-13-2022 06:12-0500 Body height 162.[address] Kevin Perez Work Phone: [facility] 12-07-2022 08:08-0500 Body mass index (BMI) [Ratio] 30.2 kg/m2 Dr. Kevin Perez Work Phone: [facility] 12-07-2022 08:08-0500 Body weight [address] Kevin Perez Work Phone: [facility] 12-07-2022 08:08-0500 Diastolic blood pressure 84 mm[Hg] Dr. Kevin Perez Work Phone: [facility] 12-07-2022 08:08-0500 Systolic blood pressure 122 mm[Hg] Dr. Kevin Perez Work Phone: [facility] 11-06-2022 10:12-0500 Body temperature 98.2 [degF] Dr. Kevin Perez Work Phone: [facility] 11-06-2022 10:12-0500 Diastolic blood pressure 68 mm[Hg] Dr. Kevin Perez Work Phone: [facility] 11-06-2022 10:12-0500 Heart rate 73 /min Dr. Kevin Perez Work Phone: [facility] 11-06-2022 10:12-0500 Respiratory rate 14 /min Dr. Kevin Perez Work Phone: [facility] 11-06-2022 10:12-0500 SaO2% (BldA) [Mass fraction] 97 % Dr. Kevin Perez Work Phone: [facility] 11-06-2022 10:12-0500 Systolic blood pressure 116 mm[Hg] Dr. Kevin Perez Work Phone: [facility] 08-31-2017 08:30-0400 BMI (Body Mass Index) 25.88 kg/m2 Chika Nieto MD [facility] 08-31-2017 08:30-0400 Body Temperature 96.7 [degF] Chika Nieto MD [facility] 08-31-2017 08:30-0400 Body Temperature 96.69 [degF] Chika Nieto MD [facility] 08-31-2017 08:30-0400 BP Diastolic 71 mm[Hg] Chika Nieto MD [facility] 08-31-2017 08:30-0400 BP Systolic 105 mm[Hg] Chika Nieto MD [facility] 08-31-2017 08:30-0400 Height 162.56 cm Chika Nieto MD [facility] 08-31-2017 08:30-0400 Pulse (Heart Rate) 78 /min Chika Nieto MD [facility] 08-31-2017 08:30-0400 Respiratory Rate 16 /min Chika Nieto MD [facility] 08-31-2017 08:30-0400 Weight 68.4 kg Chika Nieto MD [facility] 08-02-2017 16:03-0400 BMI (Body Mass Index) 25.16 kg/m2 Oc DILLON-C [facility] Work Phone: 08-02-2017 16:03-0400 Body Temperature 99.6 [degF] Oc DILLON-C [facility] Work Phone: 08-02-2017 16:03-0400 BP Diastolic 79 mm[Hg] Oc DILLON-C [facility] Work Phone: 08-02-2017 16:03-0400 BP Systolic 116 mm[Hg] Oc DILLON-C [facility] Work Phone: 08-02-2017 16:03-0400 Height 165.1 cm Oc DILLON-C [facility] Work Phone: 08-02-2017 16:03-0400 Pulse (Heart Rate) 62 /min Oc DILLON-C [facility] Work Phone: 08-02-2017 16:03-0400 Respiratory Rate 16 /min Oc DILLON-C [facility] Work Phone: 08-02-2017 16:03-0400 Weight 68.58 kg Oc DILLON-Donato [facility] Work Phone: 07-30-2017 09:22-0400 BMI (Body Mass Index) 25.29 kg/m2 Oc Carvajal PA-C [facility] Work Phone: 07-30-2017 09:22-0400 Body Temperature 99.1 [degF] Oc Carvajal PA-C [facility] Work Phone: 07-30-2017 09:22-0400 BP Diastolic 72 mm[Hg] Oc Carvajal PA-C [facility] Work Phone: 07-30-2017 09:22-0400 BP Systolic 106 mm[Hg] Oc Carvajal PA-C [facility] Work Phone: 07-30-2017 09:22-0400 Height 165.1 cm Oc Carvajal PA-C [facility] Work Phone: 07-30-2017 09:22-0400 Pulse (Heart Rate) 77 /min Oc Carvajal COLUMBA-C [facility] Work Phone: 07-30-2017 09:22-0400 Respiratory Rate 14 /min Oc Carvajal COLUMBA-C [facility] Work Phone: 07-30-2017 09:22-0400 Weight 68.95 kg Oc Carvajal COLUMBA-C [facility] Work Phone: 07-20-2017 10:42-0400 BMI [...] 07-20-2017 10:42-0400 Height 165.1 cm Radha Martdeandray [facility] Work Phone: 07-20-2017 10:42-0400 Pulse (Heart Rate) 66 /min Radha Daray [facility] Work Phone: 07-20-2017 10:42-0400 Respiratory Rate 16 /min [facility] Work Phone: 07-20-2017 10:42-0400 Weight 70.76 kg [facility] Work Phone: 07-19-2017 06:44-0400 BMI (Body Mass Index) 25.46 kg/m2 Jaci Syed LPN [facility] Work Phone: 07-19-2017 06:44-0400 Body Temperature 97.1 [degF] Jaci Syed LPN [facility] Work Phone: 07-19-2017 06:44-0400 BP Diastolic 72 mm[Hg] Jaci Syed LPN [facility] Work Phone: 07-19-2017 06:44-0400 BP Systolic 108 mm[Hg] Jaci Syed LPN [facility] Work Phone: 07-19-2017 06:44-0400 Height 165.1 cm Jaci Syed LPN [facility] Work Phone: 07-19-2017 06:44-0400 Pulse (Heart Rate) 80 /min Jaci Syed LPN [facility] Work Phone: 07-19-2017 06:44-0400 Respiratory Rate 14 /min Jaci Syed LPN [facility] Work Phone: 07-19-2017 06:44-0400 Weight 69.4 kg Jaci Syed LPN [facility] Work Phone: 06-28-2017 08:05-0400 BMI (Body Mass Index) 25.65 kg/m2 [employer] [facility] Work Phone: 06-28-2017 08:05-0400 Body Temperature 98.4 [degF] [facility] [employer] [facility] Work Phone: 06-28-2017 08:05-0400 BP Diastolic 75 mm[Hg] [employer] [facility] Work Phone: 06-28-2017 08:05-0400 BP Systolic 111 mm[Hg] [employer] [facility] Work Phone: 06-28-2017 08:05-0400 Height 165.1 cm [employer] [facility] Work Phone: 06-28-2017 08:05-0400 Pulse (Heart Rate) 58 /min [facility] [employer] [facility] Work Phone: 06-28-2017 08:05-0400 Weight 69.91 kg [employer] [facility] Work Phone: 10-14-2016 11:57-0500 Heart rate 57 /min Harmeet Giordano [facility] [employer] [facility] Work Phone: 10-14-2016 11:43-0500 BMI (Body Mass Index) 28.16 kg/m2 Harmeet Giordano [facility] [employer], [facility] Work Phone: 10-14-2016 11:43-0500 BP Diastolic 68 mm[Hg] Harmeet Giordano [facility] [employer] [facility] Work Phone: 10-14-2016 11:43-0500 BP Systolic 100 mm[Hg] Harmeet Giordano [facility] [employer] [facility] Work Phone: 10-14-2016 11:43-0500 BSA (Body Surface Area) 1.71 m2 Kevin Perez MD [facility] Work Phone: 10-14-2016 11:43-0500 Pulse (Heart Rate) 64 /min Harmeet Giordano [facility] [employer] [facility] Work Phone: 10-14-2016 11:43-0500 Respiratory Rate 16 /min Harmeet Giordano [facility] [employer] [facility] Work Phone: 10-14-2016 11:43-0500 Weight 69.85 kg Harmeet Giordano [facility] [employer] [facility] Work Phone: 07-13-2016 09:22-0400 Height 157.48 cm [facility] [employer] [facility] Work Phone: Encounters Encounter Date Encounter Type Care Provider Facility Start: 03-21-2025 End: 03-21-2025 ambulatory Efewongbe Oleghe Facility:[facility] Start: 03-19-2025 ambulatory Efewongbe Oleghe Facili ty:[facility] Start: 03-19-2025 Non-patient / Non-visit Giuliana Mojica ms CNM -[facility] Start: 03-19-2025 End: 03-19-[address] Kevin Perez MD Work Phone: [facility] Work Phone: Start: 03-19-2025 End: 03-19-2025 Patient encounter procedure Giuliana Schilling CNM [facility] Work Phone: Start: 03-06-2025 End: 03-06-2025 Patient encounter procedure Vannessa RODARTE -[facility] Work Phone: Start: 03-06-2025 End: 03-06-[address] Kevin Perez MD Work Phone: [facility] Work Phone: Start: 03-06-2025 End: 03-06-2025 ambulatory [facility] Facility:[facility] Start: 02-22-2025 ambulatory Dayanara Pratik Facilit y:[facility] Start: 02-22-2025 Non-patient / Non-visit Dayanara Brown lillian [facility] -[facility] Start: 02-22-2025 End: 02-22-[address] Kevin Perez MD Work Phone: [facility] Work Phone: Start: 02-22-2025 End: 02-22-2025 Patient encounter procedure Dayanara BOSCH -[facility] [place] Work Phone: Start: 02-07-2025 End: 02-07-2025 Patient encounter procedure Vannessa RODARTE -[facility] Work Phone: Start: 02-07-2025 End: 02-07-2025 ambulatory Kevin Perez Facility:[facility] Start: 01-31-2025 End: 01-31-2025 ambulatory LACY Dickerson [facility] Start: 01-16-2025 End: 01-16-2025 Subsequent hospital visit by physician Rashmi Taylor DO Work Phone: [facility] Comment on above: Maternal care for (s uspected) central nervous system malformation or damage in fetus, choroid plexus cysts, fetus 1 Start: 01-16-2025 End: 01-16-2025 [facility] Start: 01-16-2025 End: 01-16-2025 ambulatory [place] Akua [facility] Start: 01-11-2025 End: 01-11-[address] Chika Nieto MD -[facility] Work Phone: Start: 01-11-2025 End: 01-11-2025 ambulatory [facility] Facility:[facility] Start: 01-02-2025 End: 01-02-2025 ambulatory CHIKAEVERT SARAVIAFORMERLY [facility] Start: 12-27-2024 End: 12-27-2024 Patient encounter procedure Vannessa Chirinos NUTRITIONAL ASSISTANT-C -[facility] Work Phone: Start: 12-27-2024 End: 12-27-[address] Kevin Perez MD Work Phone: [facility] Work Phone: Start: 12-27-2024 End: 12-27-2024 ambulatory Vannessa Chirinos NP Facility:[facility] Start: 12-20-2024 End: 12-20-[address] Chika Nieto MD -[facility] Work Phone: Start: 12-20-2024 End: 12-20-2024 ambulatory Arbenlatashabahvya Perez Facility:[facility] Start: 12-19-2024 End: 12-19-2024 ambulatory STEPHANIA CA [facility] Start: 12-14-2024 End: 12-14-2024 Emergency department patient visit Dr. Jerardo Garcia DO -Emergency Department Work Phone: Start: 12-13-2024 End: 12-13-2024 Patient encounter procedure Vannessa Chirinos NUTRITIONAL ASSISTANT-C -[facility] Work Phone: Start: 12-13-2024 End: 12-13-2024 ambulatory Kevin Perez Facility:[facility] Start: 11-16-2024 End: 11-16-[address] Stephania Montoya DO -[facility] Work Phone: Start: 11-16-2024 End: 11-16-2024 ambulatory Kevin Perez Facility:[facility] Start: 10-19-2024 End: 10-19-2024 Patient encounter procedure Dayanara Christie [facility] -[facility] Work Phone: Start: 10-19-2024 End: 10-19-2024 ambulatory Dayanara Christie Facility:[facility] Start: 10-19-2024 End: 10-19-2024 ambulatory Dayanara Christie Facility:[facility] Start: 08-14-2024 End: 08-14-2024 ambulatory Kevin Perez Facility:[facility] Start: 07-17-2024 End: 07-18-2024 ambulatory Jaci Moore Facility:[facility] Start: 09-22-2023 Non-patient / Non-visit Dr. Arben Perez Work Phone: [facility] Start: 09-22-2023 End: 09-22-[address] Kevin Perez Work Phone: [facility] Work Phone: Start: 09-22-2023 End: 09-22-[address] Kevin Perez Work Phone: [facility] Work Phone: Start: 09-19-2023 End: 09-19-[address] Kevin Perez Work Phone: [facility] Work Phone: Start: 09-19-2023 End: 09-19-[address] Kevin Perez Work Phone: [facility]-Laboratory, Specimen Work Phone: Start: 09-19-2023 End: 09-19-[address] Kevin Perez Work Phone: [facility] Work Phone: Start: 09-12-2023 End: 09-12-[address] Kevin Perez Work Phone: [facility] Work Phone: Start: 08-29-2023 End: 08-29-[address] Kevin Perez Work Phone: [facility] Work Phone: Start: 08-12-2023 End: 08-12-[address] Kevin Perez Work Phone: [facility] Work Phone: Start: 08-09-2023 End: 08-09-[address] Kevin Perez Work Phone: [facility] Work Phone: Start: 07-19-2023 End: 07-19-[address] Kevin Perez Work Phone: [facility] Work Phone: Start: 07-19-2023 End: 07-19-[address] Kevin Perez Work Phone: [facility]-Laboratory, Pavilion Start: 07-18-2023 End: 07-18-[address] Kevin Perez Work Phone: [facility] Work Phone: Start: 06-20-2023 End: 06-20-[address] Kevin Perez Work Phone: [facility] Work Phone: Start: 05-27-2023 End: 05-27-[address] Kevin Perez Work Phone: [facility] Work Phone: Start: 05-27-2023 End: 05-27-[address] Kevin Perez Work Phone: [facility] Work Phone: Start: 04-29-2023 End: 04-29-[address] Kevin Perez Work Phone: [facility] Work Phone: Start: 03-30-2023 End: 03-30-[address] Kevin Perez Work Phone: [facility] Work Phone: Start: 03-30-2023 End: 03-30-[address] [facility] Work [facility]: Start: 03-30-2023 End: 03-30-[address] Kevin Perez Work Phone: [facility] Work Phone: Start: 12-13-2022 End: 12-13-[address] Kevin Perez Work Phone: [facility] Start: 12-07-2022 End: 12-07-[address] Kevin Perez Work Phone: [facility] Work Phone: Start: 12-07-2022 End: 12-07-[address] Kevin Perez Work Phone: [facility]-Laboratory, Specimen Start: 12-07-2022 End: 12-07-[address] Kevin Perez Work Phone: [facility] Start: 11-06-2022 End: 11-06-[address] Kevin Perez Work Phone: [facility] Start: 06-23-2012 End: 06-23-2012 Telephone encounter Kailee [...] 08-06-2017 End: 08-06-2017 Throat culture Oc Vargasder TYPE COPYIST-C Start: 08-05-2017 End: 08-05-2017 Throat culture Oc Jean TYPE COPYIST-C Start: 08-04-2017 End: 08-04-2017 Throat culture Oc Jean TYPE COPYIST-C Start: 08-03-2017 End: 08-03-2017 Throat culture Viji Holley Start: 08-02-2017 End: 08-03-2017 *CBC with Differential Oc Jean TYPE COPYIST- C Start: 08-02-2017 End: 08-09-2017 Bacteria identified in Throat by Culture Oc Jean TYPE COPYIST-C Start: 08-02-2017 End: 08-03-2017 Heterophile Ab [Presence] in Serum Oc Jean TYPE COPYIST-C Start: 08-02-2017 End: 08-02-2017 Iaadiadoo streptococcus group a Oc Jean TYPE COPYIST-C Start: 07-30-2017 End: 07-30-2017 Iaadiadoo streptococcus group a Oc Carvajal PA-C Work Phone: Start: 07-30-2017 End: 07-30-2017 Rapid strep test Oc Man Carvajal PA-C Work Phone: Start: 07-20-2017 End: 07-21-2017 ENT Referral Oc Jean TYPE COPYIST-C Start: 06-28-2017 End: 06-28-2017 Urinalysis Kevin Perez [...] 07-15-2016 End: 07-15-2016 Chiropract manj 1-2 regions Mckenna B Richar [...] Activity Detail Author Start: 03-19-2025 Nonstress test [facility] Start: 03-19-2025 Obstetric monitoring [facility] Start: 03-19-2025 [facility] Start: 03-19-2025 Vital signs measurements [facility] Start: 03-19-2025 Patient discharge [facility] Start: 02-22-2025 Bacteria identified in Urine by Culture Urine Culture [facility] Start: 02-22-2025 Nonstress test [facility] Start: 02-22-2025 Obstetric monitoring [facility] Start: 02-22-2025 Vital signs measurements [facility] Start: 02-22-2025 End: 02-22-2025 [facility] Start: 02-22-2025 Patient discharge [facility] Start: 01-31-2025 End: 01-31-2025 Professional / ancillary services management 01/31/2025 11:00 AM EDT Ancillary Procedure Visit [facility] [address] [place] [address] Return for 60 min US in 2 weeks. [facility] [place] Comment on above: Return for 60 min US in 2 weeks. Start: 12-14-2024 [facility] Start: 12-13-2024 Patient referral [facility] Work Phone: Start: 07-01-2024 COVID-19 (2023-12 season) COVID-19 ( season) [facility] Start: 07-01-2024 FLU (#1) FLU (#1) [facility] Start: 09-22-2023 Nonstress test [facility] Start: 09-22-2023 Obstetric monitoring [facility] Start: 09-22-2023 Vital signs measurements [facility] Start: 09-22-2023 [facility] Start: 09-22-2023 Patient discharge [facility] Start: 09-12-2023 Patient referral [facility] Work Phone: Start: 07-01-2021 Influenza vaccination INFLUENZA (Sea son Ended) [facility] Start: 07-16-2019 PAP TESTING PAP TESTING [facility] Start: 08-31-2017 End: 08-31-2017 Appointment Appointment [facility] [employer] [facility] Work Phone: Start: 08-02-2017 End: 08-02-2017 Appointment Appointment [facility] Work Phone: Start: 08-02-2017 End: 08-03-2017 *CBC with Differential *CBC with Differential [facility] Work Phone: Start: 08-02-2017 End: 08-09-2017 Bacteria identified in Throat by Culture *CUT - Throat Culture [facility] Work Phone: Start: 08-02-2017 End: 08-03-2017 Heterophile antibody presence *Infectious [place] Screen [facility] Work Phone: Start: 07-30-2017 End: 07-30-2017 Streptococcus.beta-hemol ytic [Presence] in Throat by Organism specific culture *Culture, R/O Strep A Swab [facility] Work Phone: Start: 07-30-2017 End: 07-30-2017 Appointment Appointment [facility] Work Phone: Start: 07-30-2017 End: 07-30-2017 Streptococcus.beta-hemol ytic [Presence] in Throat by Organism specific culture *Culture, R/O Strep A Swab [facility] Work Phone: Start: 07-20-2017 End: 08-09-2017 ENT Referral ENT Referral [facility] Work Phone: Start: 07-20-2017 End: 07-20-2017 Appointment Appointment [facility] Work Phone: Start: 07-20-2017 End: 07-20-2017 ENT Referral ENT Referral [facility] Work Phone: Start: 07-19-2017 End: 07-19-2017 Appointment Appointment [facility] Work Phone: Start: 06-28-2017 End: 06-28-2017 Dermatology Referral Dermatology Referral [address] [place], [address] [facility] Work Phone: Start: 06-28-2017 End: 06-28-2017 Follow Up Appt 1 year Follow Up Appt 1 year [facility] Work Phone: Start: 06-28-2017 End: 06-28-2017 Appointment Appointment [facility] Work Phone: Start: 06-28-2017 End: 06-28-2017 Dermatology Referral Dermatology Referral Lou Ballesteros [address] [place], [address] [facility] Work Phone: Start: 06-28-2017 End: 06-28-2017 Follow Up Appt 1 year Follow Up Appt 1 year [facility] Work Phone: Start: 10-14-2016 End: 10-14-2016 Ecg routine ecg w/least 12 lds w/i&r EKG (In office) [facility] Work Phone: Start: 10-14-2016 End: 10-14-2016 Follow Up Appt Other Follow Up Appt Other [facility] [employer] [facility] Work Phone: Start: 10-14-2016 End: 10-14-2016 PFM PFM [facility] Work Phone: Start: 10-14-2016 End: 10-14-2016 Transesophageal echocardiogram (MIKE) Transesophageal echocardiogram (MIKE) [facility] Work Phone: Start: 10-14-2016 End: 10-14-2016 Electrocardiogram, complete EKG (In office) [facility] [employer] [facility] Work Phone: Start: 10-14-2016 End: 10-14-2016 Follow Up Appt Other Follow Up Appt Other [facility][1] [employer] [facility] Work Phone: Start: 10-14-2016 End: 10-14-2016 PFUT [facility] [employer] [facility] Work Phone: Start: 10-14-2016 End: 10-14-2016 Transesophageal echocardiogram (MIKE) Transesophageal echocardiogram (MIKE) [facility] [employer] [facility] Work Phone: Start: 07-20-2016 End: 07-20-2016 Follow up Appt 2x/week Follow up Appt 2x/week [facility] Work Phone: Start: 07-20-2016 End: 07-20-2016 Follow up Appt 2x/week Follow up Appt 2x/week [employer] [facility] Work Phone: Start: 07-15-2016 End: 07-15-2016 Follow up Appt 2x/week Follow up Appt 2x/week [facility] Work Phone: Start: 07-15-2016 End: 07-15-2016 Follow up Appt 2x/week Follow up Appt 2x/week [facility] [employer] [facility] Work Phone: Start: 07-13-2016 End: 07-13-2016 Follow up Appt 3x/week Follow up Appt 3x/week [facility] Work Phone: Start: 07-13-2016 End: 07-13-2016 Follow up Appt 3x/week Follow up Appt 3x/week [facility] [employer] [facility] Work Phone: Start: 04-11-2016 Urine microalbumin profile DTAP,TDAP,TD (7 - Td) [facility] Start: 2014 Microscopic observat ion [Identifier] in Cervix by Cyto stain Pap Smear [facility] Start: 2012 Hepatitis B (1 of 3 - 19+ 3-dose series) Hepatitis B (1 of 3 - 19+ 3-dose series) [facility] Start: 2009 MenB (1 of 2 - MenB 2-Dose Series Bexsero) MenB (1 of 2 - MenB 2-Dose Series Bexsero) [facility] Start: 2006 Varicella (1 of 2 - 13+ 2-dose series) Varicella (1 of 2 - 13+ 2-dose series) [facility] Start: 2005 Adult depression screening assessment DEPRESSION SCREENING [facility] Start: 2000 Tetanus Diphtheria a nd Pertussis Vaccines (1 - Tdap) Tetanus Diphtheria and Pertussis Vaccines (1 - Tdap) [facility] Start: 1994 MMR (1 of 1 - Standa rd series) MMR (1 of 1 - Standard series) [facility] CBC W Auto Different ial panel - Blood [facility] CBC W Auto Different ial panel - Blood [facility] Hepatitis B surface antigen measurement [facility] Hepatitis C antibody measurement [facility] HIV 1+2 Ab+HIV1 p24 Ag [Presence] in Serum or Plasma by Immunoassay [facility] Measurement of gluco se 2 hours after glucose challenge for glucose tolerance test [facility] End: 01-16-2025 PANORAMA TEST [facility] Work Phone: Comment on above: 1 Occurrences starti ng 01/16/2025 until 01/16/2025 Patient Education [facility] Work Phone: Patient referral [facility] Work Phone: Rubella IgG measurement [facility] Serologic test for syphilis [facility] Treponema sp Ab [Presence] in Serum [facility] Urine culture [facility] Immunizations Immunization Date Immunization Notes Care Provider Michelle adam 03-06-2025 tetanus toxoid, redu patsy diphtheria toxoid, and acellular pertussis vaccine, adsorbed Dr. Kevin Perez MD Work Phone: [facility] 08-12-2023 tetanus toxoid, redu patsy diphtheria toxoid, and acellular pertussis vaccine, adsorbed Dr. Kevin Perez Work Phone: [facility] 08-16-[address] Kevin Perez Work Phone: [facility] 07-28-2018 influenza, injectabl e, quadrivalent, preservative free Dr. Kevin Perez Work Phone: [facility] 07-28-2018 influenza, seasonal, injectable Dr. Kevin Perez Work Phone: [facility] 07-27-2017 influenza, injectabl e, quadrivalent, preservative free Dr. Kevin Perez Work Phone: [facility] 07-27-2017 influenza, seasonal, injectable Dr. Kevin Perez Work Phone: [facility] 09-22-2016 hepatitis B vaccine, pediatric or pediatric/adolescent dosage Dr. Kevin Perez Work Phone: [facility] 07-29-2016 influenza, injectabl e, quadrivalent, preservative free Dr. Kevin Perez Work Phone: [facility] 07-29-2016 influenza, seasonal, injectable Dr. Kevin Perez Work Phone: [facility] 04-21-2016 hepatitis B vaccine, pediatric or pediatric/adolescent dosage Dr. Kevin Perez Work Phone: [facility] 03-17-2016 hepatitis B vaccine, pediatric or pediatric/adolescent dosage Dr. Kevin Perez Work Phone: [facility] 02-12-2016 tetanus and diphther ia toxoids, adsorbed, preservative free, for adult use (2 Lf of tetanus toxoid and 2 Lf of diphtheria toxoid) Dr. Kevin Perez Work Phone: [facility] 06-13-2012 hepatitis A vaccine, unspecified formulation Kailee Carbajal Work Phone: [facility] 06-13-2012 human papilloma viru s vaccine, quadrivalent Kailee Carbajal Work Phone: [facility] 06-13-2012 Meningococcal, MCV4, unspecified conjugate formulation(groups A, C, Y and W-135) Kailee Carbajal Work Phone: [facility] 06-05-2010 hepatitis A vaccine, unspecified formulation Kailee Carbajal Work Phone: [facility] 10-22-2008 influenza virus vaccine, live, attenuated, for intranasal use Kailee Carbajal Work Phone: [facility] 04-11-2006 Meningococcal, MCV4, unspecified conjugate formulation(groups A, C, Y and W-135) Kailee Carbajal Work Phone: [facility] 04-11-2006 tetanus toxoid, redu patsy diphtheria toxoid, and acellular pertussis vaccine, adsorbed Kailee Carbajal Work Phone: [facility] 05-27-1999 diphtheria, tetanus toxoids and acellular pertussis vaccine Kailee Carbajal Work Phone: [facility] 05-27-1999 measles, mumps and rubella virus vaccine Kailee Carbajal Work Phone: [facility] 05-27-1999 trivalent poliovirus vaccine, live, oral Kailee Carbajal Work Phone: [facility] 04-18-1998 Chicken Pox (disease) Kailee Carbajal Work Phone: [facility] 03-08-1995 diphtheria, tetanus toxoids and acellular pertussis vaccine Kailee Carbajal Work Phone: [facility] 03-08-1995 haemophilus influenz ae type b vaccine, HbOC conjugate Kailee Carbajal Work Phone: [facility] 12-07-1994 measles, mumps and rubella virus vaccine Kailee Carbajal Work Phone: [facility] 08-12-1994 hepatitis B vaccine, pediatric or pediatric/adolescent dosage Kailee Carbajal Work Phone: [facility] 06-29-1994 diphtheria, tetanus toxoids and pertussis vaccine Kailee Carbajal Work Phone: [facility] 06-29-1994 haemophilus influenz ae type b vaccine, HbOC conjugate Kailee Carbajal Work Phone: [facility] 06-29-1994 trivalent poliovirus vaccine, live, oral Kailee Carbajal Work Phone: [facility] 04-29-1994 diphtheria, tetanus toxoids and pertussis vaccine Kailee Carbajal Work Phone: [facility] 04-29-1994 haemophilus influenz ae type b vaccine, HbOC conjugate Kailee Carbajal Work Phone: [facility] 04-29-1994 hepatitis B vaccine, pediatric or pediatric/adolescent dosage Kailee Carbajal Work Phone: [facility] 04-29-1994 trivalent poliovirus vaccine, live, oral Kailee Carbajal Work Phone: [facility] 02-04-1994 diphtheria, tetanus toxoids and pertussis vaccine Kailee Carbajal Work Phone: [facility] 02-04-1994 haemophilus influenz ae type b vaccine, HbOC conjugate Kailee Carbjaal Work Phone: [facility] 02-04-1994 hepatitis B vaccine, pediatric or pediatric/adolescent dosage Kailee Carbajal Work Phone: [facility] 02-04-1994 trivalent poliovirus vaccine, live, oral Kailee Carbajal Work Phone: [facility] Payers Date Payer Category [place] [id number] 2024 Unknown [id number] 2024 Unknown [id number] 2024 Self-pay [id number] 2024 Unknown [id number] 2016 Unknown [id number] 2005 Self-pay SELF PAY HSP/MED ICAL SELF PAY [id number] 2005-2015 SELF PAY Indemnity [id number] 2004 Unknown [employer] [id number] 2004-2016 Indemnity [id number] 1993 Unknown [id number] 2.16.840.1.474674.3.579.2.47 1993 Unknown [id number] 2.16.840.1.729494.3.579.2.9 1993 Unknown [id number] 2.16.840.1.274725.3.579.2.479 1993 Unknown [id number] 2.16.840.1.182267.3.579.2.479 1993 Unknown [id number] 2.840.1.029722.3.579.2.479 1993 Unknown [id number] 2.16.840.1.386084.3.579.2.479 Unknown ANTHEM [id number] Unknown [id number] 2.840.1.563626.3.579.2.462 Unknown [id number] 2.840.1.712770.3.579.2.462 Unknown [id number] 2.840.1.021112.3.579.2.462 Unknown [id number] 2.840.1.502559.3.579.2.462 Unknown [id number] 2.840.1.774818.3.579.2.462 Unknown [id number] .840.1.228296.3.579.2.462 Unknown [id number] 2.840.1.204771.3.579.2.462 Unknown [id number] 2.840.1.188430.3.579.2.462 Unknown [id number] 2.840.1.270144.3.579.2.462 Unknown [id number] .840.1.636570.3.579.2.462 Unknown [id number] .840.1.913898.3.579.2.462 Unknown [id number] 2.840.1.052118.3.579.2.462 Unknown [id number] 2.840.1.754479.3.579.2.462 Unknown [id number] 2.840.1.774298.3.579.2.462 Unknown [id number] 2.840.1.144580.3.579.2.462 Unknown [id number] 2.16.840.1.287736.3.579.2.462 Unknown [id number] 2.16.840.1.150598.3.579.2.462 Unknown [id number] 2.16.840.1.932889.3.579.2.462 Unknown [id number] 2.16.840.1.434313.3.579.2.462 Unknown [id number] 2.16.840.1.940548.3.579.2.462 Social History Date Type Detail Facility Start: 06-13-2012 End: 02-07-2025 Tobacco smoking status WAIS Never smoker [facility] Start: 06-13-2012 Tobacco use and exposure Never used [facility] Work Phone: Start: 06-13-2012 Alcohol intake Current non-dr community health outreach worker of alcohol (finding) [facility] Start: 1995 Sex Assigned At Not on file [facility] Start: 12-13-2022 End: 09-19-2023 Tobacco smoking status [facility] Unknown if ever smoked [facility] Start: 1995 Sex Assigned At Female [facility] Start: 11-19-2015 None [facility] Start: 11-19-2015 With Family [facility] Gender identity Not on file [facility] Start: 01-10-2025 End: 02-22-2025 Sex Female (finding) [facility] Goals Date Patient Goal Desired Activity /State Clinical Notes 02-05-2010 to 03-19-2025 Note Date & Type Note Facility 03-19-2025 Progress note [facility] 12-13-2024 Evaluation note Diagnosis Onset Date Resolution [...] infection) acute March 19, 2025 9 :30am [facility] Work Phone: 1(974) 593-999401-17-2025 Evaluation note* Diagnosis Onset Date Resolution Status [...] of premature rupture of membranes (PPROM) acute [facility] 2024 8:54am acute December 27, 2024 8:54am [...] of high-risk acute February 07, 2025 10:22am [facility] Work Phone: 1(229) 460-130301-17-2025 Evaluation note* Diagnosis Onset Date Resolution Status [...] of premature rupture of membranes (PPROM) acute [facility] 2024 10:39am acute December 13, 2024 10:39am Supervision of high-risk acute December 13 10:39am External constriction of lower back and pelvis, sequela resolved December 13 10:39am Depression acute December 20, 2024 11:20am Dysplasia of cervix, low grade (KARAN 1) acute December 20 11:20am History of premature rupture of membranes (PPROM) acute [facility]2024 11:20am acute December 20, 2024 11:20am PTSD (post-traumatic stress disorder) acute December 20 11:20am Supervision of high-risk acute December 20 11:20am Placenta previa inactive December 20, 2024 11:20am Depression acute December 27, 2024 8:54am Dysplasia of cervix, low grade (KARAN 1) acute December 27 8:54am History of premature rupture of membranes (PPROM) acute [facility] 2024 8:54am acute December 27, 2024 8:54am [...] tract infection) acute March 06, 2025 12:50pm [facility] Work Phone: 1(677) 832-711601-08-2025 Progress note Author Giuliana Schilling [facility] Note Date/Time March 19, 2025 1:35p m [facility] Medical Records Department [address] [place] [address] OB Triage Progress Note 03/19/25 1332 MR#: [id number] Acct: [id number] Name: JANICE VELAZQUEZ Rep #:[id number] : 1995 29 From: Giuliana Schilling CNM PCP: Dr. Kevin Perez MD Status:R EG CLI Y DOS: Location: [address] Progress Notes Date of Service: 03/19/25 Progress Note: Patient presents for triage evaluation secondary to back pain and pelvic pressure at 29 weeks. Hx of delivery at 34 weeks FHT: 145 Moderate variability reactive no decelerations category I tracing [place]: no recorded Contractions Assessment and plan: Discussed [...] pH 8.0 (5.0 - 8.0) Ur Specific [place] 1.010 (1.002-1.030) Urine Protein Negative (Negative) mg/dl [...] Multi Select Codes Urinary/Genital Urinary/Genital CPT Codes: 11318-99 non-stress test Interp Assessment & Plan (1) [...] plexus cyst of fetus: COMMENT: Met with [facility] genetic counselors and had testing there. (5) History of premature rupture of membranes (PPROM): COMMENT: Delivered at 34 weeks. CL at 16-24 weeks: 36 mm @16 wk. Recheck 22 wk:35mm (6) Supervision of high-risk : QUALIFIERS: Trimester: third trimester Qualified Code(s): O09.93 - Supervision of high risk , unspecified, third trimester COMMENT: [id number], DEE 05/29/25, PC Romaine, Bon (7) : [...] normal 03/19/25 1335 <Electronically signed by Giuliana zartae CNM> Date _ Giuliana Schilling CNM Cosigner Signature (if applicable): Date CC: DEEP Schilling; Dr. Kevin Perez MD ~ Signed [facility] Work Phone: 1(181) 658-189212-20-2024 Evaluation note* Diagnosis Onset Date Resolution Status [...] of premature rupture of membranes (PPROM) acute [facility] 2024 10:39am acute December 13, 2024 10:39am Supervision of high-risk acute December 13 10:39am External constriction of lower back and pelvis, sequela resolved December 13 10:39am Depression acute December 20, 2024 11:20am Dysplasia of cervix, low grade (KARAN 1) acute December 20 11:20am History of premature rupture of membranes (PPROM) acute [facility] 2024 11:20am acute December 20, 2024 11:20am PTSD (post-traumatic stress disorder) acute December 20 11:20am Supervision of high-risk acute December 20 11:20am Placenta previa inactive December 20, 2024 11:20am Depression acute December 27, 2024 8:54am Dysplasia of cervix, low grade (KARAN 1) acute December 27 8:54am History of premature rupture of membranes (PPROM) acute [facility] 2024 8:54am Placenta previa acute December 27, 2024 8:54am acute December 27, 2024 8:54am PTSD (post-traumatic stress disorder) acute February 27th, 2 025 8:54am Supervision of high-risk acute December 27 8:54am Vaginal discharge resolved uar 2024 8:54am [facility] Work Phone: 1([phone]) 939-157302-07-2023 NotePap Smear Specimen AdequacyFebruary 2022 11:38amComment.Satisfactory for evaluation. Endocervical and/or squamous metaplasticcells (endocervical component)are present.[facility] INTER[facility]ACED A#[id number] Clinic Medina HospitalComment on above:Satisfactory for evaluation. Endocervical and/or squamous metaplasticcells (endocervical component)are present.06-23-2012 Miscellaneous Notes* Telephone Encounter - Kailee Carbajal ([place]) - 06/23/2012 10:26 AM EDT Please inform patient/parent that sickle test is negative. [facility] of Past illness Narrative* Problem Noted Date Resolved Date Tachycardia 02/05/2010 08/17/2013 documented as of this encounter (statuses as of 02/18/2021) [facility] Diagnosis Onset Date Resolution Status Dysplasia of cervix, low grade (KARAN 1) acute Family history of breast cancer acute Encounter for routine gynecological examination noneactive Acute streptococcal pharyngitis acute [facility] Work Phone: Evaluation note* Diagnosis Onset Date [...] Seasonal allergies acute Supervision of high-risk acute [facility] Work Phone: Evaluation note* Diagnosis Onset Date [...] Seasonal allergies acute Supervision of high-risk acute [facility] Work Phone: Evaluation note* Diagnosis Onset Date [...] Seasonal allergies acute Supervision of high-risk acute [facility] Work Phone: Evaluation note* Diagnosis Onset Date [...] of high-risk acute Decreased movement acu te [facility] Work Phone: Evaluation note* Diagnosis Maternal care for (suspected) central nervous system malformation or damage in fetus, choroid plexus cysts, fetus 1 documented in this encounter [facility] Author Dayanara Christie [facility] September 22, 2023 10:33am Note Date/Time September 22, 2023 10:33am [facility] Medical Records Department [address] [place] [address] OB Triage Physician Note 09/22/23 1030 MR#: [id number] Acct: [id number] Name: JANICE VELAZQUEZ Rep #:[id number] : 1995 27 From: Dayanara Christie CNM PCP: Dr. 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 See problem list details for additional plan information. Charges/Coding Visit Charges Office Visits / Consults: 65548 OV L3 Est Multi Select Codes Urinary/Genital Urinary/Genital CPT Codes: 72983-29 non-stress test Interp 09/22/23 1033 <Electronically signed by Dayanara mario CNM> Date _ Dayanara Christie CNM Cosigner Signature (if applicable): Date CC: DEEP Christie; Dr. 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) MILD CERVICAL DYSPLASIA SORE THROAT/SINUS CONCERNS Reason [...] 2024 1 :25pm PTSD (post-traumatic stress disorder) [facility] 2024 1:25pm Supervision of high-risk Eron ry 2024 1:25pm Low back pain November 16, 2024 1 :25pm Strain of right knee November 16, 2024 1:25pm Depression December 13, 2024 10:39am History of premature rupture of membranes (PPROM) December 13, 2024 10:39am December 13, 2024 10:39am Supervision of high-risk [facility] 2024 10:39am External constriction of lower back and pelvis, sequela December 13, 2024 10:39am Depression December 20, 2024 11:20am Dysplasia of cervix, low grade (KARAN 1) [facility] 2024 11:20am History of premature rupture of membranes (PPROM) December 20, 2024 11:20am December 20, 2024 11:20am PTSD (post-traumatic stress disorder) [facility] 2024 11:20am Supervision of high-risk [facility] 2024 11:20am Placenta previa December 20, 2024 11:20am Depression December 27, 2024 8:54am Dysplasia of cervix, low grade (KARAN 1) [facility] 2024 8:54am History of premature rupture of membranes (PPROM) December 27, 2024 8:54am Placenta previa December 27, 2024 8:54am December 27, 2024 8:54am PTSD (post-traumatic stress disorder) [facility] 2024 8:54am Supervision of high-risk [facility] 2024 8:54am Vaginal discharge December 27, [...] December 13, 2024 10:39am Supervision of high-risk [facility] 2024 10:39am External constriction of lower back and pelvis, sequela December 13, 2024 10:39am Depression December 20, 2024 11:20am Dysplasia of cervix, low grade (KARAN 1) [facility] 2024 11:20am History of premature rupture of membranes (PPROM) December 20, 2024 11:20am December 20, 2024 11:20am PTSD (post-traumatic stress disorder) [facility] 2024 11:20am Supervision of high-risk [facility] 2024 11:20am Placenta previa December 20, 2024 11:20am Depression December 27, 2024 8:54am Dysplasia of cervix, low grade (KARAN 1) [facility] 2024 8:54am History of premature rupture of membranes (PPROM) December 27, 2024 8:54am December 27, 2024 8:54am PTSD (post-traumatic stress disorder) [facility] 2024 8:54am Supervision of high-risk [facility] 2024 8:54am Placenta previa December 27, 2024 8:54am Vaginal discharge December 27, 2024 8:54am Depression January 11, 2025 10: 15am Dysplasia of cervix, low grade (KARAN 1) [facility] 2024 10:15am History of premature rupture of membranes (PPROM) January 11, 2025 10:15am January 11, 2025 10: 15am PTSD (post-traumatic stress disorder) [facility] 2024 10:15am Supervision of high-risk January [...] of cervix, low grade (KARAN 1) [facility] 2024 11:20am History of premature rupture of membranes (PPROM) December 20, 2024 11:20am December 20, 2024 11:20am PTSD (post-traumatic stress disorder) [facility] 2024 11:20am Supervision of high-risk [facility] 2024 11:20am Placenta previa December 20, 2024 11:20am Depression December 27, 2024 8:54am Dysplasia of cervix, low grade (KARAN 1) [facility] 2024 8:54am History of premature rupture of membranes (PPROM) December 27, 2024 8:54am December 27, 2024 8:54am PTSD (post-traumatic stress disorder) [facility] 2024 8:54am Supervision of high-risk [facility] 2024 8:54am Placenta previa December 27, 2024 8:54am Vaginal discharge December 27, 2024 8:54am Depression January 11, 2025 10: 15am Dysplasia of cervix, low grade (KARAN 1) [facility] 2024 10:15am History of premature rupture of membranes (PPROM) January 11, 2025 10:15am January 11, 2025 10: 15am PTSD (post-traumatic stress disorder) [facility] 2024 10:15am Supervision of high-risk January 11, 2025 10:15am Placenta previa January 11, 2025 10: 15am Choroid plexus cyst of fetus February 07, 2025 10:22am Depression February 07, 2025 10: 22am Dysplasia of cervix, low grade (KARAN 1) [facility] 2024 10:22am History of premature rupture of membranes (PPROM) February 07, 2025 10:22am February 07, 2025 10: 22am PTSD (post-traumatic stress disorder) [facility] 2024 10:22am Supervision of high-risk February [...] December 13, 2024 10:39am Supervision of high-risk [facility] 2024 10:39am External constriction of lower back and pelvis, sequela December 13, 2024 10:39am Depression December 20, 2024 11:20am Dysplasia of cervix, low grade (KARAN 1) [facility]2024 11:20am History of premature rupture of membranes (PPROM) December 20, 2024 11:20am December 20, 2024 11:20am PTSD (post-traumatic stress disorder) [facility]2024 11:20am Supervision of high-risk [facility] 2024 11:20am Placenta previa December 20, 2024 11:20am Depression December 27, 2024 8:54am Dysplasia of cervix, low grade (KARAN 1) [facility] 2024 8:54am History of premature rupture of membranes (PPROM) December 27, 2024 8:54am December 27, 2024 8:54am PTSD (post-traumatic stress disorder) Fe bruary 2024 8:54am Supervision of high-risk Febru ana rosa 2024 8:54am Placenta previa December 27, 2024 8:54am Vaginal discharge December 27, 2024 8:54am Depression January 11, 2025 10: 15am Dysplasia of cervix, low grade (KARAN 1) [facility] 2024 10:15am History of premature rupture of membranes (PPROM) January 11, 2025 10:15am January 11, 2025 10: 15am PTSD (post-traumatic stress disorder) [facility] 2024 10:15am Supervision of high-risk January [...] Will No December 13 6:12am Power of Food Safety Coordinator No December 13, 2022 6:12am Advance Directive Response Recorded Date/ Time Living Will No December 13 023 7:12am Power of Food Safety Coordinator No December 13, 2022 7:12am Advance Directive Response Recorded Date/ Time Living Will No June 21 8:34am Power of Food Safety Coordinator No June 21 023 8:34am Advance Directive Response Recorded Date/ Time Living Will No June 21 7:34am Power of Food Safety Coordinator No June 21 7:34am Advance Directive Response Recorded Date/ Time Living Will No December 14 8:17pm Power of Food Safety Coordinator No December 14, 2024 8:17pm Advance Directive Response Recorded Date/ Time Living Will No December 14 8:17pm Do you have a Healthcare Power of Food Safety Coordinator? No December 14, 2024 8:17pm Summary Purpose Additional Source Comments Source Comments (unrecognize d section and content) In the event this informatio n is protected by the Federal Confidentiality of Alcohol and Drug Abuse Patient Records regulations: The Federal rules restrict any use of the information to criminally investigate or prosecute any alcohol or drug abuse patient.[facility] Reason for Visit (unrecogniz ed section and content) Reason Comments Other Care Teams (unrecognized sec tion and content) Team Status: Active Member Role Status Dates Dr. Kevin Perez MD Family Provider Active Dr. Kevni Perez MD Primary Care Provider Active Team Status: Inactive Member Role Status Dates Dr. Kevin Perez MD Primary Care Provider, Refer ring Provider Active Hubert Rogers NUTRITIONAL ASSISTANT, NUTRITIONAL ASSISTANT-C Attending Provider Active Team Status: Inactive Member Role Status Dates Dr. Kevin Perez MD Primary Care Provider, Refer ring Provider Active Vannessa Chirinos NUTRITIONAL ASSISTANT, NUTRITIONAL ASSISTANT-C Attending Provider Active Team Status: Inactive Member Role Status Dates Dr. Kevin Perez MD Primary Care Provider, Refer ring Provider Active Sajan WATERMAN, [place] Attending Provider Active Team Status: Inactive Member Role Status Dates Dr. Kevin Perez MD Primary Care Provider Active Vannessa Chirinos NUTRITIONAL ASSISTANT, NUTRITIONAL ASSISTANT-C Attending Provider, Referring Provider Active Team [...] MD Primary Care Provider Active Vannessa Chirinos NUTRITIONAL ASSISTANT, NUTRITIONAL ASSISTANT-C Attending Provider, Referring Provider Active Head Cook Relationship Specialty Start Date End Date Kevin Perez MD [address] [place] [address] PCP - General Internal Medicine 11/16/24 [place] [address] Genetic Counselor Genetics 01/16/25 Team Status: Active [...] 2024 End: December 13, 2024 Vannessa Chirinos NUTRITIONAL ASSISTANT, NUTRITIONAL ASSISTANT-C Attending Provider Active Start: December 13, [...] End: December 27, 2024 Vannessa Chirinos NP, NUTRITIONAL ASSISTANT-C Attending Provider Active Start: December 27, 2024 End: December 27, 2024 Team Status: Inactive Member Role Status Dates Dr. Kevin Perez MD Primary Care Provider Active Start: December 27, 2024 End: December 27, 2024 Vannessa Chirinos NUTRITIONAL ASSISTANT, NUTRITIONAL ASSISTANT-C Attending Provider Active Start: December 27, 2024 End: December 27, 2024 Vannessa Chirinos NUTRITIONAL ASSISTANT, NUTRITIONAL ASSISTANT-C Referring Provider Active Start: December 27, [...] End: February 07, 2025 Vannessa Chirinos NP, NUTRITIONAL ASSISTANT-C Attending Provider Active Start: February 07, [...] 2025 End: March 06, 2025 Vannessa Chirinos NUTRITIONAL ASSISTANT, NUTRITIONAL ASSISTANT-C Attending Provider Active Start: March 06, 2025 End: March 06, 2025 Team Status: Inactive Member Role Status Dates Dr. Kevin Perez MD Primary Care Provider Active Start: March 06, 2025 End: March 06, 2025 Vannessa Chirinos NUTRITIONAL ASSISTANT, NUTRITIONAL ASSISTANT-C Attending Provider Active Start: March 06, 2025 End: March 06, 2025 Vannessa Chirinos NUTRITIONAL ASSISTANT, NUTRITIONAL ASSISTANT-C Referring Provider Active Start: March 06, [...] section and content) DATE CREATED AUTHOR 02/03/2025 [facility] DATE CREATED AUTHOR AUTHOR'S ORGANIZ ATION 04/03/2025 [facility] FOR RECORDS PERTAINING TO PATIENTS [...] BE BASED ON THE PRIMARY CLINICAL RECORDS. [employer] provides no warranty or guarantee of the accuracy or completeness of information in this document.
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
== END 2025-04-04 18:35 | disposition home or self-care (01) ==
LOC: WPOUT 17:25 → WP 17:26
PROVIDERS: PCP Internal Medicine; Referring Provider Registered Nurse; Visit Provider Registered Nurse
DX: O60.03 Preterm labor without delivery, third trimester (principal); O99.810 Abnormal glucose complicating pregnancy; O35.03X0 Maternal care for (suspected) central nervous system malformation or damage in fetus, choroid plexus cysts, not applicable or unspecified; O99.343 Other mental disorders complicating pregnancy, third trimester; F43.11 Post-traumatic stress disorder, acute; F33.41 Major depressive disorder, recurrent, in partial remission; O34.43 Maternal care for other abnormalities of cervix, third trimester; N87.0 Mild cervical dysplasia; O23.13 Infections of bladder in pregnancy, third trimester; N30.01 Acute cystitis with hematuria; Z3A.32 32 weeks gestation of pregnancy; Z62.810 Personal history of physical and sexual abuse in childhood; Z87.59 Personal history of other complications of pregnancy, childbirth and the puerperium
CPT/HCPCS: 96372; J0702

== ENCOUNTER → 2025-04-11 | Outpatient (CLI) | payer OTHER, SELFPAY ==
[2025-04-11 09:01] LABS: ROM Internal Control Test YES-OK TO RESULT pt. (Internal QC); ROM Patient Test Negative (Negative); Record Kit Lot#, ROM+ K3358
== END | disposition home or self-care (01) ==
LOC: LABSPEC 08:35
PROVIDERS: PCP Internal Medicine; Referring Provider Nurse Practitioner Women's Health; Visit Provider Nurse Practitioner Women's Health
DX: N89.8 Other specified noninflammatory disorders of vagina (principal)
CPT/HCPCS: 84112

== ENCOUNTER 2025-04-17 16:10 | Outpatient (CLI) | payer OTHER, SELFPAY ==
[2025-04-17 16:28] VITALS: BMI 31.8
[2025-04-17 16:35] VITALS: BP 117/67; PULSE 92; PULSE 96; RESP 16; TEMP 37.1; O2SAT 94; O2SAT 95
[2025-04-17 17:27] LABS: ROM Internal Control Test YES-OK TO RESULT pt. (Internal QC); ROM Patient Test Negative (Negative); Record Kit Lot#, ROM+ K3358
--- NOTE | 2025-04-21 12:09 | OB.TRI.PN ---
Progress Notes Date of Service: 04/17/25 Progress Note: Patient presents for triage evaluation secondary to threatened labor FHT: 140 Moderate variability reactive no decelerations category I tracing [place]: irregular Contractions Assessment and plan: 34 weeks threatened labor Reactive NST, reassuring maternal and status patient discharged to home to follow-up as scheduled ahmet aguero. See problem list details for additional plan information. Laboratory Studies: Laboratory Tests 04/17/25 Range/Units 16:40 Vag Amniotic Fld Detect Negative (Negative) Charges/Coding Procedures Urinary/Genital 52xxx-59xxx: 86898-42 non-stress test Interp
== END 2025-04-17 17:39 | disposition home or self-care (01) ==
LOC: WPOUT 16:19 → WP 16:20
PROVIDERS: PCP Internal Medicine; Referring Provider Obstetrics & Gynecology; Visit Provider Obstetrics & Gynecology
DX: Z34.83 Encounter for supervision of other normal pregnancy, third trimester (principal); Z87.59 Personal history of other complications of pregnancy, childbirth and the puerperium
CPT/HCPCS: 59025; 59050; 84112; 99221; G0378

== ENCOUNTER → 2025-05-02 | Outpatient (CLI) | payer OTHER, SELFPAY | END | disposition home or self-care (01) | LOC: LABSPEC 16:02 | PROVIDERS: PCP Internal Medicine; Referring Provider Obstetrics & Gynecology; Visit Provider Obstetrics & Gynecology | DX: O09.93 Supervision of high risk pregnancy, unspecified, third trimester (principal); Z3A.00 Weeks of gestation of pregnancy not specified | CPT/HCPCS: 87081 ==

== ENCOUNTER 2025-05-07 16:05 | Outpatient (CLI) | payer OTHER, SELFPAY ==
[2025-05-07 16:14] VITALS: BMI 32.8
[2025-05-07 16:26] VITALS: BP 122/74; PULSE 86; TEMP 37.1
[2025-05-07 16:27] VITALS: O2SAT 95
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
--- OUTSIDE RECORDS SUMMARY | 2025-05-09 03:28 | XMS RPT_ITS | CCD ---
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 surface antigen detectionOrdered By: Dayanara Christie on 10-19-2024 Hepatitis B Surface Antigen Non-Reactive Nonreactive [facility] Hepatitis C Antibodyon 10-19 Hepatitis C AB Non-Reactive Normal Nonreactive [facility] Comment on above: Order Comment: Reaso n for Exam: Result Comment: Non Reactive: < 0.8 Equivocal: >/= 0.8 to < 1.0 Reactive: >/= 1.0 The [facility] requires that a reactive/equivocal HCV antibody result be sent out for confirmation. HCV Quant by PCR testing. Performed By: #### L 509.8000, L3890.6005, BTS, L3890.6100, L100.0100, L3890.6300, L509.4005 ####[facility] [address] [place], [address] Hepatitis C virus antibody a ssayOrdered By: Dayanara Christie on 10-19-2024 Hepatitis C Antibody Non-Reactive Nonreactive [facility] Comment on above: Non Reactive: < 0.8 Equivocal: >/= 0.8 to < 1.0 Reactive: >/= 1.0The [facility] requires that a reactive/equivocal HCV antibody result be sent out for confirmation. HCV Quant by PCR testing. Immature granulocytes/100 WB C Auto (Bld)Ordered By: Dayanara Christie on 10-19-2024 Immature granulocytes/100 WBC (Bld) 0.300 % 0.0-0.9 [facility] Comment on above: IG% - Immature Granu locytes (promyelocytes, myelocytes and metamyelocytes) > 1% indicates that a LEFT SHIFT is Present. L509.8000on 10-19-2024 Syphilis Abs Non-Reactive Normal [facility] Comment on above: Order Comment: Reaso n for Exam: Performed By: #### L 509.8000, L3890.6005, BTS, L3890.6100, L100.0100, L3890.6300, L509.4005 ####[facility] [id number], [address] Lymphocytes Auto (Unsp spec) [#/Vol]Ordered By: Dayanara Christie on 10-19-2024 Lymphocytes (Bld) [#/Vol] 2.20 10*3/uL 0.83-4.51 [facility] Lymphocytes/100 WBC Auto (Un sp spec)Ordered By: Dayanara Christie on 10-19-2024 Lymphocytes/100 WBC (Bld) 24.8 % 19-41 [facility] MCV (mean corpuscular volume ) determinationOrdered By: Dayanara Christie on 10-19-2024 MCV (RBC) [Entitic vol] 88.6 fL 81-99 [facility] Mean corpuscular hemoglobin (MCH) determinationOrdered By: Dayanara Christie on 10-19-2024 MCH (RBC) [Entitic mass] 29.5 pg 27.0-32.0 [facility] Mean corpuscular hemoglobin concentration (MCHC) determinationOrdered By: Dayanara Christie on 10-19-2024 MCHC (RBC) [Mass/Vol] 33.3 g/dL 32-36 [facility] Mean platelet volume determi nationOrdered By: Dayanara Christie on 10-19-2024 Platelet mean volume (Bld) [Entitic vol] 9.8 fL 6.2-12.0 [facility] Monocyte percentageOrdered B y: Dayanara Christie on 10-19-2024 Monocytes/100 WBC (Bld) 6.8 % 0-10 [facility] Neisseria gonorrhoeae nuclei c acid detection by amplified probe techniqueOrdered By: Dayanara Christie on 10-19-2024 N. gonorrhoeae DNA PHILIP+probe Ql (Unsp spec) Negative Negative [facility] Comment on above: Performed at: =[address] [id number] Director: Chantel Sánchez MD, Phone: [phone] Neutrophil percentageOrdered By: Dayanara Christie on 10-19-2024 Neutrophils/100 WBC (Bld) 66.5 % 47-70 [facility] Nucleated red blood cell per centageOrdered By: Dayanara Christie on 10-19-2024 Nucleated RBC/100 WBC (Bld) [Ratio] 0 % 0-5 [facility] Team Facilitator Office Visit Reporton 10-19-2024 Team Facilitator Office Visit Report [facility] [address], [address] [place] [address] OFFICE VISIT Date of Service: 10/19/24 MR#: [id number] Acct: [id number] Name: JANICE VELAZQUEZ Rep #: [id number] : 1995 Provider: DEEP boston Age/Sex: 28/F [place] [facility] [place]: Signed Intake Vital Signs 07/17/24 14:52 10/19/24 11:17 10/19/24 11:22 Height 5 ft 3 in 5 ft 3 in 5 ft 3 in Weight: 164 lb 2 oz BMI 29.0 BP 120/81 H Intake Visit Reasons: New OB, LMP 08/22/24, DEE 05/29/25 Carbon 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 Required: No Is patient in pain?: No Allergies No Known Allergies Allergy (Verified 10/19/24 11:18) Medications ???Medication ???Instructions ???Recorded ???Confirmed ???Type doxylamine succinate 25 mg tablet 25 mg PO QHS PRN 10/12/24 10/12/24 History (Unisom (doxylamine)) multivit-min no.71-iron fum 28 cap PO 10/12/24 10/12/24 History mg-folate no.1 1 mg-dha 300 mg capsule (PNV-[place]) Last Menstrual Period: 08/22/24 Zika: Zika virus [...] 5-6 times per week duration: 45-60 minutes/day ross/sikhism: Anglican seatbelt use: always do you feel safe [...] 34 live - 5# 15oz Male epidural [facility] Delivery Date: 09/27/23 Last Updated by: Davina [...] 146 -???-???- (more content not included)... Normal [facility] Platelet countOrdered By: Anamaria Christie on 10-19-2024 Platelets (Bld) [#/Vol] 431 10*3/uL 150-450 [facility] RBC Auto (Bld) [#/Vol]Ordere d By: Dayanara Christie on 10-19-2024 RBC (Bld) [#/Vol] 4.84 10*6/uL 4.2-5.4 [facility] Rubella IgGon 10-19-2024 Rubella IgG Reactive Normal Nonreactive [facility] Comment on above: Order Comment: Reaso n for Exam: Result Comment: Anti body Results Interpretation of Immune Status Non Reactive Presumed Non-Immune Equivocal Equivocal Reactive Presumed Immune Performed By: #### L 509.8000, L3890.6005, BTS, L3890.6100, L100.0100, L3890.6300, L509.4005 ####[facility] [id number] [place], [place], [id number] Rubella immune status IgGOrd ered By: Dayanara Christie on 10-19-2024 Rubella IgG Antibody Reactive Nonreactive [facility] Comment on above: Antibody Results Int erpretation of Immune Status Non Reactive Presumed Non-Immune Equivocal Equivocal Reactive Presumed Immune Treponema sp Ab Ql (S)Ordere d By: Dayanara Christie on 10-19-2024 Syphilis Total Antibody Non-Reactive [facility] Type AND Screenon 10-19-2024 ABO and Rh group Nom (Bld) Blood group A Rh(D) positive Normal [facility] Comment on above: Order Comment: PN Performed By: #### L 509.8000, L3890.6005, BTS, L3890.6100, L100.0100, L3890.6300, L509.4005 ####[facility] [id number] [place], [place], [id number] Urine cultureOrdered By: Sue Christie on 10-19-2024 Bacteria identified Cx Nom (U) Culture exhibits no growth. [facility] White blood cell (WBC) count Ordered By: Dayanara Christie on 10-19-2024 WBC (Bld) [#/Vol] 8.9 10*3/uL 4.4-11.0 [facility] Urgent Care Visit Reporton 1 Urgent Care Visit Report [facility] [address], [address] [place], [place] [id number] OFFICE VISIT Date of Service: 08/14/24 MR#: [id number] Acct: [id number] Name: JANICE VELAZQUEZ Rep #: [id number] : 1995 Provider: COLUMBA Obrien Age/Sex: 28/F Location: [facility] Status: Signed Intake Vital Signs 07/17/24 14:52 [...] KNEE PAIN Chief Complaint: right knee pain Carbon 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 Required: No Is patient in pain?: Yes [...] repair to right side 15 years ago. 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 No cfle-hkj-gkhltsx products been taken to assist. No other [...] Status: Acut (more content not included)... Normal [facility] Lumbar Spine 2 or 3 Viewson 07-18-2024 Lumbar Spine 2 or 3 Views [facility] Imaging Services [address] [place] [address] Lumbar Spine 2 or 3 Views MR#: [id number] Acct: [id number] Name: JANICE VELAZQUEZ Rep #: [id number] : 1995 F 28 From: Jules Kang MD PCP: Dr. Nirav Perez MD Status: REG CLI Study: Lumbar Spine 2 or 3 Views Date of Exam: Exam# [id number] Ordering Dr: Jaci Moore RIVET BUCKERKenroy [id number] STUDY: X-RAY - LUMBAR SPINE REASON FOR [...] Kang MD at 8:55 EDT , CC: RIVET BUCKER-C Jaci Moore; Dr. Nirav Perez MD Funeral Driver: Signed Normal [facility] Internal Medicine Office Vis itomichelle 07-17-2024 Internal Medicine Office Visit [facility] [place] [address] [place] [address] OFFICE VISIT Date of Service: 07/17/24 MR#: [id number] Acct: [id number] Name: JANICE VELAZQUEZ Rep #: [id number] : 1995 Provider: ASTER jay Age/Sex: 28/F Location: [facility] Status: Signed Intake Vital Signs 11/10/23 14:50 07/17/24 14:52 Height 5 ft 3 in 5 ft 3 in Weight: 164 lb BMI 29.0 BP 138/82 H Blood Pressure Location Lt brachial Position Sitting Respiration 16 Pulse 87 Pulse Source Monitor Temp 97.2 F L Temp Source Temporal Pulse Oximetry (%) 98 Oxygen Delivery Method room air Intake Visit Reasons: acute - lower back pain Carbon 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 Required: No Is patient in pain?: Yes [...] it below a 3 in awhile though. 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 Normal [facility] Culture, urineOrdered By: Joseph Chirinos on 09-19-2023 Bacteria identified Cx Nom (U) Culture exhibits no growth. [facility] Laboratory - Chemistry and C hemistry - challengeon 09-19-2023 Bilirubin Ql (U) Negative [facility] Glucose Ql (U) Negative [facility] Ketones Ql (U) Negative [facility] pH (U) 5.0 [pH] [facility] Specific gravity (U) [Rel density] 1.010 [facility] Urobilinogen (U) [Mass/Vol] Negative [facility] Laboratory - Hematology and Cell countson 09-19-2023 Hemoglobin Ql (U) Negative [facility] Laboratory - Specimen inform ationon 09-19-2023 Clarity (U) Cloudy [facility] Color (U) YELLOW [facility] Laboratory - Urinalysison Nitrite Ql (U) Negative [facility] Protein Ql (U) Negative [facility] No Panel Informationon 09-19 Urine Leukocytes Positive [facility] Urine Non-Hemolyzed Blood Negative [facility] Laboratory - Chemistry and C hemistry - challengeon 09-12-2023 Glucose Ql (U) Negative [facility] Laboratory - Urinalysison Protein Ql (U) Negative [facility] Laboratory - Chemistry and C hemistry - challengeon 08-29-2023 Glucose Ql (U) Negative [facility] Laboratory - Urinalysison Protein Ql (U) Negative [facility] Laboratory - Chemistry and C hemistry - challengeon 08-12-2023 Glucose Ql (U) Negative [facility] Laboratory - Urinalysison Protein Ql (U) Negative [facility] Laboratory - Microbiology an d Antimicrobial susceptibilityon 08-09-2023 S. pyogenes Ag IA Ql (Unsp spec) Negative [facility] SARS-CoV-2 (COVID-19) RNA PHILIP+probe Ql (Unsp spec) Not detected [facility] No Panel Informationon 08-09 Influenza Types A,B Rapid (Clinic) Not detected [facility] Absolute lymphocyte countOrd ered By: Dayanara Christie on 07-19-2023 Lymphocytes Auto (Unsp spec) [#/Vol] 1.87 10*3/uL 0.83-4.51 [facility] Basophil percentageOrdered B y: Dayanara Christie on 07-19-2023 Basophils/100 WBC (Bld) 0.4 % 0-1 [facility] Eosinophils/100 WBC (Bld) 2.8 % 0-5 [facility] Neutrophils (Bld) [#/Vol] 7.2 10*3/uL 2.0-7.7 [facility] Neutrophils/100 WBC (Bld) 72.4 % 47-70 [facility] WBC (Bld) [#/Vol] 10.0 10*3/uL 4.4-11.0 [facility] Blood erythrocytes count (nu mber/volume)Ordered By: Dayanara Christie on 07-19-2023 RBC (Bld) [#/Vol] 4.10 10*6/uL 4.2-5.4 [facility] Blood hemoglobin measurement (mass/volume)Ordered By: Dayanara Christie on 07-19-2023 Hemoglobin (Bld) [Mass/Vol] 12.8 g/dL 12.0-15.0 [facility] Blood lymphocytes/100 leukoc ytesOrdered By: Dayanara Christie on 07-19-2023 Lymphocytes/100 WBC (Bld) 18.7 % 19-41 [facility] Blood monocytes/100 leukocyt esOrdered By: Dayanara Christie on 07-19-2023 Monocytes/100 WBC (Bld) 4.7 % 0-10 [facility] Blood platelet mean volumeOr dered By: Dayanara Christie on 07-19-2023 Platelet mean volume (Bld) [Entitic vol] 10.0 fL 6.2-12.0 [facility] Determination of erythrocyte mean corpuscular volume (MCV)Ordered By: Dayanara Christie on 07-19-2023 MCV (RBC) [Entitic vol] 93.4 fL 81-99 [facility] Gestational diabetes screen 1-hour screen with 50g oral glucose loadOrdered By: Dayanara Christie on 07-19-2023 Glucose 1 Hr post 50 g glucose PO [Mass/Vol] 132 mg/dL 70-140 [facility] HIV 1 and HIV-2 antibody ass ay with HIV-1 p24 antigen detectionOrdered By: Dayanara Christie on 07-19-2023 HIV 1+2 Ab+HIV1 p24 Ag IA Ql Non-Reactive Nonreactive [facility] Hematocrit Auto (Bld) [Volum e fraction]Ordered By: Dayanara Christie on 07-19-2023 Hematocrit (Bld) [Volume fraction] 38.3 % 37-47 [facility] Laboratory - Hematology and Cell countsOrdered By: Dayanara Christie on 07-19-2023 Erythrocyte distribution width (RBC) [Entitic vol] 44.2 fL 35.1-43.9 [facility] Erythrocyte distribution width (RBC) [Ratio] 12.9 % 11.6-14.6 [facility] Immature granulocytes/100 WBC (Bld) 1.000 % 0.0-0.9 [facility] Comment on above: IG% - Immature Granu locytes (promyelocytes, myelocytes and metamyelocytes) > 1% indicates that a LEFT SHIFT is Present. MCH (RBC) [Entitic mass] 31.2 pg 27.0-32.0 [facility] Nucleated RBC/100 WBC (Bld) [Ratio] 0 % 0-5 [facility] MCHC Auto (RBC) [Mass/Vol]Or dered By: Dayanara Christie on 07-19-2023 MCHC (RBC) [Mass/Vol] 33.4 g/dL 32-36 [facility] Platelets bldOrdered By: Sue Christie on 07-19-2023 Platelets (Bld) [#/Vol] 286 10*3/uL 150-450 [facility] Serum Treponema species anti body detectionOrdered By: Dayanara Christie on 07-19-2023 Treponema sp Ab Ql (S) Non-Reactive [facility] Laboratory - Chemistry and C hemistry - challengeon 07-18-2023 Glucose Ql (U) Negative [facility] Laboratory - Urinalysison Protein Ql (U) Negative [facility] Laboratory - Chemistry and C hemistry - challengeon 06-20-2023 Glucose Ql (U) Negative [facility] Laboratory - Urinalysison Protein Ql (U) Negative [facility] Absolute lymphocyte countOrd ered By: Stephania Velasco on 05-27-2023 Lymphocytes Auto (Unsp spec) [#/Vol] 1.84 10*3/uL 0.83-4.51 [facility] Basophil percentageOrdered B y: Stephania Velasco on 05-27-2023 Basophils/100 WBC (Bld) 0.3 % 0-1 [facility] Eosinophils/100 WBC (Bld) 0.9 % 0-5 [facility] Neutrophils (Bld) [#/Vol] 6.7 10*3/uL 2.0-7.7 [facility] Neutrophils/100 WBC (Bld) 73.5 % 47-70 [facility] WBC (Bld) [#/Vol] 9.2 10*3/uL 4.4-11.0 [facility] Blood erythrocytes count (nu mber/volume)Ordered By: Stephania Velasco on 05-27-2023 RBC (Bld) [#/Vol] 4.40 10*6/uL 4.2-5.4 [facility] Blood hemoglobin measurement (mass/volume)Ordered By: Stephania Velasco on 05-27-2023 Hemoglobin (Bld) [Mass/Vol] 13.3 g/dL 12.0-15.0 [facility] Blood lymphocytes/100 leukoc ytesOrdered By: Stephania Velasco on 05-27-2023 Lymphocytes/100 WBC (Bld) 20.1 % 19-41 [facility] Blood monocytes/100 leukocyt esOrdered By: Stephania Velasco on 05-27-2023 Monocytes/100 WBC (Bld) 4.9 % 0-10 [facility] Blood platelet mean volumeOr dered By: Stephania Velasco on 05-27-2023 Platelet mean volume (Bld) [Entitic vol] 9.9 fL 6.2-12.0 [facility] Determination of erythrocyte mean corpuscular volume (MCV)Ordered By: Stephania Velasco on 05-27-2023 MCV (RBC) [Entitic vol] 91.1 fL 81-99 [facility] HIV 1 and HIV-2 antibody ass ay with HIV-1 p24 antigen detectionOrdered By: Stephania Velasco on 05-27-2023 HIV 1+2 Ab+HIV1 p24 Ag IA Ql Non-Reactive Nonreactive [facility] Hematocrit Auto (Bld) [Volum e fraction]Ordered By: Stephania Velasco on 05-27-2023 Hematocrit (Bld) [Volume fraction] 40.1 % 37-47 [facility] Laboratory - Chemistry and C hemistry - challengeon 05-27-2023 Glucose Ql (U) Negative [facility] Laboratory - Hematology and Cell countsOrdered By: Stephania Velasco on 05-27-2023 Erythrocyte distribution width (RBC) [Entitic vol] 41.1 fL 35.1-43.9 [facility] Erythrocyte distribution width (RBC) [Ratio] 12.3 % 11.6-14.6 [facility] Immature granulocytes/100 WBC (Bld) 0.300 % 0.0-0.9 [facility] Comment on above: IG% - Immature Granu locytes (promyelocytes, myelocytes and metamyelocytes) > 1% indicates that a LEFT SHIFT is Present. MCH (RBC) [Entitic mass] 30.2 pg 27.0-32.0 [facility] Nucleated RBC/100 WBC (Bld) [Ratio] 0 % 0-5 [facility] Laboratory - Urinalysison Protein Ql (U) Negative [facility] MCHC Auto (RBC) [Mass/Vol]Or dered By: Stephania Velasco on 05-27-2023 MCHC (RBC) [Mass/Vol] 33.2 g/dL 32-36 [facility] No Panel InformationOrdered By: Stephania Velasco on 05-27-2023 Hepatitis B Surface Antigen Non-Reactive Nonreactive [facility] Hepatitis C Antibody Non-Reactive Nonreactive [facility] Comment on above: Non Reactive: < 0.8 Equivocal: >/= 0.8 to < 1.0 Reactive: >/= 1.0The CDC recommends that a reactive/equivocal HCV antibody result be followed up by the HCV Nucleic Acid Amplificationtest (656166) Miscellaneous Test See comment [facility] Comment on above: TEST RESULTS LIMITSA FP, [...] Genetic CustomerServices to discuss available options. The [place] [employer] recommends amniocentesis be offered to women age 35 and older. Comment: Beronica Rutherford, Ph.D., DABCCDirectorReferences: Available Upon Request.Multiples Of Median Cutoffs For AFP ElevationsSingleton 2.5 Black 2.8IDD 2.0 Twins 4.5 Abbreviation DefinitionsIDD - Insulin Dep DiabetesOSBR - Open Spina Bifida RiskFor further inquiries contact [employer] at [phone].This test was developed and its performance characteristicsdetermined by [employer]. It has not been cleared or approvedby the Food and Drug Administration. TESTING PERFORMED AT [facility]. ORIGINAL REPORT ON FILE IN LAB CONTAINS ADDITIONAL TEST SITE INFORMATION. Rubella IgG Antibody Reactive Nonreactive [facility] Comment on above: Antibody Results Int erpretation of Immune Status Non Reactive Presumed Non-Immune Equivocal Equivocal Reactive Presumed Immune Platelets bldOrdered By: Hedy Velasco on 05-27-2023 Platelets (Bld) [#/Vol] 306 10*3/uL 150-450 [facility] Serum Treponema species anti body detectionOrdered By: Stephania Velasco on 05-27-2023 Treponema sp Ab Ql (S) Non-Reactive [facility] Laboratory - Chemistry and C hemistry - challengeon 04-29-2023 Glucose Ql (U) Negative [facility] Laboratory - Urinalysison Protein Ql (U) Negative [facility] Chlamydia trachomatis rRNA d etection by probe and target amplification methodOrdered By: Stephania Velasco on 03-30-2023 C. trachomatis rRNA PHILIP+probe Ql (Unsp spec) Negative Negative [facility] Culture, urineOrdered By: Fabio Velasco on 03-30-2023 Bacteria identified Cx Nom (U) Positive [facility] Laboratory - Microbiology an d Antimicrobial susceptibilityOrdered By: Stephania Velasco on 03-30-2023 N. gonorrhoeae DNA PHILIP+probe Ql (Unsp spec) Negative Negative [facility] Comment on above: Performed at: =[address] [id number] Director: Chantel Sánchez MD, Phone: [phone] Laboratory - Microbiology an d Antimicrobial susceptibilityon 12-13-2022 S. pyogenes Ag IA Ql (Unsp spec) Positive [facility] Cervical or vagninal specime n microscopic examination by cytology stain (reported asOrdered By: Vannessa Chirinos on 12-07-2022 Cytology report Cyto stain Doc (Cvx/Vag) Comment . [facility] Comment on above: The Pap smear is a s creening test designed to aid in thedetection of premalignant and malignant conditions of theuterine cervix. It is not a diagnostic procedure andshould not be used as the sole means of detecting cervicalcancer. Both false-positive and false-negative reports dooccur. Laboratory - CytologyOrdered By: Vannessa Chirinos on 12-07-2022 Sales Demonstrator Cyto stain Nom (Cvx/Vag) [ID] Comment . [facility] Comment on above: Kate [employer] hnologist (ASCP) Laboratory - Miscellaneous t estsOrdered By: Vannessa Chirinos on 12-07-2022 Service comment (Unsp spec) [Interp] Comment . [facility] Comment on above: This liquid based Th inPrep(R) pap test was screened withthe use of an image guided system. Service comment (Unsp spec) [Interp] . . [facility] No Panel InformationOrdered By: Vannessa Chirinos on 12-07-2022 Human Papillomavirus Screen Comment . [facility] Comment on above: The HPV DNA reflex c emili were not met with this specimenresult therefore, no HPV testing was performed.Performed at: [address] [id number] Director: Chantel Sánchez MD, Phone: [phone] Pathology report final diagnosis Narrative Comment . [facility] Comment on above: NEGATIVE FOR INTRAEP ITHELIAL LESION OR MALIGNANCY. Laboratory - Microbiology an d Antimicrobial susceptibilityon 11-06-2022 S. pyogenes Ag IA Ql (Unsp spec) Negative [facility] Office Visit: est annualon 1 10-31-2016 Documentation of current medications (procedure) Done Invalid Interpretation Code [facility] Fall risk assessment No Invalid Interpretation Code [facility] Tobacco smoking status NHIS Never Invalid Interpretation Code [facility] Tobacco use CPHS Never smoker Invalid Interpretation Code [facility] Lab Report: ,Urineo n 08-11-2017 HCG.beta subunit ( test) Ql (U) Negative Invalid Interpretation Code [facility] Medicine Work Phone: [phone] Microbiology: Culture, Throa ton 08-06-2017 CUT Vancomycin $ 1 S Invalid Interpretation Code [facility] Work Phone: [phone] Lab Report: CBC W/Diff, Auto matedon 08-02-2017 Lymphocytes variants/100 leukocytes RARE % Invalid Interpretation Code [facility] Work Phone: [phone] Platelets presence ADEQUATE Invalid Interpretation Code ADEQ [facility] Work Phone: [phone] REACTIVE LYMPH 1+ Invalid Interpretation Code [facility] Work Phone: [phone] SMEAR COMMENT SCANNED Invalid Interpretation Code [facility] Work Phone: [phone] Office Visit: Est. Pt. Visit on 08-02-2017 Documentation of current medications (procedure) Done Invalid Interpretation Code [facility] Work Phone: [phone] Fall risk assessment No Invalid Interpretation Code [facility] Work Phone: [phone] Protein mass conc Done Invalid Interpretation Code [facility] Work Phone: [phone] Tobacco smoking status NHIS Never Invalid Interpretation Code [facility] Work Phone: [phone] Tobacco smoking status NHIS Never smoker Invalid Interpretation Code [facility] Work Phone: [phone] Tobacco use [facility] Never smoker Invalid Interpretation Code [facility] Work Phone: [phone] Replaced Document: (P) CBC W /Diff, Automatedon 08-02-2017 Absolute Neut 3.1 X10 3/UL Invalid Interpretation Code 2.0-7.7 [facility] Work Phone: [phone] Basophils/100 WBC Auto (Bld) 0.6 % Invalid Interpretation Code 0-1 [facility] Work Phone: [phone] Eosinophils/100 leukocytes 0.5 % Invalid Interpretation Code 0-5 [facility] Work Phone: [phone] Erythrocyte distribution width Auto Ratio (RBC) 12.6 % Invalid Interpretation Code 11.6-14.6 [facility] Work Phone: [phone] Erythrocyte distribution width Auto Ratio (RBC) 41.8 fL Invalid Interpretation Code 35.1-43.9 [facility] Work Phone: [phone] Erythrocytes (RBC) 4.45 10*6/uL Invalid Interpretation Code 4.2-5.4 [facility] Work Phone: [phone] Hematocrit (HCT) 41.2 % Invalid Interpretation Code 37-47 [facility] Work Phone: [phone] Hemoglobin mass conc (Bld) 13.5 g/dL Invalid Interpretation Code 12.0-15.0 [facility] Work Phone: Immature granulocytes #/vol (Bld) 0.200 % Invalid Interpretation Code 0.0-0.9 [facility] Work Phone: [phone] Immature granulocytes/100 WBC (Bld) 0.200 % Invalid Interpretation Code 0.0-0.9 [facility] Work Phone: [phone] Lymphocytes 2.16 X10 3/UL Invalid Interpretation Code 0.83-4.51 [facility] Work Phone: [phone] Lymphocytes/100 leukocytes 34.4 % Invalid Interpretation Code 19-41 [facility] Work Phone: [phone] MCH 30.3 pg Invalid Interpretation Code 27.0-32.0 [facility] Work Phone: [phone] MCHC mass conc (RBC) 32.8 G/GL Invalid Interpretation Code 32-36 [facility] Work Phone: [phone] MCV 92.6 fL Invalid Interpretation Code 81-99 [facility] Work Phone: [phone] Monocytes/100 leukocytes 15.6 % High 0-10 [facility] Work Phone: [phone] Neutrophils Auto #/vol (Bld) 3.1 X10 3/UL Invalid Interpretation Code 2.0-7.7 [facility] Work Phone: [phone] Neutrophils/100 WBC Auto (Bld) 48.7 % Invalid Interpretation Code 47-70 [facility] Work Phone: [phone] Platelets 238 10*3/mm3 Invalid Interpretation Code 150-450 [facility] Work Phone: [phone] PMV by Naty 10.3 fL Invalid Interpretation Code 6.2-12.0 [facility] Work Phone: [phone] RDW SD 41.8 fL Invalid Interpretation Code 35.1-43.9 [facility] Work Phone: [phone] WBC (Leukocytes) 6.3 10*3/uL Invalid Interpretation Code 4.4-11.0 [facility] Work Phone: [phone] Microbiology: Culture, R/O S trep Aon 08-01-2017 CUSTREPA . Invalid Interpretation Code [facility] Work Phone: Append: UC: Still has a sore throaton 07-30-2017 Rapid strep test Negative Invalid Interpretation Code [facility] Work Phone: S. pyogenes DNA PHILIP+probe Ql (Throat) Negative Invalid Interpretation Code [facility] Work Phone: [phone] Office Visit: UC: Still has a sore throaton 07-30-2017 Documentation of current medications (procedure) Done Invalid Interpretation Code [facility] Work Phone: Fall risk assessment No Invalid Interpretation Code [facility] Work Phone: Tobacco smoking status NHIS Never Invalid Interpretation Code [facility] Work Phone: Tobacco use HS Never smoker Invalid Interpretation Code [facility] Work Phone: Office Visit: acute visit, s trep tonsillitison 07-20-2017 Documentation of current medications (procedure) Done Invalid Interpretation Code [facility] Work Phone: Fall risk assessment No Invalid Interpretation Code [facility] Work Phone: Tobacco smoking status NHIS Never Invalid Interpretation Code [facility] Work Phone: Tobacco use HS Never smoker Invalid Interpretation Code [facility] Work Phone: Office Visit: UC: Sore throa ton 07-19-2017 Documentation of current medications (procedure) Done Invalid Interpretation Code [facility] Work Phone: Fall risk assessment No Invalid Interpretation Code [facility] Work Phone: Tobacco smoking status NHIS Never Invalid Interpretation Code [facility] Work Phone: Tobacco use [facility] Never smoker Invalid Interpretation Code [facility] Work Phone: Lab Report: Hep B Surface An tibodies EMPon 06-29-2017 GE use only - for [employer] import when terms are not otherwise specified Reactive Invalid Interpretation Code . [facility] Work Phone: [phone] Hep B Pema AB Reactive Invalid Interpretation Code . [facility] Work Phone: [phone] Lab Report: CBC, Employeeon 08-29-2017 Absolute Neut 2.3 X10 3/UL Invalid Interpretation Code 2.0-7.7 [facility] Work Phone: [phone] Basophils/100 leukocytes 0.8 % Invalid Interpretation Code 0-1 [facility] Work Phone: [phone] Basophils/100 WBC (Bld) 0.8 % 0-1 [facility] Work Phone: [phone] Eosinophils/100 leukocytes 2.4 % Invalid Interpretation Code 0-5 [facility] Work Phone: [phone] Eosinophils/100 WBC (Bld) 2.4 % 0-5 [facility] Work Phone: [phone] Erythrocyte distribution width Auto Ratio (RBC) 44.0 fL High 35.1-43.9 [facility] Work Phone: [phone] Erythrocyte distribution width Ratio (RBC) 44.0 fL High 35.1-43.9 [facility] Work Phone: [phone] Erythrocyte distribution width Ratio (RBC) 13.2 % 11.6-14.6 [facility] Work Phone: [phone] Erythrocytes (RBC) 4.69 10*6/uL Invalid Interpretation Code 4.2-5.4 [facility] Work Phone: [phone] Hematocrit (HCT) 44.1 % Invalid Interpretation Code 37-47 [facility] Work Phone: [phone] Hematocrit Volume Fraction (Bld) 44.1 % 37-47 [facility] Work Phone: [phone] Hemoglobin (HGB) 14.4 g/dL Invalid Interpretation Code 12.0-15.0 [facility] Work Phone: [phone] Lymphocytes 2.04 X10 3/UL Invalid Interpretation Code 0.83-4.51 [facility] Work Phone: [phone] Lymphocytes #/vol (Bld) 2.04 X10 3/UL 0.83-4.51 [facility] Work Phone: [phone] Lymphocytes/100 leukocytes 41.1 % High 19-41 [facility] Work Phone: [phone] Lymphocytes/100 WBC (Bld) 41.1 % High 19-41 [facility] Work Phone: [phone] MCH 30.7 pg Invalid Interpretation Code 27.0-32.0 [facility] Work Phone: [phone] MCH Entitic mass (RBC) 30.7 pg 27.0-32.[address] [facility] Work Phone: [phone] MCHC 32.7 G/GL Invalid Interpretation Code 32-36 [facility] Work Phone: [phone] MCHC mass conc (RBC) 32.7 G/GL 32-36 [facility] Work Phone: [phone] MCV 94.0 fL Invalid Interpretation Code 81-99 [facility] Work Phone: [phone] MCV Entitic volume (RBC) 94.0 fL 81-99 [facility] Work Phone: [phone] Monocytes/100 leukocytes 9.7 % Invalid Interpretation Code 0-10 [facility] Work Phone: [phone] Monocytes/100 WBC (Bld) 9.7 % 0-10 [facility] Work Phone: [phone] neutrophil count, blood 2.3 X10 3/UL Invalid Interpretation Code 2.0-7.7 [facility] Work Phone: [phone] Neutrophils #/vol (Bld) 2.3 X10 3/UL 2.0-7.7 [facility] Work Phone: [phone] Neutrophils Auto #/vol (Bld) 2.3 X10 3/UL Invalid Interpretation Code 2.0-7.7 [facility] Work Phone: [phone] Neutrophils/100 leukocytes 46.0 % Low 47-70 [facility] Work Phone: [phone] Neutrophils/100 WBC (Bld) 46.0 % Low 47-70 [facility] Work Phone: [phone] Platelet mean volume Entitic volume (Bld) 10.8 fL 6.2-12.0 [facility] Work Phone: [phone] Platelets 315 10*3/mm3 Invalid Interpretation Code 150-450 [facility] Work Phone: [phone] Platelets #/vol (Bld) 315 10*3/mm3 150-[address] [facility] Work Phone: [phone] PMV by Naty 10.8 fL Invalid Interpretation Code 6.2-12.0 [facility] Work Phone: [phone] RBC #/vol (Bld) 4.69 10*6/uL 4.2-5.4 [facility] Work Phone: [phone] RDW SD 44.0 fL High 35.1-43.9 [facility] Work Phone: [phone] RDW-CA 13.2 % Invalid Interpretation Code 11.6-14.6 [facility] Work Phone: [phone] blood cell distribution width, size density 44.0 fL High 35.1-43.9 [facility] Work Phone: [phone] WBC #/vol (Bld) 5.0 10*3/uL 4.4-11.0 [facility] Work Phone: [phone] WBC (Leukocytes) 5.0 10*3/uL Invalid Interpretation Code 4.4-11.0 [facility] Work Phone: [phone] Lab Report: Employee Profile on 06-28-2017 Alanine aminotransferase (ALT) 51 U/L Invalid Interpretation Code 12-78 [facility] Work Phone: [phone] Albumin 4.3 g/dL Invalid Interpretation Code 3.4-5.0 [facility] Work [phone] Albumin/Globulin Ratio 1.2 {ratio} Invalid Interpretation Code 0.9-2.4 [facility] Work Phone: [phone] Alkaline phosphatase (ALP) 72 U/L Invalid Interpretation Code 45-117 [facility] Work Phone: [phone] ALP enzyme act/vol (Bld) 72 U/L Invalid Interpretation Code 45-117 [facility] Work Phone: [phone] Anion gap 7 mmol/L Invalid Interpretation Code 5-15 [facility] Work Phone: [phone] Anion gap 4 molar conc 7 Invalid Interpretation Code 5-15 [facility] Work Phone: [phone] Anion gap molar conc 7 mmol/L 5-15 [facility] Work Phone: [phone] Aspartate aminotransferase (AST) 36 U/L Invalid Interpretation Code 15-37 [facility] Work Phone: [phone] Bilirubin (direct) 0.28 mg/dL Invalid Interpretation Code 0.00-0.30 [facility] Work Phone: [phone] Bilirubin (total) 1.40 mg/dL High 0.20-1.00 [facility] Work Phone: [phone] BUN/Creatinine Ratio 18.0 RATIO Invalid Interpretation Code 10-20 [facility] Work Phone: [phone] Calcium 9.3 mg/dL Invalid Interpretation Code 8.5-10.1 [facility] Work Phone: [phone] Chloride 106 mmol/L Invalid Interpretation Code 98-107 [facility] Work Phone: [phone] Cholesterol 168 mg/dL Invalid Interpretation Code 200 [facility] Work Phone: [phone] CO2 29.0 mmol/L Invalid Interpretation Code 21.0-32.0 [facility] Work Phone: [phone] CO2 ppres (BldV) 29.0 mmol/L Invalid Interpretation Code 21.0-32.0 [facility] Work Phone: [phone] Creatinine 0.94 mg/dL Invalid Interpretation Code 0.55-1.02 [facility] Work Phone: [phone] eGFR (non-black) 94 mL/min/{1.73_m2} Invalid Interpretation Code >60 [facility] Work Phone: [phone] eGFR (non-black) 78 mL/min/{1.73_m2} Invalid Interpretation Code >60 [facility] Work Phone: [phone] EST GFR - AA 94 mL/min Invalid Interpretation Code >60 [facility] Work Phone: [phone] Globulin 3.6 g/dL High 2.3-3.5 [facility] Work Phone: [phone] Globulin mass conc (S) 3.6 g/dL High 2.3-3.[address] [facility] Work Phone: [phone] Glucose 85 mg/dL Invalid Interpretation Code 70-110 [facility] Work Phone: [phone] Glucose mass conc 85 mg/dL Invalid Interpretation Code 70-110 [facility] Work Phone: [phone] HDL Cholesterol 84 mg/dL Invalid Interpretation Code [facility] Work Phone: [phone] lactate dehydrogenase - serum 233 U/L Invalid Interpretation Code 84-246 [facility] Work Phone: [phone] LDH 233 U/L Invalid Interpretation Code 84-246 [facility] Work Phone: [phone] LDL Cholesterol 74 mg/dL Invalid Interpretation Code 0-130 [facility] Work Phone: [phone] PHOS 3.2 mg/dL Invalid Interpretation Code 2.5-4.9 [facility] Work Phone: [phone] Phosphorus Concentratation-Random 3.2 mg/dL Invalid Interpretation Code 2.5-4.9 [facility] Work Phone: [phone] Potassium 3.8 mmol/L Invalid Interpretation Code 3.5-5.1 [facility] Work Phone: [phone] Protein 7.9 g/dL Invalid Interpretation Code 6.4-8.2 [facility] Work Phone: [phone] Sodium 142 mmol/L Invalid Interpretation Code 136-145 [facility] Work Phone: [phone] Triglyceride 50 mg/dL Invalid Interpretation Code [facility] Work Phone: [phone] Urate 4.2 mg/dL Invalid Interpretation Code 2.6-6.0 [facility] Work Phone: [phone] Urea nitrogen 17 mg/dL Invalid Interpretation Code 7-18 [facility] Work Phone: [phone] very low density lipoproteins 10 mg/dL Invalid Interpretation Code 5-40 [facility] Work Phone: [phone] Lab Report: Nicotine Urine D rug Screenon 06-28-2017 GE use only - for [employer] import when terms are not otherwise specified Negative Invalid Interpretation Code <200 ng/mL [facility] Work Phone: [phone] Lab Report: UrinalysisRicardo 06-28-2017 Albumin Ql (U) Negative Invalid Interpretation Code Negative [facility] Work Phone: [phone] Bilirubin Ql (U) Negative Invalid Interpretation Code Negative [facility] Work Phone: [phone] Ketones mass conc (U) Negative Invalid Interpretation Code Negative [facility] Work Phone: [phone] NITRITE UR Negative Invalid Interpretation Code Negative [facility] Work Phone: [phone] Nitrite Urine Negative Invalid Interpretation Code Negative [facility] Work Phone: [phone] Occult Blood, urine Negative Invalid Interpretation Code Negative [facility] Work Phone: [phone] OCCULT BLOOD-UR Negative Invalid Interpretation Code Negative [facility] Work Phone: [phone] pH (U) 7.0 [pH] 5.0 - 8.0 [facility] Work Phone: [phone] specific gravity, urine 1.015 Invalid Interpretation Code 1.002-1.030 [facility] Work Phone: [phone] Urine, bilirubin presence Negative Invalid Interpretation Code Negative [facility] Work Phone: [phone] Urine, clarity Clear Invalid Interpretation Code Clear [facility] Work Phone: [phone] Urine, color Yellow Invalid Interpretation Code Yellow [facility] Work Phone: [phone] Urine, glucose presence Normal mg/dl Invalid Interpretation Code Normal [facility] Work Phone: [phone] Urine, ketones presence Negative Invalid Interpretation Code Negative [facility] Work Phone: [phone] Urine, leukocyte esterase presence Negative Invalid Interpretation Code Negative [facility] Work Phone: [phone] Urine, pH 7.0 [pH] Invalid Interpretation Code 5.0 - 8.0 [facility] Work Phone: [phone] Urine, protein Negative Invalid Interpretation Code Negative [facility] Work Phone: [phone] UROBILI Normal mg/dl Invalid Interpretation Code Normal [facility] Work Phone: [phone] urobilinogen, urine, by dipstick Normal mg/dl Invalid Interpretation Code Normal [facility] Work Phone: Office Visit: New Pt. Visito n 06-28-2017 Dietary management education, guidance, and counseling (procedure) yes Invalid Interpretation Code [employer] Work Phone: Documentation of current medications (procedure) Done Invalid Interpretation Code [employer] Work Phone: Fall risk assessment No Invalid Interpretation Code [employer] Work Phone: Protein mass conc Done [employer] [facility] Work Phone: [phone] Tobacco smoking status NCIS Never Invalid Interpretation Code [employer] Work Phone: Tobacco smoking status NHIS Never smoker [facility] Work Phone: Tobacco use [facility] Never smoker Invalid Interpretation Code [employer] Work Phone: Office Visiton 10-14-2016 Dietary management education, guidance, and counseling (procedure) yes Invalid Interpretation Code [facility] Work Phone: Documentation of current medications (procedure) Done Invalid Interpretation Code [facility] Work Phone: [phone] Protein mass conc Done [employer] Work Phone: Replaced Document: Luba Fatima CG Observationson 10-14-2016 EKG QRS axis 65 deg Invalid Interpretation Code [employer] Work Phone: electrocardiogram interpretation Sinus Bradycardia -Short PA syndrome Yazan = 112BORDERLINE RHYTHM Invalid Interpretation Code [facility] Work Phone: [phone] Interpretation Sinus Bradycardia -S hort PA syndrome Yazan = 112BORDERLINE RHYTHM Invalid Interpretation Code [employer] Work Phone: P [place] 34 deg Invalid Interpretation Code [employer] Work Phone: P wave axis, electrocardiogram 34 deg Invalid Interpretation Code [facility] Work Phone: [phone] PA Interval 112 ms Invalid Interpretation Code [employer] Work Phone: PA interval, electrocardiogram 112 ms Invalid Interpretation Code [facility] Work Phone: [phone] Pulse (Heart Rate) 57 /min Invalid Interpretation Code [facility] Work Phone: [phone] QRS axis, electrocardiogram 65 deg Invalid Interpretation Code [facility] Work Phone: [phone] QRS Duration 82 ms Invalid Interpretation Code [employer] [facility] Work Phone: QRS duration, electrocardiogram 82 ms Invalid Interpretation Code [facility] Work Phone: [phone] QT Interval new path ms Invalid Interpretation Code 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 [facility] Work Phone: Tobacco use [facility] Never smoker Invalid Interpretation Code [facility] Work Phone: [phone] Left ventricular Ejection fraction 60 % Invalid Interpretation Code [facility] Work Phone: Office Visit: Spine Visiton 07-13-2016 Tobacco smoking status [facility] Never Invalid Interpretation Code 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 Work Phone: AST enzyme act/vol 28 U/L [facility] Work Phone: Bilirubin mass conc 2.60 mg/dL [facility] [employer] [facility] Work Phone: Calcium mass conc 8.5 mg/dL [facility] [employer] [facility] Work Phone: Chloride molar conc 103 mmol/L [facility] Work Phone: [phone] Cholesterol in HDL mass conc 88 mg/dL [facility] Work Phone: [phone] Cholesterol in LDL mass conc 57 mg/dL [facility] Work Phone: [phone] Cholesterol mass conc 159 mg/dL [facility] Work Phone: [phone] CO2 ppres (BldV) 28.0 mmol/L [facility] Work Phone: [phone] Creatinine mass conc 0.86 mg/dL [facility] Work Phone: [phone] Glucose mass conc 84 mg/dL [facility] Work Phone: [phone] Hematocrit Volume Fraction (Bld) 39.8 % [facility] Work Phone: [phone] Hemoglobin mass conc (Bld) 13.2 g/dL [facility] Work Phone: [phone] Platelets #/vol (Bld) 298 10*3/mm3 B [facility] Work Phone: [phone] Potassium molar conc 3.5 mmol/L [facility] Work Phone: [phone] Protein mass conc 6.8 g/dL [facility] Work Phone: [phone] Sodium molar conc 137 mmol/L [facility] Work Phone: [phone] Triglyceride mass conc 70 mg/dL [facility] Work Phone: [phone] Urea nitrogen mass conc 13 mg/dL [facility] Work Phone: [phone] Urea nitrogen/Creatinine mass ratio 15.1 mg/mg [facility] Work Phone: [phone] WBC #/vol (Bld) 6.3 10*3/uL [facility] Work Phone: Office Visit: est annualon 0 07-01-2016 General categories [Interpretation] of Cervical or vaginal smear or scraping by Cyto stain Normal Invalid Interpretation Code [facility] Vital Signs Date Time Vital Sign Value Performing Clinician Coretta chambers 05-02-2025 15:33-0400 Body height 162.[address] Nirav Perez MD Work Phone: [facility] 05-02-2025 15:33-0400 Body mass index (BMI) [Ratio] 32.3 kg/m2 Dr. Nirav Perez MD Work Phone: [facility] 05-02-2025 15:33-0400 Body weight 85.[address] Nirav Perez MD Work Phone: [facility] 05-02-2025 15:33-0400 Diastolic blood pressure 72 mm[Hg] Dr. Nirav Perez MD Work Phone: [facility] 05-02-2025 15:33-0400 Systolic blood pressure 118 mm[Hg] Dr. Nirav Perez MD Work Phone: [facility] 04-18-2025 16:03-0400 Body height 162.[address] Nirav Perez MD Work Phone: [facility] 04-18-2025 16:03-0400 Body mass index (BMI) [Ratio] 32.3 kg/m2 Dr. Nirav Perez MD Work Phone: [facility] 04-18-2025 16:03-0400 Body weight 85.[address] Nirav Perez MD Work Phone: [facility] 04-18-2025 16:03-0400 Diastolic blood pressure 70 mm[Hg] Dr. Nirav Perez MD Work Phone: [facility] 04-18-2025 16:03-0400 Systolic blood pressure 108 mm[Hg] Dr. Nirav Perez MD Work Phone: [facility] 04-17-2025 16:35-0400 Body temperature 98.7 [degF] Dr. Nirav Perez MD Work Phone: [facility] 04-17-2025 16:35-0400 Diastolic blood pressure 67 mm[Hg] Dr. Nirav Perez MD Work Phone: [facility] 04-17-2025 16:35-0400 Heart rate 96 /min Dr. Nirav Perez MD Work Phone: [facility] 04-17-2025 16:35-0400 Respiratory rate 16 /min Dr. Nirav Perez MD Work Phone: [facility] 04-17-2025 16:35-0400 SaO2% (BldA) [Mass fraction] 95 % Dr. Nirav Perez MD Work Phone: [facility] 04-17-2025 16:35-0400 Systolic blood pressure 117 mm[Hg] Dr. Nirav Perez MD Work Phone: [facility] 04-17-2025 16:28-0400 Body height 162.[address] Nirav Perez MD Work Phone: [facility] 04-17-2025 16:28-0400 Body mass index (BMI) [Ratio] 31.8 kg/m2 Dr. Nirav Perez MD Work Phone: [facility] 04-17-2025 16:28-0400 Body weight 84.[address] Nirav Perez MD Work Phone: [facility] 04-11-2025 08:19-0400 Body height 162.[address] Nirav Perez MD Work Phone: [facility] 04-11-2025 08:19-0400 Body mass index (BMI) [Ratio] 31.3 kg/m2 Dr. Nirav Perez MD Work Phone: [facility] 04-11-2025 08:19-0400 Body weight 82.[address] Nirav Perez MD Work Phone: [facility] 04-11-2025 08:19-0400 Diastolic blood pressure 74 mm[Hg] Dr. Nirav Perez MD Work Phone: [facility] 04-11-2025 08:19-0400 Systolic blood pressure 118 mm[Hg] Dr. Nirav Perez MD Work Phone: [facility] 04-05-2025 14:48-0400 Body height 162.[address] Nirav Perez MD Work Phone: [facility] 04-05-2025 14:43-0400 Body mass index (BMI) [Ratio] 31.9 kg/m2 Dr. Nirav Perez MD Work Phone: [facility] 04-05-2025 14:43-0400 Body weight 84.[address] Nirav Perez MD Work Phone: [facility] 04-05-2025 14:43-0400 Diastolic blood pressure 75 mm[Hg] Dr. Nirav Perez MD Work Phone: [facility] 04-05-2025 14:43-0400 Systolic blood pressure 116 mm[Hg] Dr. Nirav Perez MD Work Phone: [facility] 04-04-2025 17:40-0400 Diastolic blood pressure 65 mm[Hg] Dr. Nirav Perez MD Work Phone: [facility] 04-04-2025 17:40-0400 Heart rate 86 /min Dr. Nirav Perez MD Work Phone: [facility] 04-04-2025 17:40-0400 Systolic blood pressure 116 mm[Hg] Dr. Nirav Perez MD Work Phone: [facility] 04-04-2025 17:28-0400 Body height 162.[address] Nirav Perez MD Work Phone: [facility] 04-04-2025 17:28-0400 Body mass index (BMI) [Ratio] 31.9 kg/m2 Dr. Nirav Perez MD Work Phone: [facility] 04-04-2025 17:28-0400 Body weight 84.[address] Nirav Perez MD Work Phone: [facility] 04-03-2025 16:34-0400 Diastolic blood pressure 66 mm[Hg] Dr. Nirav Perez MD Work Phone: [facility] 04-03-2025 16:34-0400 Heart rate 81 /min Dr. Nirav Perez MD Work Phone: [facility] 04-03-2025 16:34-0400 Systolic blood pressure 119 mm[Hg] Dr. Nirav Perez MD Work Phone: [facility] 04-03-2025 16:33-0400 Body height 162.[address] Nirav Perez MD Work Phone: [facility] 04-03-2025 16:33-0400 Body mass index (BMI) [Ratio] 31.9 kg/m2 Dr. Nirav Perez MD Work Phone: [facility] 04-03-2025 16:33-0400 Body temperature 98.3 [degF] Dr. Nirav Perez MD Work Phone: [facility] 04-03-2025 16:33-0400 Body weight 84.[address] Nirav Perez MD Work Phone: [facility] 04-03-2025 16:33-0400 Respiratory rate 16 /min Dr. Nirav Perez MD Work Phone: [facility] 03-21-2025 10:05-0400 Body mass index (BMI) [Ratio] 32.1 kg/m2 Dr. Nirav Perez MD Work Phone: [facility] 03-21-2025 10:05-0400 Body weight 84.[address] Nirav Perez MD Work Phone: [facility] 03-21-2025 10:05-0400 Diastolic blood pressure 79 mm[Hg] Dr. Nirav Perez MD Work Phone: [facility] 03-21-2025 10:05-0400 Systolic blood pressure 115 mm[Hg] Dr. Nirav Perez MD Work Phone: [facility] 03-19-2025 10:02-0400 Body temperature 98.3 [degF] Dr. Nirav Perez MD Work Phone: [facility] 03-19-2025 10:02-0400 Diastolic blood pressure 72 mm[Hg] Dr. Nirav Perez MD Work Phone: [facility] 03-19-2025 10:02-0400 Heart rate 86 /min Dr. Nirav Perez MD Work Phone: [facility] 03-19-2025 10:02-0400 Respiratory rate 16 /min Dr. Nirav Perez MD Work Phone: [facility] 03-19-2025 10:02-0400 SaO2% (BldA) [Mass fraction] 98 % Dr. Nirav Perez MD Work Phone: [facility] 03-19-2025 10:02-0400 Systolic blood pressure 117 mm[Hg] Dr. Nirav Perez MD Work Phone: [facility] 03-19-2025 09:44-0400 Body height 162.[address] Nirav Perez MD Work Phone: [facility] 03-19-2025 09:44-0400 Body mass index (BMI) [Ratio] 32 kg/m2 Dr. Nirav Perez MD Work Phone: [facility] 03-19-2025 09:44-0400 Body weight 84.[address] Nirav Perez MD Work Phone: [facility] 03-06-2025 13:09-0400 Body height 162.[address] Nirav Perez MD Work Phone: [facility] 03-06-2025 13:09-0400 Body mass index (BMI) [Ratio] 31.1 kg/m2 Dr. Nirav Perez MD Work Phone: [facility] 03-06-2025 13:09-0400 Body weight 82.[address] Nirav Perez MD Work Phone: [facility] 03-06-2025 13:09-0400 Diastolic blood pressure 74 mm[Hg] Dr. Nirav Perez MD Work Phone: [facility] 03-06-2025 13:09-0400 Systolic blood pressure 112 mm[Hg] Dr. Nirav Perez MD Work Phone: [facility] 02-22-2025 12:09-0400 Body height 162.[address] Nirav Perez MD Work Phone: [facility] 02-22-2025 12:09-0400 Body mass index (BMI) [Ratio] 30.6 kg/m2 Dr. Nirav Perez MD Work Phone: [facility] 02-22-2025 12:09-0400 Body weight 80.[address] Nirav Perez MD Work Phone: [facility] 02-22-2025 12:07-0400 Body temperature 97.9 [degF] Dr. Nirav Perez MD Work Phone: [facility] 02-22-2025 12:07-0400 Diastolic blood pressure 73 mm[Hg] Dr. Nirav Perez MD Work Phone: [facility] 02-22-2025 12:07-0400 Heart rate 85 /min Dr. Nirav Perez MD Work Phone: [facility] 02-22-2025 12:07-0400 Respiratory rate 16 /min Dr. Nirav Perez MD Work Phone: [facility] 02-22-2025 12:07-0400 Systolic blood pressure 117 mm[Hg] Dr. Nirav Perez MD Work Phone: [facility] 02-07-2025 10:24-0400 Body mass index (BMI) [Ratio] 30.7 kg/m2 Dr. Nirav Perez MD Work Phone: [facility] 02-07-2025 10:24-0400 Body weight 78.[address] Nirav Perez MD Work Phone: [facility] 02-07-2025 10:24-0400 Diastolic blood pressure 79 mm[Hg] Dr. Nirav Perez MD Work Phone: [facility] 02-07-2025 10:24-0400 Systolic blood pressure 117 mm[Hg] Dr. Nirav Perez MD Work Phone: [facility] 01-11-2025 10:24-0400 Body mass index (BMI) [Ratio] 29.6 kg/m2 Dr. Nirav Perez MD Work Phone: [facility] 01-11-2025 10:24-0400 Body weight 75.[address] Nirav Perez MD Work Phone: [facility] 01-11-2025 10:24-0400 Diastolic blood pressure 73 mm[Hg] Dr. Nirav Perez MD Work Phone: [facility] 01-11-2025 10:24-0400 Systolic blood pressure 114 mm[Hg] Dr. Nirav Perez MD Work Phone: [facility] 12-27-2024 08:58-0500 Body height 160.[address] Nirav Perez MD Work Phone: [facility] 12-27-2024 08:58-0500 Body mass index (BMI) [Ratio] 28.8 kg/m2 Dr. Nirav Perez MD Work Phone: [facility] 12-27-2024 08:58-0500 Body weight 73.[address] Nirav Perez MD Work Phone: [facility] 12-27-2024 08:58-0500 Diastolic blood pressure 70 mm[Hg] Dr. Nirav Perez MD Work Phone: [facility] 12-27-2024 08:58-0500 Systolic blood pressure 108 mm[Hg] Dr. Nirav Perez MD Work Phone: [facility] 12-20-2024 11:26-0500 Body mass index (BMI) [Ratio] 29 kg/m2 Dr. Nirav Perez MD Work Phone: [facility] 12-20-2024 11:26-0500 Body weight 74.[address] Nirav Perez MD Work Phone: [facility] 12-20-2024 11:26-0500 Diastolic blood pressure 67 mm[Hg] Dr. Nirav Perez MD Work Phone: [facility] 12-20-2024 11:26-0500 Systolic blood pressure 98 mm[Hg] Dr. Nirav Perez MD Work Phone: [facility] 12-14-2024 22:00-0500 Diastolic blood pressure 68 mm[Hg] Dr. Nirav Perez MD Work Phone: [facility] 12-14-2024 22:00-0500 Heart rate 70 /min Dr. Nirav Perez MD Work Phone: [facility] 12-14-2024 22:00-0500 Respiratory rate 16 /min Dr. Nirav Perez MD Work Phone: [facility] 12-14-2024 22:00-0500 SaO2% (BldA) [Mass fraction] 100 % Dr. Nirav Perez MD Work Phone: [facility] 12-14-2024 22:00-0500 Systolic blood pressure 101 mm[Hg] Dr. Nirav Perez MD Work Phone: [facility] 12-14-2024 19:03-0500 Body mass index (BMI) [Ratio] 29.2 kg/m2 Dr. Nirav Perez MD Work Phone: [facility] 12-14-2024 19:03-0500 Body temperature 98.2 [degF] Dr. Nirav Perez MD Work Phone: [facility] 12-14-2024 19:03-0500 Body weight 74.[address] Nirav Perez MD Work Phone: [facility] 12-13-2024 10:41-0500 Body mass index (BMI) [Ratio] 29 kg/m2 Dr. Nirav Perez MD Work Phone: [facility] 12-13-2024 10:41-0500 Body weight 74.[address] Nirav Perez MD Work Phone: [facility] 12-13-2024 10:41-0500 Diastolic blood pressure 70 mm[Hg] Dr. Nirav Perez MD Work Phone: [facility] 12-13-2024 10:41-0500 Systolic blood pressure 118 mm[Hg] Dr. Nirav Perez MD Work Phone: [facility] 11-16-2024 13:30-0500 Body mass index (BMI) [Ratio] 29.1 kg/m2 Dr. Nirav Perez MD Work Phone: [facility] 11-16-2024 13:30-0500 Body weight 74.[address] Nirav Perez MD Work Phone: [facility] 11-16-2024 13:30-0500 Diastolic blood pressure 87 mm[Hg] Dr. Nirav Perez MD Work Phone: [facility] 11-16-2024 13:30-0500 Systolic blood pressure 120 mm[Hg] Dr. Nirav Perez MD Work Phone: [facility] 10-19-2024 11:17-0500 Body mass index (BMI) [Ratio] 29 kg/m2 Dr. Nirav Perez MD Work Phone: [facility] 10-19-2024 11:17-0500 Body weight 74.[address] Nirav Perez MD Work Phone: [facility] 10-19-2024 11:17-0500 Diastolic blood pressure 81 mm[Hg] Dr. Nirav Perez MD Work Phone: [facility] 10-19-2024 11:17-0500 Systolic blood pressure 120 mm[Hg] Dr. Nirav Perez MD Work Phone: [facility] 09-22-2023 10:16-0500 Body height 160.[address] Nirav Perez Work Phone: [facility] 09-22-2023 10:16-0500 Body mass index (BMI) [Ratio] 32.5 kg/m2 Dr. Nirav Perez Work Phone: [facility] 09-22-2023 10:16-0500 Body weight 83.[address] Nirav Perez Work Phone: [facility] 09-22-2023 10:10-0500 Diastolic blood pressure 77 mm[Hg] Dr. Nirav Perez Work Phone: [facility] 09-22-2023 10:10-0500 Heart rate 68 /min Dr. Nirav Perez Work Phone: [facility] 09-22-2023 10:10-0500 SaO2% (BldA) [Mass fraction] 96 % Dr. Nirav Perez Work Phone: [facility] 09-22-2023 10:10-0500 Systolic blood pressure 115 mm[Hg] Dr. Nirav Perez Work Phone: [facility] 09-19-2023 08:05-0500 Body mass index (BMI) [Ratio] 31.2 kg/m2 Dr. Nirav Perez Work Phone: [facility] 09-19-2023 08:05-0500 Body weight 82.[address] Nirav Perez Work Phone: [facility] 09-19-2023 08:05-0500 Diastolic blood pressure 74 mm[Hg] Dr. Nirav Perez Work Phone: [facility] 09-19-2023 08:05-0500 Systolic blood pressure 106 mm[Hg] Dr. Nirav Perez Work Phone: [facility] 09-12-2023 10:56-0500 Body mass index (BMI) [Ratio] 31.7 kg/m2 Dr. Nirav Perez Work Phone: [facility] 09-12-2023 10:56-0500 Body weight 83.[address] Nirav Perez Work Phone: [facility] 09-12-2023 10:56-0500 Diastolic blood pressure 72 mm[Hg] Dr. Nirav Perez Work Phone: [facility] 09-12-2023 10:56-0500 Systolic blood pressure 108 mm[Hg] Dr. Nirav Perez Work Phone: [facility] 08-29-2023 09:59-0400 Body weight [address] Nirav Perez Work Phone: [facility] 08-29-2023 09:41-0400 Body mass index (BMI) [Ratio] 0.8 kg/m2 Dr. Nirav Perez Work Phone: [facility] 08-29-2023 09:41-0400 Diastolic blood pressure 74 mm[Hg] Dr. Nirav Perez Work Phone: [facility] 08-29-2023 09:41-0400 Systolic blood pressure 110 mm[Hg] Dr. Nirav Perez Work Phone: [facility] 08-12-2023 14:52-0400 Body weight 82.[address] Nirav Perez Work Phone: [facility] 08-12-2023 14:04-0400 Body mass index (BMI) [Ratio] 0.8 kg/m2 Dr. Nirav Perez Work Phone: [facility] 08-12-2023 14:04-0400 Diastolic blood pressure 74 mm[Hg] Dr. Nirav Perez Work Phone: [facility] 08-12-2023 14:04-0400 Systolic blood pressure 123 mm[Hg] Dr. Nirav Perez Work Phone: [facility] 08-09-2023 10:09-0400 Body temperature 98.6 [degF] Dr. Nirav Perez Work Phone: [facility] 08-09-2023 10:09-0400 Diastolic blood pressure 79 mm[Hg] Dr. Nirav Perez Work Phone: [facility] 08-09-2023 10:09-0400 Heart rate 97 /min Dr. Nirav Perez Work Phone: [facility] 08-09-2023 10:09-0400 Respiratory rate 16 /min Dr. Nirav Perez Work Phone: [facility] 08-09-2023 10:09-0400 SaO2% (BldA) [Mass fraction] 96 % Dr. Nirav Perez Work Phone: [facility] 08-09-2023 10:09-0400 Systolic blood pressure 115 mm[Hg] Dr. Nirav Perez Work Phone: [facility] 07-18-2023 13:44-0400 Body height 162.[address] Nirav Perez Work Phone: [facility] 06-21-2023 08:34-0400 Body mass index (BMI) [Ratio] 30.2 kg/m2 Dr. Nirav Perez Work Phone: [facility] 06-21-2023 08:34-0400 Body weight 79.[address] Nirav Perez Work Phone: [facility] 06-21-2023 08:34-0400 Diastolic blood pressure 78 mm[Hg] Dr. Nirav Perez Work Phone: [facility] 06-21-2023 08:34-0400 Systolic blood pressure 117 mm[Hg] Dr. Nirav Perez Work Phone: [facility] 06-20-2023 16:03-0400 Body mass index (BMI) [Ratio] 29.4 kg/m2 Dr. Nirav Perez Work Phone: [facility] 06-20-2023 16:03-0400 Body weight 77.[address] Nirav Perez Work Phone: [facility] 06-20-2023 16:03-0400 Diastolic blood pressure 72 mm[Hg] Dr. Nirav Perez Work Phone: [facility] 06-20-2023 16:03-0400 Systolic blood pressure 115 mm[Hg] Dr. Nirav Perez Work Phone: [facility] 05-27-2023 09:57-0400 Body height 162.[address] Nirav Perez Work Phone: [facility] 05-27-2023 09:47-0400 Body mass index (BMI) [Ratio] 28.8 kg/m2 Dr. Nirav Perez Work Phone: [facility] 05-27-2023 09:47-0400 Body weight 76.[address] Nirav Perez Work Phone: [facility] 05-27-2023 09:47-0400 Diastolic blood pressure 69 mm[Hg] Dr. Nirav Perez Work Phone: [facility] 05-27-2023 09:47-0400 Systolic blood pressure 105 mm[Hg] Dr. Nirav Perez Work Phone: [facility] 04-29-2023 13:51-0400 Body height 162.[address] Nirav Perez Work Phone: [facility] 04-29-2023 13:44-0400 Body mass index (BMI) [Ratio] 29.4 kg/m2 Dr. Nirav Perez Work Phone: [facility] 04-29-2023 13:44-0400 Body weight 77.[address] Nirav Perez Work Phone: [facility] 04-29-2023 13:44-0400 Diastolic blood pressure 75 mm[Hg] Dr. Nirav Perez Work Phone: [facility] 04-29-2023 13:44-0400 Systolic blood pressure 111 mm[Hg] Dr. Nirav Perez Work Phone: [facility] 03-30-2023 09:26-0400 Body mass index (BMI) [Ratio] 28.5 kg/m2 Dr. Nirav Perez Work Phone: [facility] 03-30-2023 09:26-0400 Body weight 75.[address] Nirav Perez Work Phone: [facility] 03-30-2023 09:26-0400 Diastolic blood pressure 75 mm[Hg] Dr. Nirav Perez Work Phone: [facility] 03-30-2023 09:26-0400 Systolic blood pressure 123 mm[Hg] Dr. Nirav Perez Work Phone: [facility] 12-13-2022 06:21-0500 Body temperature 98.2 [degF] Dr. Nirav Perez Work Phone: [facility] 12-13-2022 06:21-0500 Diastolic blood pressure 64 mm[Hg] Dr. Nirav Perez Work Phone: [facility] 12-13-2022 06:21-0500 Heart rate 72 /min Dr. Nirav Perez Work Phone: [facility] 12-13-2022 06:21-0500 Respiratory rate 14 /min Dr. Nirav Perez Work Phone: [facility] 12-13-2022 06:21-0500 Systolic blood pressure 102 mm[Hg] Dr. Nirav Perez Work Phone: [facility] 12-13-2022 06:12-0500 Body height 162.[address] Nirav Perez Work Phone: [facility] 12-07-2022 08:08-0500 Body mass index (BMI) [Ratio] 30.2 kg/m2 Dr. Nirav Perez Work Phone: [facility] 12-07-2022 08:08-0500 Body weight [address] Nirav Perez Work Phone: [facility] 12-07-2022 08:08-0500 Diastolic blood pressure 84 mm[Hg] Dr. Nirav Perez Work Phone: [facility] 12-07-2022 08:08-0500 Systolic blood pressure 122 mm[Hg] Dr. Nirav Perez Work Phone: [facility] 11-06-2022 10:12-0500 Body temperature 98.2 [degF] Dr. Nirav Perez Work Phone: [facility] 11-06-2022 10:12-0500 Diastolic blood pressure 68 mm[Hg] Dr. Nirav Perez Work Phone: [facility] 11-06-2022 10:12-0500 Heart rate 73 /min Dr. Nirav Perez Work Phone: [facility] 11-06-2022 10:12-0500 Respiratory rate 14 /min Dr. Nirav Perez Work Phone: [facility] 11-06-2022 10:12-0500 SaO2% (BldA) [Mass fraction] 97 % Dr. Nirav Perez Work Phone: [facility] 11-06-2022 10:12-0500 Systolic blood pressure 116 mm[Hg] Dr. Nirav Perez Work Phone: [facility] 08-31-2017 08:30-0400 BMI (Body Mass Index) 25.88 kg/m2 Chika Nieto MD [facility] 08-31-2017 08:30-0400 Body Temperature 96.7 [degF] Chika Nieto MD [facility] 08-31-2017 08:30-0400 Body Temperature 96.69 [degF] Chika Nieto MD [facility] 08-31-2017 08:30-0400 BP Diastolic 71 mm[Hg] Chika Nieto MD [facility] 08-31-2017 08:30-0400 BP Systolic 105 mm[Hg] Chika Nieto MD [facility] 08-31-2017 08:30-0400 Height 162.56 cm Chika Nieto MD [facility] 08-31-2017 08:30-0400 Pulse (Heart Rate) 78 /min Chika Nieto MD [facility] 08-31-2017 08:30-0400 Respiratory Rate 16 /min Chika Nieto MD [facility] 08-31-2017 08:30-0400 Weight 68.4 kg Chika Nieto MD [facility] 08-02-2017 16:03-0400 BMI (Body Mass Index) 25.16 kg/m2 Oc WESTP[facility] Work Phone: 08-02-2017 16:03-0400 Body Temperature 99.6 [degF] Oc Jean MEDICAL RESIDENT[facility] Work Phone: 08-02-2017 16:03-0400 BP Diastolic 79 mm[Hg] Oc Vargasder MEDICAL RESIDENT-[facility] Work Phone: 08-02-2017 16:03-0400 BP Systolic 116 mm[Hg] Oc Vargasder MEDICAL RESIDENT-[facility] Work Phone: 08-02-2017 16:03-0400 Height 165.1 cm Oc Vargasder MEDICAL RESIDENT-[facility] Work Phone: 08-02-2017 16:03-0400 Pulse (Heart Rate) 62 /min Oc Jean MEDICAL RESIDENT-[facility] Work Phone: 08-02-2017 16:03-0400 Respiratory Rate 16 /min Oc Vargasder MEDICAL RESIDENT-[facility] Work Phone: 08-02-2017 16:03-0400 Weight 68.58 kg Oc WE[facility] Work Phone: 07-30-2017 09:22-0400 BMI (Body Mass Index) 25.29 kg/m2 Oc Carvajal PA-C [facility] Work Phone: 07-30-2017 09:22-0400 Body Temperature 99.1 [degF] Oc Carvajal PA-C [facility] Work Phone: 07-30-2017 09:22-0400 BP Diastolic 72 mm[Hg] Oc Carvajal PA-C [facility] Work Phone: 07-30-2017 09:22-0400 BP Systolic 106 mm[Hg] Oc Carvajal PA-C [facility] Work Phone: 07-30-2017 09:22-0400 Height 165.1 cm Oc Carvajal PA-C [facility] Work Phone: 07-30-2017 09:22-0400 Pulse (Heart Rate) 77 /min Oc Carvajal PA-C [facility] Work Phone: 07-30-2017 09:22-0400 Respiratory Rate 14 /min Oc Carvajal PA-C [facility] Work Phone: 07-30-2017 09:22-0400 Weight 68.95 kg Oc Carvajal PA-C [facility] Work Phone: 07-20-2017 10:42-0400 BMI (Body Mass Index) 25.96 kg/m2 Radha Garcia [facility] Work Phone: 07-20-2017 10:42-0400 Body Temperature 98.4 [degF] Radha [facility] Work Phone: 07-20-2017 10:42-0400 BP Diastolic 74 mm[Hg] Rad[facility] Mart[facility] Work Phone: 07-20-2017 10:42-0400 BP Systolic 109 mm[Hg] Radha Marthey [facility] Work Phone: 07-20-2017 10:42-0400 Height 165.1 cm Radha Marthey [facility] Work Phone: 07-20-2017 10:42-0400 Pulse (Heart Rate) 66 /min Radha Marthey [facility] Work Phone: 07-20-2017 10:42-0400 Respiratory Rate 16 /min [facility] Work Phone: 07-20-2017 10:42-0400 Weight 70.76 kg [facility] Work Phone: 07-19-2017 06:44-0400 BMI (Body Mass Index) 25.46 kg/m2 Jaci Syed LPN [facility] Work Phone: 07-19-2017 06:44-0400 Body Temperature 97.1 [degF] Jaci Syed LPN [facility] Work Phone: 07-19-2017 06:44-0400 BP Diastolic 72 mm[Hg] Jaci Syed LPN [facility] Work Phone: 07-19-2017 06:44-0400 BP Systolic 108 mm[Hg] Jaci Syed LPN [facility] Work Phone: 07-19-2017 06:44-0400 Height 165.1 cm Jaci Syed LPN [facility] Work Phone: 07-19-2017 06:44-0400 Pulse (Heart Rate) 80 /min Jaci Syed LPN [facility] Work Phone: 07-19-2017 06:44-0400 Respiratory Rate 14 /min Jaci Syed LPN [facility] Work Phone: 07-19-2017 06:44-0400 Weight 69.4 kg Jaci Syed LPN [facility] Work Phone: 06-28-2017 08:05-0400 BMI (Body Mass Index) 25.65 kg/m2 [employer] Work Phone: 06-28-2017 08:05-0400 Body Temperature 98.4 [degF] [employer] [facility] [employer] Work Phone: 06-28-2017 08:05-0400 BP Diastolic 75 mm[Hg] [facility] [employer] [facility] [employer], [facility] Work Phone: 06-28-2017 08:05-0400 BP Systolic 111 mm[Hg] [facility], [facility] Work Phone: 06-28-2017 08:05-0400 Height 165.1 cm [facility] [employer], [facility] Work Phone: 06-28-2017 08:05-0400 Pulse (Heart Rate) 58 /min [facility] edical [employer]ubator, [facility] Work Phone: 06-28-2017 08:05-0400 Weight 69.91 kg [facility] [employer], [facility] Work Phone: 10-14-2016 11:57-0500 Heart rate 57 /min Harmeet Giordano [facility] [employer]ard [employer]ator, [facility] Work Phone: 10-14-2016 11:43-0500 BMI (Body Mass Index) 28.16 kg/m2 Harmeet Giordano [facility], [facility] Work Phone: 10-14-2016 11:43-0500 BP Diastolic 68 mm[Hg] Harmeet Giordano [facility] [employer]ard [employer] Inc[employer]ator, [facility] Work Phone: 10-14-2016 11:43-0500 BP Systolic 100 mm[Hg] Harmeet Giordano [facility] [employer]ard [employer] Inc[employer], [facility] Work Phone: 10-14-2016 11:43-0500 BSA (Body Surface Area) 1.71 m2 Nirav Perez MD [facility] Work Phone: 10-14-2016 11:43-0500 Pulse (Heart Rate) 64 /min Harmeet Giordano [facility] [place] [employer], [facility] Work Phone: 10-14-2016 11:43-0500 Respiratory Rate 16 /min Harmeet Giordano [facility] ical Service, [facility] Work Phone: 10-14-2016 11:43-0500 Weight 69.85 kg Harmeet Giordano [facility] [employer], [facility] Work Phone: 07-13-2016 09:22-0400 Height 157.48 cm Harmeet Giordano [facility], [facility] Work Phone: Encounters Encounter Date Encounter Type Care Provider Facility Start: 05-09-2025 ambulatory Nirav Perez [facility]ili [facility] Start: 05-08-2025 ambulatory Nirav Perez Facili ty:[facility] Start: 05-08-2025 Evaluation and management of inpatient Nirav Perez Facility:[facility] Start: 05-07-2025 End: 05-07-2025 ambulatory Dayanara Christie Facility:[facility] Start: 05-02-2025 End: 05-02-[address] Chika Nieto MD -[facility] Work Phone: Start: 05-02-2025 End: 05-02-[address] Nirav Perez MD Work Phone: -[facility] Start: 05-02-2025 End: 05-02-2025 ambulatory Nirav Perez Facility:[facility] Start: 04-21-2025 ambulatory Chika Hitchcock lity:[facility] Start: 04-21-2025 Non-patient / Non-visit Dr. Cherelle Nieto MD -[facility] Start: 04-18-2025 End: 04-18-[address] Stephania Montoya DO -[facility] Work Phone: Start: 04-18-2025 End: 04-18-[address] Nirav Perez MD Work Phone: [facility] Work Phone: Start: 04-17-2025 End: 04-17-[address] Nirav Perez MD Work Phone: [facility] Work Phone: Start: 04-17-2025 End: 04-17-[address] Chika Nieto MD -[facility] Work Phone: Start: 04-17-2025 ambulatory Nirav Grimes ty:[facility] Start: 04-17-2025 Non-patient / Non-visit Dr. Cherelle Nieto MD -[facility] Start: 04-11-2025 End: 04-11-2025 Patient encounter procedure Vannessa Chirinos RIVET BUCKER-C -[facility] Work Phone: Start: 04-11-2025 End: 04-11-[address] Nirav Perez MD Work Phone: [facility] Work Phone: Start: 04-11-2025 End: 04-11-2025 ambulatory Vannessa Chirinos RIVET BUCKER Facility:[facility] Start: 04-05-2025 ambulatory Dayanara Christie Facilit y:[facility] Start: 04-05-2025 Non-patient / Non-visit Dayanara snyder CN -[facility] Start: 04-05-2025 End: 04-05-2025 Patient encounter procedure Giuliana Schilling CN -[facility] Work Phone: Start: 04-05-2025 End: 04-05-[address] Nirav Perez MD Work Phone: [facility] Work Phone: Start: 04-04-2025 End: 04-04-[address] Nirav Perez MD Work Phone: [facility] Work Phone: Start: 04-04-2025 End: 04-04-2025 Patient encounter procedure Dayanara BOSCH -[facility] Work Phone: Start: 04-03-2025 End: 04-03-[address] Nirav Perez MD Work Phone: [facility] Work Phone: Start: 04-03-2025 End: 04-03-2025 Patient encounter procedure Dayanara BOSCH -[facility] Work Phone: Start: 03-21-2025 End: 03-21-[address] Chika Nieto MD -[facility] Work Phone: Start: 03-21-2025 End: 03-21-2025 ambulatory Arbenrola Perez Facility:[facility] Start: 03-19-2025 [facility] Start: 03-19-2025 Non-patient / Non-visit Giuliana Mojica ms [facility] Start: 03-19-2025 End: 03-19-[address] Nirav Perez MD Work Phone: [facility] Work Phone: Start: 03-19-2025 End: 03-19-2025 Patient encounter procedure Giuliana Schilling [facility] Work Phone: Start: 03-06-2025 End: 03-06-2025 Patient encounter procedure Vannessa RODARTE -[facility] Work Phone: Start: 03-06-2025 End: 03-06-[address] Nirav Perez MD Work Phone: [facility] Work Phone: Start: 03-06-2025 End: 03-06-2025 ambulatory [facility] Facility:[facility] Start: 02-22-2025 ambulatory Dayanara Christie Facilit y:[facility] Start: 02-22-2025 Non-patient / Non-visit Dayanara snyder [facility] Start: 02-22-2025 End: 02-22-[address] Nirav Perez MD Work Phone: [facility] Work Phone: Start: 02-22-2025 End: 02-22-2025 Patient encounter procedure Dayanara Christie [facility] -[facility] Work Phone: Start: 02-07-2025 End: 02-07-2025 Patient encounter procedure Vannessa RODARTE -[facility] Work Phone: Start: 02-07-2025 End: 02-07-2025 ambulatory Nirav Perez Facility:[facility] Start: 01-31-2025 End: 01-31-2025 ambulatory LACY D [facility] Start: 01-16-2025 End: 01-16-2025 Subsequent hospital visit by physician Rashmi Taylor DO Work Phone: [facility] Comment on above: Maternal care for (s uspected) central nervous system malformation or damage in fetus, choroid plexus cysts, fetus 1 Start: 01-16-2025 End: 01-16-2025 ambulatory [facility] Start: 01-16-2025 End: 01-16-2025 ambulatory [facility] Start: 01-11-2025 End: 01-11-[address] Chika Nieto MD -[facility] Work Phone: Start: 01-11-2025 End: 01-11-2025 [facility] Facility:[facility] Start: 01-02-2025 End: 01-02-2025 ambulatory [facility] Start: 12-27-2024 End: 12-27-2024 Patient encounter procedure Vannessa RODARTE -[facility] Work Phone: Start: 12-27-2024 End: 12-27-[address] Nirav Perez MD Work Phone: [facility] Work Phone: Start: 12-27-2024 End: 12-27-2024 ambulatory [facility] Facility:[facility] Start: 12-20-2024 End: 12-20-[address] Chika Nieto MD -[facility] Work Phone: Start: 12-20-2024 End: 12-20-2024 ambulatory Efewongbe Rae Facility:[facility] Start: 12-19-2024 End: 12-19-2024 ambulatory STEPHANIA CA [facility] Start: 12-14-2024 End: 12-14-2024 Emergency department patient visit Dr. Jerardo Patricio-Magali DO -Emergency Department Work Phone: Start: 12-13-2024 End: 12-13-2024 Patient encounter procedure Vannessa RODARTE -[facility] Work Phone: Start: 12-13-2024 End: 12-13-2024 ambulatory Efewongbe Rae Facility:[facility] Start: 11-16-2024 End: 11-16-[address] Stephania Montoya DO -[facility] Work Phone: Start: 11-16-2024 End: 11-16-2024 ambulatory Efewongbe Oleghe Facility:[facility] Start: 10-19-2024 End: 10-19-2024 Patient encounter procedure Dayanara Christie [facility] -[facility] Work Phone: Start: 10-19-2024 End: 10-19-2024 ambulatory Efewongbe Oleghe Facility:[facility] Start: 10-19-2024 End: 10-19-2024 ambulatory Dayanara Christie Facility:[facility] Start: 08-14-2024 End: 08-14-2024 ambulatory Efewongbe Oleghe Facility:[facility] Start: 07-17-2024 End: 07-18-2024 ambulatory Efewkindredbe Olee Facility:[facility] Start: 09-22-2023 Non-patient / Non-visit Dr. Arben Perez Work Phone: [facility] Start: 09-22-2023 End: 09-22-[address] Nirav Perez Work Phone: [facility] Work Phone: Start: 09-22-2023 End: 09-22-[address] [facility] Work Phone: Start: 09-19-2023 End: 09-19-[address] Nirav Perez Work Phone: [facility] Work Phone: Start: 09-19-2023 End: 09-19-[address] Nirav Perez Work Phone: [facility]-Laboratory, Specimen Work Phone: Start: 09-19-2023 End: 09-19-[address] Nirav Perez Work Phone: [facility] Work Phone: Start: 09-12-2023 End: 09-12-[address] Nirav Perez Work Phone: [facility] Work Phone: Start: 08-29-2023 End: 08-29-[address] Nirav Perez Work Phone: [facility] Work Phone: Start: 08-12-2023 End: 08-12-[address] Nirav Perez Work Phone: [facility] Work Phone: Start: 08-09-2023 End: 08-09-[address] Nirav Perez Work Phone: [facility] Work Phone: Start: 07-19-2023 End: 07-19-[address] Nirav Perez Work Phone: [facility] Work Phone: Start: 07-19-2023 End: 07-19-[address] Nirav Perez Work Phone: [facility]-Laboratory, OP Pavilion Start: 07-18-2023 End: 07-18-[address] Nirav Perez Work Phone: [facility] Work Phone: Start: 06-20-2023 End: 06-20-[address] Nirav Perez Work Phone: [facility] Work Phone: Start: 05-27-2023 End: 05-27-[address] Nirav Perez Work Phone: [facility] Work Phone: Start: 05-27-2023 End: 05-27-[address] Nirav Perez Work Phone: [facility] Work Phone: Start: 04-29-2023 End: 04-29-[address] Nirav Perez Work Phone: [facility] Work Phone: Start: 03-30-2023 End: 03-30-[address] Nirav Perez Work Phone: [facility] Work Phone: Start: 03-30-2023 End: 03-30-[address] Nirav Perez Work Phone: [facility]-Laboratory, Specimen Work Phone: Start: 03-30-2023 End: 03-30-[address] Nirav Perez Work Phone: [facility] Work Phone: Start: 12-13-2022 End: 12-13-[address] Nirav Perez Work Phone: [facility] Start: 12-07-2022 End: 12-07-[address] Nirav Perez Work Phone: [facility] Work Phone: Start: 12-07-2022 End: 12-07-[address] Nirav Perez Work Phone: [facility]-Laboratory, Specimen Start: 12-07-2022 End: 12-07-[address] Nirav Perez Work Phone: [facility] Start: 11-06-2022 End: 11-06-[address] Nirav Perez Work Phone: [facility] Start: 06-23-2012 End: 06-23-2012 Telephone encounter Kailee Eyad Carbajal Work Phone: Pediatrics Procedures Date Procedure Procedure Detail Performing Clinician Start: 05-02-2025 Beta-hemolytic Streptococcus culture Dr. Nirav Perez MD Work Phone: Start: 04-17-2025 Measurement of pH in vaginal fluid specimen using nitrazine yellow for detection of rupture of amniotic membrane Dr. Nirav Perez MD Work Phone: Comment on above: Amniotic fluid not p resent indicates No Rupture of FetalMembranes at time of specimen collection. Start: 04-11-2025 Measurement of pH in vaginal fluid specimen using nitrazine yellow for detection of rupture of amniotic membrane Dr. Nirav Perez MD Work Phone: Comment on above: Amniotic fluid not p resent indicates No Rupture of FetalMembranes at time of specimen collection. Start: 04-03-2025 Urnls dip stick/tabl et reagent auto microscopy Dr. Nirav Perez MD Work Phone: Start: 03-19-2025 Urnls dip stick/tabl et reagent auto microscopy Dr. Nirav Perez MD Work Phone: Start: 03-06-2025 Serologic test for syphilis Dr. Nirav Perez MD Work Phone: Start: 02-22-[address] Chandra Perez MD Work Phone: Start: 02-22-2025 Urnls dip stick/tabl et reagent auto microscopy Dr. Nirav Perez MD Work Phone: Start: 12-27-2024 Measurement of pH in vaginal fluid specimen using nitrazine yellow for detection of rupture of amniotic membrane Dr. Nirav Perez MD Work Phone: Comment on above: Amniotic fluid not p resent indicates No Rupture of FetalMembranes at time of specimen collection. Start: 12-27-[address] Chandra Perez MD Work Phone: Start: 12-14-2024 Urnls dip stick/tabl et reagent auto microscopy Dr. Nirav Perez MD Work Phone: Start: 12-14-2024 Transvaginal obstetr ic ultrasonography Dr. Nirav Perez MD Work Phone: Start: 12-14-[address] Nirav Perez MD Work Phone: Start: 12-14-2024 Measurement of renal function Dr. Nirav Perez MD Work Phone: Comment on above: GFR Calc Start: 10-19-[address] Chandra Perez MD Work Phone: Start: 09-19-[address] Chandra Perez Work Phone: Start: 03-30-[address] Chandra Perez Work Phone: Start: 08-31-2017 End: 08-31-2017 Us pelvic nonobstetric image dcmtn limited/f/u Chika Nieto MD Work Phone: Start: 08-06-2017 End: 08-06-2017 Throat culture Oc Jean [facility] Start: 08-05-2017 End: 08-05-2017 Throat culture Oc Jean [facility] Start: 08-04-2017 End: 08-04-2017 Throat culture Oc Jean [facility]ICAL RES[employer]-C Start: 08-03-2017 End: 08-03-2017 Throat culture Josafattjdeb Holley Start: 08-02-2017 End: 08-03-2017 *CBC with Differential Oc Jean MEDICAL RESIDENT- C Start: 08-02-2017 End: 08-09-2017 Bacteria identified in Throat by Culture Oc Jean MEDICAL RESIDENT-C Start: 08-02-2017 End: 08-03-2017 Heterophile Ab [Presence] in Serum Oc Jean MEDICAL RESIDENT-C Start: 08-02-2017 End: 08-02-2017 Iaadiadoo streptococcus group a cO Jean MEDICAL RESIDENT-C Start: 07-30-2017 End: 07-30-2017 Iaadiadoo streptococcus group a Oc Carvajal PA-C Work Phone: Start: 07-30-2017 End: 07-30-2017 Rapid strep test Oc Carvajal PA-C Work Phone: Start: 07-20-2017 End: 07-21-2017 ENT Referral Oc Jean [facility] Start: 06-28-2017 End: 06-28-2017 Urinalysis Nirav Perez MD Start: 06-28-2017 End: 06-28-2017 Dietary management education, guidance, and counseling Nirav Perez MD Start: 11-08-2016 End: 11-10-2016 Transesophageal [...] 10-14-2016 End: 10-14-2016 Follow Up Appt Other Corye Garza MD Start: 10-14-2016 End: 10-14-2016 PFM [...] Treatment Date Care Activity Detail Author Start: 04-17-2025 Nonstress test [facility] Start: 04-17-2025 Obstetric monitoring [facility] Start: 04-17-2025 [facility] Start: 04-17-2025 Vital signs measurements [facility] Start: 04-17-2025 Patient discharge [facility] Start: 04-11-2025 [facility] Start: 04-04-2025 Nonstress test [facility] Start: 04-04-2025 Obstetric monitoring [facility] Start: 04-04-2025 Vital signs measurements [facility] Start: 04-04-2025 [facility] Start: 04-04-2025 Therapeutic prophylactic/dx injection subq/im THER/PROPH/DIAG INJ SC/IM [facility] Start: 04-03-2025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 2025 12:0 0am R/O LABOR April 17, 2025 4:10 pm 34 wk ob April 18, 2025 3:53 pm R/O LABOR April 21, 2025 12:0 9pm 36 wk ob May 02, 2025 3:20p m Reason for Visit Admit Date Depression January 11, 2025 10: 15am Dysplasia of cervix, low grade (KARAN 1) [facility] 2024 10:15am History of premature rupture of membranes (PPROM) January 11, 2025 10:15am January 11, 2025 10: 15am PTSD (post-traumatic stress disorder) [facility] 2024 10:15am Supervision of high-risk January [...] 12:50pm UTI (urinary tract infection) March 06, 025 12:50pm Abnormal glucose affecting March 19, 2025 9:30am Back pain affecting March 19, 2025 9:30am Choroid plexus cyst of fetus March 19, 025 9:30am Depression March 19, 2025 9:30a m Dysplasia of cervix, low grade (KARAN 1) M ay 2024 9:30am History of premature rupture of membranes (PPROM) March 19, 2025 9:30am March 19, 2025 9:30a m PTSD (post-traumatic stress disorder) Ma y 2024 9:30am Supervision of high-risk March [id number] 9:30am UTI (urinary tract infection) March 19, 2025 9:30am Abnormal glucose affecting March 21, 2025 10:03am Back pain affecting March 21, 2025 10:03am Choroid plexus cyst of fetus March 21, 025 10:03am Depression March 21, 2025 10:03 am Dysplasia of cervix, low grade (KARAN 1) M ay 2024 10:03am History of premature rupture of membranes (PPROM) March 21, 2025 10:03am March 21, 2025 10:03 am PTSD (post-traumatic stress disorder) Ma y 2024 10:03am Supervision of high-risk March [id number] 10:03am UTI (urinary tract infection) March 21, 2025 10:03am labor in third trimester without delivery April 03, 2025 4:12pm labor in third trimester without delivery April 04, 2025 5:18pm Abnormal glucose affecting Mar 2:39pm Back pain affecting April 05, 2025 2:39pm Choroid plexus cyst of fetus April 05 2:39pm Depression April 05, 2025 2:39p m Dysplasia of cervix, low grade (KARAN 1) J une 2024 2:39pm History of premature rupture of membranes (PPROM) April 05, 2025 2:39pm April 05, 2025 2:39p m PTSD (post-traumatic stress disorder) [place] 2024 2:39pm Supervision of high-risk April 05, 2025 2:39pm UTI (urinary tract infection) April 05, 2025 2:39pm Abnormal glucose affecting Mar 8:15am Back pain affecting April 11, 2025 8:15am Choroid plexus cyst of fetus April 11, 2025 8:15am Depression April 11, 2025 8:15 am Dysplasia of cervix, low grade (KARAN 1) J une 2024 8:15am History of premature rupture of membranes (PPROM) April 11, 2025 8:15am April 11, 2025 8:15 am labor in third trimester without delivery April 11, 2025 8:15am PTSD (post-traumatic stress disorder) Ju ne 2024 8:15am Supervision of high-risk April 11, 2025 8:15am UTI (urinary tract infection) April 11, 2025 8:15am Abnormal glucose affecting Melchor y 2024 3:20pm Back pain affecting May 02, 2025 3:20pm Choroid plexus cyst of fetus May 02, 2 025 3:20pm Depression May 02, 2025 3:20p m Dysplasia of cervix, low grade (KARAN 1) J sandra 2024 3:20pm History of premature rupture of membranes (PPROM) May 02, 2025 3:20pm May 02, 2025 3:20p m labor in third trimester without delivery May 02, 2025 3:20pm PTSD (post-traumatic stress disorder) Ju ly 2024 3:20pm Supervision of high-risk May 02, 2025 3:20pm UTI (urinary tract infection) May 02, 2025 3:20pm Reason for Visit Admit Date Depression January 11, 2025 10: 15am Dysplasia of cervix, low grade (KARAN 1) [facility] 2024 10:15am History of premature rupture of membranes (PPROM) January 11, 2025 10:15am January 11, 2025 10: 15am PTSD (post-traumatic stress disorder) [facility] 2024 10:15am Supervision of high-risk January [...] 9:30am Choroid plexus cyst of fetus March 19 2 025 9:30am Depression March 19, 2025 9:30a m Dysplasia of cervix, low grade (KARAN 1) M ay 2024 9:30am History of premature rupture of membranes (PPROM) March 19, 2025 9:30am March 19, 2025 9:30a m PTSD (post-traumatic stress disorder) Ma y 2024 9:30am Supervision of high-risk March 012024 9:30am UTI (urinary tract infection) March 19, 2025 9:30am Abnormal glucose affecting March 21, 2025 10:03am Back pain affecting March 21, 2025 10:03am Choroid plexus cyst of fetus March 21 025 10:03am Depression March 21, 2025 10:03 am Dysplasia of cervix, low grade (KARAN 1) M ay 2024 10:03am History of premature rupture of membranes (PPROM) March 21, 2025 10:03am March 21, 2025 10:03 am PTSD (post-traumatic stress disorder) Ma y 2024 10:03am Supervision of high-risk March [id number] 10:03am UTI (urinary tract infection) March 21, 2025 10:03am labor in third trimester without delivery April 03, 2025 4:12pm labor in third trimester without delivery April 04, 2025 5:18pm Abnormal glucose affecting Mar e 2024 2:39pm Back pain affecting April 05, 2025 2:39pm Choroid plexus cyst of fetus April 05 025 2:39pm Depression April 05, 2025 2:39p m Dysplasia of cervix, low grade (KARAN 1) J une 2024 2:39pm History of premature rupture of membranes (PPROM) April 05, 2025 2:39pm April 05, 2025 2:39p m PTSD (post-traumatic stress disorder) [place] ne 2024 2:39pm Supervision of high-risk April 05, 2025 2:39pm UTI (urinary tract infection) April 05, 2025 2:39pm Abnormal glucose affecting David e 2024 8:15am Back pain affecting April 11, 2025 8:15am Choroid plexus cyst of fetus April 11, 2025 8:15am Depression April 11, 2025 8:15 am Dysplasia of cervix, low grade (KARAN 1) J une 2024 8:15am History of premature rupture of membranes (PPROM) April 11, 2025 8:15am April 11, 2025 8:15 am labor in third trimester without delivery April 11, 2025 8:15am PTSD (post-traumatic stress disorder) Ju ne 2024 8:15am Supervision of high-risk April 11, 2025 8:15am UTI (urinary tract infection) April 11, 2025 8:15am Abnormal glucose affecting David e 2024 3:53pm Back pain affecting April 18, 2025 3:53pm Choroid plexus cyst of fetus April 18, 2025 3:53pm Depression April 18, 2025 3:53 pm Dysplasia of cervix, low grade (KARAN 1) J une 2024 3:53pm History of premature rupture of membranes (PPROM) April 18, 2025 3:53pm April 18, 2025 3:53 pm labor in third trimester without delivery April 18, 2025 3:53pm PTSD (post-traumatic stress disorder) [place] ne 2024 3:53pm Supervision of high-risk April 18, 2025 3:53pm UTI (urinary tract infection) April 18, 2025 3:53pm Abnormal glucose affecting Melchor 2024 3:20pm Back pain affecting May 02, 2025 3:20pm Choroid plexus cyst of fetus May 02, 2 025 3:20pm Depression May 02, 2025 3:20p m Dysplasia of cervix, low grade (KARAN 1) J sandra 2024 3:20pm History of premature rupture of membranes (PPROM) May 02, 2025 3:20pm May 02, 2025 3:20p m labor in third trimester without delivery May 02, 2025 3:20pm PTSD (post-traumatic stress disorder) [place] 2024 3:20pm Supervision of high-risk May 02, 2025 3:20pm UTI (urinary tract infection) May 02, 2025 3:20pm Family History Relationship Condition Age at Onset Recorded Date/T [...] Bipolar disorder Unknown Alcoholism Unknown Advance Directives Advance Directive Response Recorded Date/ Time Living Will No December 13, 023 6:12am Power of Glassware Maker Demonstrator No December 13, 2022 6:12am Advance Directive Response Recorded Date/ Time Living Will No December 13 023 7:12am Power of Glassware Maker Demonstrator No December 13, 2022 7:12am Advance Directive Response Recorded Date/ Time Living Will No June 21 8:34am Power of Glassware Maker Demonstrator No June 21 8:34am Advance Directive Response Recorded Date/ Time Living Will No June 21 7:34am Power of Glassware Maker Demonstrator No June 21 7:34am Advance Directive Response Recorded Date/ Time Living Will No December 14 8:17pm Power of Glassware Maker Demonstrator No December 14, 2024 8:17pm Advance Directive Response Recorded Date/ Time Living Will No December 14 8:17pm Do you have a Healthcare Power of Glassware Maker Demonstrator? No December 14, 2024 8:17pm Summary Purpose Additional Source Comments Source Comments (unrecognize d section and content) In the event this informatio n is protected by the Federal Confidentiality of Alcohol and Drug Abuse Patient Records regulations: The Federal rules restrict any use of the information to criminally investigate or prosecute any alcohol or drug abuse patient.[facility] Reason for Visit (unrecogniz ed section and content) Reason Comments Other Care Teams (unrecognized sec tion and content) Team Status: Active Member Role Status Dates Dr. Nirav Perez MD Family Provider Active Dr. Nirav Perez MD Primary Care Provider Active Team Status: Inactive Member Role Status Dates Dr. Nirav Perez MD Primary Care Provider, Refer ring Provider Active Hubert Rogers RIVET BUCKER, RIVET BUCKER-C Attending Provider Active Team Status: Inactive Member Role Status Dates Dr. Nirav Perez MD Primary Care Provider, Refer ring Provider Active Vannessa Chirinos RIVET BUCKER, RIVET BUCKER-C Attending Provider Active Team Status: Inactive Member Role Status Dates Dr. Nirav Perez MD Primary Care Provider, Refer ring Provider Active Sajan Silverman PA, PA Attending Provider Active Team Status: Inactive Member Role Status Dates Dr. Nirav Perez MD Primary Care Provider Active Vannessa Chirinos RIVET BUCKER, RIVET BUCKER-C Attending Provider, Referring Provider Active Team Status: Inactive Member Role Status Dates Dr. Nirav Perez MD Primary Care Provider, Refer ring Provider Active Dr. Stephania Montoya DO Attending Provider Activ e Team Status: Inactive Member Role Status Dates Dr. Nirav Perez MD Primary Care Provider, Refer ring Provider Active Giuliana Schilling CNM Attending Provider Active Team Status: Inactive Member Role Status Dates Dr. Nirav Perez MD Primary Care Provider Active Dr. Stephania Montoya DO Attending Provider, Refe rring Provider Active Team Status: Inactive Member Role Status Dates Dr. Nirav Perez MD Primary Care Provider, Refer ring Provider Active Dayanara Christie CNM Attending Provider Active Team Status: Inactive Member Role Status Dates Dr. Nirav Perez MD Primary Care Provider Active Dayanara Christie CNM Attending Provider Active Team Status: Inactive Member Role Status Dates Dr. Nirav Perez MD Primary Care Provider Active Dayanara Christie CNM Attending Provider, Referring Pr ovider Active Team Status: Inactive Member Role Status Dates Dr. Nirav Perez MD Primary Care Provider, Refer ring Provider Active Dr. Chika Nieto MD Attending Provider Active Team Status: Active Member Role Status Dates Dr. Nirav Perez MD Primary Care Provider Active Dayanara Christie CNM Attending Provider , Referring Provider, Other Provider Active Team Status: Active Member Role Status Dates Dr. Nirav Perez MD Primary Care Provider Active Vannessa Chirinos RIVET BUCKER, RIVET BUCKER-C Attending Provider, Referring Provider Active Workers Compensation Manager Relationship Specialty Start Date End Date Nirav Perez MD [address] [place] [address] PCP - General Internal Medicine 11/16/24 Manisha Saab, [place] [address] Genetic Counselor Genetics 01/16/25 Team Status: Active Member Role Status Dates Dr. Nirav Perez MD Primary Care Provider Active Team Status: Inactive Member Role Status Dates Dr. Nirav Perez MD Primary Care Provider Active Start: October 19, 2024 End: October 19, 2024 Dr. Nirav Perez MD Referring Provider Active Start: October 19, 2024 End: October 19, 2024 Dayanara Christie CNM Attending Provider Active Start: October 19, 2024 End: October 19, 2024 Team Status: Inactive Member Role Status Dates Dr. Nirav Perez MD Primary Care Provider Active Start: October 19, 2024 End: October 19, 2024 Dayanara Christie CNM Attending Provider Active Start: October 19, 2024 End: October 19, 2024 Dayanara Christie CNM Referring Provider Active Start: October 19, 2024 End: October 19, 2024 Team Status: Inactive Member Role Status Dates Dr. Nirav Perez MD Primary Care Provider Active Start: November 16, 2024 End: November 16, 2024 Dr. Nirav Perez MD Referring Provider Active Start: November 16, 2024 End: November 16, 2024 Dr. Stephania Montoya DO Attending Provider Activ e Start: November 16, 2024 End: November 16, 2024 Team Status: Inactive Member Role Status Dates Dr. Nirav Perez MD Primary Care Provider Active Start: December 13, 2024 End: December 13, 2024 Dr. Nirav Perez MD Referring Provider Active Start: December 13, 2024 End: December 13, 2024 Vannessa Chirinos NP, RIVET BUCKER-C Attending Provider Active Start: December 13, 2024 End: December 13, 2024 Team Status: Inactive Member Role Status Dates Dr. Nirav Perez MD Primary Care Provider Active Start: December 14, 2024 End: December 14, 2024 Dr. Jerardo Garcia DO Attending Provider Activ e Start: December 14, 2024 End: December 14, 2024 Dr. Jerardo Garcia DO Emergency Provider Activ e Start: December 14, 2024 End: December 14, 2024 Team Status: Inactive Member Role Status Dates Dr. Nirav Perez MD Primary Care Provider Active Start: December 20, 2024 End: December 20, 2024 Dr. Nirav Perez MD Referring Provider Active Start: December 20, 2024 End: December 20, 2024 Dr. Chika Nieto MD Attending Provider Active Start: December 20, 2024 End: December 20, 2024 Team Status: Inactive Member Role Status Dates Dr. Nirav Perez MD Primary Care Provider Active Start: December 27, 2024 End: December 27, 2024 Dr. Nirav Perez MD Referring Provider Active Start: December 27, 2024 End: December 27, 2024 Vannessa Chirinos RIVET BUCKER, RIVET BUCKER-C Attending Provider Active Start: December 27, 2024 End: December 27, 2024 Team Status: Inactive Member Role Status Dates Dr. Nirav Perez MD Primary Care Provider Active Start: December 27, 2024 End: December 27, 2024 Vannessa Chirinos RIVET BUCKER, RIVET BUCKER-C Attending Provider Active Start: December 27, 2024 End: December 27, 2024 Vannessa Chirinos RIVET BUCKER, RIVET BUCKER-C Referring Provider Active Start: December 27, 2024 End: December 27, 2024 Team Status: Inactive Member Role Status Dates Dr. Nirav Perez MD Primary Care Provider Active Start: January 11, 2025 End: January 11, 2025 Dr. Nirav Perez MD Referring Provider Active Start: January 11, 2025 End: January 11, 2025 Dr. Chika Nieto MD Attending Provider Active Start: January 11, 2025 End: January 11, 2025 Team Status: Inactive Member Role Status Dates Dr. Nirav Perez MD Primary Care Provider Active Start: February 07, 2025 End: February 07, 2025 Dr. Nirav Perez MD Referring Provider Active Start: February 07, 2025 End: February 07, 2025 Vannessa Chirinos RIVET BUCKER, RIVET BUCKER-C Attending Provider Active Start: February 07, 2025 End: February 07, 2025 Team Status: Inactive Member Role Status Dates Dr. Nirav Perez MD Primary Care Provider Active Start: February 22, 2025 End: February 22, 2025 Dayanara Christie CNM Attending Provider Active Start: February 22, 2025 End: February 22, 2025 Dayanara Christie CNM Referring Provider Active Start: February 22, 2025 End: February 22, 2025 Team Status: Active Member Role Status Dates Dr. Nirav Perez MD Primary Care Provider Active Start: February 22, 2025 Dayanara Christie CNM Attending Provider Active Start: February 22, 2025 Dayanara Christie CNM Referring Provider Active Start: February 22, 2025 Dayanara Christie CNM Other Provider Active Star t: February 22, 2025 Team Status: Inactive Member Role Status Dates Dr. Nirav Perez MD Primary Care Provider Active Start: March 06, 2025 End: March 06, 2025 Dr. Nirav Perez MD Referring Provider Active Start: March 06, 2025 End: March 06, 2025 Vannessa Chirinos RIVET BUCKER, RIVET BUCKER-C Attending Provider Active Start: March 06, 2025 End: March 06, 2025 Team Status: Inactive Member Role Status Dates Dr. Nirav Perez MD Primary Care Provider Active Start: March 06, 2025 End: March 06, 2025 Vannessa Chirinos RIVET BUCKER, RIVET BUCKER-C Attending Provider Active Start: March 06, 2025 End: March 06, 2025 Vannessa Chirinos RIVET BUCKER, RIVET BUCKER-C Referring Provider Active Start: March 06, 2025 End: March 06, 2025 Team Status: Inactive Member Role Status Dates Dr. Nirav Perez MD Primary Care Provider Active Start: March 19, 2025 End: March 19, 2025 Giuliana Schilling CNM Attending Provider Active S tart: March 19, 2025 End: March 19, 2025 Giuliana Schilling CNM Referring Provider Active S tart: March 19, 2025 End: March 19, 2025 Team Status: Active Member Role Status Dates Dr. Nirav Perez MD Primary Care Provider Active Start: March 19, 2025 Giuliana Schilling CNM Attending Provider Active S tart: March 19, 2025 Giuliana Schilling CNM Referring Provider Active S tart: March 19, 2025 Giuliana Schilling CNM Other Provider Active Start : March 19, 2025 Team Status: Inactive Member Role Status Dates Dr. Nirav Perez MD Primary Care Provider Active Start: March 21, 2025 End: March 21, 2025 Dr. Nirav Perez MD Referring Provider Active Start: March 21, 2025 End: March 21, 2025 Dr. Chika Nieto MD Attending Provider Active Start: March 21, 2025 End: March 21, 2025 Team Status: Inactive Member Role Status Dates Dr. Nirav Perez MD Primary Care Provider Active Start: April 03, 2025 End: April 03, 2025 Dayanara Christie CNM Attending Provider Active Start: April 03, 2025 End: April 03, 2025 Dayanara Christie CNM Referring Provider Active Start: April 03, 2025 End: April 03, 2025 Team Status: Inactive Member Role Status Dates Dr. Nirav Perez MD Primary Care Provider Active Start: April 04, 2025 End: April 04, 2025 Dayanara Christie CNM Attending Provider Active Start: April 04, 2025 End: April 04, 2025 Dayanara Christie CNM Referring Provider Active Start: April 04, 2025 End: April 04, 2025 Team Status: Inactive Member Role Status Dates Dr. Nirav Perez MD Primary Care Provider Active Start: April 05, 2025 End: April 05, 2025 Dr. Nirav Perez MD Referring Provider Active Start: April 05, 2025 End: April 05, 2025 Giuliana Schilling CNM Attending Provider Active S tart: April 05, 2025 End: April 05, 2025 Team Status: Active Member Role Status Dates Dr. Nirav Perez MD Primary Care Provider Active Start: April 05, 2025 Dayanara Christie CNM Attending Provider Active Start: April 05, 2025 Dayanara Christie , CNM Referring Provider Active Start: April 05, 2025 Dayanara Christie CNM Other Provider Active Star t: April 05, 2025 Team Status: Inactive Member Role Status Dates Dr. Nirav Perez MD Primary Care Provider Active Start: April 11, 2025 End: April 11, 2025 Dr. Nirav Perez MD Referring Provider Active Start: April 11, 2025 End: April 11, 2025 Vannessa Chirinos RIVET BUCKER, RIVET BUCKER-C Attending Provider Active Start: April 11, 2025 End: April 11, 2025 Team Status: Active Member Role Status Dates Dr. Nirav Perez MD Primary Care Provider Active Start: April 11, 2025 Vannessa Chirinos RIVET BUCKER, RIVET BUCKER-C Attending Provider Active Start: April 11, 2025 Vannessa Chirinos RIVET BUCKER, RIVET BUCKER-C Referring Provider Active Start: April 11, 2025 Team Status: Inactive Member Role Status Dates Dr. Nirav Perez MD Primary Care Provider Active Start: April 11, 2025 End: April 11, 2025 Vannessa Chirinos RIVET BUCKER, RIVET BUCKER-C Attending Provider Active Start: April 11, 2025 End: April 11, 2025 Vannessa Chirinos RIVET BUCKER, RIVET BUCKER-C Referring Provider Active Start: April 11, 2025 End: April 11, 2025 Team Status: Inactive Member Role Status Dates Dr. Nirav Perez MD Primary Care Provider Active Start: April 17, 2025 End: April 17, 2025 Dr. Chika Nieto MD Attending Provider Active Start: April 17, 2025 End: April 17, 2025 Dr. Chika Nieto MD Referring Provider Active Start: April 17, 2025 End: April 17, 2025 Team Status: Inactive Member Role Status Dates Dr. Nirav Perez MD Primary Care Provider Active Start: April 18, 2025 End: April 18, 2025 Dr. Nirav Perez MD Referring Provider Active Start: April 18, 2025 End: April 18, 2025 Dr. Stephania Montoya DO Attending Provider Activ e Start: April 18, 2025 End: April 18, 2025 Team Status: Active Member Role/Relationship Status Dates Dr. Nirav Perez MD Primary Care Provider Active Team Status: Inactive Member Role/Relationship Status Dates Dr. Nirav Perez MD Primary Care Provider Active Start: January 11, 2025 End: January 11, 2025 Dr. Nirav Perez MD Referring Provider Active Start: January 11, 2025 End: January 11, 2025 Dr. Chika Nieto MD Attending Provider Active Start: January 11, 2025 End: January 11, 2025 Team Status: Inactive Member Role/Relationship Status Dates Dr. Nirav Perez MD Primary Care Provider Active Start: February 07, 2025 End: February 07, 2025 Dr. Nirav Perez MD Referring Provider Active Start: February 07, 2025 End: February 07, 2025 Vannessa Chirinos RIVET BUCKER, RIVET BUCKER-C Attending Provider Active Start: February 07, 2025 End: February 07, 2025 Team Status: Inactive Member Role/Relationship Status Dates Dr. Nirav Perez MD Primary Care Provider Active Start: February 22, 2025 End: February 22, 2025 Dayanara Christie CNM Attending Provider Active Start: February 22, 2025 End: February 22, 2025 Dayanara Christie CNM Referring Provider Active Start: February 22, 2025 End: February 22, 2025 Team Status: Active Member Role/Relationship Status Dates Dr. Nirav Perez MD Primary Care Provider Active Start: February 22, 2025 Dayanara Christie CNM Attending Provider Active Start: February 22, 2025 Dayanara Christie CNM Referring Provider Active Start: February 22, 2025 Dayanara Christie CNM Other Provider Active Star t: February 22, 2025 Team Status: Inactive Member Role/Relationship Status Dates Dr. Nirav Perez MD Primary Care Provider Active Start: March 06, 2025 End: March 06, 2025 Dr. Nirav Perez MD Referring Provider Active Start: March 06, 2025 End: March 06, 2025 Vannessa Chirinos RIVET BUCKER, RIVET BUCKER-C Attending Provider Active Start: March 06, 2025 End: March 06, 2025 Team Status: Inactive Member Role/Relationship Status Dates Dr. Nirav Perez MD Primary Care Provider Active Start: March 06, 2025 End: March 06, 2025 Vannessa Chirinos RIVET BUCKER, RIVET BUCKER-C Attending Provider Active Start: March 06, 2025 End: March 06, 2025 Vannessa Chirinos RIVET BUCKER, RIVET BUCKER-C Referring Provider Active Start: March 06, 2025 End: March 06, 2025 Team Status: Inactive Member Role/Relationship Status Dates Dr. Nirav Perez MD Primary Care Provider Active Start: March 19, 2025 End: March 19, 2025 Giuliana Schililng CNM Attending Provider Active S tart: March 19, 2025 End: March 19, 2025 Giuliana Schilling CNM Referring Provider Active S tart: March 19, 2025 End: March 19, 2025 Team Status: Active Member Role/Relationship Status Dates Dr. Nirav Perez MD Primary Care Provider Active Start: March 19, 2025 Giuliana Schilling CNM Attending Provider Active S tart: March 19, 2025 Giuliana Schilling CNM Referring Provider Active S tart: March 19, 2025 Giuliana Schilling CNM Other Provider Active Start : March 19, 2025 Team Status: Inactive Member Role/Relationship Status Dates Dr. Nirav Perez MD Primary Care Provider Active Start: March 21, 2025 End: March 21, 2025 Dr. iNrav Perez MD Referring Provider Active Start: March 21, 2025 End: March 21, 2025 Dr. Chika Nieto MD Attending Provider Active Start: March 21, 2025 End: March 21, 2025 Team Status: Inactive Member Role/Relationship Status Dates Dr. Nirav Peerz MD Primary Care Provider Active Start: April 03, 2025 End: April 03, 2025 Dayanara Christie CNM Attending Provider Active Start: April 03, 2025 End: April 03, 2025 Dayanara Christie CNM Referring Provider Active Start: April 03, 2025 End: April 03, 2025 Team Status: Inactive Member Role/Relationship Status Dates Dr. Nirav Perez MD Primary Care Provider Active Start: April 04, 2025 End: April 04, 2025 Dayanara Christie CNM Attending Provider Active Start: April 04, 2025 End: April 04, 2025 Dayanara Christie CNM Referring Provider Active Start: April 04, 2025 End: April 04, 2025 Team Status: Inactive Member Role/Relationship Status Dates Dr. Nirav Perez MD Primary Care Provider Active Start: April 05, 2025 End: April 05, 2025 Dr. Nirav Perez MD Referring Provider Active Start: April 05, 2025 End: April 05, 2025 Giuliana Schilling CNM Attending Provider Active S tart: April 05, 2025 End: April 05, 2025 Team Status: Active Member Role/Relationship Status Dates Dr. Nirav Perez MD Primary Care Provider Active Start: April 05, 2025 Dayanara Christie CNM Attending Provider Active Start: April 05, 2025 Dayanara Christie CNM Referring Provider Active Start: April 05, 2025 Dayanara Christie CNM Other Provider Active Star t: April 05, 2025 Team Status: Inactive Member Role/Relationship Status Dates Dr. Nirav Perez MD Primary Care Provider Active Start: April 11, 2025 End: April 11, 2025 Dr. Nirav Perez MD Referring Provider Active Start: April 11, 2025 End: April 11, 2025 Vannessa Chirinos RIVET BUCKER, RIVET BUCKER-C Attending Provider Active Start: April 11, 2025 End: April 11, 2025 Team Status: Inactive Member Role/Relationship Status Dates Dr. Nirav Perez MD Primary Care Provider Active Start: April 11, 2025 End: April 11, 2025 Vannessa Chirinos RIVET BUCKER, RIVET BUCKER-C Attending Provider Active Start: April 11, 2025 End: April 11, 2025 Vannessa Chirinos RIVET BUCKER, RIVET BUCKER-C Referring Provider Active Start: April 11, 2025 End: April 11, 2025 Team Status: Active Member Role/Relationship Status Dates Dr. Nirav Perez MD Primary Care Provider Active Start: April 17, 2025 Dr. Chika Nieto MD Attending Provider Active Start: April 17, 2025 Dr. Chika Nieto MD Referring Provider Active Start: April 17, 2025 Team Status: Inactive Member Role/Relationship Status Dates Dr. Nirav Perez MD Primary Care Provider Active Start: April 17, 2025 End: April 17, 2025 Dr. Chika Nieto MD Attending Provider Active Start: April 17, 2025 End: April 17, 2025 Dr. Chika Nieto MD Referring Provider Active Start: April 17, 2025 End: April 17, 2025 Team Status: Inactive Member Role/Relationship Status Dates Dr. Nirav Perez MD Primary Care Provider Active Start: April 18, 2025 End: April 18, 2025 Dr. Nirav Perez MD Referring Provider Active Start: April 18, 2025 End: April 18, 2025 Dr. Stephania Montoya DO Attending Provider Activ e Start: April 18, 2025 End: April 18, 2025 Team Status: Active Member Role/Relationship Status Dates Dr. Nirav Perez MD Primary Care Provider Active Start: April 21, 2025 Dr. Chika Nieto MD Attending Provider Active Start: April 21, 2025 Dr. Chika Nieto MD Referring Provider Active Start: April 21, 2025 Dr. Chika Nieto MD Other Provider Active Start: April 21, 2025 Team Status: Inactive Member Role/Relationship Status Dates Dr. Nirav Perez MD Primary Care Provider Active Start: May 02, 2025 End: May 02, 2025 Dr. Nirav Perez MD Referring Provider Active Start: May 02, 2025 End: May 02, 2025 Dr. Chika Nieto MD Attending Provider Active Start: May 02, 2025 End: May 02, 2025 Team Status: Inactive Member Role/Relationship Status Dates Dr. Nirav Perez MD Primary Care Provider Active Start: May 02, 2025 End: May 02, 2025 Dr. Chika Nieto MD Attending Provider Active Start: May 02, 2025 End: May 02, 2025 Dr. Chika Nieto MD Referring Provider Active Start: May 02, 2025 End: May 02, 2025 INFORMATION SOURCE (unrecogn ized section and content) DATE CREATED AUTHOR 02/03/2025 [facility] DATE CREATED AUTHOR AUTHOR'Stefano CONTEH 05/08/2025 [facility] FOR RECORDS PERTAINING TO PATIENTS WHO [...] BE BASED ON THE PRIMARY CLINICAL RECORDS. [facility] [facility]. provides no warranty or guarantee of the accuracy or completeness of information in this document.
== END 2025-05-07 19:14 | disposition home or self-care (01) ==
LOC: WPOUT 16:06 → WP 16:07
PROVIDERS: PCP Internal Medicine; Referring Provider Registered Nurse; Visit Provider Registered Nurse
DX: O26.853 Spotting complicating pregnancy, third trimester (principal); O36.8130 Decreased fetal movements, third trimester, not applicable or unspecified; Z3A.36 36 weeks gestation of pregnancy
CPT/HCPCS: 59025; 59050; 99221; G0378

== ENCOUNTER 2025-05-08 09:00 | Inpatient (IN) | payer OTHER, SELFPAY ==
[2025-05-08] VITALS (65 sets, daily range): BP systolic 66–138; BP diastolic 31–78; PULSE 67–93; RESP 16–18; TEMP 36.2–37.2; O2SAT 97–100; BMI 32.4
[2025-05-08] MEDS: Lactated Ringers 1,000 ML 999 ML IV (09:20)
[2025-05-08 09:38] LABS: Hematocrit 35.1 % (37-47); Hemoglobin 11.4 g/dL (12.0-15.0); Immature Granulocytes Count 0.120 X10^3/uL (0.0-0.0); Mean Corp Hgb Conc 32.5 g/dL (32-36); Mean Corpuscular Volume 87.8 fL (81-99); Mean Platelet Vol. 10.3 fl (6.2-12.0); NRBC Flagged by Analyzer 0 % (0-5); Platelet Count 332 K/mm3 (150-450); RBC Distribution Width CV 13.4 % (11.6-14.6); RBC Distribution Width SD 42.7 fl (35.1-43.9); Red Blood Count 4.00 M/mm3 (4.2-5.4); White Blood Count 13.3 K/mm3 (4.4-11.0)
[2025-05-08] MEDS: Lactated Ringers 1,000 ML 200 ML IV ×2 (10:20→14:31)
[2025-05-08] MEDS: fentaNYL-bupivacaine (epidural) 100 ML BAG EPIDURAL (10:22)
[2025-05-08] MEDS: LACTATED RINGERS 500 ML 999 ML IV (11:11)
[2025-05-08 12:19] LABS: Syphilis Antibodies Nonreactive (Nonreactive)
[2025-05-08] MEDS: Oxytocin 15 Units/NS 250ml 15 UNITS/250 ML IV.SOLN 2 UNITS IV (13:22)
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
--- NOTE | 2025-05-08 16:35 | PCM.DC ---
Discharge Instructions Diet Discharge Diet: No restrictions DC O2, CPAP, BIPAP needs Home O2 Discharge instructions: No Dressing / Incision Discharge Activity: Return to Normal Activity, May Not Drive (while taking narcotic pain medications.) and May Shower May resume sexual activity in: 4-6 weeks Dressing / Incision Call your doctor if your incision/area has: Continuous Slow Oozing, Sudden Increased Bleeding, Increased Pain/ Swelling, Increased Redness and Foul Smelling Discharge Follow Up Care Please Follow Up With: Stephania Montoya DO When: Call [phone] to make an appointment with your doctor in 6 weeks. If you had elevated blood pressure or 4th degree laceration, you will need to be seen in 2 weeks. Test Results: Test results from this visit will be discussed in further detail at your follow-up appointment, if applicable. Discharge Plan Admission Admit Date/Time: 05/08/25 09:00 Attending Provider: Stephania Montoya Primary Care Provider: Nirav Perez Discharge Orders/Prescriptions Prescriptions: No Action [facility]-[place] 28-1-300 mg capsule 1 cap PO DAILY cephalexin 500 mg capsule 500 mg PO DAILY Qty: 30 2RF Referrals / Follow Up: Nirav Perez MD [Primary Care Provider] -
[2025-05-08] MEDS: Oxytocin 15 Units/NS 250ml 15 UNITS/250 ML IV.SOLN 83 UNITS IV (16:45)
--- OUTSIDE RECORDS SUMMARY | 2025-05-09 03:55 | XMS RPT_ITS | CCD ---
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 Present. International normalized rat io (INR) calculationOrdered By: Jerardo Garcia on 12-14-2024 INR Coag (Bld) [Relative time] 0.9 {INR} [facility] Ketones Test strip Ql (U)Ord ered By: Jerardo Garcia on 12-14-2024 Ketones Ql (U) Negative Negative [facility] LDHon 12-14-2024 LDH 144 U/L Normal 84-246 [facility] Comment on above: Performed By: #### B 882-1, L504.2610 #### [facility] [address] [place], [place] [address], [id number] Laboratory - Chemistry and C hemistry - challengeOrdered By: Jerardo Garcia on 12-14-2024 AST [Catalytic activity/Vol] 24 U/L 15-37 [facility] Lactate dehydrogenase (LDH) measurementOrdered By: Jerardo Garcia on 12-14-2024 LDH [Catalytic activity/Vol] 144 U/L 84-246 [facility] Lymphocytes Auto (Unsp spec) [#/Vol]Ordered By: Jerardo Garcia on 12-14-2024 Lymphocytes (Bld) [#/Vol] 2.62 10*3/uL 0.83-4.51 [facility] Lymphocytes/100 WBC Auto (Un sp spec)Ordered By: Jerardo Garcia on 12-14-2024 Lymphocytes/100 WBC (Bld) 31.5 % 19-41 [facility] MCV (mean corpuscular volume ) determinationOrdered By: Jerardo Garcia on 12-14-2024 MCV (RBC) [Entitic vol] 87.9 fL 81-99 [facility] Mean corpuscular hemoglobin (MCH) determinationOrdered By: Jerardo Garcia on 12-14-2024 MCH (RBC) [Entitic mass] 30.6 pg 27.0-32.0 [facility] Mean corpuscular hemoglobin concentration (MCHC) determinationOrdered By: Jerardo Garcia on 12-14-2024 MCHC (RBC) [Mass/Vol] 34.8 g/dL 32-36 [facility] Mean platelet volume determi nationOrdered By: Jerardo Garcia on 12-14-2024 Platelet mean volume (Bld) [Entitic vol] 10.4 fL 6.2-12.0 [facility] Microscopic analysis of urin e for red blood cells (RBC)Ordered By: Jerardo Garcia on 12-14-2024 Microscopic analysis of urine for red blood cells (RBC) 0-5 SEEN /hpf 0-5 [facility] Urine RBC 0-5 SEEN /hpf 0-5 [facility] Monocyte percentageOrdered B y: Jerardo Garcia on 12-14-2024 Monocytes/100 WBC (Bld) 7.1 % 0-10 [facility] Mucus LM Ql (Urine sed)Order ed By: Jerardo Garcia on 12-14-2024 Mucus Ql (Urine sed) 0 SEEN /hpf [facility] Neutrophil percentageOrdered By: Jerardo Garcia on 12-14-2024 Neutrophils/100 WBC (Bld) 59.8 % 47-70 [facility] Nitrite Test strip Ql (U)Ord ered By: Jerardo Garcia on 12-14-2024 Nitrite Ql (U) Negative Negative [facility] Nucleated red blood cell per centageOrdered By: Jerardo Garcia on 12-14-2024 Nucleated RBC/100 WBC (Bld) [Ratio] 0 % 0-5 [facility] Partial Thromboplast Timeon 12-14-2024 aPTT Coag (Bld) [Time] 26.2 s Normal 24.1-36.2 [facility] Comment on above: Performed By: #### L 509.8002, L501.0250, L3890.6006, L100.0100 #### [facility] [address] [place], [address] Platelet countOrdered By: Mathew Garcia on 12-14-2024 Platelets (Bld) [#/Vol] 330 10*3/uL 150-450 [facility] Potassium measurementOrdered By: Jerardo Garcia on 12-14-2024 Potassium [Moles/Vol] 3.3 mmol/L Low 3.5-5.1 [facility] Protein Test strip Ql (U)Ord ered By: Jerardo Garcia on 12-14-2024 Protein Ql (U) Negative Negative [facility] Prothrombin Time w/INRon INR Coag (PPP) [Relative time] 0.9 {INR} Normal [facility] Comment on above: Performed By: #### L 509.8002, L501.0250, L3890.6006, L100.0100 #### [facility] [address] [place], [address] PT Coag (PPP) [Time] 12.5 s Normal 11.7-14.9 [facility] Comment on above: Performed By: #### L 509.8002, L501.0250, L3890.6006, L100.0100 #### [facility] [address] [place], [address] Prothrombin timeOrdered By: Jerardo Garcia on 12-14-2024 PT Coag (PPP) [Time] 12.5 s 11.7-14.9 [facility] RBC Auto (Bld) [#/Vol]Ordere d By: Jerardo Garcia on 12-14-2024 RBC (Bld) [#/Vol] 4.05 10*6/uL Low 4.2-5.4 [facility] Serum anion gap measurementO rdered By: Jerardo Garcia on 12-14-2024 Anion gap [Moles/Vol] 8 mmol/L 5-15 [facility] Serum globulin measurementOr dered By: Jerardo Garcia on 12-14-2024 Globulin (S) [Mass/Vol] 3.5 g/dL 2.2-4.2 [facility] Serum or plasma alanine rosas otransferase (ALT) measurementOrdered By: Jerardo Garcia on 12-14-2024 ALT [Catalytic activity/Vol] 28 U/L 13-56 [facility] Serum or plasma albumin tabatha urement (mass/volume)Ordered By: Jerardo De Los Santos on 12-14-2024 Albumin [Mass/Vol] 3.0 g/dL Low 3.2-5.0 [facility] Serum or plasma alkaline courtney sphatase measurementOrdered By: Jerardo Garcia on 12-14-2024 ALP [Catalytic activity/Vol] 65 U/L 45-117 [facility] Serum or plasma calcium tabatha urement (mass/volume)Ordered By: Jerardo De Los Santos on 12-14-2024 Calcium [Mass/Vol] 8.8 mg/dL 8.5-10.1 [facility] Serum or plasma creatinine m easurement (mass/volume)Ordered By: Jerardo De Los Santos on 12-14-2024 Creatinine [Mass/Vol] 0.63 mg/dL 0.55-1.02 [facility] Comment on above: The validity of the calculated GFR & GFRAA in patients over 70 years has not been determined. Clinical correlation is essential. Serum or plasma urea nitroge n measurement (mass/volume)Ordered By: Jerardo Garcia on 12-14-2024 Urea nitrogen [Mass/Vol] 6 mg/dL Low 7-18 [facility] Sodium levelOrdered By: Juwan Garcia on 12-14-2024 Sodium [Moles/Vol] 137 mmol/L 136-145 [facility] Squamous epithelial cells de tection in urine sediment by light microscopyOrdered By: Jerardo Garcia on 12-14-2024 Epithelial cells.squamous LM Ql (Urine sed) 0-5 SEEN /hpf 5-10 [facility] Total proteinOrdered By: Ollie Garcia on 12-14-2024 Protein [Mass/Vol] 6.5 g/dL 6.4-8.2 [facility] Transvaginal w/Preg USon Transvaginal w/Preg US [facility] [address] [place] [address] Transvaginal w/Preg US MR#: [id number] Acct: [id number] Name: JANICE VELAZQUEZ Rep #: [id number] : 1995 F 29 From: Renato Holley DO PCP: Dr. Nirav Perez MD Status: [facility] Study: Transvaginal w/Preg US Date of Exam: 12/14/24 Exam# [id number] Ordering Dr: Jerardo Garcia DO PROCEDURE: TRANSVAGINAL [...] consistent with grade 4 previa. Reading Location: [facility] CC: Dr. Jerardo Garcia DO; Dr. 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, [address] EPI,SQUAMOUS 0-5 SEEN Normal 5-10 [facility] Comment on above: Order Comment: CLEAN CATCH Performed By: #### L 509.8002, L501.0250, L3890.6006, L100.0100 #### [facility] [address] [place], [address] RBC 0-5 SEEN Normal 0-5 [facility] Comment on above: Order Comment: CLEAN CATCH Performed By: #### L 509.8002, L501.0250, L3890.6006, L100.0100 #### [facility] [address] [place], [address] Mucus Ql (Urine sed) 0 SEEN Normal [facility] Comment on above: Order Comment: CLEAN CATCH Performed By: #### L 509.8002, L501.0250, L3890.6006, L100.0100 #### [facility] [address] [place], [address] WBC 0 SEEN Normal 0-5 [facility] Comment on above: Order Comment: CLEAN CATCH Performed By: #### L 509.8002, L501.0250, L3890.6006, L100.0100 #### [facility] [address] [place], [address] Urine blood detectionOrdered By: Jerardo Garcia on 12-14-2024 Urine Occult Blood 150 /ul High Negative [facility] Urine clarityOrdered By: Ollie Garcia on 12-14-2024 Clarity (U) Clear Clear [facility] Urine color determinationOrd ered By: Jerardo Garcia on 12-14-2024 Color (U) Yellow Yellow [facility] Urine glucose detectionOrder ed By: Jerardo Garcia on 12-14-2024 Glucose Ql (U) Normal mg/dl Normal [facility] Urine leukocyte esterase det ection by dipstickOrdered By: Jerardo Garcia on 12-14-2024 Leukocyte esterase Test strip Ql (U) Negative Negative [facility] Urine pHOrdered By: Jerardo Del Real on 12-14-2024 pH (U) 6.5 [pH] 5.0 - 8.0 [facility] Urine sediment bacteria coun t by microscopy (number/high power field)Ordered By: Jerardo Garcia on 12-14-2024 Bacteria LM.HPF (Urine sed) [#/Area] RARE /hpf None Seen [facility] Urine specific gravity measu rementOrdered By: Jerardo Garcia on 12-14-2024 Specific gravity (U) [Rel density] 1.010 1.002-1.030 [facility] Urine urobilinogen measureme ntOrdered By: Jerardo Garcia on 12-14-2024 Urobilinogen Ql (U) Normal mg/dl Normal [facility] Urobilinogen Ql (U)Ordered B y: Jerardo Garcia on 12-14-2024 Urine Urobilinogen Normal mg/dl Normal [facility] White blood cell (WBC) count Ordered By: Jerardo Garcia on 12-14-2024 WBC (Bld) [#/Vol] 8.3 10*3/uL 4.4-11.0 [facility] White blood cell countOrdere d By: Jerardo Garcia on 12-14-2024 Urine WBC 0 SEEN /hpf 0-5 [facility] White blood cell count 0 SEEN /hpf 0-5 [facility] aPTT Coag (PPP) [Time]Ordere d By: Jerardo Garcia on 12-14-2024 aPTT Coag (Bld) [Time] 26.2 s 24.1-36.2 [facility] - Chemistry and C hemistry - challengeOrdered By: Vannessa Chirinos on 12-13-2024 Glucose Ql (U) Negative [facility] - UrinalysisOrder ed By: Vannessa Chirinos on 12-13-2024 Protein Ql (U) Negative [facility] [employer] Office Visit Reporton 12-13-2024 [employer] Office Visit Report [facility], [address] [place] [address] OFFICE VISIT Date of Service: 12/13/24 MR#: [id number] Acct: [id number] Name: JANICE VELAZQUEZ Rep #: [id number] : 1995 Provider: ASTER samuel Age/Sex: 29/F Location: [facility] Status: Signed Intake Vital Signs 10/19/24 11:22 11/16/24 13:30 12/13/24 10:41 Height 5 ft 3 in 5 ft 3 in 5 ft 3 in Weight: 164 lb BMI 29.0 BP 118/70 Intake Visit Reasons: 16 wk OB Chief Complaint: 16 Week OB Heel Sewer Required: No Is patient in pain?: No Allergies No Known Allergies Allergy (Verified 12/13/24 10:40) Medications ???Medication ???Instructions ???Recorded ???Confirmed ???Type doxylamine succinate 25 mg tablet 25 mg PO QHS PRN 10/12/24 5 History (Unisom (doxylamine)) multivit-min no.71-iron fum 28 cap PO 10/12/24 12/13/24 History mg-folate no.1 1 mg-dha 300 mg capsule (PNV-[place]) Last Menstrual Period: 08/22/24 Zika: Zika virus [...] 5-6 times per week duration: 45-60 minutes/day ross/sabianist: Yarsani seatbelt use: always do you feel safe [...] 34 live - 5# 15oz Male epidural [facility] Delivery Date: 09/27/23 Last Updated by: Davina [...] PTB. 10/31 (more content not included)... Normal [facility] - Chemistry and C hemistry - challengeon 11-16-2024 Glucose Ql (U) Negative [facility] - Urinalysison Protein Ql (U) Negative [facility] [employer] Office Visit Reporton 11-16-2024 [employer] Office Visit Report [facility] [address], [address] [place] [address] OFFICE VISIT Date of Service: 11/16/24 MR#: [id number] Acct: [id number] Name: JANICE VELAZQUEZ Rep #: [id number] : 1995 Provider: Dr. Stephania Taylor DO Age/Sex: 29/F Location: [facility] Status: Signed Intake Vital Signs 07/17/24 14:52 10/19/24 11:22 11/16/24 13:30 Height 5 ft 3 in 5 ft 3 in 5 ft 3 in Weight: 164 lb 6 oz BMI 29.1 BP 120/87 H Intake Visit Reasons: 12wk OB Heel Sewer Required: No Is patient in pain?: No Allergies No Known Allergies Allergy (Verified 11/16/24 13:35) Medications ???Medication ???Instructions ???Recorded ???Confirmed ???Type doxylamine succinate 25 mg tablet 25 mg PO QHS PRN 10/12/24 11/16/24 History (Unisom (doxylamine)) multivit-min no.71-iron fum 28 cap PO 10/12/24 11/16/24 History mg-folate no.1 1 mg-dha 300 mg capsule (PNV-[place]) Last Menstrual Period: 08/22/24 Zika: Zika virus [...] 5-6 times per week duration: 45-60 minutes/day ross/sabianist: Yarsani seatbelt use: always do you feel safe [...] 34 live - 5# 15oz Male epidural [facility] Delivery Date: 09/27/23 Last Updated by: Davina [...] 11/16/24 -???-???-???-??? (more content not included)... Normal [facility] Chlamydia/GC PHILIP aptimaon CHLAMY,NUC ACID Negative Normal Negative [facility] Comment on above: Performed By: #### M 100.2200, L7000.1800 ####[facility] [facility] [address] [place], [place], [phone] GC BY NUC ACID Negative Normal Negative [facility] Comment on above: Result Comment: Perf ormed at: =G - [facility] [address] [id number] Remote Inpatient Coder: Chantel Sánchez MD, Phone: [phone] Performed By: #### M 100.2200, L7000.1800 ####[facility] [address] [place], [place], [id number] Urine Cultureon 10-20-2024 URC Culture exhibits no growth. Normal [facility] Comment on above: Performed By: #### M 100.2200, L7000.1800 ####[facility] [address] [place], [place], [phone] Absolute neutrophil countOrd ered By: Dayanara Christie on 10-19-2024 Neutrophils (Bld) [#/Vol] 5.9 10*3/uL 2.0-7.7 [facility] Basophil percentageOrdered B y: Dayanara Christie on 10-19-2024 Basophils/100 WBC (Bld) 0.5 % 0-1 [facility] C. trachomatis rRNA PHILIP+prob e Ql (Unsp spec)Ordered By: Dayanara Christie on 10-19-2024 Chlamydia DNA (PHILIP) Negative Negative [facility] CBC W/Diff, Automatedon 10-01 Absolute Lymph 2.20 X10 3/uL Normal 0.83-4.51 [facility] Comment on above: Performed By: #### L 509.8000, L3890.6005, BTS, L3890.6100, L100.0100, L3890.6300, L509.4005 ####[facility] [address] [place], [place], [phone] Absolute Neut 5.9 X10 3/uL Normal 2.0-7.7 [facility] Comment on above: Performed By: #### L 509.8000, L3890.6005, BTS, L3890.6100, L100.0100, L3890.6300, L509.4005 ####[facility] [address] [place], [address] Basophils/100 WBC (Bld) 0.5 % Normal 0-1 [facility] Comment on above: Performed By: #### L 509.8000, L3890.6005, BTS, L3890.6100, L100.0100, L3890.6300, L509.4005 ####[facility] [address] [place], [address] Eosinophils/100 WBC (Bld) 1.1 % Normal 0-5 [facility] Comment on above: Performed By: #### L 509.8000, L3890.6005, BTS, L3890.6100, L100.0100, L3890.6300, L509.4005 ####[facility] [address] [place], [address] Erythrocyte distribution width (RBC) [Ratio] 12.6 % Normal 11.6-14.6 [facility] Comment on above: Performed By: #### L 509.8000, L3890.6005, BTS, L3890.6100, L100.0100, L3890.6300, L509.4005 ####[facility] [address] [place], [address] Hematocrit (Bld) [Volume fraction] 42.9 % Normal 37-47 [facility] Comment on above: Performed By: #### L 509.8000, L3890.6005, BTS, L3890.6100, L100.0100, L3890.6300, L509.4005 ####[facility] [address] [place], [address] Hemoglobin (Bld) [Mass/Vol] 14.3 g/dL Normal 12.0-15.0 [facility] Comment on above: Performed By: #### L 509.8000, L3890.6005, BTS, L3890.6100, L100.0100, L3890.6300, L509.4005 ####[facility] [address] [place], [address] IG% 0.300 Normal 0.0-0.9 [facility] Comment on above: Result Comment: IG% - Immature Granulocytes (promyelocytes, myelocytes and metamyelocytes) > 1% indicates that a LEFT SHIFT is Present. Performed By: #### L 509.8000, L3890.6005, BTS, L3890.6100, L100.0100, L3890.6300, L509.4005 ####[facility] [address] [place], [address] Lymphocytes/100 WBC (Bld) 24.8 % Normal 19-41 [facility] Comment on above: Performed By: #### L 509.8000, L3890.6005, BTS, L3890.6100, L100.0100, L3890.6300, L509.4005 ####[facility] [address] [place], [address] MCH (RBC) [Entitic mass] 29.5 pg Normal 27.0-32.0 [facility] Comment on above: Performed By: #### L 509.8000, L3890.6005, BTS, L3890.6100, L100.0100, L3890.6300, L509.4005 ####[facility] [address] [place], [address] MCHC (RBC) [Mass/Vol] 33.3 g/dL Normal 32-36 [facility] Comment on above: Performed By: #### L 509.8000, L3890.6005, BTS, L3890.6100, L100.0100, L3890.6300, L509.4005 ####[facility] [address] [place], [address] MCV (RBC) [Entitic vol] 88.6 fL Normal 81-99 [facility] Comment on above: Performed By: #### L 509.8000, L3890.6005, BTS, L3890.6100, L100.0100, L3890.6300, L509.4005 ####[facility] [address] [place], [address] Monocytes/100 WBC (Bld) 6.8 % Normal 0-10 [facility] Comment on above: Performed By: #### L 509.8000, L3890.6005, BTS, L3890.6100, L100.0100, L3890.6300, L509.4005 ####[facility] [address] [place], [address] Neutrophils/100 WBC (Bld) 66.5 % Normal 47-70 [facility] Comment on above: Performed By: #### L 509.8000, L3890.6005, BTS, L3890.6100, L100.0100, L3890.6300, L509.4005 ####[facility] [address] [place], [address] Nucleated RBC (Bld) [#/Vol] 0 10*3/uL Normal 0-5 [facility] Comment on above: Performed By: #### L 509.8000, L3890.6005, BTS, L3890.6100, L100.0100, L3890.6300, L509.4005 ####[facility] [address] [place], [address] Platelet mean volume (Bld) [Entitic vol] 9.8 fL Normal 6.2-12.0 [facility] Comment on above: Performed By: #### L 509.8000, L3890.6005, BTS, L3890.6100, L100.0100, L3890.6300, L509.4005 ####[facility] [address] [place], [address] Platelets (Bld) [#/Vol] 431 10*3/uL Normal 150-450 [facility] Comment on above: Performed By: #### L 509.8000, L3890.6005, BTS, L3890.6100, L100.0100, L3890.6300, L509.4005 ####[facility] [address] [place], [address] RBC (Bld) [#/Vol] 4.84 10*6/uL Normal 4.2-5.4 [facility] Comment on above: Performed By: #### L 509.8000, L3890.6005, BTS, L3890.6100, L100.0100, L3890.6300, L509.4005 ####[facility] [address] [place], [address] RDW SD 41.0 fl Normal 35.1-43.9 [facility] Comment on above: Performed By: #### L 509.8000, L3890.6005, BTS, L3890.6100, L100.0100, L3890.6300, L509.4005 ####[facility] [address] [place], [address] WBC (Bld) [#/Vol] 8.9 10*3/uL Normal 4.4-11.0 [facility] Comment on above: Performed By: #### L 509.8000, L3890.6005, BTS, L3890.6100, L100.0100, L3890.6300, L509.4005 ####[facility] [address] [place], [place], [phone] Eosinophil percentageOrdered By: Dayanara Chrsitie on 10-19-2024 Eosinophils/100 WBC (Bld) 1.1 % 0-5 [facility] Erythrocyte distribution wid th ratioOrdered By: Dayanara Christie on 10-19-2024 Erythrocyte distribution width (RBC) [Ratio] 12.6 % 11.6-14.6 [facility] Erythrocyte distribution wid th standard deviationOrdered By: Dayanara Christie on 10-19-2024 Erythrocyte distribution width (RBC) [Entitic vol] 41.0 fL 35.1-43.9 [facility] HIV - WCHon 10-19-2024 HIV Non-Reactive Normal Nonreactive [facility] Comment on above: Order Comment: Reaso n for Exam: Performed By: #### L 509.8000, L3890.6005, BTS, L3890.6100, L100.0100, L3890.6300, L509.4005 ####[facility] [address] [facility] [address] [place], [place], [phone] HIV 1+2 Ab+HIV1 p24 Ag IA Ql Ordered By: Dayanara Chrsitie on 10-19-2024 HIV (1&2) Antibody Non-Reactive Nonreactive [facility] Hematocrit Auto (Bld) [Volum e fraction]Ordered By: Dayanara Christie on 10-19-2024 Hematocrit (Bld) [Volume fraction] 42.9 % 37-47 [facility] Hemoglobin measurementOrdere d By: Dayanara Christie on 10-19-2024 Hemoglobin (Bld) [Mass/Vol] 14.3 g/dL 12.0-15.0 [facility] Hepatitis B Surface Antigeno n 10-19-2024 HEP B Surf Ag Non-Reactive Normal Nonreactive [facility] Comment on above: Order Comment: Reaso n for Exam: Performed By: #### L 509.8000, L3890.6005, BTS, L3890.6100, L100.0100, L3890.6300, L509.4005 ####[facility] [address] [place], [address] Hepatitis B surface antigen detectionOrdered By: Dayanara Christie on 10-19-2024 Hepatitis B Surface Antigen Non-Reactive Nonreactive [facility] Hepatitis C Antibodyon 10-19 Hepatitis C AB Non-Reactive Normal Nonreactive [facility] Comment on above: Order Comment: Reaso n for Exam: Result Comment: Non Reactive: < 0.8 Equivocal: >/= 0.8 to < 1.0 Reactive: >/= 1.0 The [facility] requires that a reactive/equivocal HCV antibody result be sent out for confirmation. HCV Quant by PCR testing. Performed By: #### L 509.8000, L3890.6005, BTS, L3890.6100, L100.0100, L3890.6300, L509.4005 ####[facility] [address] [place], [address] Hepatitis C virus antibody a ssayOrdered By: Dayanara Christie on 10-19-2024 Hepatitis C Antibody Non-Reactive Nonreactive [facility] Comment on above: Non Reactive: < 0.8 Equivocal: >/= 0.8 to < 1.0 Reactive: >/= 1.0The [facility] requires that a reactive/equivocal HCV antibody result be sent out for confirmation. HCV Quant by PCR testing. Immature granulocytes/100 WB C Auto (Bld)Ordered By: Dayanara Christie on 10-19-2024 Immature granulocytes/100 WBC (Bld) 0.300 % 0.0-0.9 [facility] Comment on above: IG% - Immature Granu locytes (promyelocytes, myelocytes and metamyelocytes) > 1% indicates that a LEFT SHIFT is Present. L509.8000on 10-19-2024 Syphilis Abs Non-Reactive Normal [facility] Comment on above: Order Comment: Reaso n for Exam: Performed By: #### L 509.8000, L3890.6005, BTS, L3890.6100, L100.0100, L3890.6300, L509.4005 ####[facility] [address] [place], [address] Lymphocytes Auto (Unsp spec) [#/Vol]Ordered By: Dayanara Christie on 10-19-2024 Lymphocytes (Bld) [#/Vol] 2.20 10*3/uL 0.83-4.51 [facility] Lymphocytes/100 WBC Auto (Un sp spec)Ordered By: Dayanara Christie on 10-19-2024 Lymphocytes/100 WBC (Bld) 24.8 % 19-41 [facility] MCV (mean corpuscular volume ) determinationOrdered By: Dayanara Christie on 10-19-2024 MCV (RBC) [Entitic vol] 88.6 fL 81-99 [facility] Mean corpuscular hemoglobin (MCH) determinationOrdered By: Dayanara Christie on 10-19-2024 MCH (RBC) [Entitic mass] 29.5 pg 27.0-32.0 [facility] Mean corpuscular hemoglobin concentration (MCHC) determinationOrdered By: Dayanara Christie on 10-19-2024 MCHC (RBC) [Mass/Vol] 33.3 g/dL 32-36 [facility] Mean platelet volume determi nationOrdered By: Dayanara Christie on 10-19-2024 Platelet mean volume (Bld) [Entitic vol] 9.8 fL 6.2-12.0 [facility] Monocyte percentageOrdered B y: Dayanara Christie on 10-19-2024 Monocytes/100 WBC (Bld) 6.8 % 0-10 [facility] Neisseria gonorrhoeae nuclei c acid detection by amplified probe techniqueOrdered By: Dayanara Christie on 10-19-2024 N. gonorrhoeae DNA PHILIP+probe Ql (Unsp spec) Negative Negative [facility] Comment on above: Performed at: =[address] [id number] Director: Chantel Sánchez MD, Phone: [phone] Neutrophil percentageOrdered By: Dayanara Christie on 10-19-2024 Neutrophils/100 WBC (Bld) 66.5 % 47-70 [facility] Nucleated red blood cell per centageOrdered By: Dayanara Christie on 10-19-2024 Nucleated RBC/100 WBC (Bld) [Ratio] 0 % 0-5 [facility] [employer] Office Visit Reporton 10-19-2024 [employer] [facility] Office Visit Report [facility] [address], [address] [place] [address] OFFICE VISIT Date of Service: 10/19/24 MR#: [id number] Acct: [id number] Name: JANICE VELAZQUEZ Rep #: [id number] : 1995 Provider: DEEP boston Age/Sex: 28/F Location: [facility] Status: Signed Intake Vital Signs 07/17/24 14:52 10/19/24 11:17 10/19/24 11:22 Height 5 ft 3 in 5 ft 3 in 5 ft 3 in Weight: 164 lb 2 oz BMI 29.0 BP 120/81 H Intake Visit Reasons: New OB, LMP 08/22/24, DEE 05/29/25 Heel Sewer Required: No Is patient in pain?: No Allergies No Known Allergies Allergy (Verified 10/19/24 11:18) Medications ???Medication ???Instructions ???Recorded ???Confirmed ???Type doxylamine succinate 25 mg tablet 25 mg PO QHS PRN 10/12/24 10/12/24 History (Unisom (doxylamine)) multivit-min no.71-iron fum 28 cap PO 10/12/24 10/12/24 History mg-folate no.1 1 mg-dha 300 mg capsule (PNV-[place]) Last Menstrual Period: 08/22/24 Zika: Zika virus [...] 5-6 times per week duration: 45-60 minutes/day ross/sabianist: Yarsani seatbelt use: always do you feel safe [...] 34 live - 5# 15oz Male epidural [facility] Delivery Date: 09/27/23 Last Updated by: Davina [...] 146 -???-???- (more content not included)... Normal [facility] Platelet countOrdered By: Anamaria Christie on 10-19-2024 Platelets (Bld) [#/Vol] 431 10*3/uL 150-450 [facility] RBC Auto (Bld) [#/Vol]Ordere d By: Dayanara Christie on 10-19-2024 RBC (Bld) [#/Vol] 4.84 10*6/uL 4.2-5.4 [facility] Rubella IgGon 10-19-2024 Rubella IgG Reactive Normal Nonreactive [facility] Comment on above: Order Comment: Reaso n for Exam: Result Comment: Anti body Results Interpretation of Immune Status Non Reactive Presumed Non-Immune Equivocal Equivocal Reactive Presumed Immune Performed By: #### L 509.8000, L3890.6005, BTS, L3890.6100, L100.0100, L3890.6300, L509.4005 ####[facility] [address] [place], [place], [id number] Rubella immune status IgGOrd ered By: Dayanara Christie on 10-19-2024 Rubella IgG Antibody Reactive Nonreactive [facility] Comment on above: Antibody Results Int erpretation of Immune Status Non Reactive Presumed Non-Immune Equivocal Equivocal Reactive Presumed Immune Treponema sp Ab Ql (S)Ordere d By: Dayanara Christie on 10-19-2024 Syphilis Total Antibody Non-Reactive [facility] Type AND Screenon 10-19-2024 ABO and Rh group Nom (Bld) Blood group A Rh(D) positive Normal [facility] Comment on above: Order Comment: PN Performed By: #### L 509.8000, L3890.6005, BTS, L3890.6100, L100.0100, L3890.6300, L509.4005 ####[facility] [address] [place], [place], [phone] Urine cultureOrdered By: Sue Christie on 10-19-2024 Bacteria identified Cx Nom (U) Culture exhibits no growth. [facility] White blood cell (WBC) count Ordered By: Dayanara Christie on 10-19-2024 WBC (Bld) [#/Vol] 8.9 10*3/uL 4.4-11.0 [facility] Urgent Care Visit Reporton 1 Urgent Care Visit Report [facility] [address], [address] [place], [place] [id number] OFFICE VISIT Date of Service: 08/14/24 MR#: [id number] Acct: [id number] Name: JANICE VELAZQUEZ Rep #: [id number] : 1995 Provider: COLUMBA Obrien Age/Sex: 28/F Location[place] [facility] Status: Signed Intake Vital Signs 07/17/24 14:52 [...] KNEE PAIN Chief Complaint: right knee pain Heel Sewer Required: No Is patient in pain?: Yes [...] repair to right side 15 years ago. 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 No [id number]-[id number] products been taken to assist. No other [...] Status: Acut (more content not included)... Normal [facility] Lumbar Spine 2 or 3 Viewson 07-18-2024 Lumbar Spine 2 or 3 Views [facility] [address] [place] [address] Lumbar Spine 2 or 3 Views MR#: [id number] Acct: [id number] Name: JANICE VELAZQUEZ Rep #: [id number] : 1995 F 28 From: Jules Kang MD PCP: Dr. Nirav Perez MD Status: REG CLI Study: Lumbar Spine 2 or 3 Views Date of Exam: Exam# [id number] Ordering Dr: Jaci Moore CONTROL INTEGRATION ENGINEERKenroy [id number] STUDY: X-RAY - LUMBAR SPINE REASON FOR [...] Kang MD at 8:55 EDT , CC: CONTROL INTEGRATION ENGINEER-C Jaci Moore; Dr. Nirav Perez MD Mechanical Systems Control Engineer: Signed Normal [facility] Internal Medicine Office Vis itomichelle 07-17-2024 Internal Medicine Office Visit [facility] [place] [address] [place] [address] OFFICE VISIT Date of Service: 07/17/24 MR#: [id number] Acct: [id number] Name: JANICE VELAZQUEZ Rep #: [id number] : 1995 Provider: ASTER jay Age/Sex: 28/F Location[place] [facility] Status: Signed Intake Vital Signs 11/10/23 14:50 [...] Visit Reasons: acute - lower back pain Heel Sewer Required: No Is patient in pain?: Yes [...] it below a 3 in awhile though. 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 Normal [facility] Culture, urineOrdered By: Joseph Chirinos on 09-19-2023 Bacteria identified Cx Nom (U) Culture exhibits no growth. [facility] Laboratory - Chemistry and C hemistry - challengeon 09-19-2023 Bilirubin Ql (U) Negative [facility] Glucose Ql (U) Negative [facility] Ketones Ql (U) Negative [facility] pH (U) 5.0 [pH] [facility] Specific gravity (U) [Rel density] 1.010 [facility] Urobilinogen (U) [Mass/Vol] Negative [facility] Laboratory - Hematology and Cell countson 09-19-2023 Hemoglobin Ql (U) Negative [facility] - Specimen inform ationon 09-19-2023 Clarity (U) Cloudy [facility] Color (U) YELLOW [facility] Laboratory - Urinalysison Nitrite Ql (U) Negative [facility] Protein Ql (U) Negative [facility] No Panel Informationon 09-19 Urine Leukocytes Positive [facility] Urine Non-Hemolyzed Blood Negative [facility] Laboratory - Chemistry and C hemistry - challengeon 09-12-2023 Glucose Ql (U) Negative [facility] - Urinalysison Protein Ql (U) Negative [facility] - Chemistry and C hemistry - challengeon 08-29-2023 Glucose Ql (U) Negative [facility] - Urinalysison Protein Ql (U) Negative [facility] - Chemistry and C hemistry - challengeon 08-12-2023 Glucose Ql (U) Negative [facility] - Urinalysison Protein Ql (U) Negative [facility] - Microbiology an d Antimicrobial susceptibilityon 08-09-2023 S. pyogenes Ag IA Ql (Unsp spec) Negative [facility] SARS-CoV-2 (COVID-19) RNA PHILIP+probe Ql (Unsp spec) Not detected [facility] No Panel Informationon 08-09 Influenza Types A,B Rapid (Clinic) Not detected [facility] Absolute lymphocyte countOrd ered By: Dayanara Christie on 07-19-2023 Lymphocytes Auto (Unsp spec) [#/Vol] 1.87 10*3/uL 0.83-4.51 [facility] Basophil percentageOrdered B y: Dayanara Christie on 07-19-2023 Basophils/100 WBC (Bld) 0.4 % 0-1 [facility] Eosinophils/100 WBC (Bld) 2.8 % 0-5 [facility] Neutrophils (Bld) [#/Vol] 7.2 10*3/uL 2.0-7.7 [facility] Neutrophils/100 WBC (Bld) 72.4 % 47-70 [facility] WBC (Bld) [#/Vol] 10.0 10*3/uL 4.4-11.0 [facility] Blood erythrocytes count (nu mber/volume)Ordered By: Dayanara Christie on 07-19-2023 RBC (Bld) [#/Vol] 4.10 10*6/uL 4.2-5.4 [facility] Blood hemoglobin measurement (mass/volume)Ordered By: Dayanara Christie on 07-19-2023 Hemoglobin (Bld) [Mass/Vol] 12.8 g/dL 12.0-15.0 [facility] Blood lymphocytes/100 leukoc ytesOrdered By: Dayanara Christie on 07-19-2023 Lymphocytes/100 WBC (Bld) 18.7 % 19-41 [facility] Blood monocytes/100 leukocyt esOrdered By: Dayanara Christie on 07-19-2023 Monocytes/100 WBC (Bld) 4.7 % 0-10 [facility] Blood platelet mean volumeOr dered By: Dayanara Christie on 07-19-2023 Platelet mean volume (Bld) [Entitic vol] 10.0 fL 6.2-12.0 [facility] Determination of erythrocyte mean corpuscular volume (MCV)Ordered By: Dayanara Christie on 07-19-2023 MCV (RBC) [Entitic vol] 93.4 fL 81-99 [facility] Gestational diabetes screen 1-hour screen with 50g oral glucose loadOrdered By: Dayanara Christie on 07-19-2023 Glucose 1 Hr post 50 g glucose PO [Mass/Vol] 132 mg/dL 70-140 [facility] HIV 1 and HIV-2 antibody ass ay with HIV-1 p24 antigen detectionOrdered By: Dayanara Christie on 07-19-2023 HIV 1+2 Ab+HIV1 p24 Ag IA Ql Non-Reactive Nonreactive [facility] Hematocrit Auto (Bld) [Volum e fraction]Ordered By: Dayanara Christie on 07-19-2023 Hematocrit (Bld) [Volume fraction] 38.3 % 37-47 [facility] Laboratory - Hematology and Cell countsOrdered By: Dayanara Christie on 07-19-2023 Erythrocyte distribution width (RBC) [Entitic vol] 44.2 fL 35.1-43.9 [facility] Erythrocyte distribution width (RBC) [Ratio] 12.9 % 11.6-14.6 [facility] Immature granulocytes/100 WBC (Bld) 1.000 % 0.0-0.9 [facility] Comment on above: IG% - Immature Granu locytes (promyelocytes, myelocytes and metamyelocytes) > 1% indicates that a LEFT SHIFT is Present. MCH (RBC) [Entitic mass] 31.2 pg 27.0-32.0 [facility] Nucleated RBC/100 WBC (Bld) [Ratio] 0 % 0-5 [facility] MCHC Auto (RBC) [Mass/Vol]Or dered By: Dayanara Christie on 07-19-2023 MCHC (RBC) [Mass/Vol] 33.4 g/dL 32-36 [facility] Platelets bldOrdered By: Sue Christie on 07-19-2023 Platelets (Bld) [#/Vol] 286 10*3/uL 150-450 [facility] Serum Treponema species anti body detectionOrdered By: Dayanara Christie on 07-19-2023 Treponema sp Ab Ql (S) Non-Reactive [facility] Laboratory - Chemistry and C hemistry - challengeon 07-18-2023 Glucose Ql (U) Negative [facility] - Urinalysison Protein Ql (U) Negative [facility] - Chemistry and C hemistry - challengeon 06-20-2023 Glucose Ql (U) Negative [facility] - Urinalysison Protein Ql (U) Negative [facility] Absolute lymphocyte countOrd ered By: Stephania Velasco on 05-27-2023 Lymphocytes Auto (Unsp spec) [#/Vol] 1.84 10*3/uL 0.83-4.51 [facility] Basophil percentageOrdered B y: Stephania Velasco on 05-27-2023 Basophils/100 WBC (Bld) 0.3 % 0-1 [facility] Eosinophils/100 WBC (Bld) 0.9 % 0-5 [facility] Neutrophils (Bld) [#/Vol] 6.7 10*3/uL 2.0-7.7 [facility] Neutrophils/100 WBC (Bld) 73.5 % 47-70 [facility] WBC (Bld) [#/Vol] 9.2 10*3/uL 4.4-11.0 [facility] Blood erythrocytes count (nu mber/volume)Ordered By: Stephania Velasco on 05-27-2023 RBC (Bld) [#/Vol] 4.40 10*6/uL 4.2-5.4 [facility] Blood hemoglobin measurement (mass/volume)Ordered By: Stephania Velasco on 05-27-2023 Hemoglobin (Bld) [Mass/Vol] 13.3 g/dL 12.0-15.0 [facility] Blood lymphocytes/100 leukoc ytesOrdered By: Stephania Velasco on 05-27-2023 Lymphocytes/100 WBC (Bld) 20.1 % 19-41 [facility] Blood monocytes/100 leukocyt esOrdered By: Stephania Velasco on 05-27-2023 Monocytes/100 WBC (Bld) 4.9 % 0-10 [facility] Blood platelet mean volumeOr dered By: Stephania Velasco on 05-27-2023 Platelet mean volume (Bld) [Entitic vol] 9.9 fL 6.2-12.0 [facility] Determination of erythrocyte mean corpuscular volume (MCV)Ordered By: Stephania Velasco on 05-27-2023 MCV (RBC) [Entitic vol] 91.1 fL 81-99 [facility] HIV 1 and HIV-2 antibody ass ay with HIV-1 p24 antigen detectionOrdered By: Stephania Velasco on 05-27-2023 HIV 1+2 Ab+HIV1 p24 Ag IA Ql Non-Reactive Nonreactive [facility] Hematocrit Auto (Bld) [Volum e fraction]Ordered By: Stephania Velasco on 05-27-2023 Hematocrit (Bld) [Volume fraction] 40.1 % 37-47 [facility] Laboratory - Chemistry and C hemistry - challengeon 05-27-2023 Glucose Ql (U) Negative [facility] Laboratory - Hematology and Cell countsOrdered By: Stephania Velasco on 05-27-2023 Erythrocyte distribution width (RBC) [Entitic vol] 41.1 fL 35.1-43.9 [facility] Erythrocyte distribution width (RBC) [Ratio] 12.3 % 11.6-14.6 [facility] Immature granulocytes/100 WBC (Bld) 0.300 % 0.0-0.9 [facility] Comment on above: IG% - Immature Granu locytes (promyelocytes, myelocytes and metamyelocytes) > 1% indicates that a LEFT SHIFT is Present. MCH (RBC) [Entitic mass] 30.2 pg 27.0-32.0 [facility] Nucleated RBC/100 WBC (Bld) [Ratio] 0 % 0-5 [facility] Laboratory - Urinalysison Protein Ql (U) Negative [facility] MCHC Auto (RBC) [Mass/Vol]Or dered By: Stephania Velasco on 05-27-2023 MCHC (RBC) [Mass/Vol] 33.2 g/dL 32-36 [facility] No Panel InformationOrdered By: Stephania Velasco on 05-27-2023 Hepatitis B Surface Antigen Non-Reactive Nonreactive [facility] Hepatitis C Antibody Non-Reactive Nonreactive [facility] Comment on above: Non Reactive: < 0.8 Equivocal: >/= 0.8 to < 1.0 Reactive: >/= 1.0The CDC recommends that a reactive/equivocal HCV antibody result be followed up by the HCV Nucleic Acid Amplificationtest (222261) Miscellaneous Test See comment [facility] Comment on above: TEST RESULTS LIMITSA FP, [...] Genetic CustomerServices to discuss available options. The [employer] recommends amniocentesis be offered to women age 35 and older. Comment: Beronica Rutherford, Ph.D., DABCCDirectorReferences: Available Upon Request.Multiples Of Median Cutoffs For AFP ElevationsSingleton 2.5 Black 2.8IDD 2.0 Twins 4.5 Abbreviation DefinitionsIDD - Insulin Dep DiabetesOSBR - Open Spina Bifida RiskFor further inquiries contact [employer] at [phone].This test was developed and its performance characteristicsdetermined by [employer]. It has not been cleared or approvedby the Food and Drug Administration. TESTING PERFORMED AT [facility]. ORIGINAL REPORT ON FILE IN LAB CONTAINS ADDITIONAL TEST SITE INFORMATION. Rubella IgG Antibody Reactive Nonreactive [facility] Comment on above: Antibody Results Int erpretation of Immune Status Non Reactive Presumed Non-Immune Equivocal Equivocal Reactive Presumed Immune Platelets bldOrdered By: Hedy Velasco on 05-27-2023 Platelets (Bld) [#/Vol] 306 10*3/uL 150-450 [facility] Serum Treponema species anti body detectionOrdered By: Stephania Velasco on 05-27-2023 Treponema sp Ab Ql (S) Non-Reactive [facility] Laboratory - Chemistry and C hemistry - challengeon 04-29-2023 Glucose Ql (U) Negative [facility] Laboratory - Urinalysison Protein Ql (U) Negative [facility] Chlamydia trachomatis rRNA d etection by probe and target amplification methodOrdered By: Stephania Velasco on 03-30-2023 C. trachomatis rRNA PHILIP+probe Ql (Unsp spec) Negative Negative [facility] Culture, urineOrdered By: Fabio Velasco on 03-30-2023 Bacteria identified Cx Nom (U) Positive [facility] Laboratory - Microbiology an d Antimicrobial susceptibilityOrdered By: Stephania Velasco on 03-30-2023 N. gonorrhoeae DNA PHILIP+probe Ql (Unsp spec) Negative Negative [facility] Comment on above: Performed at: =[address] [id number] Director: Chantel Sánchez MD, Phone: [phone] Laboratory - Microbiology an d Antimicrobial susceptibilityon 12-13-2022 S. pyogenes Ag IA Ql (Unsp spec) Positive [facility] Cervical or vagninal specime n microscopic examination by cytology stain (reported asOrdered By: Vannessa Chirinos on 12-07-2022 Cytology report Cyto stain Doc (Cvx/Vag) Comment . [facility] Comment on above: The Pap smear is a s creening test designed to aid in thedetection of premalignant and malignant conditions of theuterine cervix. It is not a diagnostic procedure andshould not be used as the sole means of detecting cervicalcancer. Both false-positive and false-negative reports dooccur. Laboratory - CytologyOrdered By: Vannessa Chirinos on 12-07-2022 Ostomy Nurse Cyto stain Nom (Cvx/Vag) [ID] Comment . [facility] Comment on above: Kate Melo [employer] hnologist (ASCP) Laboratory - Miscellaneous t estsOrdered By: Vannessa Chirinos on 12-07-2022 Service comment (Unsp spec) [Interp] Comment . [facility] Comment on above: This liquid based Th inPrep(R) pap test was screened withthe use of an image guided system. Service comment (Unsp spec) [Interp] . . [facility] No Panel InformationOrdered By: Vannessa Chirinos on 12-07-2022 Human Papillomavirus Screen Comment . [facility] Comment on above: The HPV DNA reflex c emili were not met with this specimenresult therefore, no HPV testing was performed.Performed at: [address] [id number] Director: Chantel Sánchez MD, Phone: [phone] Pathology report final diagnosis Narrative Comment . [facility] Comment on above: NEGATIVE FOR INTRAEP ITHELIAL LESION OR MALIGNANCY. Laboratory - Microbiology an d Antimicrobial susceptibilityon 11-06-2022 S. pyogenes Ag IA Ql (Unsp spec) Negative [facility] Office Visit: est annualon 1 10-31-2016 Documentation of current medications (procedure) Done Invalid Interpretation Code [facility] Fall risk assessment No Invalid Interpretation Code [facility] Tobacco smoking status NHIS Never Invalid Interpretation Code [facility] Tobacco use CPHS Never smoker Invalid Interpretation Code [facility] Lab Report: ,Urineo n 08-11-2017 HCG.beta subunit ( test) Ql (U) Negative Invalid Interpretation Code [facility] Work Phone: [phone] Microbiology: Culture, Throa ton 08-06-2017 CUT Vancomycin $ 1 S Invalid Interpretation Code [facility] Work Phone: [phone] Lab Report: CBC W/Diff, Auto matedon 08-02-2017 Lymphocytes variants/100 leukocytes RARE % Invalid Interpretation Code [facility] Work Phone: [phone] Platelets presence ADEQUATE Invalid Interpretation Code ADEQ [facility] Work Phone: [phone] REACTIVE LYMPH 1+ Invalid Interpretation Code [facility] Work Phone: [phone] SMEAR COMMENT SCANNED Invalid Interpretation Code [facility] Work Phone: [phone] Office Visit: Est. Pt. Visit on 08-02-2017 Documentation of current medications (procedure) Done Invalid Interpretation Code [facility] Work Phone: [phone] Fall risk assessment No Invalid Interpretation Code [facility] Work Phone: [phone] Protein mass conc Done Invalid Interpretation Code [facility] Work Phone: [phone] Tobacco smoking status NHIS Never Invalid Interpretation Code [facility] Work Phone: [phone] Tobacco smoking status NHIS Never smoker Invalid Interpretation Code [facility] Work Phone: [phone] Tobacco use [facility] Never smoker Invalid Interpretation Code [facility] Work Phone: [phone] Replaced Document: (P) CBC W /Diff, Automatedon 08-02-2017 Absolute Neut 3.1 X10 3/UL Invalid Interpretation Code 2.0-7.7 [facility] Work Phone: [phone] Basophils/100 WBC Auto (Bld) 0.6 % Invalid Interpretation Code 0-1 [facility] Work Phone: [phone] Eosinophils/100 leukocytes 0.5 % Invalid Interpretation Code 0-5 [facility] Work Phone: [phone] Erythrocyte distribution width Auto Ratio (RBC) 12.6 % Invalid Interpretation Code 11.6-14.6 [facility] Work Phone: [phone] Erythrocyte distribution width Auto Ratio (RBC) 41.8 fL Invalid Interpretation Code 35.1-43.9 [facility] Work Phone: [phone] Erythrocytes (RBC) 4.45 10*6/uL Invalid Interpretation Code 4.2-5.4 [facility] Work Phone: [phone] Hematocrit (HCT) 41.2 % Invalid Interpretation Code 37-47 [facility] Work Phone: [phone] Hemoglobin mass conc (Bld) 13.5 g/dL Invalid Interpretation Code 12.0-15.0 [facility] Work Phone: Immature granulocytes #/vol (Bld) 0.200 % Invalid Interpretation Code 0.0-0.9 [facility] Work Phone: [phone] Immature granulocytes/100 WBC (Bld) 0.200 % Invalid Interpretation Code 0.0-0.9 [facility] Work Phone: [phone] Lymphocytes 2.16 X10 3/UL Invalid Interpretation Code 0.83-4.51 [facility] Work Phone: [phone] Lymphocytes/100 leukocytes 34.4 % Invalid Interpretation Code 19-41 [facility] Work Phone: [phone] MCH 30.3 pg Invalid Interpretation Code 27.0-32.0 [facility] Work Phone: [phone] MCHC mass conc (RBC) 32.8 G/GL Invalid Interpretation Code 32-36 [facility] Work Phone: [phone] MCV 92.6 fL Invalid Interpretation Code 81-99 [facility] Work Phone: [phone] Monocytes/100 leukocytes 15.6 % High 0-10 [facility] Work Phone: [phone] Neutrophils Auto #/vol (Bld) 3.1 X10 3/UL Invalid Interpretation Code 2.0-7.7 [facility] Work Phone: [phone] Neutrophils/100 WBC Auto (Bld) 48.7 % Invalid Interpretation Code 47-70 [facility] Work Phone: [phone] Platelets 238 10*3/mm3 Invalid Interpretation Code 150-450 [facility] Work Phone: [phone] PMV by Naty 10.3 fL Invalid Interpretation Code 6.2-12.0 [facility] Work Phone: [phone] RDW SD 41.8 fL Invalid Interpretation Code 35.1-43.9 [facility] Work Phone: [phone] WBC (Leukocytes) 6.3 10*3/uL Invalid Interpretation Code 4.4-11.0 [facility] Work Phone: [phone] Microbiology: Culture, R/O S trep Aon 08-01-2017 CUSTREPA . Invalid Interpretation Code [facility] Work Phone: Append: UC: Still has a sore throaton 07-30-2017 Rapid strep test Negative Invalid Interpretation Code [facility] Work Phone: S. pyogenes DNA PHILIP+probe Ql (Throat) Negative Invalid Interpretation Code [facility] Work Phone: [phone] Office Visit: UC: Still has a sore throaton 07-30-2017 Documentation of current medications (procedure) Done Invalid Interpretation Code [facility] Work Phone: Fall risk assessment No Invalid Interpretation Code [facility] Work Phone: Tobacco smoking status NHIS Never Invalid Interpretation Code [facility] Work Phone: Tobacco use HS Never smoker Invalid Interpretation Code [facility] Work Phone: Office Visit: acute visit, s trep tonsillitison 07-20-2017 Documentation of current medications (procedure) Done Invalid Interpretation Code [facility] Work Phone: Fall risk assessment No Invalid Interpretation Code [facility] Work Phone: Tobacco smoking status NHIS Never Invalid Interpretation Code [facility] Work Phone: Tobacco use HS Never smoker Invalid Interpretation Code [facility] Work Phone: Office Visit: UC: Sore throa ton 07-19-2017 Documentation of current medications (procedure) Done Invalid Interpretation Code [facility] Work Phone: Fall risk assessment No Invalid Interpretation Code [facility] Work Phone: Tobacco smoking status NHIS Never Invalid Interpretation Code [facility] Work Phone: Tobacco use CPHS Never smoker Invalid Interpretation Code [facility] Work Phone: Lab Report: Hep B Surface An tibodies EMPon 06-29-2017 GE use only - for [employer] import when terms are not otherwise specified Reactive Invalid Interpretation Code . [facility] Work Phone: [phone] Hep B Pema AB Reactive Invalid Interpretation Code . [facility] Work Phone: [phone] Lab Report: CBC, Employeeon 08-29-2017 Absolute Neut 2.3 X10 3/UL Invalid Interpretation Code 2.0-7.7 [facility] Work Phone: [phone] Basophils/100 leukocytes 0.8 % Invalid Interpretation Code 0-1 [facility] Work Phone: [phone] Basophils/100 WBC (Bld) 0.8 % 0-1 [facility] Work Phone: [phone] Eosinophils/100 leukocytes 2.4 % Invalid Interpretation Code 0-5 [facility] Work Phone: [phone] Eosinophils/100 WBC (Bld) 2.4 % 0-5 [facility] Work Phone: [phone] Erythrocyte distribution width Auto Ratio (RBC) 44.0 fL High 35.1-43.9 [facility] Work Phone: [phone] Erythrocyte distribution width Ratio (RBC) 44.0 fL High 35.1-43.9 [facility] Work Phone: [phone] Erythrocyte distribution width Ratio (RBC) 13.2 % 11.6-14.6 [facility] Work Phone: [phone] Erythrocytes (RBC) 4.69 10*6/uL Invalid Interpretation Code 4.2-5.4 [facility] Work Phone: [phone] Hematocrit (HCT) 44.1 % Invalid Interpretation Code 37-47 [facility] Work Phone: [phone] Hematocrit Volume Fraction (Bld) 44.1 % 37-47 [facility] Work Phone: [phone] Hemoglobin (HGB) 14.4 g/dL Invalid Interpretation Code 12.0-15.0 [facility] Work Phone: [phone] Lymphocytes 2.04 X10 3/UL Invalid Interpretation Code 0.83-4.51 [facility] Work Phone: [phone] Lymphocytes #/vol (Bld) 2.04 X10 3/UL 0.83-4.51 [facility] Work Phone: [phone] Lymphocytes/100 leukocytes 41.1 % High 19-41 [facility] Work Phone: [phone] Lymphocytes/100 WBC (Bld) 41.1 % High 19-41 [facility] Work Phone: [phone] MCH 30.7 pg Invalid Interpretation Code 27.0-32.0 [facility] Work Phone: [phone] MCH Entitic mass (RBC) 30.7 pg 27.0-32.0 Bl [facility] Work Phone: [phone] MCHC 32.7 G/GL Invalid Interpretation Code 32-36 [facility] Work Phone: [phone] MCHC mass conc (RBC) 32.7 G/GL 32-36 [facility] Work Phone: [phone] MCV 94.0 fL Invalid Interpretation Code 81-99 [facility] Work Phone: [phone] MCV Entitic volume (RBC) 94.0 fL 81-99 [facility] Work Phone: [phone] Monocytes/100 leukocytes 9.7 % Invalid Interpretation Code 0-10 [facility] Work Phone: [phone] Monocytes/100 WBC (Bld) 9.7 % 0-10 [facility] Work Phone: [phone] neutrophil count, blood 2.3 X10 3/UL Invalid Interpretation Code 2.0-7.7 [facility] Work Phone: [phone] Neutrophils #/vol (Bld) 2.3 X10 3/UL 2.0-7.7 [facility] Work Phone: [phone] Neutrophils Auto #/vol (Bld) 2.3 X10 3/UL Invalid Interpretation Code 2.0-7.7 [facility] Work Phone: [phone] Neutrophils/100 leukocytes 46.0 % Low 47-70 [facility] Work Phone: [phone] Neutrophils/100 WBC (Bld) 46.0 % Low 47-70 [facility] Work Phone: [phone] Platelet mean volume Entitic volume (Bld) 10.8 fL 6.2-12.0 [facility] Work Phone: [phone] Platelets 315 10*3/mm3 Invalid Interpretation Code 150-450 [facility] Work Phone: [phone] Platelets #/vol (Bld) 315 10*3/mm3 150-450 [facility] Work Phone: [phone] PMV by Naty 10.8 fL Invalid Interpretation Code 6.2-12.0 [facility] Work Phone: [phone] RBC #/vol (Bld) 4.69 10*6/uL 4.2-5.4 [facility] Work Phone: [phone] RDW SD 44.0 fL High 35.1-43.9 [facility] Work Phone: [phone] RDW-CA 13.2 % Invalid Interpretation Code 11.6-14.6 [facility] Work Phone: [phone] red blood cell distribution width, size density 44.0 fL High 35.1-43.9 [facility] Work Phone: [phone] WBC #/vol (Bld) 5.0 10*3/uL 4.4-11.0 [facility] Work Phone: [phone] WBC (Leukocytes) 5.0 10*3/uL Invalid Interpretation Code 4.4-11.0 [facility] Work Phone: [phone] Lab Report: Employee Profile on 06-28-2017 Alanine aminotransferase (ALT) 51 U/L Invalid Interpretation Code 12-78 [facility] Work Phone: [phone] Albumin 4.3 g/dL Invalid Interpretation Code 3.4-5.0 [facility] Work [phone] Albumin/Globulin Ratio 1.2 {ratio} Invalid Interpretation Code 0.9-2.4 [facility] Work Phone: [phone] Alkaline phosphatase (ALP) 72 U/L Invalid Interpretation Code 45-117 [facility] Work Phone: [phone] ALP enzyme act/vol (Bld) 72 U/L Invalid Interpretation Code 45-117 [facility] Work Phone: [phone] Anion gap 7 mmol/L Invalid Interpretation Code 5-15 [facility] Work Phone: [phone] Anion gap 4 molar conc 7 Invalid Interpretation Code 5-15 [facility] Work Phone: [phone] Anion gap molar conc 7 mmol/L 5-15 [facility] Work Phone: [phone] Aspartate aminotransferase (AST) 36 U/L Invalid Interpretation Code 15-37 [facility] Work Phone: [phone] Bilirubin (direct) 0.28 mg/dL Invalid Interpretation Code 0.00-0.30 [facility] Work Phone: [phone] Bilirubin (total) 1.40 mg/dL High 0.20-1.00 [facility] Work Phone: [phone] BUN/Creatinine Ratio 18.0 RATIO Invalid Interpretation Code 10-20 [facility] Work Phone: [phone] Calcium 9.3 mg/dL Invalid Interpretation Code 8.5-10.1 [facility] Work Phone: [phone] Chloride 106 mmol/L Invalid Interpretation Code 98-107 [facility] Work Phone: [phone] Cholesterol 168 mg/dL Invalid Interpretation Code 200 [facility] Work Phone: [phone] CO2 29.0 mmol/L Invalid Interpretation Code 21.0-32.0 [facility] Work Phone: [phone] CO2 ppres (BldV) 29.0 mmol/L Invalid Interpretation Code 21.0-32.0 [facility] Work Phone: [phone] Creatinine 0.94 mg/dL Invalid Interpretation Code 0.55-1.02 [facility] Work Phone: [phone] eGFR (non-black) 94 mL/min/{1.73_m2} Invalid Interpretation Code >60 [facility] Work Phone: [phone] eGFR (non-black) 78 mL/min/{1.73_m2} Invalid Interpretation Code >60 [facility] Work Phone: [phone] EST GFR - AA 94 mL/min Invalid Interpretation Code >60 [facility] Work Phone: [phone] Globulin 3.6 g/dL High 2.3-3.5 [facility] Work Phone: [phone] Globulin mass conc (S) 3.6 g/dL High 2.3-3.5 Bl [facility] Work Phone: [phone] Glucose 85 mg/dL Invalid Interpretation Code 70-110 [facility] Work Phone: [phone] Glucose mass conc 85 mg/dL Invalid Interpretation Code 70-110 [facility] Work Phone: [phone] HDL Cholesterol 84 mg/dL Invalid Interpretation Code [facility] Work Phone: [phone] lactate dehydrogenase - serum 233 U/L Invalid Interpretation Code 84-246 [facility] Work Phone: [phone] LDH 233 U/L Invalid Interpretation Code 84-246 [facility] Work Phone: [phone] LDL Cholesterol 74 mg/dL Invalid Interpretation Code 0-130 [facility] Work Phone: [phone] PHOS 3.2 mg/dL Invalid Interpretation Code 2.5-4.9 [facility] Work Phone: [phone] Phosphorus Concentratation-Random 3.2 mg/dL Invalid Interpretation Code 2.5-4.9 [facility] Work Phone: [phone] Potassium 3.8 mmol/L Invalid Interpretation Code 3.5-5.1 [facility] Work Phone: [phone] Protein 7.9 g/dL Invalid Interpretation Code 6.4-8.2 [facility] Work Phone: [phone] Sodium 142 mmol/L Invalid Interpretation Code 136-145 [facility] Work Phone: [phone] Triglyceride 50 mg/dL Invalid Interpretation Code [facility] Work Phone: [phone] Urate 4.2 mg/dL Invalid Interpretation Code 2.6-6.0 [facility] Work Phone: [phone] Urea nitrogen 17 mg/dL Invalid Interpretation Code 7-18 [facility] Work Phone: [phone] very low density lipoproteins 10 mg/dL Invalid Interpretation Code 5-40 [facility] Work Phone: [phone] Lab Report: Nicotine Urine D rug Screenon 06-28-2017 GE use only - for [employer] import when terms are not otherwise specified Negative Invalid Interpretation Code <200 ng/mL [facility] Work Phone: [phone] Lab Report: UrinalysisRicardo 06-28-2017 Albumin Ql (U) Negative Invalid Interpretation Code Negative [facility] Work Phone: [phone] Bilirubin Ql (U) Negative Invalid Interpretation Code Negative [facility] Work Phone: [phone] Ketones mass conc (U) Negative Invalid Interpretation Code Negative [facility] Work Phone: [phone] NITRITE UR Negative Invalid Interpretation Code Negative [facility] Work Phone: [phone] Nitrite Urine Negative Invalid Interpretation Code Negative [facility] Work Phone: [phone] Occult Blood, urine Negative Invalid Interpretation Code Negative [facility] Work Phone: [phone] OCCULT BLOOD-UR Negative Invalid Interpretation Code Negative [facility] Work Phone: [phone] pH (U) 7.0 [pH] 5.0 - 8.0 [facility] Work Phone: [phone] specific gravity, urine 1.015 Invalid Interpretation Code 1.002-1.030 [facility] Work Phone: [phone] Urine, bilirubin presence Negative Invalid Interpretation Code Negative [facility] Work Phone: [phone] Urine, clarity Clear Invalid Interpretation Code Clear [facility] Work Phone: [phone] Urine, color Yellow Invalid Interpretation Code Yellow [facility] Work Phone: [phone] Urine, glucose presence Normal mg/dl Invalid Interpretation Code Normal [facility] Work Phone: [phone] Urine, ketones presence Negative Invalid Interpretation Code Negative [facility] Work Phone: [phone] Urine, leukocyte esterase presence Negative Invalid Interpretation Code Negative [facility] Work Phone: [phone] Urine, pH 7.0 [pH] Invalid Interpretation Code 5.0 - 8.0 [facility] Work Phone: [phone] Urine, protein Negative Invalid Interpretation Code Negative [facility] Internal Medicine Work Phone: [phone] UROBILI Normal mg/dl Invalid Interpretation Code Normal [facility] Work Phone: [phone] urobilinogen, urine, by dipstick Normal mg/dl Invalid Interpretation Code Normal [facility] Work Phone: Office Visit: New Pt. Visito n 06-28-2017 Dietary management education, guidance, and counseling (procedure) yes Invalid Interpretation Code [employer] Work Phone: Documentation of current medications (procedure) Done Invalid Interpretation Code [employer] Work Phone: Fall risk assessment No Invalid Interpretation Code [employer] Work Phone: Protein mass conc Done [employer] [facility] Work Phone: [phone] Tobacco smoking status ALIS Never Invalid Interpretation Code [employer] Work Phone: Tobacco smoking status NHIS Never smoker [facility] Work Phone: Tobacco use [facility] Never smoker Invalid Interpretation Code [employer] Work Phone: Office Visiton 10-14-2016 Dietary management education, guidance, and counseling (procedure) yes Invalid Interpretation Code [facility] Work Phone: Documentation of current medications (procedure) Done Invalid Interpretation Code [facility] Work Phone: [phone] Protein mass conc Done [employer] Work Phone: Replaced Document: Luba Fatima CG Observationson 10-14-2016 EKG QRS axis 65 deg Invalid Interpretation Code [employer] Work Phone: electrocardiogram interpretation Sinus Bradycardia -Short NC syndrome Yazan = 112BORDERLINE RHYTHM Invalid Interpretation Code [facility] Work Phone: [phone] Interpretation Sinus Bradycardia -S hort NC syndrome Yazan = 112BORDERLINE RHYTHM Invalid Interpretation Code [employer] Work Phone: P Vining 34 deg Invalid Interpretation Code [employer] Work Phone: P wave axis, electrocardiogram 34 deg Invalid Interpretation Code [facility] Work Phone: [phone] NC Interval 112 ms Invalid Interpretation Code [employer] Work Phone: NC interval, electrocardiogram 112 ms Invalid Interpretation Code [facility] Work Phone: [phone] Pulse (Heart Rate) 57 /min Invalid Interpretation Code [facility] Work Phone: [phone] QRS axis, electrocardiogram 65 deg Invalid Interpretation Code [facility] Work Phone: [phone] QRS Duration 82 ms Invalid Interpretation Code [facility] Work Phone: QRS duration, electrocardiogram 82 ms Invalid Interpretation Code [facility] Work Phone: [phone] QT Interval new path ms Invalid Interpretation Code [employer] [facility] Work Phone: QT interval, electrocardiogram new path ms Invalid Interpretation Code [facility] Work Phone: [phone] QTc Mejia 435 ms [employer] [facility] Work Phone: T Vining -1 deg Invalid Interpretation Code [employer] [facility] Work Phone: T wave axis, electrocardiogram -1 deg Invalid Interpretation Code [facility] Work Phone: [phone] Clinical Lists Update: 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 10-13-2016 Tobacco smoking status NHIS Never smoker [employer] [facility] Work Phone: Tobacco use [facility] Never smoker Invalid Interpretation Code [facility] Work Phone: [phone] Left ventricular Ejection fraction 60 % Invalid Interpretation Code [facility] Work Phone: Office Visit: Spine Visiton 07-13-2016 Tobacco smoking status [facility] Never Invalid Interpretation Code [employer] [facility] Work Phone: Clinical Lists Update: 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 Work Phone: AST enzyme act/vol 28 U/L [facility] Work Phone: Bilirubin mass conc 2.60 mg/dL [facility] [employer] [facility] Work Phone: Calcium mass conc 8.5 mg/dL [facility] [employer] [facility] Work Phone: Chloride molar conc 103 mmol/L [facility] Work Phone: [phone] Cholesterol in HDL mass conc 88 mg/dL [facility] Work Phone: [phone] Cholesterol in LDL mass conc 57 mg/dL [facility] Work Phone: [phone] Cholesterol mass conc 159 mg/dL [facility] Work Phone: [phone] CO2 ppres (BldV) 28.0 mmol/L [facility] Work Phone: [phone] Creatinine mass conc 0.86 mg/dL [facility] Work Phone: [phone] Glucose mass conc 84 mg/dL [facility] Work Phone: [phone] Hematocrit Volume Fraction (Bld) 39.8 % [facility] Work Phone: [phone] Hemoglobin mass conc (Bld) 13.2 g/dL [facility] Work Phone: [phone] Platelets #/vol (Bld) 298 10*3/mm3 [facility] Work Phone: [phone] Potassium molar conc 3.5 mmol/L [facility] Work Phone: [phone] Protein mass conc 6.8 g/dL [facility] Work Phone: [phone] Sodium molar conc 137 mmol/L [facility] Work Phone: [phone] Triglyceride mass conc 70 mg/dL [facility] Work Phone: [phone] Urea nitrogen mass conc 13 mg/dL [facility] Work Phone: [phone] Urea nitrogen/Creatinine mass ratio 15.1 mg/mg [facility] Work Phone: [phone] WBC #/vol (Bld) 6.3 10*3/uL [facility] Work Phone: Office Visit: est annualon 0 07-01-2016 General categories [Interpretation] of Cervical or vaginal smear or scraping by Cyto stain Normal Invalid Interpretation Code [facility] Vital Signs Date Time Vital Sign Value Performing Clinician Coretta chambers 05-02-2025 15:33-0400 Body height 162.[address] Nirav Perez MD Work Phone: [facility] 05-02-2025 15:33-0400 Body mass index (BMI) [Ratio] 32.3 kg/m2 Dr. Nirav Perez MD Work Phone: [facility] 05-02-2025 15:33-0400 Body weight 85.[address] Nirav Perez MD Work Phone: [facility] 05-02-2025 15:33-0400 Diastolic blood pressure 72 mm[Hg] Dr. Nirav Perez MD Work Phone: [facility] 05-02-2025 15:33-0400 Systolic blood pressure 118 mm[Hg] Dr. Nirav Perez MD Work Phone: [facility] 04-18-2025 16:03-0400 Body height 162.[address] Nirav Perez MD Work Phone: [facility] 04-18-2025 16:03-0400 Body mass index (BMI) [Ratio] 32.3 kg/m2 Dr. Nirav Perez MD Work Phone: [facility] 04-18-2025 16:03-0400 Body weight 85.[address] Nirav Perez MD Work Phone: [facility] 04-18-2025 16:03-0400 Diastolic blood pressure 70 mm[Hg] Dr. Nirav Perez MD Work Phone: [facility] 04-18-2025 16:03-0400 Systolic blood pressure 108 mm[Hg] Dr. Nirav Perez MD Work Phone: [facility] 04-17-2025 16:35-0400 Body temperature 98.7 [degF] Dr. Nirav Perez MD Work Phone: [facility] 04-17-2025 16:35-0400 Diastolic blood pressure 67 mm[Hg] Dr. Nirav Perez MD Work Phone: [facility] 04-17-2025 16:35-0400 Heart rate 96 /min Dr. Nirav Perez MD Work Phone: [facility] 04-17-2025 16:35-0400 Respiratory rate 16 /min Dr. Nirav Perez MD Work Phone: [facility] 04-17-2025 16:35-0400 SaO2% (BldA) [Mass fraction] 95 % Dr. Nirav Perez MD Work Phone: [facility] 04-17-2025 16:35-0400 Systolic blood pressure 117 mm[Hg] Dr. Nirav Peerz MD Work Phone: [facility] 04-17-2025 16:28-0400 Body height 162.[address] Nirav Perez MD Work Phone: [facility] 04-17-2025 16:28-0400 Body mass index (BMI) [Ratio] 31.8 kg/m2 Dr. Nirav Perez MD Work Phone: [facility] 04-17-2025 16:28-0400 Body weight 84.[address] Nirav Perez MD Work Phone: [facility] 04-11-2025 08:19-0400 Body height 162.[address] Nirav Perez MD Work Phone: [facility] 04-11-2025 08:19-0400 Body mass index (BMI) [Ratio] 31.3 kg/m2 Dr. Nirav Perez MD Work Phone: [facility] 04-11-2025 08:19-0400 Body weight 82.[address] Nirav Perez MD Work Phone: [facility] 04-11-2025 08:19-0400 Diastolic blood pressure 74 mm[Hg] Dr. Nirav Perez MD Work Phone: [facility] 04-11-2025 08:19-0400 Systolic blood pressure 118 mm[Hg] Dr. Nirav Perez MD Work Phone: [facility] 04-05-2025 14:48-0400 Body height 162.[address] Nirav Perez MD Work Phone: [facility] 04-05-2025 14:43-0400 Body mass index (BMI) [Ratio] 31.9 kg/m2 Dr. Nirav Perez MD Work Phone: [facility] 04-05-2025 14:43-0400 Body weight 84.[address] Nirav Perez MD Work Phone: [facility] 04-05-2025 14:43-0400 Diastolic blood pressure 75 mm[Hg] Dr. Nirav Perez MD Work Phone: [facility] 04-05-2025 14:43-0400 Systolic blood pressure 116 mm[Hg] Dr. Nirav Perez MD Work Phone: [facility] 04-04-2025 17:40-0400 Diastolic blood pressure 65 mm[Hg] Dr. Nirav Perez MD Work Phone: [facility] 04-04-2025 17:40-0400 Heart rate 86 /min Dr. Nirav Perez MD Work Phone: [facility] 04-04-2025 17:40-0400 Systolic blood pressure 116 mm[Hg] Dr. Nirav Perez MD Work Phone: [facility] 04-04-2025 17:28-0400 Body height 162.[address] Nirav Perez MD Work Phone: [facility] 04-04-2025 17:28-0400 Body mass index (BMI) [Ratio] 31.9 kg/m2 Dr. Nirav Perez MD Work Phone: [facility] 04-04-2025 17:28-0400 Body weight 84.[address] Nirav Perez MD Work Phone: [facility] 04-03-2025 16:34-0400 Diastolic blood pressure 66 mm[Hg] Dr. Nirav Perez MD Work Phone: [facility] 04-03-2025 16:34-0400 Heart rate 81 /min Dr. Nirav Perez MD Work Phone: [facility] 04-03-2025 16:34-0400 Systolic blood pressure 119 mm[Hg] Dr. Nirav Perez MD Work Phone: [facility] 04-03-2025 16:33-0400 Body height 162.[address] Nirav Perez MD Work Phone: [facility] 04-03-2025 16:33-0400 Body mass index (BMI) [Ratio] 31.9 kg/m2 Dr. Nirav Perez MD Work Phone: [facility] 04-03-2025 16:33-0400 Body temperature 98.3 [degF] Dr. Nirav Perez MD Work Phone: [facility] 04-03-2025 16:33-0400 Body weight 84.[address] Nirav Perez MD Work Phone: [facility] 04-03-2025 16:33-0400 Respiratory rate 16 /min Dr. Nirav Perez MD Work Phone: [facility] 03-21-2025 10:05-0400 Body mass index (BMI) [Ratio] 32.1 kg/m2 Dr. Nirav Perez MD Work Phone: [facility] 03-21-2025 10:05-0400 Body weight 84.[address] Nirav Perez MD Work Phone: [facility] 03-21-2025 10:05-0400 Diastolic blood pressure 79 mm[Hg] Dr. Nirav Perez MD Work Phone: [facility] 03-21-2025 10:05-0400 Systolic blood pressure 115 mm[Hg] Dr. Nirav Perez MD Work Phone: [facility] 03-19-2025 10:02-0400 Body temperature 98.3 [degF] Dr. Nirav Perez MD Work Phone: [facility] 03-19-2025 10:02-0400 Diastolic blood pressure 72 mm[Hg] Dr. Nirav Perez MD Work Phone: [facility] 03-19-2025 10:02-0400 Heart rate 86 /min Dr. Nirav Perez MD Work Phone: [facility] 03-19-2025 10:02-0400 Respiratory rate 16 /min Dr. Nirav Perez MD Work Phone: [facility] 03-19-2025 10:02-0400 SaO2% (BldA) [Mass fraction] 98 % Dr. Nirav Perez MD Work Phone: [facility] 03-19-2025 10:02-0400 Systolic blood pressure 117 mm[Hg] Dr. Nirav Perez MD Work Phone: [facility] 03-19-2025 09:44-0400 Body height 162.[address] Nirav Perez MD Work Phone: [facility] 03-19-2025 09:44-0400 Body mass index (BMI) [Ratio] 32 kg/m2 Dr. Nirav Perez MD Work Phone: [facility] 03-19-2025 09:44-0400 Body weight 84.[address] Nirav Perez MD Work Phone: [facility] 03-06-2025 13:09-0400 Body height 162.[address] Nirav Perez MD Work Phone: [facility] 03-06-2025 13:09-0400 Body mass index (BMI) [Ratio] 31.1 kg/m2 Dr. Nriav Perez MD Work Phone: [facility] 03-06-2025 13:09-0400 Body weight 82.[address] Niarv Perez MD Work Phone: [facility] 03-06-2025 13:09-0400 Diastolic blood pressure 74 mm[Hg] Dr. Nirav Perez MD Work Phone: [facility] 03-06-2025 13:09-0400 Systolic blood pressure 112 mm[Hg] Dr. Nirav Perez MD Work Phone: [facility] 02-22-2025 12:09-0400 Body height 162.[address] Nirav Perez MD Work Phone: [facility] 02-22-2025 12:09-0400 Body mass index (BMI) [Ratio] 30.6 kg/m2 Dr. Nirav Perez MD Work Phone: [facility] 02-22-2025 12:09-0400 Body weight 80.[address] Nirav Perez MD Work Phone: [facility] 02-22-2025 12:07-0400 Body temperature 97.9 [degF] Dr. Nirav Perez MD Work Phone: [facility] 02-22-2025 12:07-0400 Diastolic blood pressure 73 mm[Hg] Dr. Nirav Perez MD Work Phone: [facility] 02-22-2025 12:07-0400 Heart rate 85 /min Dr. Nirav Perez MD Work Phone: [facility] 02-22-2025 12:07-0400 Respiratory rate 16 /min Dr. Nirav Perez MD Work Phone: [facility] 02-22-2025 12:07-0400 Systolic blood pressure 117 mm[Hg] Dr. Nirav Perez MD Work Phone: [facility] 02-07-2025 10:24-0400 Body mass index (BMI) [Ratio] 30.7 kg/m2 Dr. Nirav Perez MD Work Phone: [facility] 02-07-2025 10:24-0400 Body weight 78.[address] Nirav Perez MD Work Phone: [facility] 02-07-2025 10:24-0400 Diastolic blood pressure 79 mm[Hg] Dr. Nirav Perez MD Work Phone: [facility] 02-07-2025 10:24-0400 Systolic blood pressure 117 mm[Hg] Dr. Nirav Perez MD Work Phone: [facility] 01-11-2025 10:24-0400 Body mass index (BMI) [Ratio] 29.6 kg/m2 Dr. Nirav Perez MD Work Phone: [facility] 01-11-2025 10:24-0400 Body weight 75.[address] Nirav Perez MD Work Phone: [facility] 01-11-2025 10:24-0400 Diastolic blood pressure 73 mm[Hg] Dr. Nirav Perez MD Work Phone: [facility] 01-11-2025 10:24-0400 Systolic blood pressure 114 mm[Hg] Dr. Nirav Perez MD Work Phone: [facility] 12-27-2024 08:58-0500 Body height 160.[address] Nirav Perez MD Work Phone: [facility] 12-27-2024 08:58-0500 Body mass index (BMI) [Ratio] 28.8 kg/m2 Dr. Nirav Perez MD Work Phone: [facility] 12-27-2024 08:58-0500 Body weight 73.[address] Nirav Perez MD Work Phone: [facility] 12-27-2024 08:58-0500 Diastolic blood pressure 70 mm[Hg] Dr. Nirav Perez MD Work Phone: [facility] 12-27-2024 08:58-0500 Systolic blood pressure 108 mm[Hg] Dr. Nirav Perez MD Work Phone: [facility] 12-20-2024 11:26-0500 Body mass index (BMI) [Ratio] 29 kg/m2 Dr. Nirav Perez MD Work Phone: [facility] 12-20-2024 11:26-0500 Body weight 74.[address] Nirav Perez MD Work Phone: [facility] 12-20-2024 11:26-0500 Diastolic blood pressure 67 mm[Hg] Dr. Nirav Perez MD Work Phone: [facility] 12-20-2024 11:26-0500 Systolic blood pressure 98 mm[Hg] Dr. Nirav Perez MD Work Phone: [facility] 12-14-2024 22:00-0500 Diastolic blood pressure 68 mm[Hg] Dr. Nirav Perez MD Work Phone: [facility] 12-14-2024 22:00-0500 Heart rate 70 /min Dr. Nirav Perez MD Work Phone: [facility] 12-14-2024 22:00-0500 Respiratory rate 16 /min Dr. Nirav Perez MD Work Phone: [facility] 12-14-2024 22:00-0500 SaO2% (BldA) [Mass fraction] 100 % Dr. Nirav Perez MD Work Phone: [facility] 12-14-2024 22:00-0500 Systolic blood pressure 101 mm[Hg] Dr. Nirav Perez MD Work Phone: [facility] 12-14-2024 19:03-0500 Body mass index (BMI) [Ratio] 29.2 kg/m2 Dr. Nirav Perez MD Work Phone: [facility] 12-14-2024 19:03-0500 Body temperature 98.2 [degF] Dr. Nirav Perez MD Work Phone: [facility] 12-14-2024 19:03-0500 Body weight 74.[address] Nirav Perez MD Work Phone: [facility] 12-13-2024 10:41-0500 Body mass index (BMI) [Ratio] 29 kg/m2 Dr. Nirav Perez MD Work Phone: [facility] 12-13-2024 10:41-0500 Body weight 74.[address] Nirav Perez MD Work Phone: [facility] 12-13-2024 10:41-0500 Diastolic blood pressure 70 mm[Hg] Dr. Nirav Perez MD Work Phone: [facility] 12-13-2024 10:41-0500 Systolic blood pressure 118 mm[Hg] Dr. Nirav Perez MD Work Phone: [facility] 11-16-2024 13:30-0500 Body mass index (BMI) [Ratio] 29.1 kg/m2 Dr. Nirav Perez MD Work Phone: [facility] 11-16-2024 13:30-0500 Body weight 74.[address] Nirav Perez MD Work Phone: [facility] 11-16-2024 13:30-0500 Diastolic blood pressure 87 mm[Hg] Dr. Nirav Perez MD Work Phone: [facility] 11-16-2024 13:30-0500 Systolic blood pressure 120 mm[Hg] Dr. Nirav Perez MD Work Phone: [facility] 10-19-2024 11:17-0500 Body mass index (BMI) [Ratio] 29 kg/m2 Dr. Nirav Perez MD Work Phone: [facility] 10-19-2024 11:17-0500 Body weight 74.[address] Nirav Perez MD Work Phone: [facility] 10-19-2024 11:17-0500 Diastolic blood pressure 81 mm[Hg] Dr. Nirav Perez MD Work Phone: [facility] 10-19-2024 11:17-0500 Systolic blood pressure 120 mm[Hg] Dr. Nirav Perez MD Work Phone: [facility] 09-22-2023 10:16-0500 Body height 160.[address] Nirav Perez Work Phone: [facility] 09-22-2023 10:16-0500 Body mass index (BMI) [Ratio] 32.5 kg/m2 Dr. Nirav Perez Work Phone: [facility] 09-22-2023 10:16-0500 Body weight 83.[address] Nirav Perez Work Phone: [facility] 09-22-2023 10:10-0500 Diastolic blood pressure 77 mm[Hg] Dr. Nirav Perez Work Phone: [facility] 09-22-2023 10:10-0500 Heart rate 68 /min Dr. Nirav Perez Work Phone: [facility] 09-22-2023 10:10-0500 SaO2% (BldA) [Mass fraction] 96 % Dr. Nirav Perez Work Phone: [facility] 09-22-2023 10:10-0500 Systolic blood pressure 115 mm[Hg] Dr. Nirav Perez Work Phone: [facility] 09-19-2023 08:05-0500 Body mass index (BMI) [Ratio] 31.2 kg/m2 Dr. Nirav Perez Work Phone: [facility] 09-19-2023 08:05-0500 Body weight 82.[address] Nirav Perez Work Phone: [facility] 09-19-2023 08:05-0500 Diastolic blood pressure 74 mm[Hg] Dr. Nirav Perez Work Phone: [facility] 09-19-2023 08:05-0500 Systolic blood pressure 106 mm[Hg] Dr. Nirav Perez Work Phone: [facility] 09-12-2023 10:56-0500 Body mass index (BMI) [Ratio] 31.7 kg/m2 Dr. Nirav Perez Work Phone: [facility] 09-12-2023 10:56-0500 Body weight 83.[address] Nirav Perez Work Phone: [facility] 09-12-2023 10:56-0500 Diastolic blood pressure 72 mm[Hg] Dr. Nirav Perez Work Phone: [facility] 09-12-2023 10:56-0500 Systolic blood pressure 108 mm[Hg] Dr. Nirav Perez Work Phone: [facility] 08-29-2023 09:59-0400 Body weight [address] Nirav Perez Work Phone: [facility] 08-29-2023 09:41-0400 Body mass index (BMI) [Ratio] 0.8 kg/m2 Dr. Nirav Perez Work Phone: [facility] 08-29-2023 09:41-0400 Diastolic blood pressure 74 mm[Hg] Dr. Nirav Perez Work Phone: [facility] 08-29-2023 09:41-0400 Systolic blood pressure 110 mm[Hg] Dr. Nirav Perez Work Phone: [facility] 08-12-2023 14:52-0400 Body weight 82.[address] Nirav Perez Work Phone: [facility] 08-12-2023 14:04-0400 Body mass index (BMI) [Ratio] 0.8 kg/m2 Dr. Nirav Perez Work Phone: [facility] 08-12-2023 14:04-0400 Diastolic blood pressure 74 mm[Hg] Dr. Nirav Perez Work Phone: [facility] 08-12-2023 14:04-0400 Systolic blood pressure 123 mm[Hg] Dr. Nirav Perez Work Phone: [facility] 08-09-2023 10:09-0400 Body temperature 98.6 [degF] Dr. Nirav Perez Work Phone: [facility] 08-09-2023 10:09-0400 Diastolic blood pressure 79 mm[Hg] Dr. Nirav Perez Work Phone: [facility] 08-09-2023 10:09-0400 Heart rate 97 /min Dr. Nirav Perez Work Phone: [facility] 08-09-2023 10:09-0400 Respiratory rate 16 /min Dr. Nirav Perez Work Phone: [facility] 08-09-2023 10:09-0400 SaO2% (BldA) [Mass fraction] 96 % Dr. Nirav Perez Work Phone: [facility] 08-09-2023 10:09-0400 Systolic blood pressure 115 mm[Hg] Dr. Nirav Perez Work Phone: [facility] 07-18-2023 13:44-0400 Body height 162.[address] Nirav Perez Work Phone: [facility] 06-21-2023 08:34-0400 Body mass index (BMI) [Ratio] 30.2 kg/m2 Dr. Nirav Perez Work Phone: [facility] 06-21-2023 08:34-0400 Body weight 79.[address] Nirav Perez Work Phone: [facility] 06-21-2023 08:34-0400 Diastolic blood pressure 78 mm[Hg] Dr. Nirav Perez Work Phone: [facility] 06-21-2023 08:34-0400 Systolic blood pressure 117 mm[Hg] Dr. Nirav Perez Work Phone: [facility] 06-20-2023 16:03-0400 Body mass index (BMI) [Ratio] 29.4 kg/m2 Dr. Nirav Perez Work Phone: [facility] 06-20-2023 16:03-0400 Body weight 77.[address] Nirav Perez Work Phone: [facility] 06-20-2023 16:03-0400 Diastolic blood pressure 72 mm[Hg] Dr. Nirav Perez Work Phone: [facility] 06-20-2023 16:03-0400 Systolic blood pressure 115 mm[Hg] Dr. Nirav Perez Work Phone: [facility] 05-27-2023 09:57-0400 Body height 162.[address] Nirav Perez Work Phone: [facility] 05-27-2023 09:47-0400 Body mass index (BMI) [Ratio] 28.8 kg/m2 Dr. Nirav Perez Work Phone: [facility] 05-27-2023 09:47-0400 Body weight 76.[address] Nirav Perez Work Phone: [facility] 05-27-2023 09:47-0400 Diastolic blood pressure 69 mm[Hg] Dr. Nirav Perez Work Phone: [facility] 05-27-2023 09:47-0400 Systolic blood pressure 105 mm[Hg] Dr. Nirav Perez Work Phone: [facility] 04-29-2023 13:51-0400 Body height 162.[address] Nirav Perez Work Phone: [facility] 04-29-2023 13:44-0400 Body mass index (BMI) [Ratio] 29.4 kg/m2 Dr. Nirav Perez Work Phone: [facility] 04-29-2023 13:44-0400 Body weight 77.[address] Nirav Perez Work Phone: [facility] 04-29-2023 13:44-0400 Diastolic blood pressure 75 mm[Hg] Dr. Nirav Perez Work Phone: [facility] 04-29-2023 13:44-0400 Systolic blood pressure 111 mm[Hg] Dr. Nirav Perez Work Phone: [facility] 03-30-2023 09:26-0400 Body mass index (BMI) [Ratio] 28.5 kg/m2 Dr. Nirav Perez Work Phone: [facility] 03-30-2023 09:26-0400 Body weight 75.[address] Nirav Perez Work Phone: [facility] 03-30-2023 09:26-0400 Diastolic blood pressure 75 mm[Hg] Dr. Nirav Perez Work Phone: [facility] 03-30-2023 09:26-0400 Systolic blood pressure 123 mm[Hg] Dr. Nirav Perez Work Phone: [facility] 12-13-2022 06:21-0500 Body temperature 98.2 [degF] Dr. Nirav Perez Work Phone: [facility] 12-13-2022 06:21-0500 Diastolic blood pressure 64 mm[Hg] Dr. Nirav Perez Work Phone: [facility] 12-13-2022 06:21-0500 Heart rate 72 /min Dr. Nirav Perez Work Phone: [facility] 12-13-2022 06:21-0500 Respiratory rate 14 /min Dr. Nirav Perez Work Phone: [facility] 12-13-2022 06:21-0500 Systolic blood pressure 102 mm[Hg] Dr. Nirav Perez Work Phone: [facility] 12-13-2022 06:12-0500 Body height 162.[address] Nirav Perez Work Phone: [facility] [facility] 12-07-2022 08:08-0500 Body mass index (BMI) [Ratio] 30.2 kg/m2 Dr. Nirav Perez Work Phone: [facility] 12-07-2022 08:08-0500 Body weight [address] Nirav Perez Work Phone: [facility] 12-07-2022 08:08-0500 Diastolic blood pressure 84 mm[Hg] Dr. Nirav Perez Work Phone: [facility] 12-07-2022 08:08-0500 Systolic blood pressure 122 mm[Hg] Dr. Nirav Perez Work Phone: [facility] 11-06-2022 10:12-0500 Body temperature 98.2 [degF] Dr. Nirav Perez Work Phone: [facility] 11-06-2022 10:12-0500 Diastolic blood pressure 68 mm[Hg] Dr. Nirav Perez Work Phone: [facility] 11-06-2022 10:12-0500 Heart rate 73 /min Dr. Nirav Perez Work Phone: [facility] 11-06-2022 10:12-0500 Respiratory rate 14 /min Dr. Nirav Perez Work Phone: [facility] 11-06-2022 10:12-0500 SaO2% (BldA) [Mass fraction] 97 % Dr. Nirav Perez Work Phone: [facility] 11-06-2022 10:12-0500 Systolic blood pressure 116 mm[Hg] Dr. Nirav Perez Work Phone: [facility] 08-31-2017 08:30-0400 BMI (Body Mass Index) 25.88 kg/m2 Chiak Nieto MD [facility] 08-31-2017 08:30-0400 Body Temperature 96.7 [degF] Chika Nieto MD [facility] 08-31-2017 08:30-0400 Body Temperature 96.69 [degF] Chika Nieto MD [facility] 08-31-2017 08:30-0400 BP Diastolic 71 mm[Hg] Chika Nieto MD [facility] 08-31-2017 08:30-0400 BP Systolic 105 mm[Hg] Chika Nieto MD [facility] 08-31-2017 08:30-0400 Height 162.56 cm Chika Nieto MD [facility] 08-31-2017 08:30-0400 Pulse (Heart Rate) 78 /min Chika Nieto MD [facility] 08-31-2017 08:30-0400 Respiratory Rate 16 /min Chika Nieto MD [facility] 08-31-2017 08:30-0400 Weight 68.4 kg Chika Nieto MD [facility] 08-02-2017 16:03-0400 BMI (Body Mass Index) 25.16 kg/m2 Oc WESTP-C [facility] Work Phone: 08-02-2017 16:03-0400 Body Temperature 99.6 [degF] Oc Jean DRAWING BOX TENDER-C [facility] Work Phone: 08-02-2017 16:03-0400 BP Diastolic 79 mm[Hg] Oc Vargasder DRAWING BOX TENDER-C [facility] Work Phone: 08-02-2017 16:03-0400 BP Systolic 116 mm[Hg] Oc Vargasder DRAWING BOX TENDER-C [facility] Work Phone: 08-02-2017 16:03-0400 Height 165.1 cm Oc Vargasder DRAWING BOX TENDER-C [facility] Work Phone: 08-02-2017 16:03-0400 Pulse (Heart Rate) 62 /min Oc Jean DRAWING BOX TENDER-C [facility] Work Phone: 08-02-2017 16:03-0400 Respiratory Rate 16 /min Oc Vargasder DRAWING BOX TENDER-C [facility] Work Phone: 08-02-2017 16:03-0400 Weight 68.58 kg Oc WESTP-C [facility] Work Phone: 07-30-2017 09:22-0400 BMI (Body Mass Index) 25.29 kg/m2 Oc Carvajal PA-C [facility] Work Phone: 07-30-2017 09:22-0400 Body Temperature 99.1 [degF] Oc Carvajal PA-C [facility] Work Phone: 07-30-2017 09:22-0400 BP Diastolic 72 mm[Hg] Oc Carvajal PA-C [facility] Work Phone: 07-30-2017 09:22-0400 BP Systolic 106 mm[Hg] Oc Carvajal PA-C [facility] Work Phone: 07-30-2017 09:22-0400 Height 165.1 cm Oc Carvajal PA-C [facility] Work Phone: 07-30-2017 09:22-0400 Pulse (Heart Rate) 77 /min Oc Carvajal PA-C [facility] Work Phone: 07-30-2017 09:22-0400 Respiratory Rate 14 /min Oc Carvajal PA-C [facility] Work Phone: 07-30-2017 09:22-0400 Weight 68.95 kg Oc Carvajal PA-C [facility] Work Phone: 07-20-2017 10:42-0400 BMI (Body Mass Index) 25.96 kg/m2 Radha Garcia [facility] Work Phone: 07-20-2017 10:42-0400 Body Temperature 98.4 [degF] Radha [facility] Work Phone: 07-20-2017 10:42-0400 BP Diastolic 74 mm[Hg] Radha Marthey [facility] Work Phone: 07-20-2017 10:42-0400 BP Systolic 109 mm[Hg] Radha Marthey [facility] Work Phone: 07-20-2017 10:42-0400 Height 165.1 cm Radha Marthey [facility] Work Phone: 07-20-2017 10:42-0400 Pulse (Heart Rate) 66 /min Radha Marthey [facility] Work Phone: 07-20-2017 10:42-0400 Respiratory Rate 16 /min Radha [facility] Work Phone: 07-20-2017 10:42-0400 Weight 70.76 kg Rad[facility] Work Phone: 07-19-2017 06:44-0400 BMI (Body Mass Index) 25.46 kg/m2 Jaci Syed LPN [facility] Work Phone: 07-19-2017 06:44-0400 Body Temperature 97.1 [degF] Jaci Syed LPN [facility] Work Phone: 07-19-2017 06:44-0400 BP Diastolic 72 mm[Hg] Jaci Syed LPN [facility] Work Phone: 07-19-2017 06:44-0400 BP Systolic 108 mm[Hg] Jaci Syed LPN [facility] Work Phone: 07-19-2017 06:44-0400 Height 165.1 cm Jaci Syed LPN [facility] Work Phone: 07-19-2017 06:44-0400 Pulse (Heart Rate) 80 /min Jaci Syed LPN [facility] Work Phone: 07-19-2017 06:44-0400 Respiratory Rate 14 /min Jaci Syed LPN [facility] Work Phone: 07-19-2017 06:44-0400 Weight 69.4 kg Jaci Syed LPN [facility] Work Phone: 06-28-2017 08:05-0400 BMI (Body Mass Index) 25.65 kg/m2 [employer] Work Phone: 06-28-2017 08:05-0400 Body Temperature 98.4 [degF] [employer] [facility] Work Phone: 06-28-2017 08:05-0400 BP Diastolic 75 mm[Hg] [facility], [facility] Work Phone: 06-28-2017 08:05-0400 BP Systolic 111 mm[Hg] [facility], [facility] Work Phone: 06-28-2017 08:05-0400 Height 165.1 cm [facility] [employer]ard [employer], [facility] Work Phone: 06-28-2017 08:05-0400 Pulse (Heart Rate) 58 /min [facility] [employer], [facility] Work Phone: 06-28-2017 08:05-0400 Weight 69.91 kg [facility] leonard [employer], [facility] Work Phone: 10-14-2016 11:57-0500 Heart rate 57 /min Harmeet Giordano [facility] [employer], [facility] Work Phone: 10-14-2016 11:43-0500 BMI (Body Mass Index) 28.16 kg/m2 Harmeet Giordano [facility], [facility] Work Phone: 10-14-2016 11:43-0500 BP Diastolic 68 mm[Hg] Harmeet Giordano [facility] [employer], [facility] Work Phone: 10-14-2016 11:43-0500 BP Systolic 100 mm[Hg] Harmeet Giordano [facility] [employer], [facility] Work Phone: 10-14-2016 11:43-0500 BSA (Body Surface Area) 1.71 m2 Nirav Perez MD [facility] Work Phone: 10-14-2016 11:43-0500 Pulse (Heart Rate) 64 /min Harmeet Giordano [facility] [employer], [facility] Work Phone: 10-14-2016 11:43-0500 Respiratory Rate 16 /min Harmeet Giordano [facility] ical Service, [facility] Work Phone: 10-14-2016 11:43-0500 Weight 69.85 kg Harmeet Giordano [facility], [facility] Work Phone: 07-13-2016 09:22-0400 Height 157.48 cm Harmeet Giordano [facility], [facility] Work Phone: Encounters Encounter Date Encounter Type Care Provider Facility Start: 05-09-2025 ambulatory Nirav Perez Facili [facility] Start: 05-08-2025 ambulatory Nirav Perez Facili ty:[facility] Start: 05-08-2025 Evaluation and management of inpatient Nirav Perez Facility:[facility] Start: 05-07-2025 End: 05-07-2025 ambulatory Dayanara Christie Facility:[facility] Start: 05-02-2025 End: 05-02-[address] Chika Nieto MD -[facility] Work Phone: Start: 05-02-2025 End: 05-02-[address] Nirav Perez MD Work Phone: -[facility] Start: 05-02-2025 End: 05-02-2025 ambulatory Nirav Perez Facility:[facility] Start: 04-21-2025 ambulatory Chika Hitchcock lity:[facility] Start: 04-21-2025 Non-patient / Non-visit Dr. Cherelle Nieto MD -[facility] Start: 04-18-2025 End: 04-18-[address] Stephania Montoya DO -[facility] Work Phone: Start: 04-18-2025 End: 04-18-[address] Nirav Perez MD Work Phone: [facility] Work Phone: Start: 04-17-2025 End: 04-17-[address] Nirav Perez MD Work Phone: [facility] Work Phone: Start: 04-17-2025 End: 04-17-[address] Chika Nieto MD -[facility] Work Phone: Start: 04-17-2025 ambulatory iNrav Grimes ty:[facility] Start: 04-17-2025 Non-patient / Non-visit Dr. Cherelle Nieto MD -[facility] Start: 04-11-2025 End: 04-11-2025 Patient encounter procedure Vannessa Chirinos CONTROL INTEGRATION ENGINEER-C -[facility] Work Phone: Start: 04-11-2025 End: 04-11-[address] Nirav Perez MD Work Phone: [facility] Work Phone: Start: 04-11-2025 End: 04-11-2025 ambulatory Vannessa Chirinos CONTROL INTEGRATION ENGINEER Facility:[facility] Start: 04-05-2025 ambulatory Dayanara Christie Facilit y:[facility] Start: 04-05-2025 Non-patient / Non-visit Dayanara snyder CN -[facility] Start: 04-05-2025 End: 04-05-2025 Patient encounter procedure Giuliana Schilling CN -[facility] Work Phone: Start: 04-05-2025 End: 04-05-[address] Nirav Peerz MD Work Phone: [facility] Work Phone: Start: 04-04-2025 End: 04-04-[address] Nirav Perez MD Work Phone: [facility] Work Phone: Start: 04-04-2025 End: 04-04-2025 Patient encounter procedure Dayanara BOSCH -[facility] Work Phone: Start: 04-03-2025 End: 04-03-[address] Nirav Perez MD Work Phone: [facility] Work Phone: Start: 04-03-2025 End: 04-03-2025 Patient encounter procedure Dayanara BOSCH -[facility] Work Phone: Start: 03-21-2025 End: 03-21-[address] Chika Nieto MD -[facility] Work Phone: Start: 03-21-2025 End: 03-21-2025 ambulatory Arbenrola Perez [facility] Start: 03-19-2025 ambulatory [facility]av Perez [facility] Start: 03-19-2025 Non-patient / Non-visit Giuliana Mojica ms [facility] Start: 03-19-2025 End: 03-19-[address] Nirav Perez MD Work Phone: [facility] Work Phone: Start: 03-19-2025 End: 03-19-2025 Patient encounter procedure Giuliana Schilling [facility] Work Phone: Start: 03-06-2025 End: 03-06-2025 Patient encounter procedure Vannessa RODARTE -[facility] Work Phone: Start: 03-06-2025 End: 03-06-[address] Nirav Perez MD Work Phone: [facility] Work Phone: Start: 03-06-2025 End: 03-06-2025 ambulatory [facility] Ana Facility:[facility] Start: 02-22-2025 ambulatory Dayanara Christie Facilit y:[facility] Start: 02-22-2025 Non-patient / Non-visit Dayanara snyder [facility] Start: 02-22-2025 End: 02-22-[address] Nirav Perez MD Work Phone: [facility] Work Phone: Start: 02-22-2025 End: 02-22-2025 Patient encounter procedure Dayanara Christie [facility] -[facility] Work Phone: Start: 02-07-2025 End: 02-07-2025 Patient encounter procedure Vannessa RODARTE -[facility] Work Phone: Start: 02-07-2025 End: 02-07-2025 ambulatory Nirav Perez Facility[facility] Start: 01-31-2025 End: 01-31-2025 ambulatory LACY D [facility] Start: 01-16-2025 End: 01-16-2025 Subsequent hospital visit by physician Rashmi Taylor DO Work Phone: [facility] Comment on above: Maternal care for (s uspected) central nervous system malformation or damage in fetus, choroid plexus cysts, fetus 1 Start: 01-16-2025 End: 01-16-2025 ambulatory [facility] Start: 01-16-2025 End: 01-16-2025 ambulatory [facility] Start: 01-11-2025 End: 01-11-[address] Chika Nieto MD -[facility] Work Phone: Start: 01-11-2025 End: 01-11-2025 [facility] Start: 01-02-2025 End: 01-02-2025 ambulatory [facility] Start: 12-27-2024 End: 12-27-2024 Patient encounter procedure Vannessa RODARTE -[facility] Work Phone: Start: 12-27-2024 End: 12-27-[address] Nirav Perez MD Work Phone: [facility] Work Phone: Start: 12-27-2024 End: 12-27-2024 ambulatory [facility] Start: 12-20-2024 End: 12-20-[address] Chika Nieto MD -[facility] Work Phone: Start: 12-20-2024 End: 12-20-2024 ambulatory Efewongbe Rae Facility:[facility] Start: 12-19-2024 End: 12-19-2024 ambulatory STEPHANIA CA [facility] Start: 12-14-2024 End: 12-14-2024 Emergency department patient visit Dr. Jerardo Patricio-Magali DO -Emergency Department Work Phone: Start: 12-13-2024 End: 12-13-2024 Patient encounter procedure Vannessa RODARTE -[facility] Work Phone: Start: 12-13-2024 End: 12-13-2024 ambulatory Efewongbe Rae Facility:[facility] Start: 11-16-2024 End: 11-16-[address] Stephania Montoya DO -[facility] Work Phone: Start: 11-16-2024 End: 11-16-2024 ambulatory Efewongbe Oleghe Facility:[facility] Start: 10-19-2024 End: 10-19-2024 Patient encounter procedure Dayanara Christie [facility] -[facility] Work Phone: Start: 10-19-2024 End: 10-19-2024 ambulatory Efewongbe Oleghe Facility:[facility] Start: 10-19-2024 End: 10-19-2024 ambulatory Dayanara Christie Facility:[facility] Start: 08-14-2024 End: 08-14-2024 ambulatory Efewongbe Oleghe Facility:[facility] Start: 07-17-2024 End: 07-18-2024 ambulatory Efewosagebe Olee Facility:[facility] Start: 09-22-2023 Non-patient / Non-visit Dr. Arben Perez Work Phone: [facility] Start: 09-22-2023 End: 09-22-[address] Nirav Perez Work Phone: [facility] Work Phone: Start: 09-22-2023 End: 09-22-[address] [facility] Perez [facility] Work Phone: Start: 09-19-2023 End: 09-19-[address] Nirav Perez Work Phone: [facility] Work Phone: Start: 09-19-2023 End: 09-19-[address] Nirav Perez Work Phone: [facility]Laboratory, Specimen Work Phone: Start: 09-19-2023 End: 09-19-[address] Nirav Perez Work Phone: [facility] Work Phone: Start: 09-12-2023 End: 09-12-[address] Nirav Perez Work Phone: [facility] Work Phone: Start: 08-29-2023 End: 08-29-[address] Nirav Perez Work Phone: [facility] Work Phone: Start: 08-12-2023 End: 08-12-[address] Nirav Perez Work Phone: [facility] Work Phone: Start: 08-09-2023 End: 08-09-[address] Nirav Perez Work Phone: [facility] Work Phone: Start: 07-19-2023 End: 07-19-[address] Nirav Perez Work Phone: [facility] Work Phone: Start: 07-19-2023 End: 07-19-[address] Nirav Perez Work Phone: [facility]atory, OP Pavilion Start: 07-18-2023 End: 07-18-[address] Nirav Perez Work Phone: [facility] Work Phone: Start: 06-20-2023 End: 06-20-[address] Nirav Perez Work Phone: [facility] Work Phone: Start: 05-27-2023 End: 05-27-[address] Nirav Perez Work Phone: [facility] Work Phone: Start: 05-27-2023 End: 05-27-[address] Nirav Perez Work Phone: [facility] Work Phone: Start: 04-29-2023 End: 04-29-[address] Nirav Perez Work Phone: [facility] Work Phone: Start: 03-30-2023 End: 03-30-[address] Nirav Perez Work Phone: [facility] Work Phone: Start: 03-30-2023 End: 03-30-[address] Nirav Perez Work Phone: [facility] Spec[facility] Work Phone: Start: 03-30-2023 End: 03-30-[address] Nirav Perez Work Phone: [facility] Work Phone: Start: 12-13-2022 End: 12-13-[address] Nirav Perez Work Phone: [facility] Start: 12-07-2022 End: 12-07-[address] Nirav Perez Work Phone: [facility] Work Phone: Start: 12-07-2022 End: 12-07-[address] Nirav Perez Work Phone: [facility] Spec[facility] Start: 12-07-2022 End: 12-07-[address] Nirav Perez Work Phone: [facility] Start: 11-06-2022 End: 11-06-[address] Nirav Perez Work Phone: [facility] Start: 06-23-2012 End: 06-23-2012 Telephone encounter [...] 08-06-2017 End: 08-06-2017 Throat culture Oc Jean DRAWING BOX TENDER-C Start: 08-05-2017 End: 08-05-2017 Throat culture Oc Jean DRAWING BOX TENDER-C Start: 08-04-2017 End: 08-04-2017 Throat culture Oc Jean DRAWING BOX TENDER-C Start: 08-03-2017 End: 08-03-2017 Throat culture Josafattjdeb [facility] Start: 08-02-2017 End: 08-03-2017 *CBC with Differential Oc Jean DRAWING BOX TENDER- C Start: 08-02-2017 End: 08-09-2017 Bacteria identified in Throat by Culture Oc Jean DRAWING BOX TENDER-C Start: 08-02-2017 End: 08-03-2017 Heterophile Ab [Presence] in Serum Oc Jean DRAWING BOX TENDER-C Start: 08-02-2017 End: 08-02-2017 Iaadiadoo streptococcus group a Oc Jean DRAWING BOX TENDER-C Start: 07-30-2017 End: 07-30-2017 Iaadiadoo streptococcus group a Oc Carvajal PA-C Work Phone: Start: 07-30-2017 End: 07-30-2017 Rapid strep test Oc Carvajal PA-C Work Phone: Start: 07-20-2017 End: 07-21-2017 ENT Referral Oc Jean DRAWING BOX TENDER-C Start: 06-28-2017 End: 06-28-2017 Urinalysis Nirav Perez [...] Activity Detail Author Start: 04-17-2025 Nonstress test [facility] Start: 04-17-2025 Obstetric monitoring [facility] Start: 04-17-2025 [facility] Start: 04-17-2025 Vital signs measurements [facility] Start: 04-17-2025 Patient discharge [facility] Start: 04-11-2025 [facility] Start: 04-04-2025 Nonstress test [facility] Start: 04-04-2025 Obstetric monitoring [facility] Start: 04-04-2025 Vital signs measurements [facility] Start: 04-04-2025 [facility] Start: 04-04-2025 Therapeutic prophylactic/dx injection subq/im THER/PROPH/DIAG INJ SC/IM [facility] Start: 04-03-2025 Nonstress test [facility] Start: 04-03-2025 Obstetric monitoring [facility] Start: 04-03-2025 Vital signs measurements [facility] Start: 04-03-2025 [facility] Start: 04-03-2025 Patient discharge [facility] Start: 03-19-2025 Nonstress test [facility] Start: 03-19-2025 Obstetric monitoring [facility] Start: 03-19-2025 [facility] Start: 03-19-2025 Vital signs measurements [facility] Start: 03-19-2025 Patient discharge [facility] Start: 02-22-2025 Bacteria identified in Urine by Culture Urine Culture [facility] Start: 02-22-2025 Nonstress test [facility] Start: 02-22-2025 Obstetric monitoring [facility] Start: 02-22-2025 Vital signs measurements [facility] Start: 02-22-2025 End: 02-22-2025 [facility] Start: 02-22-2025 Patient discharge [facility] Start: 01-31-2025 End: 01-31-2025 Professional / ancillary services management 01/31/2025 11:00 AM EDT Ancillary Procedure Visit [facility] [address] [place], [place] [address] Return for 60 min US in 2 weeks. [facility] Comment on above: Return for 60 min US in 2 weeks. Start: 12-14-2024 [facility] Start: 12-13-2024 Patient referral [facility] Work Phone: Start: 07-01-2024 COVID-19 (2023-12 season) COVID-19 ( season) [facility] Start: 07-01-2024 FLU (#1) FLU (#1) [facility] Start: 09-22-2023 Nonstress test [facility] Start: 09-22-2023 Obstetric monitoring [facility] Start: 09-22-2023 Vital signs measurements [facility] Start: 09-22-2023 [facility] Start: 09-22-2023 Patient discharge [facility] Start: 09-12-2023 Patient referral [facility] Work Phone: Start: 07-01-2021 Influenza vaccination INFLUENZA (Sea son Ended) [facility] Start: 07-16-2019 PAP TESTING PAP TESTING [facility] Start: 08-31-2017 End: 08-31-2017 [facility]ointment [facility]ment [facility] Work Phone: Start: 08-02-2017 End: 08-02-2017 Appointment Appointment [facility] Work Phone: Start: 08-02-2017 End: 08-03-2017 *CBC with Differential *CBC with Differential [facility] Work Phone: Start: 08-02-2017 End: 08-09-2017 Bacteria identified in Throat by Culture *CUT - Throat Culture [facility] Work Phone: Start: 08-02-2017 End: 08-03-2017 Heterophile antibody presence *Infectious [place] Screen [facility] Work Phone: Start: 07-30-2017 End: 07-30-2017 Streptococcus.beta-hemol ytic [Presence] in Throat by Organism specific culture *Culture, R/O Strep A Swab [facility] Work Phone: Start: 07-30-2017 End: 07-30-2017 Appointment Appointment [facility] Work Phone: Start: 07-30-2017 End: 07-30-2017 Streptococcus.beta-hemol ytic [Presence] in Throat by Organism specific culture *Culture, R/O Strep A Swab [facility] Work Phone: Start: 07-20-2017 End: 08-09-2017 ENT Referral ENT Referral [facility] Work Phone: Start: 07-20-2017 End: 07-20-2017 Appointment Appointment [facility] Work Phone: Start: 07-20-2017 End: 07-20-2017 ENT Referral ENT Referral [facility] Work Phone: Start: 07-19-2017 End: 07-19-2017 Appointment Appointment [facility] Work Phone: Start: 06-28-2017 End: 06-28-2017 Dermatology Referral Dermatology Referral Lou Ballesteros, [address] [place], [address] [facility] Work Phone: Start: 06-28-2017 End: 06-28-2017 Follow Up Appt 1 year Follow Up Appt 1 year [facility] Work Phone: Start: 06-28-2017 End: 06-28-2017 Appointment Appointment [facility] Work Phone: Start: 06-28-2017 End: 06-28-2017 Dermatology Referral Dermatology Referral Lou Ballesteros, [address] [place], [address] [facility] Work Phone: Start: 06-28-2017 End: 06-28-2017 Follow Up Appt 1 year Follow Up Appt 1 year [facility] Work Phone: Start: 10-14-2016 End: 10-14-2016 Ecg routine ecg w/least 12 lds w/i&r EKG (In office) [facility] Work Phone: Start: 10-14-2016 End: 10-14-2016 Follow Up Appt Other Follow Up Appt Other [facility] Work Phone: Start: 10-14-2016 End: 10-14-2016 PFM PFM [facility] Work Phone: Start: 10-14-2016 End: 10-14-2016 Transesophageal echocardiogram (MIKE) Transesophageal echocardiogram (MIKE) [facility] Work Phone: Start: 10-14-2016 End: 10-14-2016 Electrocardiogram, complete EKG (In office) [employer] [facility] Work Phone: Start: 10-14-2016 End: 10-14-2016 Follow Up Appt Other Follow Up Appt Other [facility] Work Phone: Start: 10-14-2016 End: 10-14-2016 [facility] [employer] [facility] Work Phone: Start: 10-14-2016 End: 10-14-2016 Transesophageal echocardiogram (MIKE) Transesophageal echocardiogram (MIKE) [employer] [facility] Work Phone: Start: 07-20-2016 End: 07-20-2016 Follow up Appt 2x/week Follow up Appt 2x/week [facility] Work Phone: Start: 07-20-2016 End: 07-20-2016 Follow up Appt 2x/week Follow up Appt 2x/week [employer] Work Phone: Start: 07-15-2016 End: 07-15-2016 Follow up Appt 2x/week Follow up Appt 2x/week [facility] Work Phone: Start: 07-15-2016 End: 07-15-2016 Follow up Appt 2x/week Follow up Appt 2x/week [employer] Work Phone: Start: 07-13-2016 End: 07-13-2016 Follow up Appt 3x/week Follow up Appt 3x/week [facility] Work Phone: Start: 07-13-2016 End: 07-13-2016 Follow up Appt 3x/week Follow up Appt 3x/week [employer] Work Phone: Start: 04-11-2016 Urine microalbumin profile DTAP,TDAP,TD (7 - Td) [facility] Start: 2014 Microscopic observat ion [Identifier] in Cervix by Cyto stain Pap Smear [facility] Start: 2012 Hepatitis B (1 of 3 - 19+ 3-dose series) Hepatitis B (1 of 3 - 19+ 3-dose series) [facility] Start: 2009 MenB (1 of 2 - MenB 2-Dose Series Bexsero) MenB (1 of 2 - MenB 2-Dose Series Bexsero) [facility] Start: 2006 Varicella (1 of 2 - 13+ 2-dose series) Varicella (1 of 2 - 13+ 2-dose series) [facility] Start: 2005 Adult depression screening assessment DEPRESSION SCREENING [facility] Start: 2000 Tetanus Diphtheria a nd Pertussis Vaccines (1 - Tdap) Tetanus Diphtheria and Pertussis Vaccines (1 - Tdap) [facility] Start: 1994 MMR (1 of 1 - Standa rd series) MMR (1 of 1 - Standard series) [facility] CBC W Auto Different ial panel - Blood [facility] CBC W Auto Different ial panel - Blood [facility] Hepatitis B surface antigen measurement [facility] Hepatitis C antibody measurement [facility] HIV 1+2 Ab+HIV1 p24 Ag [Presence] in Serum or Plasma by Immunoassay [facility] Measurement of gluco se 2 hours after glucose challenge for glucose tolerance test [facility] Measurement of pH in vaginal fluid specimen using nitrazine yellow for detection of rupture of amniotic membrane [facility] Microscopic urinalysis [facility] Organism count, microscopic method [facility] End: 01-16-2025 PANORAMA TEST [facility] Work Phone: Comment on above: 1 Occurrences starti ng 01/16/2025 until 01/16/2025 Patient Education [facility] [employer] Work Phone: Patient referral [facility] Work Phone: Rubella IgG measurement [facility] Serologic test for syphilis [facility] Streptococcus agalac tiae [Presence] in Unspecified specimen by Organism specific culture [facility] Treponema sp Ab [Presence] in Serum [facility] Urine culture [facility] Urine microscopy: epithelial cells [facility] Urine microscopy: re d cells [facility] White blood cell count [facility] Immunizations Immunization Date Immunization Notes Care Provider [facility] 03-06-2025 tetanus toxoid, redu patsy diphtheria toxoid, and acellular pertussis vaccine, adsorbed Dr. Nirav Perez MD Work Phone: [facility] 08-12-2023 tetanus toxoid, redu patsy diphtheria toxoid, and acellular pertussis vaccine, adsorbed Dr. Nirav Perez Work Phone: [facility] 08-16-[address] Nirav Perez Work Phone: [facility] 07-28-2018 influenza, injectabl e, quadrivalent, preservative free Dr. Nirav Perez Work Phone: [facility] 07-28-2018 influenza, seasonal, injectable Dr. Nirav Perez Work Phone: [facility] 07-27-2017 influenza, injectabl e, quadrivalent, preservative free Dr. Nirav Perez Work Phone: [facility] 07-27-2017 influenza, seasonal, injectable Dr. Nirav Perez Work Phone: [facility] 09-22-2016 hepatitis B vaccine, pediatric or pediatric/adolescent dosage Dr. Nirav Perez Work Phone: [facility] 07-29-2016 influenza, injectabl e, quadrivalent, preservative free Dr. Nirav Perez Work Phone: [facility] 07-29-2016 influenza, seasonal, injectable Dr. Nirav Perez Work Phone: [facility] 04-21-2016 hepatitis B vaccine, pediatric or pediatric/adolescent dosage Dr. Nirav Perez Work Phone: [facility] 03-17-2016 hepatitis B vaccine, pediatric or pediatric/adolescent dosage Dr. Nirav Perez Work Phone: [facility] 02-12-2016 tetanus and diphther ia toxoids, adsorbed, preservative free, for adult use (2 Lf of tetanus toxoid and 2 Lf of diphtheria toxoid) Dr. Nirav Perez Work Phone: [facility] 06-13-2012 hepatitis A vaccine, unspecified formulation [employer] Work Phone: [facility] 06-13-2012 human papilloma viru s vaccine, quadrivalent Kailee Carbajal Work Phone: [facility] 06-13-2012 Meningococcal, MCV4, unspecified conjugate formulation(groups A, C, Y and W-135) [employer] Carbajal Work Phone: [facility] 06-05-2010 hepatitis A vaccine, unspecified formulation Kailee Carbajal Work Phone: [facility] 10-22-2008 influenza virus vaccine, live, attenuated, for intranasal use Kailee Carbajal Work Phone: [facility] 04-11-2006 Meningococcal, MCV4, unspecified conjugate formulation(groups A, C, Y and W-135) Kailee Carbajal Work Phone: [facility] 04-11-2006 tetanus toxoid, redu patsy diphtheria toxoid, and acellular pertussis vaccine, adsorbed Kailee Carbajal Work Phone: [facility] 05-27-1999 diphtheria, tetanus toxoids and acellular pertussis vaccine Kailee Carbajal Work Phone: [facility] 05-27-1999 measles, mumps and rubella virus vaccine Kailee Carbajal Work Phone: [facility] 05-27-1999 trivalent poliovirus vaccine, live, oral Kailee Carbajal Work Phone: [facility] 04-18-1998 Chicken Pox (disease) Kailee Carbajal Work Phone: [facility] 03-08-1995 diphtheria, tetanus toxoids and acellular pertussis vaccine Kailee Carbajal Work Phone: [facility] 03-08-1995 haemophilus influenz ae type b vaccine, HbOC conjugate Kailee Carbajal Work Phone: [facility] 12-07-1994 measles, mumps and rubella virus vaccine Kailee Carbajal Work Phone: [facility] 08-12-1994 hepatitis B vaccine, pediatric or pediatric/adolescent dosage Kailee Carbajal Work Phone: [facility] 06-29-1994 diphtheria, tetanus toxoids and pertussis vaccine Kailee Carbajal Work Phone: [facility] 06-29-1994 haemophilus influenz ae type b vaccine, HbOC conjugate Kailee Carbajal Work Phone: [facility] 06-29-1994 trivalent poliovirus vaccine, live, oral Kailee Carbajal Work Phone: [facility] 04-29-1994 diphtheria, tetanus toxoids and pertussis vaccine Kailee Carbajal Work Phone: [facility] 04-29-1994 haemophilus influenz ae type b vaccine, HbOC conjugate Kailee Carbajal Work Phone: [facility] 04-29-1994 hepatitis B vaccine, pediatric or pediatric/adolescent dosage Kailee Carbajal Work Phone: [facility] 04-29-1994 trivalent poliovirus vaccine, live, oral Kailee Carbajal Work Phone: [facility] 02-04-1994 diphtheria, tetanus toxoids and pertussis vaccine Kailee Carbajal Work Phone: [facility] 02-04-1994 haemophilus influenz ae type b vaccine, HbOC conjugate Kailee Carbajal Work Phone: [facility] 02-04-1994 hepatitis B vaccine, pediatric or pediatric/adolescent dosage Kailee Carbajal Work Phone: [facility] 02-04-1994 trivalent poliovirus vaccine, live, oral Kailee Carbajal Work Phone: [facility] Payers Date Payer Category Payer Unknown [employer] Member Subscriber Plan / Payer (Effective 2024-Present) Name: Isadora Velazquezica Relation to Subscriber: Self Name: Janice Velazquez Payer ID: [id number] Group ID: [id number] Type: Not on file Address: [place] [id number] 2024 Unknown [id number] 2024 Unknown [id number] 2024 Self-pay [id number] 2024 Unknown [id number] 2016 Unknown [id number] 2005 Self-pay SELF PAY HSP/MED ICAL SELF PAY [id number] 2005-2015 SELF PAY Indemnity [id number]. [id number] 2004 Unknown [employer] [id number] 2004-2016 Indemnity [id number]. [id number] 1993 Unknown [id number] 2.16840.1.093121.3.579.2.479 1993 Unknown [id number] 2.16840.1.672235.3.579.2.479 1993 Unknown [id number] 2.16840.1.748115.3.579.2.479 1993 Unknown [id number] 2.16840.1.478192.3.579.2.479 1993 Unknown [id number] 2.16840.1.810518.3.579.2.479 1993 Unknown [id number] 2.16840.1.548810.3.579.2.479 Unknown [facility] [id number] Unknown [id number] 2.16.840.1.649366.3.579.2.462 Unknown [id number] 2.16.840.1.276767.3.579.2.462 Unknown [id number] 2.16.840.1.788069.3.579.2.462 Unknown [id number] 2.16.840.1.862809.3.579.2.462 Unknown [id number] 2.16840.1.329446.3.579.2.462 Unknown [id number] 2.16.840.1.834393.3.579.2.462 Unknown [id number] 2.16840.1.649938.3.579.2.462 Unknown [id number] 2.16.840.1.418309.3.579.2.462 Unknown [id number] 2.16840.1.098661.3.579.2.462 Unknown [id number] 2.840.1.128951.3.579.2.462 Unknown [id number] .840.1.264736.3.579.2.462 Unknown [id number] 2.840.1.020279.3.579.2.462 Unknown [id number] 2.840.1.723923.3.579.2.462 Unknown [id number] 2.840.1.021313.3.579.2.462 Unknown [id number] 2.840.1.451791.3.579.2.462 Unknown [id number] 2.840.1.496951.3.579.2.462 Unknown [id number] 2.840.1.116842.3.579.2.462 Unknown [id number] 2.840.1.289236.3.579.2.462 Unknown [id number] .840.1.740163.3.579.2.462 Unknown [id number] .840.1.126988.3.579.2.462 Unknown [id number] 2.840.1.765703.3.579.2.462 Unknown [id number] 2.840.1.691890.3.579.2.462 Unknown [id number] 2.840.1.782891.3.579.2.462 Unknown [id number] 2.16.840.1.039711.3.579.2.462 Unknown [id number] 2.16.840.1.635409.3.579.2.462 Unknown [id number] 2.16.840.1.488341.3.579.2.462 Unknown [id number] 2.16.840.1.342639.3.579.2.462 Unknown [id number] 2.16.840.1.798284.3.579.2.462 Unknown [id number] 2.16.840.1.029853.3.579.2.462 Unknown [id number] 2.16.840.1.334901.3.579.2.462 Unknown [id number] 2.16.840.1.469690.3.579.2.462 Unknown [id number] 2.16.840.1.808638.3.579.2.462 Unknown [id number] 2.16.840.1.634382.3.579.2.462 Unknown [id number] 2.16.840.1.867944.3.579.2.462 Unknown [id number] 2.16.840.1.135992.3.579.2.462 Unknown [id number] 2.16.840.1.105540.3.579.2.462 Unknown [id number] 2.16.840.1.640383.3.579.2.462 Social History Date Type Detail Facility Start: 06-13-2012 End: 02-07-2025 Tobacco smoking status ALIS Never smoker [facility] Start: 06-13-2012 Tobacco use and exposure Never used [facility] Work Phone: Start: 06-13-2012 Alcohol intake 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) [facility] Start: 1995 Sex Assigned At Not on file [facility] Start: 12-13-2022 End: 09-19-2023 Tobacco smoking status ALIS Unknown if ever smoked [facility] Start: 1995 Sex Assigned At Female [facility] Start: 11-19-2015 None [facility] Start: 11-19-2015 With Family [facility] Gender identity Not on file [facility] Start: 01-10-2025 End: 02-22-2025 Sex Female (finding) [facility] Goals Date Patient Goal Desired Activity /State Clinical Notes 02-05-2010 to 05-02-2025 Note Date & Type Note Facility 05-02-2025 Progress note [facility] 05-02-2025 Progress note Note Date/Time May 02, 2025 3:46pm [facility] [address], [address] [place] [address] OFFICE VISIT Date of Service: 05/02/25 MR#: [id number] Acct: [id number] Name: JANICE VELAZQUEZ Rep #: [id number] : 1995 Provider: Dr. Cory Nieto MD Age/Sex: 29/F Location: [facility] Status: Signed Intake Vital Signs 02/07/25 10:24 04/18/25 16:03 05/02/25 15:33 Height 5 ft 3 in 5 ft 4 in 5 ft 4 in Weight: 188 lb 6 oz BMI 32.3 BP 118/72 Intake Visit Reasons: 36 wk ob Heel Sewer Required: No Is patient in pain?: No Allergies No Known Allergies Allergy (Verified 05/02/25 15:35) Medications ?Medication ?Instructions ?Recorded ?Confirmed ?Type multivit-min no.71-iron fum 28 1 cap PO DAILY 10/12/24 05/02/25 History mg-folate no.1 1 mg-dha 300 mg capsule (PNV-Essex) cephalexin 500 mg capsule 500 mg PO [...] 5-6 times per week duration: 45-60 minutes/day ross/sabianist: Yarsani seatbelt use: always do you feel safe [...] live - 5# 15oz Male epidu ral [facility] Delivery Date: 09/27/23 Last Updated by: Davina [...] way he re. 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 States did not have any [...] of fetus: Status: Acute Comment: Met with [facility] genetic counselors and had testing there. (6) History of premature rupture of membranes (PPROM): Status: Acute Comment: Delivered at 34 weeks. CL at 16-24 weeks: 36 mm @16 wk. Recheck 22 wk:35mm (7) Supervision of high-risk : Status: Acute Qualifiers: Trimester: third trimester Qualified Code(s): O09.93 - Supervision of high risk , unspecified, third trimester Comment: [id number], DEE 05/29/25, LEOBARDO Gavin, Bon (8) : [...] inflammation Increase circulation Barriers Weight lifting 05/02/25 3592 <Electronically signed by Chika dubois MD> Date _ Chika Nieto MD [facility] Signature: Date (if applicable) CC: ~ [facility] Work Phone: 1(111) 851-897806-12-2025 Progress [facility] [address] [place] [address], [address] [place] [address] OFFICE VISIT Date of Service: 04/11/25 MR#: [id number] Acct: [id number] Name: JANICE VELAZQUEZ Rep #: [id number] : 1995 Provider: ASTER Chirinos Age/Sex: 29/F Location: [facility] Status: Signed Intake Vital Signs 04/05/25 14:48 04/11/25 08:19 Height 5 ft 4 in 5 ft 4 in Weight: 182 lb 6 oz BMI 31.3 BP 118/74 Intake Visit Reasons: ROM CHECK Chief Complaint: ROM check Heel Sewer Required: No Is patient in pain?: No Allergies No Known Allergies Allergy (Verified 04/11/25 08:21) Medications ?Medication ?Instructions ?Recorded ?Confirmed ?Type multivit-min no.71-iron fum 28 1 cap PO DAILY 10/12/24 04/11/25 History mg-folate no.1 1 mg-dha 300 mg capsule (PNV-Essex) cephalexin 500 mg capsule 500 mg PO [...] 5-6 times per week duration: 45-60 minutes/day ross/sabianist: Yarsani seatbelt use: always do you feel safe [...] way he re. 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 States did not have any [...] high risk , unspecified, third trimester Comment: [id number], DEE 05/29/25, LEOBARDO Gavin, Bon (2) : [...] of fetus: Status: Acute Comment: Met with [facility] genetic counselors and had testing there. 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 ENGINEER CONTROL INTEGRATION ENGINEER-C> Date _ Vannessa Taran CONTROL INTEGRATION ENGINEER CONTROL INTEGRATION ENGINEER-C [place] Signature: Date (if applicable) CC: ~ [facility]06-06-2025 [facility] [address] [place] [address], [address] [place] [address] OFFICE VISIT Date of Service: 04/05/25 MR#: [id number] Acct: [id number] Name: JANICE VELAZQUEZ Rep #: [id number] : 1995 Provider: DEEP Schilling Age/Sex: 29/F Location[place] [facility] Status: Signed Intake Vital Signs 02/07/25 10:24 04/04/25 17:28 04/05/25 14:43 04/05/25 14:48 Height 5 ft 3 in 5 ft 4 in 5 ft 4 in 5 ft 4 in Weight: 186 lb 5 oz BMI 31.9 BP 116/75 Intake Visit Reasons: 32 wk ob Chief Complaint: 32 Week OB Heel Sewer Required: No Is patient in pain?: No Allergies No Known Allergies Allergy (Verified 04/05/25 14:43) Medications ?Medication ?Instructions ?Recorded ?Confirmed ?Type multivit-min no.71-iron fum 28 1 cap PO DAILY 10/12/24 04/05/25 History mg-folate no.1 1 mg-dha 300 mg capsule (PNV-Essex) nitrofurantoin 100 mg PO Q12H 7 days [...] 5-6 times per week duration: 45-60 minutes/day ross/sabianist: Yarsani seatbelt use: always do you feel safe [...] live - 5# 15oz Male epidu ral [facility] Delivery Date: 09/27/23 Last Updated by: Davina [...] way he re. 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 States did not have any [...] high risk , unspecified, third trimester Comment: [id number], DEE 05/29/25, LEOBARDO Gavin, Bon (3) History of premature rupture of membranes (PPROM): Status: Acute Comment: Delivered at 34 weeks. CL at 16-24 weeks: 36 mm @16 wk. Recheck 22 wk:35mm (4) Choroid plexus cyst of fetus: Status: Acute Comment: Met with [facility] genetic counselors and had testing there. [...] Cosigner Signature: Date (if applicable) CC: ~ [facility] [id number] Progress note Author Giuliana Schilling [facility] Note Date/Time April 05, 2025 3:02p [facility] [address] [place] [address], [address] [place] [address] OFFICE VISIT Date of Service: 04/05/25 MR#: [id number] Acct: [id number] Name: JANICE VELAZQUEZ Rep #: [id number] : 1995 Provider: DEEP Schilling Age/Sex: 29/F Location: [facility] Status: Signed Intake Vital Signs 02/07/25 10:24 04/04/25 17:28 04/05/25 14:43 04/05/25 14:48 Height 5 ft 3 in 5 ft 4 in 5 ft 4 in 5 ft 4 in Weight: 186 lb 5 oz BMI 31.9 BP 116/75 Intake Visit Reasons: 32 wk ob Chief Complaint: 32 Week OB Heel Sewer Required: No Is patient in pain?: No Allergies No Known Allergies Allergy (Verified 04/05/25 14:43) Medications ?Medication ?Instructions ?Recorded ?Confirmed ?Type multivit-min no.71-iron fum 28 1 cap PO DAILY 10/12/24 04/05/25 History mg-folate no.1 1 mg-dha 300 mg capsule (PNV-Essex) nitrofurantoin 100 mg PO Q12H 7 days [...] 5-6 times per week duration: 45-60 minutes/day ross/sabianist: Yarsani seatbelt use: always do you feel safe [...] live - 5# 15oz Male epidu ral [facility] Bon Delivery Date: 09/27/23 Last Updated [...] way he re. 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 States did not have any [...] high risk , unspecified, third trimester Comment: [id number], DEE 05/29/25, PC Romaine, Bon (3) History of premature rupture of membranes (PPROM): Status: Acute Comment: Delivered at 34 weeks. CL at 16-24 weeks: 36 mm @16 wk. Recheck 22 wk:35mm (4) Choroid plexus cyst of fetus: Status: Acute Comment: Met with [facility] genetic counselors and had testing there. [...] Cosigner Signature: Date (if applicable) CC: ~ [facility] Work Phone: 1(310) 860-113905-20-2025 Progress note [facility] Medical Records Department [address] [place] [address] OB Triage Progress Note 03/19/25 1332 MR#: [id number] Acct: [id number] Name: JANICE VELAZQUEZ Rep #:[id number] : 1995 29 From: Giuliana Schilling CNM PCP: Dr. Nirav Perez MD Status:R EG CLI Y DOS: Location: [place] [address] Progress Notes Date of Service: 03/19/25 Progress Note: Patient presents for triage evaluation secondary to back pain and pelvic pressure at 29 weeks. Hx of delivery at 34 weeks FHT: 145 Moderate variability reactive no decelerations category I tracing [place]: no recorded Contractions Assessment and plan: Discussed [...] pH 8.0 (5.0 - 8.0) Ur Specific [place] 1.010 (1.002-1.030) Urine Protein Negative (Negative) mg/dl [...] Multi Select Codes Urinary/Genital Urinary/Genital CPT Codes: 49536-79 non-stress test Interp Assessment & Plan (1) [...] plexus cyst of fetus: COMMENT: Met with [facility] genetic counselors and had testing there. (5) History of premature rupture of membranes (PPROM): COMMENT: Delivered at 34 weeks. CL at 16-24 weeks: 36 mm @16 wk. Recheck 22 wk:35mm (6) Supervision of high-risk : QUALIFIERS: Trimester: third trimester Qualified Code(s): O09.93 - Supervision of high risk , unspecified, third trimester COMMENT: [id number], DEE 05/29/25, PC Romaine, Bon (7) : [...] Schilling; Dr. Nirav Perez MD ~ Signed [facility]03-14-2025 Evaluation note* Diagnosis Onset Date Resolution [...] tract infection) acute May 02, 2025 3:20pm [facility] Work Phone: 1(369) 575-137503-14-2025 Evaluation note* Diagnosis Onset Date Resolution Status [...] tract infection) acute May 02, 2025 3:20pm [facility] Work Phone: 1(760) 358-387902-20-2025 Evaluation note* Diagnosis Onset Date Resolution Status [...] tract infection) acute April 11, 2025 8:15am [facility] Work Phone: 1(621) 950-177702-13-2025 Evaluation note* Diagnosis Onset Date Resolution Status Admit Date Depression acute December 13, 2024 10:39am History of premature rupture of membranes (PPROM) acute [facility] 2024 10:39am acute December 13, 2024 10:39am [...] tract infection) acute March 19, 2025 9:30am [facility] Work Phone: 1(191) 955-325002-13-2025 Evaluation note* Diagnosis Onset Date Resolution Status Admit Date Depression acute December 13, 2024 10:39am History of premature rupture of membranes (PPROM) acute [facility] 2024 10:39am acute December 13, 2024 10:39am Supervision of high-risk acute December 13 10:39am External constriction of lower back and pelvis, sequela resolved December 13 10:39am Depression acute December 20, 2024 11:20am Dysplasia of cervix, low grade (KARAN 1) acute December 20 11:20am History of premature rupture of membranes (PPROM) acute [facility] 2024 11:20am acute December 20, 2024 11:20am PTSD (post-traumatic stress disorder) acute December 20 11:20am Supervision of high-risk acute December 20 11:20am Placenta previa inactive December 20, 2024 11:20am Depression acute December 27, 2024 8:54am Dysplasia of cervix, low grade (KARAN 1) acute December 27 8:54am History of premature rupture of membranes (PPROM) acute [facility] 2024 8:54am acute December 27, [...] tract infection) acute March 21, 2025 10:03am [facility] Work Phone: 1(248) 973-929502-13-2025 Evaluation note* Diagnosis Onset Date Resolution Status Admit Date Depression acute December 13, 2024 10:39am History of premature rupture of membranes (PPROM) acute [place] 2024 10:39am acute December 13, 2024 10:39am Supervision of high-risk acute December 13 10:39am External constriction of lower back and pelvis, sequela resolved December 13 10:39am Depression acute December 20, 2024 11:20am Dysplasia of cervix, low grade (KARAN 1) acute December 20 11:20am History of premature rupture of membranes (PPROM) acute Feb [place] 2024 11:20am acute December 20, 2024 11:20am PTSD (post-traumatic stress disorder) acute December 20 11:20am Supervision of high-risk acute December 20 11:20am Placenta previa inactive December 20, 2024 11:20am Depression acute December 27, 2024 8:54am Dysplasia of cervix, low grade (KARAN 1) acute December 27 8:54am History of premature rupture of membranes (PPROM) acute [place] 2024 8:54am acute December 27, 2024 8:54am [...] tract infection) acute April 05, 2025 2:39pm [facility] Work Phone: 1(243) 213-594302-13-2025 Evaluation note* Diagnosis Onset Date Resolution Status Admit Date Depression acute December 13, 2024 10:39am History of premature rupture of membranes (PPROM) acute [facility] 2024 10:39am acute December 13, 2024 10:39am Supervision of high-risk acute December 13 10:39am External constriction of lower back and pelvis, sequela resolved December 13 10:39am Depression acute December 20, 2024 11:20am Dysplasia of cervix, low grade (KARAN 1) acute December 20 11:20am History of premature rupture of membranes (PPROM) acute [facility] 2024 11:20am acute December 20, 2024 11:20am PTSD (post-traumatic stress disorder) acute December 20 11:20am Supervision of high-risk acute December 20 11:20am Placenta previa inactive December 20, 2024 11:20am Depression acute December 27, 2024 8:54am Dysplasia of cervix, low grade (KARAN 1) acute December 27 8:54am History of premature rupture of membranes (PPROM) acute [facility] 2024 8:54am acute December 27, [...] tract infection) acute April 11, 2025 8:15am [facility] Work Phone: 1(863) 971-905901-17-2025 Evaluation note* Diagnosis Onset Date Resolution Status [...] of premature rupture of membranes (PPROM) acute [facility] 2024 10:39am acute December 13, 2024 10:39am Supervision of high-risk acute December 13 10:39am External constriction of lower back and pelvis, sequela resolved December 13 10:39am Depression acute December 20, 2024 11:20am Dysplasia of cervix, low grade (KARAN 1) acute December 20 11:20am History of premature rupture of membranes (PPROM) acute [facility] 2024 11:20am acute December 20, 2024 11:20am PTSD (post-traumatic stress disorder) acute December 20 11:20am Supervision of high-risk acute December 20 11:20am Placenta previa inactive December 20, 2024 11:20am Depression acute December 27, 2024 8:54am Dysplasia of cervix, low grade (KARAN 1) acute December 27 8:54am History of premature rupture of membranes (PPROM) acute [facility] 2024 8:54am acute December 27, [...] of high-risk acute February 07, 2025 10:22am [facility] Work Phone: 1(690) 686-635401-17-2025 Evaluation note* Diagnosis Onset Date Resolution Status [...] tract infection) acute March 06, 2025 12:50pm [facility] Work Phone: 1(101) 602-618601-08-2025 Progress note Author Giuliana Schilling [facility] Note Date/Time March 19, 2025 1:35p m [facility] Medical Records Department [address] [place] [address] OB Triage Progress Note 03/19/25 1332 MR#: [id number] Acct: [id number] Name: JANICE VELAZQUEZ Rep #:[id number] : 1995 29 From: Giuliana Schilling CNM PCP: Dr. Nirav Perez MD Status:R EG CLI Y DOS: Location: [place] [address] Progress Notes Date of Service: 03/19/25 Progress Note: Patient presents for triage evaluation secondary to back pain and pelvic pressure at 29 weeks. Hx of delivery at 34 weeks FHT: 145 Moderate variability reactive no decelerations category I tracing [place]: no recorded Contractions Assessment and plan: Discussed [...] pH 8.0 (5.0 - 8.0) Ur Specific [place] 1.010 (1.002-1.030) Urine Protein Negative (Negative) mg/dl [...] Multi Select Codes Urinary/Genital Urinary/Genital CPT Codes: 60420-52 non-stress test Interp Assessment & Plan (1) [...] plexus cyst of fetus: COMMENT: Met with [facility] genetic counselors and had testing there. (5) History of premature rupture of membranes (PPROM): COMMENT: Delivered at 34 weeks. CL at 16-24 weeks: 36 mm @16 wk. Recheck 22 wk:35mm (6) Supervision of high-risk : QUALIFIERS: Trimester: third trimester Qualified Code(s): O09.93 - Supervision of high risk , unspecified, third trimester COMMENT: [id number], DEE 05/29/25, LEOBARDO Gavin, Bon (7) : [...] Schilling; Dr. Nirav Perez MD ~ Signed [facility] Work Phone: 1(750) 873-328812-20-2024 Evaluation note* Diagnosis Onset Date Resolution Status [...] Vaginal discharge resolved Februar y 2024 8:54am [facility] Work Phone: 1(502) 342-383502-07-2023 NotePap Smear Specimen AdequacyFebruary 2022 11:38amComment.Satisfactory for evaluation. Endocervical and/or squamous metaplasticcells (endocervical component)are present.[facility] INTERFACED A#[id number] County HospitalComment on above:Satisfactory for evaluation. Endocervical and/or squamous metaplasticcells (endocervical component)are present.06-23-2012 Miscellaneous Notes* Telephone Encounter - Kailee Carbajal ([place]) - 06/23/2012 10:26 AM EDT Please inform patient/parent that sickle test is negative. [facility] History of Past illness Narrative* Problem Noted Date Resolved Date Tachycardia 02/05/2010 08/17/2013 documented as of this encounter (statuses as of 02/18/2021) [facility] Diagnosis Onset Date Resolution Status Dysplasia of cervix, low grade (KARAN 1) acute Family history of breast cancer acute Encounter for routine gynecological examination noneactive Acute streptococcal pharyngitis acute [facility] Work Phone: Evaluation note* Diagnosis Onset [...] Seasonal allergies acute Supervision of high-risk acute [facility] Work Phone: Evaluation note* Diagnosis Onset [...] Seasonal allergies acute Supervision of high-risk acute [facility] Work Phone: Evaluation note* Diagnosis Onset [...] Seasonal allergies acute Supervision of high-risk acute [facility] Work Phone: Evaluation note* Diagnosis Onset [...] of high-risk acute Decreased movement acu te [facility] Work Phone: Evaluation note* Diagnosis Maternal care for (suspected) central nervous system malformation or damage in fetus, choroid plexus cysts, fetus 1 documented in this encounter [facility] Author Dayanara Christie [facility] September 22, 2023 10:33am Note Date/Time September 22, 2023 10:33am [facility] Medical Records Department [address] [place] [address] OB Triage Physician Note 11/23/23 1030 MR#: [id number] Acct: [id number] Name: JANICE VELAZQUEZ Rep #:[id number] : 1995 27 From: Dayanara Christie CNM PCP: Dr. 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 See problem list details for additional plan information. Charges/Coding Visit Charges Office Visits / Consults: 74728 OV L3 Est Multi Select Codes Urinary/Genital Urinary/Genital CPT Codes: 68895-12 non-stress test Interp 09/22/23 1033 <Electronically signed by Dayanara mario CNM> Date _ Dayanara Christie CNM Cosigner Signature (if applicable): Date CC: DEEP Christie; Dr. Nirav Perez MD ~ Signed [facility] Work Phone: Hospital Discharge instructions Additional Instructions return on 04/04/2025 at 5:30 (1730) for second injection of celestone.[facility] Work Phone: Progress note Author Vannessa Chirinos [facility] Note Date/Time April 11,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
--- OUTSIDE RECORDS SUMMARY | 2025-05-09 04:02 | XMS RPT_ITS | CCD ---
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 challengeOrdered By: Jerardo Garcia on 12-14-2024 AST [Catalytic activity/Vol] 24 U/L 15-37 [facility] Lactate dehydrogenase (LDH) measurementOrdered By: Jerardo Garcia on 12-14-2024 LDH [Catalytic activity/Vol] 144 U/L 84-246 [facility] Lymphocytes Auto (Unsp spec) [#/Vol]Ordered By: Jerardo Garcia on 12-14-2024 Lymphocytes (Bld) [#/Vol] 2.62 10*3/uL 0.83-4.51 [facility] Lymphocytes/100 WBC Auto (Un sp spec)Ordered By: Jerardo Garcia on 12-14-2024 Lymphocytes/100 WBC (Bld) 31.5 % 19-41 [facility] MCV (mean corpuscular volume ) determinationOrdered By: Jerardo Garcia on 12-14-2024 MCV (RBC) [Entitic vol] 87.9 fL 81-99 [facility] Mean corpuscular hemoglobin (MCH) determinationOrdered By: Jerardo Garcia on 12-14-2024 MCH (RBC) [Entitic mass] 30.6 pg 27.0-32.0 [facility] Mean corpuscular hemoglobin concentration (MCHC) determinationOrdered By: Jerardo Garcia on 12-14-2024 MCHC (RBC) [Mass/Vol] 34.8 g/dL 32-36 [facility] Mean platelet volume determi nationOrdered By: Jerardo Garcia on 12-14-2024 Platelet mean volume (Bld) [Entitic vol] 10.4 fL 6.2-12.0 [facility] Microscopic analysis of urin e for red blood cells (RBC)Ordered By: Jerardo Garcia on 12-14-2024 Microscopic analysis of urine for red blood cells (RBC) 0-5 SEEN /hpf 0-5 [facility] Urine RBC 0-5 SEEN /hpf 0-5 [facility] Monocyte percentageOrdered B y: Jerardo Garcia on 12-14-2024 Monocytes/100 WBC (Bld) 7.1 % 0-10 [facility] Mucus LM Ql (Urine sed)Order ed By: Jerardo Garcia on 12-14-2024 Mucus Ql (Urine sed) 0 SEEN /hpf [facility] Neutrophil percentageOrdered By: Jerardo Garcia on 12-14-2024 Neutrophils/100 WBC (Bld) 59.8 % 47-70 [facility] Nitrite Test strip Ql (U)Ord ered By: Jerardo Garcia on 12-14-2024 Nitrite Ql (U) Negative Negative [facility] Nucleated red blood cell per centageOrdered By: Jerardo Garcia on 12-14-2024 Nucleated RBC/100 WBC (Bld) [Ratio] 0 % 0-5 [facility] Partial Thromboplast Timeon 12-14-2024 aPTT Coag (Bld) [Time] 26.2 s Normal 24.1-36.2 [facility] Comment on above: Performed By: #### L 509.8002, L501.0250, L3890.6006, L100.0100 #### [facility] [address] [place], [address] Platelet countOrdered By: Mathew Garcia on 12-14-2024 Platelets (Bld) [#/Vol] 330 10*3/uL 150-450 [facility] Potassium measurementOrdered By: Jerardo Garcia on 12-14-2024 Potassium [Moles/Vol] 3.3 mmol/L Low 3.5-5.1 [facility] Protein Test strip Ql (U)Ord ered By: Jerardo Garcia on 12-14-2024 Protein Ql (U) Negative Negative [facility] Prothrombin Time w/INRon INR Coag (PPP) [Relative time] 0.9 {INR} Normal [facility] Comment on above: Performed By: #### L 509.8002, L501.0250, L3890.6006, L100.0100 #### [facility] [address] [place], [address] PT Coag (PPP) [Time] 12.5 s Normal 11.7-14.9 [facility] Comment on above: Performed By: #### L 509.8002, L501.0250, L3890.6006, L100.0100 #### [facility] [address] [place], [address] Prothrombin timeOrdered By: Jerardo Garcia on 12-14-2024 PT Coag (PPP) [Time] 12.5 s 11.7-14.9 [facility] RBC Auto (Bld) [#/Vol]Ordere d By: Jerardo Garcia on 12-14-2024 RBC (Bld) [#/Vol] 4.05 10*6/uL Low 4.2-5.4 [facility] Serum anion gap measurementO rdered By: Jerardo Garcia on 12-14-2024 Anion gap [Moles/Vol] 8 mmol/L 5-15 [facility] Serum globulin measurementOr dered By: Jerardo Garcia on 12-14-2024 Globulin (S) [Mass/Vol] 3.5 g/dL 2.2-4.2 [facility] Serum or plasma alanine rosas otransferase (ALT) measurementOrdered By: Jerardo Garcia on 12-14-2024 ALT [Catalytic activity/Vol] 28 U/L 13-56 [facility] Serum or plasma albumin tabatha urement (mass/volume)Ordered By: Jerardo De Los Santos on 12-14-2024 Albumin [Mass/Vol] 3.0 g/dL Low 3.2-5.0 [facility] Serum or plasma alkaline courtney sphatase measurementOrdered By: Jerardo Garcia on 12-14-2024 ALP [Catalytic activity/Vol] 65 U/L 45-117 [facility] Serum or plasma calcium tabatha urement (mass/volume)Ordered By: Jerardo De Los Santos on 12-14-2024 Calcium [Mass/Vol] 8.8 mg/dL 8.5-10.1 [facility] Serum or plasma creatinine m easurement (mass/volume)Ordered By: Jerardo De Los Santos on 12-14-2024 Creatinine [Mass/Vol] 0.63 mg/dL 0.55-1.02 [facility] Comment on above: The validity of the calculated GFR & GFRAA in patients over 70 years has not been determined. Clinical correlation is essential. Serum or plasma urea nitroge n measurement (mass/volume)Ordered By: Jerardo Garcia on 12-14-2024 Urea nitrogen [Mass/Vol] 6 mg/dL Low 7-18 [facility] Sodium levelOrdered By: Juwan Garcia on 12-14-2024 Sodium [Moles/Vol] 137 mmol/L 136-145 [facility] Squamous epithelial cells de tection in urine sediment by light microscopyOrdered By: Jerardo Garcia on 12-14-2024 Epithelial cells.squamous LM Ql (Urine sed) 0-5 SEEN /hpf 5-10 [facility] Total proteinOrdered By: Ollie Garcia on 12-14-2024 Protein [Mass/Vol] 6.5 g/dL 6.4-8.2 [facility] Transvaginal w/Preg USon Transvaginal w/Preg US [facility] [address] [place] [address] Transvaginal w/Preg US MR#: [id number] Acct: [id number] Name: JANICE VELAZQUEZ Rep #: [id number] : 1995 F 29 From: Renato Holley DO PCP: Dr. Nirav Perez MD Status: [facility] Study: Transvaginal w/Preg US Date of Exam: 12/14/24 Exam# [id number] Ordering Dr: Jerardo Garcia DO PROCEDURE: TRANSVAGINAL [...] consistent with grade 4 previa. Reading Location: [facility] CC: Dr. Jerardo Garcia DO; Dr. Nirav Perez MD Psychotherapist Social Worker: Signed Normal [facility] Urinalysis, Completeon 12-14 BACTERIA RARE Normal None Seen [facility] Comment on above: Order Comment: CLEAN CATCH Performed By: #### L 509.8002, L501.0250, L3890.6006, L100.0100 #### [facility] [address] [place], [address] EPI,SQUAMOUS 0-5 SEEN Normal 5-10 [facility] Comment on above: Order Comment: CLEAN CATCH Performed By: #### L 509.8002, L501.0250, L3890.6006, L100.0100 #### [facility] [address] [place], [address] RBC 0-5 SEEN Normal 0-5 [facility] Comment on above: Order Comment: CLEAN CATCH Performed By: #### L 509.8002, L501.0250, L3890.6006, L100.0100 #### [facility] [address] [place], [address] Mucus Ql (Urine sed) 0 SEEN Normal [facility] Comment on above: Order Comment: CLEAN CATCH Performed By: #### L 509.8002, L501.0250, L3890.6006, L100.0100 #### [facility] [address] [place], [address] WBC 0 SEEN Normal 0-5 [facility] Comment on above: Order Comment: CLEAN CATCH Performed By: #### L 509.8002, L501.0250, L3890.6006, L100.0100 #### [facility] [address] [place], [address] Urine blood detectionOrdered By: Jerardo Garcia on 12-14-2024 Urine Occult Blood 150 /ul High Negative [facility] Urine clarityOrdered By: Ollie Garcia on 12-14-2024 Clarity (U) Clear Clear [facility] Urine color determinationOrd ered By: Jerardo Garcia on 12-14-2024 Color (U) Yellow Yellow [facility] Urine glucose detectionOrder ed By: Jerardo Garcia on 12-14-2024 Glucose Ql (U) Normal mg/dl Normal [facility] Urine leukocyte esterase det ection by dipstickOrdered By: Jerardo Garcia on 12-14-2024 Leukocyte esterase Test strip Ql (U) Negative Negative [facility] Urine pHOrdered By: Jerardo Del Real on 12-14-2024 pH (U) 6.5 [pH] 5.0 - 8.0 [facility] Urine sediment bacteria coun t by microscopy (number/high power field)Ordered By: Jerardo Garcia on 12-14-2024 Bacteria LM.HPF (Urine sed) [#/Area] RARE /hpf None Seen [facility] Urine specific gravity measu rementOrdered By: Jerardo Garcia on 12-14-2024 Specific gravity (U) [Rel density] 1.010 1.002-1.030 [facility] Urine urobilinogen measureme ntOrdered By: Jerardo Garcia on 12-14-2024 Urobilinogen Ql (U) Normal mg/dl Normal [facility] Urobilinogen Ql (U)Ordered B y: Jerardo Garcia on 12-14-2024 Urine Urobilinogen Normal mg/dl Normal [facility] White blood cell (WBC) count Ordered By: Jerardo Garcia on 12-14-2024 WBC (Bld) [#/Vol] 8.3 10*3/uL 4.4-11.0 [facility] White blood cell countOrdere d By: Jerardo Garcia on 12-14-2024 Urine WBC 0 SEEN /hpf 0-5 [facility] White blood cell count 0 SEEN /hpf 0-5 [facility] aPTT Coag (PPP) [Time]Ordere d By: Jerardo Garcia on 12-14-2024 aPTT Coag (Bld) [Time] 26.2 s 24.1-36.2 [facility] Laboratory - Chemistry and C hemistry - challengeOrdered By: Vannessa Chirinos on 12-13-2024 Glucose Ql (U) Negative [facility] - UrinalysisOrder ed By: Vannessa Chirinos on 12-13-2024 Protein Ql (U) Negative [facility] Powerhouse Engineer Office Visit Reporton 12-13-2024 Powerhouse Engineer Office Visit Report [facility], [address] [place] [address] OFFICE VISIT Date of Service: 12/13/24 MR#: [id number] Acct: [id number] Name: JANICE VELAZQUEZ Rep #: [id number] : 1995 Provider: ASTER samuel Age/Sex: 29/F [place] [facility] [place]: Signed Intake Vital Signs 10/19/24 11:22 11/16/24 13:30 12/13/24 10:41 Height 5 ft 3 in 5 ft 3 in 5 ft 3 in Weight: 164 lb BMI 29.0 BP 118/70 Intake Visit Reasons: 16 wk OB Chief Complaint: 16 Week OB Reject Opener And Filler Required: No Is patient in pain?: No Allergies No Known Allergies Allergy (Verified 12/13/24 10:40) Medications ???Medication ???Instructions ???Recorded ???Confirmed ???Type doxylamine succinate 25 mg tablet 25 mg PO QHS PRN 10/12/24 5 History (Unisom (doxylamine)) multivit-min no.71-iron fum 28 cap PO 10/12/24 12/13/24 History mg-folate no.1 1 mg-dha 300 mg capsule (PNV-[place]) Last Menstrual Period: 08/22/24 Zika: Zika virus [...] 5-6 times per week duration: 45-60 minutes/day ross/lutheran: Hinduism seatbelt use: always do you feel safe [...] PTB. 10/31 (more content not included)... Normal [facility] - Chemistry and C hemistry - challengeon 11-16-2024 Glucose Ql (U) Negative [facility] - Urinalysison Protein Ql (U) Negative [facility] Powerhouse Engineer Office Visit Reporton 11-16-2024 Powerhouse Engineer Office Visit Report [facility] [address], [address] [place] [address] OFFICE VISIT Date of Service: 11/16/24 MR#: [id number] Acct: [id number] Name: JANICE VELAZQUEZ Rep #: [id number] : 1995 Provider: Dr. Stephania Taylor DO Age/Sex: 29/F Location[place] [facility] [place] Status: Signed Intake Vital Signs 07/17/24 14:52 10/19/24 11:22 11/16/24 13:30 Height 5 ft 3 in 5 ft 3 in 5 ft 3 in Weight: 164 lb 6 oz BMI 29.1 BP 120/87 H Intake Visit Reasons: 12wk OB Reject Opener And Filler Required: No Is patient in pain?: No Allergies No Known Allergies Allergy (Verified 11/16/24 13:35) Medications ???Medication ???Instructions ???Recorded ???Confirmed ???Type doxylamine succinate 25 mg tablet 25 mg PO QHS PRN 10/12/24 11/16/24 History (Unisom (doxylamine)) multivit-min no.71-iron fum 28 cap PO 10/12/24 11/16/24 History mg-folate no.1 1 mg-dha 300 mg capsule (PNV-[place]) Last Menstrual Period: 08/22/24 Zika: Zika virus [...] 5-6 times per week duration: 45-60 minutes/day ross/lutheran: Hinduism seatbelt use: always do you feel safe [...] 11/16/24 -???-???-???-??? (more content not included)... Normal [facility] Chlamydia/GC PHILIP aptimaon CHLAMY,NUC ACID Negative Normal Negative [facility] Comment on above: Performed By: #### M 100.2200, L7000.1800 ####[facility] [address] [place], [place], [id number] GC BY NUC ACID Negative Normal Negative [facility] Comment on above: Result Comment: Perf ormed at: =G - [facility] [address] [id number] Awning Hanger: Chantel Sánchez MD, Phone: [phone] Performed By: #### M 100.2200, L7000.1800 ####[facility] [address] [place], [place], [id number] Urine Cultureon 10-20-2024 URC Culture exhibits no growth. Normal [facility] Comment on above: Performed By: #### M 100.2200, L7000.1800 ####[facility] [address] [place], [place], [id number] Absolute neutrophil countOrd ered By: Dayanara Christie on 10-19-2024 Neutrophils (Bld) [#/Vol] 5.9 10*3/uL 2.0-7.7 [facility] Basophil percentageOrdered B y: Dayanara Christie on 10-19-2024 Basophils/100 WBC (Bld) 0.5 % 0-1 [facility] C. trachomatis rRNA PHILIP+prob e Ql (Unsp spec)Ordered By: Dayanara Christie on 10-19-2024 Chlamydia DNA (PHILIP) Negative Negative [facility] CBC W/Diff, Automatedon 10-01 Absolute Lymph 2.20 X10 3/uL Normal 0.83-4.51 [facility] Comment on above: Performed By: #### L 509.8000, L3890.6005, BTS, L3890.6100, L100.0100, L3890.6300, L509.4005 ####[facility] [address] [place], [place], [id number] Absolute Neut 5.9 X10 3/uL Normal 2.0-7.7 [facility] Comment on above: Performed By: #### L 509.8000, L3890.6005, BTS, L3890.6100, L100.0100, L3890.6300, L509.4005 ####[facility] [address] [place], [address] Basophils/100 WBC (Bld) 0.5 % Normal 0-1 [facility] Comment on above: Performed By: #### L 509.8000, L3890.6005, BTS, L3890.6100, L100.0100, L3890.6300, L509.4005 ####[facility] [address] [place], [address] Eosinophils/100 WBC (Bld) 1.1 % Normal 0-5 [facility] Comment on above: Performed By: #### L 509.8000, L3890.6005, BTS, L3890.6100, L100.0100, L3890.6300, L509.4005 ####[facility] [address] [place], [address] Erythrocyte distribution width (RBC) [Ratio] 12.6 % Normal 11.6-14.6 [facility] Comment on above: Performed By: #### L 509.8000, L3890.6005, BTS, L3890.6100, L100.0100, L3890.6300, L509.4005 ####[facility] [address] [place], [address] Hematocrit (Bld) [Volume fraction] 42.9 % Normal 37-47 [facility] Comment on above: Performed By: #### L 509.8000, L3890.6005, BTS, L3890.6100, L100.0100, L3890.6300, L509.4005 ####[facility] [address] [place], [address] Hemoglobin (Bld) [Mass/Vol] 14.3 g/dL Normal 12.0-15.0 [facility] Comment on above: Performed By: #### L 509.8000, L3890.6005, BTS, L3890.6100, L100.0100, L3890.6300, L509.4005 ####[facility] [address] [place], [address] IG% 0.300 Normal 0.0-0.9 [facility] Comment on above: Result Comment: IG% - Immature Granulocytes (promyelocytes, myelocytes and metamyelocytes) > 1% indicates that a LEFT SHIFT is Present. Performed By: #### L 509.8000, L3890.6005, BTS, L3890.6100, L100.0100, L3890.6300, L509.4005 ####[facility] [address] [place], [address] Lymphocytes/100 WBC (Bld) 24.8 % Normal 19-41 [facility] Comment on above: Performed By: #### L 509.8000, L3890.6005, BTS, L3890.6100, L100.0100, L3890.6300, L509.4005 ####[facility] [address] [place], [address] MCH (RBC) [Entitic mass] 29.5 pg Normal 27.0-32.0 [facility] Comment on above: Performed By: #### L 509.8000, L3890.6005, BTS, L3890.6100, L100.0100, L3890.6300, L509.4005 ####[facility] [address] [place], [address] MCHC (RBC) [Mass/Vol] 33.3 g/dL Normal 32-36 [facility] Comment on above: Performed By: #### L 509.8000, L3890.6005, BTS, L3890.6100, L100.0100, L3890.6300, L509.4005 ####[facility] [address] [place], [address] MCV (RBC) [Entitic vol] 88.6 fL Normal 81-99 [facility] Comment on above: Performed By: #### L 509.8000, L3890.6005, BTS, L3890.6100, L100.0100, L3890.6300, L509.4005 ####[facility] [address] [place], [address] Monocytes/100 WBC (Bld) 6.8 % Normal 0-10 [facility] Comment on above: Performed By: #### L 509.8000, L3890.6005, BTS, L3890.6100, L100.0100, L3890.6300, L509.4005 ####[facility] [address] [place], [address] Neutrophils/100 WBC (Bld) 66.5 % Normal 47-70 [facility] Comment on above: Performed By: #### L 509.8000, L3890.6005, BTS, L3890.6100, L100.0100, L3890.6300, L509.4005 ####[facility] [address] [place], [address] Nucleated RBC (Bld) [#/Vol] 0 10*3/uL Normal 0-5 [facility] Comment on above: Performed By: #### L 509.8000, L3890.6005, BTS, L3890.6100, L100.0100, L3890.6300, L509.4005 ####[facility] [address] [place], [address] Platelet mean volume (Bld) [Entitic vol] 9.8 fL Normal 6.2-12.0 [facility] Comment on above: Performed By: #### L 509.8000, L3890.6005, BTS, L3890.6100, L100.0100, L3890.6300, L509.4005 ####[facility] [address] [place], [address] Platelets (Bld) [#/Vol] 431 10*3/uL Normal 150-450 [facility] Comment on above: Performed By: #### L 509.8000, L3890.6005, BTS, L3890.6100, L100.0100, L3890.6300, L509.4005 ####[facility] [address] [place], [address] RBC (Bld) [#/Vol] 4.84 10*6/uL Normal 4.2-5.4 [facility] Comment on above: Performed By: #### L 509.8000, L3890.6005, BTS, L3890.6100, L100.0100, L3890.6300, L509.4005 ####[facility] [address] [place], [address] RDW SD 41.0 fl Normal 35.1-43.9 [facility] Comment on above: Performed By: #### L 509.8000, L3890.6005, BTS, L3890.6100, L100.0100, L3890.6300, L509.4005 ####[facility] [address] [place], [address] WBC (Bld) [#/Vol] 8.9 10*3/uL Normal 4.4-11.0 [facility] Comment on above: Performed By: #### L 509.8000, L3890.6005, BTS, L3890.6100, L100.0100, L3890.6300, L509.4005 ####[facility] [address] [place], [place], [id number] Eosinophil percentageOrdered By: Dayanara Christie on 10-19-2024 Eosinophils/100 WBC (Bld) 1.1 % 0-5 [facility] Erythrocyte distribution wid th ratioOrdered By: Dayanara Christie on 10-19-2024 Erythrocyte distribution width (RBC) [Ratio] 12.6 % 11.6-14.6 [facility] Erythrocyte distribution wid th standard deviationOrdered By: Dayanara Christie on 10-19-2024 Erythrocyte distribution width (RBC) [Entitic vol] 41.0 fL 35.1-43.9 [facility] HIV - WCHon 10-19-2024 HIV Non-Reactive Normal Nonreactive [facility] Comment on above: Order Comment: Reaso n for Exam: Performed By: #### L 509.8000, L3890.6005, BTS, L3890.6100, L100.0100, L3890.6300, L509.4005 ####[facility] [address] [facility] [address] [place], [place], [id number] HIV 1+2 Ab+HIV1 p24 Ag IA Ql Ordered By: Dayanara Christie on 10-19-2024 HIV (1&2) Antibody Non-Reactive Nonreactive [facility] Hematocrit Auto (Bld) [Volum e fraction]Ordered By: Dayanara Christie on 10-19-2024 Hematocrit (Bld) [Volume fraction] 42.9 % 37-47 [facility] Hemoglobin measurementOrdere d By: Dayanara Christie on 10-19-2024 Hemoglobin (Bld) [Mass/Vol] 14.3 g/dL 12.0-15.0 [facility] Hepatitis B Surface Antigeno n 10-19-2024 HEP B Surf Ag Non-Reactive Normal Nonreactive [facility] Comment on above: Order Comment: Reaso n for Exam: Performed By: #### L 509.8000, L3890.6005, BTS, L3890.6100, L100.0100, L3890.6300, L509.4005 ####[facility] [address] [place], [address] Hepatitis B surface antigen detectionOrdered By: Dayanara Christie on 10-19-2024 Hepatitis B Surface Antigen Non-Reactive Nonreactive [facility] Hepatitis C Antibodyon 10-19 Hepatitis C AB Non-Reactive Normal Nonreactive [facility] Comment on above: Order Comment: Reaso n for Exam: Result Comment: Non Reactive: < 0.8 Equivocal: >/= 0.8 to < 1.0 Reactive: >/= 1.[address] [facility] requires that a reactive/equivocal HCV antibody result be sent out for confirmation. HCV Quant by PCR testing. Performed By: #### L 509.8000, L3890.6005, BTS, L3890.6100, L100.0100, L3890.6300, L509.4005 ####[facility] [address] [place], [address] Hepatitis C virus antibody a ssayOrdered By: Dayanara Christie on 10-19-2024 Hepatitis C Antibody Non-Reactive Nonreactive [facility] Comment on above: Non Reactive: < 0.8 Equivocal: >/= 0.8 to < 1.0 Reactive: >/= 1.0The [facility] requires that a reactive/equivocal HCV antibody result be sent out for confirmation. HCV Quant by PCR testing. Immature granulocytes/100 WB C Auto (Bld)Ordered By: Dayanara Christie on 10-19-2024 Immature granulocytes/100 WBC (Bld) 0.300 % 0.0-0.9 [facility] Comment on above: IG% - Immature Granu locytes (promyelocytes, myelocytes and metamyelocytes) > 1% indicates that a LEFT SHIFT is Present. L509.8000on 10-19-2024 Syphilis Abs Non-Reactive Normal [facility] Comment on above: Order Comment: Reaso n for Exam: Performed By: #### L 509.8000, L3890.6005, BTS, L3890.6100, L100.0100, L3890.6300, L509.4005 ####[facility] [address] [place], [address] Lymphocytes Auto (Unsp spec) [#/Vol]Ordered By: Dayanara Christie on 10-19-2024 Lymphocytes (Bld) [#/Vol] 2.20 10*3/uL 0.83-4.51 [facility] Lymphocytes/100 WBC Auto (Un sp spec)Ordered By: Dayanara Christie on 10-19-2024 Lymphocytes/100 WBC (Bld) 24.8 % 19-41 [facility] MCV (mean corpuscular volume ) determinationOrdered By: Dayanara Christie on 10-19-2024 MCV (RBC) [Entitic vol] 88.6 fL 81-99 [facility] Mean corpuscular hemoglobin (MCH) determinationOrdered By: Dayanara Christie on 10-19-2024 MCH (RBC) [Entitic mass] 29.5 pg 27.0-32.0 [facility] Mean corpuscular hemoglobin concentration (MCHC) determinationOrdered By: Dayanara Christie on 10-19-2024 MCHC (RBC) [Mass/Vol] 33.3 g/dL 32-36 [facility] Mean platelet volume determi nationOrdered By: Dayanara Christie on 10-19-2024 Platelet mean volume (Bld) [Entitic vol] 9.8 fL 6.2-12.0 [facility] Monocyte percentageOrdered B y: Dayanara Christie on 10-19-2024 Monocytes/100 WBC (Bld) 6.8 % 0-10 [facility] Neisseria gonorrhoeae nuclei c acid detection by amplified probe techniqueOrdered By: Dayanara Christie on 10-19-2024 N. gonorrhoeae DNA PHILIP+probe Ql (Unsp spec) Negative Negative [facility] Comment on above: Performed at: =[address] [id number] Director: Chantel Sánchez MD, Phone: [phone] Neutrophil percentageOrdered By: Dayanara Christie on 10-19-2024 Neutrophils/100 WBC (Bld) 66.5 % 47-70 [facility] Nucleated red blood cell per centageOrdered By: Dayanara Christie on 10-19-2024 Nucleated RBC/100 WBC (Bld) [Ratio] 0 % 0-5 [facility] Powerhouse Engineer Office Visit Reporton 10-19-2024 Powerhouse Engineer Office Visit Report [facility] [address], [address] [place] [address] OFFICE VISIT Date of Service: 10/19/24 MR#: [id number] Acct: [id number] Name: JANICE VELAZQUEZ Rep #: [id number] : 1995 Provider: DEEP boston Age/Sex: 28/F [place] [facility] [place]: Signed Intake Vital Signs 07/17/24 14:52 10/19/24 11:17 10/19/24 11:22 Height 5 ft 3 in 5 ft 3 in 5 ft 3 in Weight: 164 lb 2 oz BMI 29.0 BP 120/81 H Intake Visit Reasons: New OB, LMP 08/22/24, DEE 05/29/25 Reject Opener And Filler Required: No Is patient in pain?: No Allergies No Known Allergies Allergy (Verified 10/19/24 11:18) Medications ???Medication ???Instructions ???Recorded ???Confirmed ???Type doxylamine succinate 25 mg tablet 25 mg PO QHS PRN 10/12/24 10/12/24 History (Unisom (doxylamine)) multivit-min no.71-iron fum 28 cap PO 10/12/24 10/12/24 History mg-folate no.1 1 mg-dha 300 mg capsule (PNV-[place]) Last Menstrual Period: 08/22/24 Zika: Zika virus [...] 5-6 times per week duration: 45-60 minutes/day ross/lutheran: Hinduism seatbelt use: always do you feel safe [...] 146 -???-???- (more content not included)... Normal [facility] Platelet countOrdered By: Anamaria Christie on 10-19-2024 Platelets (Bld) [#/Vol] 431 10*3/uL 150-450 [facility] RBC Auto (Bld) [#/Vol]Ordere d By: Dayanara Christie on 10-19-2024 RBC (Bld) [#/Vol] 4.84 10*6/uL 4.2-5.4 [facility] Rubella IgGon 10-19-2024 Rubella IgG Reactive Normal Nonreactive [facility] Comment on above: Order Comment: Reaso n for Exam: Result Comment: Anti body Results Interpretation of Immune Status Non Reactive Presumed Non-Immune Equivocal Equivocal Reactive Presumed Immune Performed By: #### L 509.8000, L3890.6005, BTS, L3890.6100, L100.0100, L3890.6300, L509.4005 ####[facility] [address] [place], [place], [id number] Rubella immune status IgGOrd ered By: Dayanara Christie on 10-19-2024 Rubella IgG Antibody Reactive Nonreactive [facility] Comment on above: Antibody Results Int erpretation of Immune Status Non Reactive Presumed Non-Immune Equivocal Equivocal Reactive Presumed Immune Treponema sp Ab Ql (S)Ordere d By: Dayanara Christie on 10-19-2024 Syphilis Total Antibody Non-Reactive [facility] Type AND Screenon 10-19-2024 ABO and Rh group Nom (Bld) Blood group A Rh(D) positive Normal [facility] Comment on above: Order Comment: PN Performed By: #### L 509.8000, L3890.6005, BTS, L3890.6100, L100.0100, L3890.6300, L509.4005 ####[facility] [address] [place], [place], [id number] Urine cultureOrdered By: Sue Christie on 10-19-2024 Bacteria identified Cx Nom (U) Culture exhibits no growth. [facility] White blood cell (WBC) count Ordered By: Dayanara Christie on 10-19-2024 WBC (Bld) [#/Vol] 8.9 10*3/uL 4.4-11.0 [facility] Urgent Care Visit Reporton 1 Urgent Care Visit Report [facility] [address], [address] [place], [place] [id number] OFFICE VISIT Date of Service: 08/14/24 MR#: [id number] Acct: [id number] Name: JANICE VELAZQUEZ Rep #: [id number] : 1995 Provider: COLUMBA Obrien Age/Sex: 28/F Location: [facility] [place] Status: Signed Intake Vital Signs 07/17/24 14:52 [...] KNEE PAIN Chief Complaint: right knee pain Reject Opener And Filler Required: No Is patient in pain?: Yes [...] repair to right side 15 years ago. 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 current occupational exposures/hazards: No pets [...] 5-6 times per week duration: 45-60 minutes/day ross/lutheran: Hinduism seatbelt use: always do you feel safe [...] when the above incident as described. No saip-zff-ysfaljw products been taken to assist. No other [...] Status: Acut (more content not included)... Normal [facility] Lumbar Spine 2 or 3 Viewson 07-18-2024 Lumbar Spine 2 or 3 Views [facility] [address] [place] [address] Lumbar Spine 2 or 3 Views MR#: [id number] Acct: [id number] Name: JANICE VELAZQUEZ Rep #: [id number] : 1995 F 28 From: Jules Kang MD PCP: Dr. Nirav Perez MD Status: REG CLI Study: Lumbar Spine 2 or 3 Views Date of Exam: Exam# [id number] Ordering Dr: Jaci Moore INTERVENTIONAL RADIOLOGY RNKenroy [id number] STUDY: X-RAY - LUMBAR SPINE REASON FOR [...] Kang MD at 8:55 EDT , CC: INTERVENTIONAL RADIOLOGY RN-C Jaci Moore; Dr. Nirav Perez MD Psychotherapist Social Worker: Signed Normal [facility] Internal Medicine Office Vis itomichelle 07-17-2024 Internal Medicine Office Visit [facility] [place] [address] [place] [address] OFFICE VISIT Date of Service: 07/17/24 MR#: [id number] Acct: [id number] Name: JANICE VELAZQUEZ Rep #: [id number] : 1995 Provider: ASTER jay Age/Sex: 28/F Location: [facility] Status: Signed Intake Vital Signs 11/10/23 14:50 [...] Visit Reasons: acute - lower back pain Reject Opener And Filler Required: No Is patient in pain?: Yes [...] it below a 3 in awhile though. 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 current occupational exposures/hazards: No pets [...] 5-6 times per week duration: 45-60 minutes/day ross/lutheran: Hinduism seatbelt use: always do you feel safe [...] diarrhea, armani (more content not included)... Normal [facility] Culture, urineOrdered By: Joseph Chirinos on 09-19-2023 Bacteria identified Cx Nom (U) Culture exhibits no growth. [facility] Laboratory - Chemistry and C hemistry - challengeon 09-19-2023 Bilirubin Ql (U) Negative [facility] Glucose Ql (U) Negative [facility] Ketones Ql (U) Negative [facility] pH (U) 5.0 [pH] [facility] Specific gravity (U) [Rel density] 1.010 [facility] Urobilinogen (U) [Mass/Vol] Negative [facility] Laboratory - Hematology and Cell countson 09-19-2023 Hemoglobin Ql (U) Negative [facility] Laboratory - Specimen inform ationon 09-19-2023 Clarity (U) Cloudy [facility] Color (U) YELLOW [facility] Laboratory - Urinalysison Nitrite Ql (U) Negative [facility] Protein Ql (U) Negative [facility] No Panel Informationon 09-19 Urine Leukocytes Positive [facility] Urine Non-Hemolyzed Blood Negative [facility] Laboratory - Chemistry and C hemistry - challengeon 09-12-2023 Glucose Ql (U) Negative [facility] Laboratory - Urinalysison Protein Ql (U) Negative [facility] Laboratory - Chemistry and C hemistry - challengeon 08-29-2023 Glucose Ql (U) Negative [facility] Laboratory - Urinalysison Protein Ql (U) Negative [facility] Laboratory - Chemistry and C hemistry - challengeon 08-12-2023 Glucose Ql (U) Negative [facility] Laboratory - Urinalysison Protein Ql (U) Negative [facility] Laboratory - Microbiology an d Antimicrobial susceptibilityon 08-09-2023 S. pyogenes Ag IA Ql (Unsp spec) Negative [facility] SARS-CoV-2 (COVID-19) RNA PHILIP+probe Ql (Unsp spec) Not detected [facility] No Panel Informationon 08-09 Influenza Types A,B Rapid (Clinic) Not detected [facility] Absolute lymphocyte countOrd ered By: Dayanara Christie on 07-19-2023 Lymphocytes Auto (Unsp spec) [#/Vol] 1.87 10*3/uL 0.83-4.51 [facility] Basophil percentageOrdered B y: Dayanara Christie on 07-19-2023 Basophils/100 WBC (Bld) 0.4 % 0-1 [facility] Eosinophils/100 WBC (Bld) 2.8 % 0-5 [facility] Neutrophils (Bld) [#/Vol] 7.2 10*3/uL 2.0-7.7 [facility] Neutrophils/100 WBC (Bld) 72.4 % 47-70 [facility] WBC (Bld) [#/Vol] 10.0 10*3/uL 4.4-11.0 [facility] Blood erythrocytes count (nu mber/volume)Ordered By: Dayanara Christie on 07-19-2023 RBC (Bld) [#/Vol] 4.10 10*6/uL 4.2-5.4 [facility] Blood hemoglobin measurement (mass/volume)Ordered By: Dayanara Christie on 07-19-2023 Hemoglobin (Bld) [Mass/Vol] 12.8 g/dL 12.0-15.0 [facility] Blood lymphocytes/100 leukoc ytesOrdered By: Dayanara Christie on 07-19-2023 Lymphocytes/100 WBC (Bld) 18.7 % 19-41 [facility] Blood monocytes/100 leukocyt esOrdered By: Dayanara Christie on 07-19-2023 Monocytes/100 WBC (Bld) 4.7 % 0-10 [facility] Blood platelet mean volumeOr dered By: Dayanara Christie on 07-19-2023 Platelet mean volume (Bld) [Entitic vol] 10.0 fL 6.2-12.0 [facility] Determination of erythrocyte mean corpuscular volume (MCV)Ordered By: Dayanara Christie on 07-19-2023 MCV (RBC) [Entitic vol] 93.4 fL 81-99 [facility] Gestational diabetes screen 1-hour screen with 50g oral glucose loadOrdered By: Dayanara Christie on 07-19-2023 Glucose 1 Hr post 50 g glucose PO [Mass/Vol] 132 mg/dL 70-140 [facility] HIV 1 and HIV-2 antibody ass ay with HIV-1 p24 antigen detectionOrdered By: Dayanara Christie on 07-19-2023 HIV 1+2 Ab+HIV1 p24 Ag IA Ql Non-Reactive Nonreactive [facility] Hematocrit Auto (Bld) [Volum e fraction]Ordered By: Dayanara Christie on 07-19-2023 Hematocrit (Bld) [Volume fraction] 38.3 % 37-47 [facility] Laboratory - Hematology and Cell countsOrdered By: Dayanara Christie on 07-19-2023 Erythrocyte distribution width (RBC) [Entitic vol] 44.2 fL 35.1-43.9 [facility] Erythrocyte distribution width (RBC) [Ratio] 12.9 % 11.6-14.6 [facility] Immature granulocytes/100 WBC (Bld) 1.000 % 0.0-0.9 [facility] Comment on above: IG% - Immature Granu locytes (promyelocytes, myelocytes and metamyelocytes) > 1% indicates that a LEFT SHIFT is Present. MCH (RBC) [Entitic mass] 31.2 pg 27.0-32.0 [facility] Nucleated RBC/100 WBC (Bld) [Ratio] 0 % 0-5 [facility] MCHC Auto (RBC) [Mass/Vol]Or dered By: Dayanara Christie on 07-19-2023 MCHC (RBC) [Mass/Vol] 33.4 g/dL 32-36 [facility] Platelets bldOrdered By: Sue Christie on 07-19-2023 Platelets (Bld) [#/Vol] 286 10*3/uL 150-450 [facility] Serum Treponema species anti body detectionOrdered By: Dayanara Christie on 07-19-2023 Treponema sp Ab Ql (S) Non-Reactive [facility] Laboratory - Chemistry and C hemistry - challengeon 07-18-2023 Glucose Ql (U) Negative [facility] Laboratory - Urinalysison Protein Ql (U) Negative [facility] Laboratory - Chemistry and C hemistry - challengeon 06-20-2023 Glucose Ql (U) Negative [facility] Laboratory - Urinalysison Protein Ql (U) Negative [facility] Absolute lymphocyte countOrd ered By: Stephania Velasco on 05-27-2023 Lymphocytes Auto (Unsp spec) [#/Vol] 1.84 10*3/uL 0.83-4.51 [facility] Basophil percentageOrdered B y: Stephania Velasco on 05-27-2023 Basophils/100 WBC (Bld) 0.3 % 0-1 [facility] Eosinophils/100 WBC (Bld) 0.9 % 0-5 [facility] Neutrophils (Bld) [#/Vol] 6.7 10*3/uL 2.0-7.7 [facility] Neutrophils/100 WBC (Bld) 73.5 % 47-70 [facility] WBC (Bld) [#/Vol] 9.2 10*3/uL 4.4-11.0 [facility] Blood erythrocytes count (nu mber/volume)Ordered By: Stephania Velasco on 05-27-2023 RBC (Bld) [#/Vol] 4.40 10*6/uL 4.2-5.4 [facility] Blood hemoglobin measurement (mass/volume)Ordered By: Stephania Velasco on 05-27-2023 Hemoglobin (Bld) [Mass/Vol] 13.3 g/dL 12.0-15.0 [facility] Blood lymphocytes/100 leukoc ytesOrdered By: Stephania Velasco on 05-27-2023 Lymphocytes/100 WBC (Bld) 20.1 % 19-41 [facility] Blood monocytes/100 leukocyt esOrdered By: Stephania Velasco on 05-27-2023 Monocytes/100 WBC (Bld) 4.9 % 0-10 [facility] Blood platelet mean volumeOr dered By: Stephania Velasco on 05-27-2023 Platelet mean volume (Bld) [Entitic vol] 9.9 fL 6.2-12.0 [facility] Determination of erythrocyte mean corpuscular volume (MCV)Ordered By: Stephania Velasco on 05-27-2023 MCV (RBC) [Entitic vol] 91.1 fL 81-99 [facility] HIV 1 and HIV-2 antibody ass ay with HIV-1 p24 antigen detectionOrdered By: Stephania Velasco on 05-27-2023 HIV 1+2 Ab+HIV1 p24 Ag IA Ql Non-Reactive Nonreactive [facility] Hematocrit Auto (Bld) [Volum e fraction]Ordered By: Stephania Velasco on 05-27-2023 Hematocrit (Bld) [Volume fraction] 40.1 % 37-47 [facility] Laboratory - Chemistry and C hemistry - challengeon 05-27-2023 Glucose Ql (U) Negative [facility] Laboratory - Hematology and Cell countsOrdered By: Stephania Velasco on 05-27-2023 Erythrocyte distribution width (RBC) [Entitic vol] 41.1 fL 35.1-43.9 [facility] Erythrocyte distribution width (RBC) [Ratio] 12.3 % 11.6-14.6 [facility] Immature granulocytes/100 WBC (Bld) 0.300 % 0.0-0.9 [facility] Comment on above: IG% - Immature Granu locytes (promyelocytes, myelocytes and metamyelocytes) > 1% indicates that a LEFT SHIFT is Present. MCH (RBC) [Entitic mass] 30.2 pg 27.0-32.0 [facility] Nucleated RBC/100 WBC (Bld) [Ratio] 0 % 0-5 [facility] Laboratory - Urinalysison Protein Ql (U) Negative [facility] MCHC Auto (RBC) [Mass/Vol]Or dered By: Stephania Velasco on 05-27-2023 MCHC (RBC) [Mass/Vol] 33.2 g/dL 32-36 [facility] No Panel InformationOrdered By: Stephania Velasco on 05-27-2023 Hepatitis B Surface Antigen Non-Reactive Nonreactive [facility] Hepatitis C Antibody Non-Reactive Nonreactive [facility] Comment on above: Non Reactive: < 0.8 Equivocal: >/= 0.8 to < 1.0 Reactive: >/= 1.0The CDC recommends that a reactive/equivocal HCV antibody result be followed up by the HCV Nucleic Acid Amplificationtest (869498) Miscellaneous Test See comment [facility] Comment on above: TEST RESULTS LIMITSA FP, [...] Genetic CustomerServices to discuss available options. The [employer] recommends amniocentesis be offered to women age 35 and older. Comment: Beronica Rutherford, Ph.D., DABCCDirectorReferences: Available Upon Request.Multiples Of Median Cutoffs For AFP ElevationsSingleton 2.5 Black 2.8IDD 2.0 Twins 4.5 Abbreviation DefinitionsIDD - Insulin Dep DiabetesOSBR - Open Spina Bifida RiskFor further inquiries contact [employer] at [phone].This test was developed and its performance characteristicsdetermined by [employer]. It has not been cleared or approvedby the Food and Drug Administration. TESTING PERFORMED AT [facility] ORIGINAL REPORT ON FILE IN LAB CONTAINS ADDITIONAL TEST SITE INFORMATION. Rubella IgG Antibody Reactive Nonreactive [facility] Comment on above: Antibody Results Int erpretation of Immune Status Non Reactive Presumed Non-Immune Equivocal Equivocal Reactive Presumed Immune Platelets bldOrdered By: Hedy Velasco on 05-27-2023 Platelets (Bld) [#/Vol] 306 10*3/uL 150-450 [facility] Serum Treponema species anti body detectionOrdered By: Stephania Velasco on 05-27-2023 Treponema sp Ab Ql (S) Non-Reactive [facility] Laboratory - Chemistry and C hemistry - challengeon 04-29-2023 Glucose Ql (U) Negative [facility] Laboratory - Urinalysison Protein Ql (U) Negative [facility] Chlamydia trachomatis rRNA d etection by probe and target amplification methodOrdered By: Stephania Velasco on 03-30-2023 C. trachomatis rRNA PHILIP+probe Ql (Unsp spec) Negative Negative [facility] Culture, urineOrdered By: Fabio Velasco on 03-30-2023 Bacteria identified Cx Nom (U) Positive [facility] Laboratory - Microbiology an d Antimicrobial susceptibilityOrdered By: Stephania Velasco on 03-30-2023 N. gonorrhoeae DNA PHILIP+probe Ql (Unsp spec) Negative Negative [facility] Comment on above: Performed at: =[address] [id number] Director: Chantel Sánchez MD, Phone: [phone] Laboratory - Microbiology an d Antimicrobial susceptibilityon 12-13-2022 S. pyogenes Ag IA Ql (Unsp spec) Positive [facility] Cervical or vagninal specime n microscopic examination by cytology stain (reported asOrdered By: Vannessa Chirinos on 12-07-2022 Cytology report Cyto stain Doc (Cvx/Vag) Comment . [facility] Comment on above: The Pap smear is a s creening test designed to aid in thedetection of premalignant and malignant conditions of theuterine cervix. It is not a diagnostic procedure andshould not be used as the sole means of detecting cervicalcancer. Both false-positive and false-negative reports dooccur. Laboratory - CytologyOrdered By: Vannessa Chirinos on 12-07-2022 Litharge Supervisor Cyto stain Nom (Cvx/Vag) [ID] Comment . [facility] Comment on above: Kate Melo [employer] hnologist (ASCP) Laboratory - Miscellaneous t estsOrdered By: Vannessa Chirinos on 12-07-2022 Service comment (Unsp spec) [Interp] Comment . [facility] Comment on above: This liquid based Th inPrep(R) pap test was screened withthe use of an image guided system. Service comment (Unsp spec) [Interp] . . [facility] No Panel InformationOrdered By: Vannessa Chirinos on 12-07-2022 Human Papillomavirus Screen Comment . [facility] Comment on above: The HPV DNA reflex c emili were not met with this specimenresult therefore, no HPV testing was performed.Performed at: [address] [id number] Director: Chantel Sánchez MD, Phone: [phone] Pathology report final diagnosis Narrative Comment . [facility] Comment on above: NEGATIVE FOR INTRAEP ITHELIAL LESION OR MALIGNANCY. Laboratory - Microbiology an d Antimicrobial susceptibilityon 11-06-2022 S. pyogenes Ag IA Ql (Unsp spec) Negative [facility] Office Visit: est annualon 1 10-31-2016 Documentation of current medications (procedure) Done Invalid Interpretation Code [facility] Fall risk assessment No Invalid Interpretation Code [facility] Tobacco smoking status NHIS Never Invalid Interpretation Code [facility] Tobacco use CPHS Never smoker Invalid Interpretation Code [facility] Lab Report: ,Urineo n 08-11-2017 HCG.beta subunit ( test) Ql (U) Negative Invalid Interpretation Code [facility] Work Phone: [phone] Microbiology: Culture, Throa ton 08-06-2017 CUT Vancomycin $ 1 S Invalid Interpretation Code [facility] Internal Medicine Work Phone: [phone] Lab Report: CBC W/Diff, Auto matedon 08-02-2017 Lymphocytes variants/100 leukocytes RARE % Invalid Interpretation Code [facility] Work Phone: [phone] Platelets presence ADEQUATE Invalid Interpretation Code ADEQ [facility] Work Phone: [phone] REACTIVE LYMPH 1+ Invalid Interpretation Code [facility] Work Phone: [phone] SMEAR COMMENT SCANNED Invalid Interpretation Code [facility] Work Phone: [phone] Office Visit: Est. Pt. Visit on 08-02-2017 Documentation of current medications (procedure) Done Invalid Interpretation Code [facility] Work Phone: [phone] Fall risk assessment No Invalid Interpretation Code [facility] Work Phone: [phone] Protein mass conc Done Invalid Interpretation Code [facility] Work Phone: [phone] Tobacco smoking status NHIS Never Invalid Interpretation Code [facility] Work Phone: [phone] Tobacco smoking status NHIS Never smoker Invalid Interpretation Code [facility] Work Phone: [phone] Tobacco use [facility] Never smoker Invalid Interpretation Code [facility] Work Phone: [phone] Replaced Document: (P) CBC W /Diff, Automatedon 08-02-2017 Absolute Neut 3.1 X10 3/UL Invalid Interpretation Code 2.0-7.7 [facility] Work Phone: [phone] Basophils/100 WBC Auto (Bld) 0.6 % Invalid Interpretation Code 0-1 [facility] Work Phone: [phone] Eosinophils/100 leukocytes 0.5 % Invalid Interpretation Code 0-5 [facility] Work Phone: [phone] Erythrocyte distribution width Auto Ratio (RBC) 12.6 % Invalid Interpretation Code 11.6-14.6 [facility] Work Phone: [phone] Erythrocyte distribution width Auto Ratio (RBC) 41.8 fL Invalid Interpretation Code 35.1-43.9 [facility] Work Phone: [phone] Erythrocytes (RBC) 4.45 10*6/uL Invalid Interpretation Code 4.2-5.4 [facility] Work Phone: [phone] Hematocrit (HCT) 41.2 % Invalid Interpretation Code 37-47 [facility] Work Phone: [phone] Hemoglobin mass conc (Bld) 13.5 g/dL Invalid Interpretation Code 12.0-15.0 [facility] Work Phone: Immature granulocytes #/vol (Bld) 0.200 % Invalid Interpretation Code 0.0-0.9 [facility] Work Phone: [phone] Immature granulocytes/100 WBC (Bld) 0.200 % Invalid Interpretation Code 0.0-0.9 [facility] Work Phone: [phone] Lymphocytes 2.16 X10 3/UL Invalid Interpretation Code 0.83-4.51 [facility] Work Phone: [phone] Lymphocytes/100 leukocytes 34.4 % Invalid Interpretation Code 19-41 [facility] Work Phone: [phone] MCH 30.3 pg Invalid Interpretation Code 27.0-32.0 [facility] Work Phone: [phone] MCHC mass conc (RBC) 32.8 G/GL Invalid Interpretation Code 32-36 [facility] Work Phone: [phone] MCV 92.6 fL Invalid Interpretation Code 81-99 [facility] Work Phone: [phone] Monocytes/100 leukocytes 15.6 % High 0-10 [facility] Work Phone: [phone] Neutrophils Auto #/vol (Bld) 3.1 X10 3/UL Invalid Interpretation Code 2.0-7.7 [facility] Work Phone: [phone] Neutrophils/100 WBC Auto (Bld) 48.7 % Invalid Interpretation Code 47-70 [facility] Work Phone: [phone] Platelets 238 10*3/mm3 Invalid Interpretation Code 150-450 [facility] Work Phone: [phone] PMV by Naty 10.3 fL Invalid Interpretation Code 6.2-12.0 [facility] Work Phone: [phone] RDW SD 41.8 fL Invalid Interpretation Code 35.1-43.9 [facility] Work Phone: [phone] WBC (Leukocytes) 6.3 10*3/uL Invalid Interpretation Code 4.4-11.0 [facility] Work Phone: [phone] Microbiology: Culture, R/O S trep Aon 08-01-2017 CUSTREPA . Invalid Interpretation Code [facility] Work Phone: Append: UC: Still has a sore throaton 07-30-2017 Rapid strep test Negative Invalid Interpretation Code [facility] Work Phone: S. pyogenes DNA PHILIP+probe Ql (Throat) Negative Invalid Interpretation Code [facility] Work Phone: [phone] Office Visit: UC: Still has a sore throaton 07-30-2017 Documentation of current medications (procedure) Done Invalid Interpretation Code [facility] Work Phone: Fall risk assessment No Invalid Interpretation Code [facility] Work Phone: Tobacco smoking status NHIS Never Invalid Interpretation Code [facility] Work Phone: Tobacco use HS Never smoker Invalid Interpretation Code [facility] Work Phone: Office Visit: acute visit, s trep tonsillitison 07-20-2017 Documentation of current medications (procedure) Done Invalid Interpretation Code [facility] Work Phone: Fall risk assessment No Invalid Interpretation Code [facility] Work Phone: Tobacco smoking status NHIS Never Invalid Interpretation Code [facility] Work Phone: Tobacco use HS Never smoker Invalid Interpretation Code [facility] Work Phone: Office Visit: UC: Sore throa ton 07-19-2017 Documentation of current medications (procedure) Done Invalid Interpretation Code [facility] Work Phone: Fall risk assessment No Invalid Interpretation Code [facility] Work Phone: Tobacco smoking status NHIS Never Invalid Interpretation Code [facility] Work Phone: Tobacco use [facility] Never smoker Invalid Interpretation Code [facility] Work Phone: Lab Report: Hep B Surface An tibodies EMPon 06-29-2017 GE use only - for [employer] import when terms are not otherwise specified Reactive Invalid Interpretation Code . [facility] Work Phone: [phone] Hep B Pema AB Reactive Invalid Interpretation Code . [facility] Work Phone: [phone] Lab Report: CBC, Employeeon 08-29-2017 Absolute Neut 2.3 X10 3/UL Invalid Interpretation Code 2.0-7.7 [facility] Work Phone: [phone] Basophils/100 leukocytes 0.8 % Invalid Interpretation Code 0-1 [facility] Work Phone: [phone] Basophils/100 WBC (Bld) 0.8 % 0-1 [facility] Work Phone: [phone] Eosinophils/100 leukocytes 2.4 % Invalid Interpretation Code 0-5 [facility] Work Phone: [phone] Eosinophils/100 WBC (Bld) 2.4 % 0-5 [facility] Work Phone: [phone] Erythrocyte distribution width Auto Ratio (RBC) 44.0 fL High 35.1-43.9 [facility] Work Phone: [phone] Erythrocyte distribution width Ratio (RBC) 44.0 fL High 35.1-43.9 [facility] Work Phone: [phone] Erythrocyte distribution width Ratio (RBC) 13.2 % 11.6-14.6 [facility] Work Phone: [phone] Erythrocytes (RBC) 4.69 10*6/uL Invalid Interpretation Code 4.2-5.4 [facility] Work Phone: [phone] Hematocrit (HCT) 44.1 % Invalid Interpretation Code 37-47 [facility] Work Phone: [phone] Hematocrit Volume Fraction (Bld) 44.1 % 37-47 [facility] Work Phone: [phone] Hemoglobin (HGB) 14.4 g/dL Invalid Interpretation Code 12.0-15.0 [facility] Work Phone: [phone] Lymphocytes 2.04 X10 3/UL Invalid Interpretation Code 0.83-4.51 [facility] Work Phone: [phone] Lymphocytes #/vol (Bld) 2.04 X10 3/UL 0.83-4.51 [facility] Work Phone: [phone] Lymphocytes/100 leukocytes 41.1 % High 19-41 [facility] Work Phone: [phone] Lymphocytes/100 WBC (Bld) 41.1 % High 19-41 [facility] Work Phone: [phone] MCH 30.7 pg Invalid Interpretation Code 27.0-32.0 [facility] Work Phone: [phone] MCH Entitic mass (RBC) 30.7 pg 27.0-32.0 [facility] Work Phone: [phone] MCHC 32.7 G/GL Invalid Interpretation Code 32-36 [facility] Work Phone: [phone] MCHC mass conc (RBC) 32.7 G/GL 32-36 [facility] Internal [facility] Work Phone: [phone] MCV 94.0 fL Invalid Interpretation Code 81-99 [facility] Work Phone: [phone] MCV Entitic volume (RBC) 94.0 fL 81-99 [facility] Work Phone: [phone] Monocytes/100 leukocytes 9.7 % Invalid Interpretation Code 0-10 [facility] Work Phone: [phone] Monocytes/100 WBC (Bld) 9.7 % 0-10 [facility] Work Phone: [phone] neutrophil count, blood 2.3 X10 3/UL Invalid Interpretation Code 2.0-7.7 [facility] Work Phone: [phone] Neutrophils #/vol (Bld) 2.3 X10 3/UL 2.0-7.7 [facility] Work Phone: [phone] Neutrophils Auto #/vol (Bld) 2.3 X10 3/UL Invalid Interpretation Code 2.0-7.7 [facility] Work Phone: [phone] Neutrophils/100 leukocytes 46.0 % Low 47-70 [facility] Work Phone: [phone] Neutrophils/100 WBC (Bld) 46.0 % Low 47-70 [facility] Work Phone: [phone] Platelet mean volume Entitic volume (Bld) 10.8 fL 6.2-12.0 [facility] Work Phone: [phone] Platelets 315 10*3/mm3 Invalid Interpretation Code 150-450 [facility] Work Phone: [phone] Platelets #/vol (Bld) 315 10*3/mm3 150-[address] [facility] Work Phone: [phone] PMV by Naty 10.8 fL Invalid Interpretation Code 6.2-12.0 [facility] Work Phone: [phone] RBC #/vol (Bld) 4.69 10*6/uL 4.2-5.4 [facility] Work Phone: [phone] RDW SD 44.0 fL High 35.1-43.9 [facility] Work Phone: [phone] RDW-CA 13.2 % Invalid Interpretation Code 11.6-14.6 [facility] Work Phone: [phone] blood cell distribution width, size density 44.0 fL High 35.1-43.9 [facility] Work Phone: [phone] WBC #/vol (Bld) 5.0 10*3/uL 4.4-11.0 [facility] Work Phone: [phone] WBC (Leukocytes) 5.0 10*3/uL Invalid Interpretation Code 4.4-11.0 [facility] Work Phone: [phone] Lab Report: Employee Profile on 06-28-2017 Alanine aminotransferase (ALT) 51 U/L Invalid Interpretation Code 12-78 [facility] Work Phone: [phone] Albumin 4.3 g/dL Invalid Interpretation Code 3.4-5.0 [facility] Work [phone] Albumin/Globulin Ratio 1.2 {ratio} Invalid Interpretation Code 0.9-2.4 [facility] Work Phone: [phone] Alkaline phosphatase (ALP) 72 U/L Invalid Interpretation Code 45-117 [facility] Work Phone: [phone] ALP enzyme act/vol (Bld) 72 U/L Invalid Interpretation Code 45-117 [facility] Work Phone: [phone] Anion gap 7 mmol/L Invalid Interpretation Code 5-15 [facility] Work Phone: [phone] Anion gap 4 molar conc 7 Invalid Interpretation Code 5-15 [facility] Work Phone: [phone] Anion gap molar conc 7 mmol/L 5-15 [facility] Work Phone: [phone] Aspartate aminotransferase (AST) 36 U/L Invalid Interpretation Code 15-37 [facility] Work Phone: [phone] Bilirubin (direct) 0.28 mg/dL Invalid Interpretation Code 0.00-0.30 [facility] Work Phone: [phone] Bilirubin (total) 1.40 mg/dL High 0.20-1.00 [facility] Work Phone: [phone] BUN/Creatinine Ratio 18.0 RATIO Invalid Interpretation Code 10-20 [facility] Work Phone: [phone] Calcium 9.3 mg/dL Invalid Interpretation Code 8.5-10.1 [facility] Work Phone: [phone] Chloride 106 mmol/L Invalid Interpretation Code 98-107 [facility] Work Phone: [phone] Cholesterol 168 mg/dL Invalid Interpretation Code 200 [facility] Work Phone: [phone] CO2 29.0 mmol/L Invalid Interpretation Code 21.0-32.0 [facility] Work Phone: [phone] CO2 ppres (BldV) 29.0 mmol/L Invalid Interpretation Code 21.0-32.0 [facility] Work Phone: [phone] Creatinine 0.94 mg/dL Invalid Interpretation Code 0.55-1.02 [facility] Work Phone: [phone] eGFR (non-black) 94 mL/min/{1.73_m2} Invalid Interpretation Code >60 [facility] Work Phone: [phone] eGFR (non-black) 78 mL/min/{1.73_m2} Invalid Interpretation Code >60 [facility] Work Phone: [phone] EST GFR - AA 94 mL/min Invalid Interpretation Code >60 [facility] Work Phone: [phone] Globulin 3.6 g/dL High 2.3-3.5 [facility] Work Phone: [phone] Globulin mass conc (S) 3.6 g/dL High 2.3-3.5 [facility] Work Phone: [phone] Glucose 85 mg/dL Invalid Interpretation Code 70-110 [facility] Work Phone: [phone] Glucose mass conc 85 mg/dL Invalid Interpretation Code 70-110 [facility] Work Phone: [phone] HDL Cholesterol 84 mg/dL Invalid Interpretation Code [facility] Work Phone: [phone] lactate dehydrogenase - serum 233 U/L Invalid Interpretation Code 84-246 [facility] Work Phone: [phone] LDH 233 U/L Invalid Interpretation Code 84-246 [facility] Work Phone: [phone] LDL Cholesterol 74 mg/dL Invalid Interpretation Code 0-130 [facility] Work Phone: [phone] PHOS 3.2 mg/dL Invalid Interpretation Code 2.5-4.9 [facility] Work Phone: [phone] Phosphorus Concentratation-Random 3.2 mg/dL Invalid Interpretation Code 2.5-4.9 [facility] Work Phone: [phone] Potassium 3.8 mmol/L Invalid Interpretation Code 3.5-5.1 [facility] Work Phone: [phone] Protein 7.9 g/dL Invalid Interpretation Code 6.4-8.2 [facility] Work Phone: [phone] Sodium 142 mmol/L Invalid Interpretation Code 136-145 [facility] Work Phone: [phone] Triglyceride 50 mg/dL Invalid Interpretation Code [facility] Work Phone: [phone] Urate 4.2 mg/dL Invalid Interpretation Code 2.6-6.0 [facility] Work Phone: [phone] Urea nitrogen 17 mg/dL Invalid Interpretation Code 7-18 [facility] Work Phone: [phone] very low density lipoproteins 10 mg/dL Invalid Interpretation Code 5-40 [facility] Work Phone: [phone] Lab Report: Nicotine Urine D rug Screenon 06-28-2017 GE use only - for Link[employer] import when terms are not otherwise specified Negative Invalid Interpretation Code <200 ng/mL [facility] Work Phone: [phone] Lab Report: UrinalysisRicardo 06-28-2017 Albumin Ql (U) Negative Invalid Interpretation Code Negative [facility] Work Phone: [phone] Bilirubin Ql (U) Negative Invalid Interpretation Code Negative [facility] Work Phone: [phone] Ketones mass conc (U) Negative Invalid Interpretation Code Negative [facility] Work Phone: [phone] NITRITE UR Negative Invalid Interpretation Code Negative [facility] Work Phone: [phone] Nitrite Urine Negative Invalid Interpretation Code Negative [facility] Work Phone: [phone] Occult Blood, urine Negative Invalid Interpretation Code Negative [facility] Work Phone: [phone] OCCULT BLOOD-UR Negative Invalid Interpretation Code Negative [facility] Work Phone: [phone] pH (U) 7.0 [pH] 5.0 - 8.0 [facility] Work Phone: [phone] specific gravity, urine 1.015 Invalid Interpretation Code 1.002-1.030 [facility] Work Phone: [phone] Urine, bilirubin presence Negative Invalid Interpretation Code Negative [facility] Work Phone: [phone] Urine, clarity Clear Invalid Interpretation Code Clear [facility] Work Phone: [phone] Urine, color Yellow Invalid Interpretation Code Yellow [facility] Work Phone: [phone] Urine, glucose presence Normal mg/dl Invalid Interpretation Code Normal [facility] Work Phone: [phone] Urine, ketones presence Negative Invalid Interpretation Code Negative [facility] Work Phone: [phone] Urine, leukocyte esterase presence Negative Invalid Interpretation Code Negative [facility] Work Phone: [phone] Urine, pH 7.0 [pH] Invalid Interpretation Code 5.0 - 8.0 [facility] Work Phone: [phone] Urine, protein Negative Invalid Interpretation Code Negative [facility] Work Phone: [phone] UROBILI Normal mg/dl Invalid Interpretation Code Normal [facility] Work Phone: [phone] urobilinogen, urine, by dipstick Normal mg/dl Invalid Interpretation Code Normal [facility] Work Phone: Office Visit: New Pt. Visito n 06-28-2017 Dietary management education, guidance, and counseling (procedure) yes Invalid Interpretation Code [employer] [facility] Work Phone: Documentation of current medications (procedure) Done Invalid Interpretation Code [employer] [facility] Work Phone: Fall risk assessment No Invalid Interpretation Code [employer] [facility] Work Phone: Protein mass conc Done [employer] [facility] Work Phone: [phone] Tobacco smoking status TXIS Never Invalid Interpretation Code [employer] [facility] Work Phone: Tobacco smoking status NHIS Never smoker [facility] Work Phone: Tobacco use [facility] Never smoker Invalid Interpretation Code [employer] Work Phone: Office Visiton 10-14-2016 Dietary management education, guidance, and counseling (procedure) yes Invalid Interpretation Code [facility] Work Phone: Documentation of current medications (procedure) Done Invalid Interpretation Code [facility] Work Phone: [phone] Protein mass conc Done [email or web address] Work Phone: Replaced Document: Luba Fatima CG Observationson 10-14-2016 EKG QRS axis 65 deg Invalid Interpretation Code [employer] Work Phone: electrocardiogram interpretation Sinus Bradycardia -Short VT syndrome Yazan = 112BORDERLINE RHYTHM Invalid Interpretation Code [facility] Work Phone: [phone] Interpretation Sinus Bradycardia -S hort VT syndrome Yazan = 112BORDERLINE RHYTHM Invalid Interpretation Code [employer] Work Phone: P Melvin 34 deg Invalid Interpretation Code [employer] Work Phone: P wave axis, electrocardiogram 34 deg Invalid Interpretation Code [facility] Work Phone: [phone] VT Interval 112 ms Invalid Interpretation Code [employer] Work Phone: VT interval, electrocardiogram 112 ms Invalid Interpretation Code [facility] Work Phone: [phone] Pulse (Heart Rate) 57 /min Invalid Interpretation Code [facility] Work Phone: [phone] QRS axis, electrocardiogram 65 deg Invalid Interpretation Code [facility] Work Phone: [phone] QRS Duration 82 ms Invalid Interpretation Code [facility] Work Phone: QRS duration, electrocardiogram 82 ms Invalid Interpretation Code [facility] Work Phone: [phone] QT Interval new path ms Invalid Interpretation Code [employer] [facility] Work Phone: QT interval, electrocardiogram new path ms Invalid Interpretation Code [facility] Work Phone: [phone] QTc Mejia 435 ms [facility] Work Phone: T Melvin -1 deg Invalid Interpretation Code [facility] Work Phone: T wave axis, electrocardiogram -1 deg Invalid Interpretation Code [facility] Work Phone: [phone] 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 Tobacco smoking status NHIS Never smoker [employer] [facility] Work Phone: Tobacco use [facility] Never smoker Invalid Interpretation Code [facility] Work Phone: [phone] Left ventricular Ejection fraction 60 % Invalid Interpretation Code [facility] Work Phone: Office Visit: Spine Visiton 07-13-2016 Tobacco smoking status [facility] Never Invalid Interpretation Code [employer] [facility] Work Phone: 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 ALP enzyme act/vol (Bld) 63 U/L [facility] Work Phone: ALT enzyme act/vol 39 U/L [facility] Work Phone: AST enzyme act/vol 28 U/L [facility] Work Phone: Bilirubin mass conc 2.60 mg/dL [facility] Work Phone: Calcium mass conc 8.5 mg/dL [facility] [employer] [facility] Work Phone: Chloride molar conc 103 mmol/L [facility] Work Phone: [phone] Cholesterol in HDL mass conc 88 mg/dL [facility] Work Phone: [phone] Cholesterol in LDL mass conc 57 mg/dL [facility] Work Phone: [phone] Cholesterol mass conc 159 mg/dL [facility] Work Phone: [phone] CO2 ppres (BldV) 28.0 mmol/L [facility] Work Phone: [phone] Creatinine mass conc 0.86 mg/dL [facility] Work Phone: [phone] Glucose mass conc 84 mg/dL [facility] Work Phone: [phone] Hematocrit Volume Fraction (Bld) 39.8 % [facility] Work Phone: [phone] Hemoglobin mass conc (Bld) 13.2 g/dL [facility] Work Phone: [phone] Platelets #/vol (Bld) 298 10*3/mm3 B [facility] Work Phone: [phone] Potassium molar conc 3.5 mmol/L [facility] Work Phone: [phone] Protein mass conc 6.8 g/dL [facility] Work Phone: [phone] Sodium molar conc 137 mmol/L [facility] Work Phone: [phone] Triglyceride mass conc 70 mg/dL [facility] Work Phone: [phone] Urea nitrogen mass conc 13 mg/dL [facility] Work Phone: [phone] Urea nitrogen/Creatinine mass ratio 15.1 mg/mg [facility] Work Phone: [phone] WBC #/vol (Bld) 6.3 10*3/uL [facility] Work Phone: Office Visit: est annualon 0 07-01-2016 General categories [Interpretation] of Cervical or vaginal smear or scraping by Cyto stain Normal Invalid Interpretation Code [facility] Vital Signs Date Time Vital Sign Value Performing Clinician Coretta chambers 05-02-2025 15:33-0400 Body height 162.[address] Nirav Perez MD Work Phone: [facility] 05-02-2025 15:33-0400 Body mass index (BMI) [Ratio] 32.3 kg/m2 Dr. Nirav Perez MD Work Phone: [facility] 05-02-2025 15:33-0400 Body weight 85.[address] Nirav Perez MD Work Phone: [facility] 05-02-2025 15:33-0400 Diastolic blood pressure 72 mm[Hg] Dr. Nirav Perez MD Work Phone: [facility] 05-02-2025 15:33-0400 Systolic blood pressure 118 mm[Hg] Dr. Nirav Perez MD Work Phone: [facility] 04-18-2025 16:03-0400 Body height 162.[address] Nirav Perez MD Work Phone: [facility] 04-18-2025 16:03-0400 Body mass index (BMI) [Ratio] 32.3 kg/m2 Dr. Nirav Perez MD Work Phone: [facility] 04-18-2025 16:03-0400 Body weight 85.[address] Nirav Perez MD Work Phone: [facility] 04-18-2025 16:03-0400 Diastolic blood pressure 70 mm[Hg] Dr. Nirav Perez MD Work Phone: [facility] 04-18-2025 16:03-0400 Systolic blood pressure 108 mm[Hg] Dr. Nirav Perez MD Work Phone: [facility] 04-17-2025 16:35-0400 Body temperature 98.7 [degF] Dr. Nirav Perez MD Work Phone: [facility] 04-17-2025 16:35-0400 Diastolic blood pressure 67 mm[Hg] Dr. Nirav Perez MD Work Phone: [facility] 04-17-2025 16:35-0400 Heart rate 96 /min Dr. Nirav Perez MD Work Phone: [facility] 04-17-2025 16:35-0400 Respiratory rate 16 /min Dr. Nirav Perez MD Work Phone: [facility] 04-17-2025 16:35-0400 SaO2% (BldA) [Mass fraction] 95 % Dr. Nirav Perez MD Work Phone: [facility] 04-17-2025 16:35-0400 Systolic blood pressure 117 mm[Hg] Dr. Nirav Perez MD Work Phone: [facility] 04-17-2025 16:28-0400 Body height 162.[address] Nirav Perez MD Work Phone: [facility] 04-17-2025 16:28-0400 Body mass index (BMI) [Ratio] 31.8 kg/m2 Dr. Nirav Perez MD Work Phone: [facility] 04-17-2025 16:28-0400 Body weight 84.[address] Nirav Perez MD Work Phone: [facility] 04-11-2025 08:19-0400 Body height 162.[address] Nirav Perez MD Work Phone: [facility] 04-11-2025 08:19-0400 Body mass index (BMI) [Ratio] 31.3 kg/m2 Dr. Nirav Preez MD Work Phone: [facility] 04-11-2025 08:19-0400 Body weight 82.[address] Nirav Perez MD Work Phone: [facility] 04-11-2025 08:19-0400 Diastolic blood pressure 74 mm[Hg] Dr. Nirav Perez MD Work Phone: [facility] 04-11-2025 08:19-0400 Systolic blood pressure 118 mm[Hg] Dr. Nirav Perez MD Work Phone: [facility] 04-05-2025 14:48-0400 Body height 162.[address] Nirav Perez MD Work Phone: [facility] 04-05-2025 14:43-0400 Body mass index (BMI) [Ratio] 31.9 kg/m2 Dr. Nirav Perez MD Work Phone: [facility] 04-05-2025 14:43-0400 Body weight 84.[address] Nirav Perez MD Work Phone: [facility] 04-05-2025 14:43-0400 Diastolic blood pressure 75 mm[Hg] Dr. Nirav Perez MD Work Phone: [facility] 04-05-2025 14:43-0400 Systolic blood pressure 116 mm[Hg] Dr. Nirav Perez MD Work Phone: [facility] 04-04-2025 17:40-0400 Diastolic blood pressure 65 mm[Hg] Dr. Nirav Perez MD Work Phone: [facility] 04-04-2025 17:40-0400 Heart rate 86 /min Dr. Nirav Perez MD Work Phone: [facility] 04-04-2025 17:40-0400 Systolic blood pressure 116 mm[Hg] Dr. Nirav Perez MD Work Phone: [facility] 04-04-2025 17:28-0400 Body height 162.[address] Nirav Perez MD Work Phone: [facility] 04-04-2025 17:28-0400 Body mass index (BMI) [Ratio] 31.9 kg/m2 Dr. Nirav Perez MD Work Phone: [facility] 04-04-2025 17:28-0400 Body weight 84.[address] Nirav Perez MD Work Phone: [facility] 04-03-2025 16:34-0400 Diastolic blood pressure 66 mm[Hg] Dr. Nirav Perez MD Work Phone: [facility] 04-03-2025 16:34-0400 Heart rate 81 /min Dr. Nirav Perez MD Work Phone: [facility] 04-03-2025 16:34-0400 Systolic blood pressure 119 mm[Hg] Dr. Nirav Perez MD Work Phone: [facility] 04-03-2025 16:33-0400 Body height 162.[address] Nirav Perez MD Work Phone: [facility] 04-03-2025 16:33-0400 Body mass index (BMI) [Ratio] 31.9 kg/m2 Dr. Nirav Perez MD Work Phone: [facility] 04-03-2025 16:33-0400 Body temperature 98.3 [degF] Dr. Nirav Perez MD Work Phone: [facility] 04-03-2025 16:33-0400 Body weight 84.[address] Nirav Perez MD Work Phone: [facility] 04-03-2025 16:33-0400 Respiratory rate 16 /min Dr. Nirav Perez MD Work Phone: [facility] 03-21-2025 10:05-0400 Body mass index (BMI) [Ratio] 32.1 kg/m2 Dr. Nirav Perez MD Work Phone: [facility] 03-21-2025 10:05-0400 Body weight 84.[address] Nirav Perez MD Work Phone: [facility] 03-21-2025 10:05-0400 Diastolic blood pressure 79 mm[Hg] Dr. Nirav Perez MD Work Phone: [facility] 03-21-2025 10:05-0400 Systolic blood pressure 115 mm[Hg] Dr. Nirav Perez MD Work Phone: [facility] 03-19-2025 10:02-0400 Body temperature 98.3 [degF] Dr. Nirav Perez MD Work Phone: [facility] 03-19-2025 10:02-0400 Diastolic blood pressure 72 mm[Hg] Dr. Nirav Perez MD Work Phone: [facility] 03-19-2025 10:02-0400 Heart rate 86 /min Dr. Nirav Perez MD Work Phone: [facility] 03-19-2025 10:02-0400 Respiratory rate 16 /min Dr. Nirav Perez MD Work Phone: [facility] 03-19-2025 10:02-0400 SaO2% (BldA) [Mass fraction] 98 % Dr. Nirav Perez MD Work Phone: [facility] 03-19-2025 10:02-0400 Systolic blood pressure 117 mm[Hg] Dr. Nirav Perez MD Work Phone: [facility] 03-19-2025 09:44-0400 Body height 162.[address] Nirav Perez MD Work Phone: [facility] 03-19-2025 09:44-0400 Body mass index (BMI) [Ratio] 32 kg/m2 Dr. iNrav Perez MD Work Phone: [facility] 03-19-2025 09:44-0400 Body weight 84.[address] Nirav Perez MD Work Phone: [facility] 03-06-2025 13:09-0400 Body height 162.[address] Nirav Perez MD Work Phone: [facility] 03-06-2025 13:09-0400 Body mass index (BMI) [Ratio] 31.1 kg/m2 Dr. Nirav Perez MD Work Phone: [facility] 03-06-2025 13:09-0400 Body weight 82.[address] Nirav Perez MD Work Phone: [facility] 03-06-2025 13:09-0400 Diastolic blood pressure 74 mm[Hg] Dr. Nirav Perez MD Work Phone: [facility] 03-06-2025 13:09-0400 Systolic blood pressure 112 mm[Hg] Dr. Nirav Perez MD Work Phone: [facility] 02-22-2025 12:09-0400 Body height 162.[address] Nirav Perez MD Work Phone: [facility] 02-22-2025 12:09-0400 Body mass index (BMI) [Ratio] 30.6 kg/m2 Dr. Nirav Perez MD Work Phone: [facility] 02-22-2025 12:09-0400 Body weight 80.[address] Nirav Perez MD Work Phone: [facility] 02-22-2025 12:07-0400 Body temperature 97.9 [degF] Dr. Nirav Perez MD Work Phone: [facility] 02-22-2025 12:07-0400 Diastolic blood pressure 73 mm[Hg] Dr. Nirav Perez MD Work Phone: [facility] 02-22-2025 12:07-0400 Heart rate 85 /min Dr. Nirav Perez MD Work Phone: [facility] 02-22-2025 12:07-0400 Respiratory rate 16 /min Dr. Nirav Perez MD Work Phone: [facility] 02-22-2025 12:07-0400 Systolic blood pressure 117 mm[Hg] Dr. Nirav Perez MD Work Phone: [facility] 02-07-2025 10:24-0400 Body mass index (BMI) [Ratio] 30.7 kg/m2 Dr. Nirav Perez MD Work Phone: [facility] 02-07-2025 10:24-0400 Body weight 78.[address] Nirav Perez MD Work Phone: [facility] 02-07-2025 10:24-0400 Diastolic blood pressure 79 mm[Hg] Dr. Nirav Perez MD Work Phone: [facility] 02-07-2025 10:24-0400 Systolic blood pressure 117 mm[Hg] Dr. Nirav Perez MD Work Phone: [facility] 01-11-2025 10:24-0400 Body mass index (BMI) [Ratio] 29.6 kg/m2 Dr. Nirav Perez MD Work Phone: [facility] 01-11-2025 10:24-0400 Body weight 75.[address] Nirav Perez MD Work Phone: [facility] 01-11-2025 10:24-0400 Diastolic blood pressure 73 mm[Hg] Dr. Nirav Perez MD Work Phone: [facility] 01-11-2025 10:24-0400 Systolic blood pressure 114 mm[Hg] Dr. Nirav Preez MD Work Phone: [facility] 12-27-2024 08:58-0500 Body height 160.[address] Nirav Perez MD Work Phone: [facility] 12-27-2024 08:58-0500 Body mass index (BMI) [Ratio] 28.8 kg/m2 Dr. Nirav Perez MD Work Phone: [facility] 12-27-2024 08:58-0500 Body weight 73.[address] Nirav Perez MD Work Phone: [facility] 12-27-2024 08:58-0500 Diastolic blood pressure 70 mm[Hg] Dr. Nirav Perez MD Work Phone: [facility] 12-27-2024 08:58-0500 Systolic blood pressure 108 mm[Hg] Dr. Nirav Perez MD Work Phone: [facility] 12-20-2024 11:26-0500 Body mass index (BMI) [Ratio] 29 kg/m2 Dr. Nirav Perez MD Work Phone: [facility] 12-20-2024 11:26-0500 Body weight 74.[address] Nirav Perez MD Work Phone: [facility] 12-20-2024 11:26-0500 Diastolic blood pressure 67 mm[Hg] Dr. Nirav Perez MD Work Phone: [facility] 12-20-2024 11:26-0500 Systolic blood pressure 98 mm[Hg] Dr. Nirav Perez MD Work Phone: [facility] 12-14-2024 22:00-0500 Diastolic blood pressure 68 mm[Hg] Dr. Nirav Perez MD Work Phone: [facility] 12-14-2024 22:00-0500 Heart rate 70 /min Dr. Nirav Perez MD Work Phone: [facility] 12-14-2024 22:00-0500 Respiratory rate 16 /min Dr. Nirav Perez MD Work Phone: [facility] 12-14-2024 22:00-0500 SaO2% (BldA) [Mass fraction] 100 % Dr. Nirav Perez MD Work Phone: [facility] 12-14-2024 22:00-0500 Systolic blood pressure 101 mm[Hg] Dr. Nirav Perez MD Work Phone: [facility] 12-14-2024 19:03-0500 Body mass index (BMI) [Ratio] 29.2 kg/m2 Dr. Nirav Perez MD Work Phone: [facility] 12-14-2024 19:03-0500 Body temperature 98.2 [degF] Dr. Nirav Perez MD Work Phone: [facility] 12-14-2024 19:03-0500 Body weight 74.[address] Nirav Perez MD Work Phone: [facility] 12-13-2024 10:41-0500 Body mass index (BMI) [Ratio] 29 kg/m2 Dr. Nirav Perez MD Work Phone: [facility] 12-13-2024 10:41-0500 Body weight 74.[address] Nirav Perez MD Work Phone: [facility] 12-13-2024 10:41-0500 Diastolic blood pressure 70 mm[Hg] Dr. Nirav Perez MD Work Phone: [facility] 12-13-2024 10:41-0500 Systolic blood pressure 118 mm[Hg] Dr. Nirav Perez MD Work Phone: [facility] 11-16-2024 13:30-0500 Body mass index (BMI) [Ratio] 29.1 kg/m2 Dr. Nirav Perez MD Work Phone: [facility] 11-16-2024 13:30-0500 Body weight 74.[address] Nirav Perez MD Work Phone: [facility] 11-16-2024 13:30-0500 Diastolic blood pressure 87 mm[Hg] Dr. Nirav Perez MD Work Phone: [facility] 11-16-2024 13:30-0500 Systolic blood pressure 120 mm[Hg] Dr. Nirav Perez MD Work Phone: [facility] 10-19-2024 11:17-0500 Body mass index (BMI) [Ratio] 29 kg/m2 Dr. Nirav Perez MD Work Phone: [facility] 10-19-2024 11:17-0500 Body weight 74.[address] Nirav Perez MD Work Phone: [facility] 10-19-2024 11:17-0500 Diastolic blood pressure 81 mm[Hg] Dr. Nirav Perez MD Work Phone: [facility] 10-19-2024 11:17-0500 Systolic blood pressure 120 mm[Hg] Dr. Nirav Perez MD Work Phone: [facility] 09-22-2023 10:16-0500 Body height 160.[address] Nirav Perez Work Phone: [facility] 09-22-2023 10:16-0500 Body mass index (BMI) [Ratio] 32.5 kg/m2 Dr. Nirav Perez Work Phone: [facility] 09-22-2023 10:16-0500 Body weight 83.[address] Nirav Perez Work Phone: [facility] 09-22-2023 10:10-0500 Diastolic blood pressure 77 mm[Hg] Dr. Nirav Perez Work Phone: [facility] 09-22-2023 10:10-0500 Heart rate 68 /min Dr. Nirav Perez Work Phone: [facility] 09-22-2023 10:10-0500 SaO2% (BldA) [Mass fraction] 96 % Dr. Nirav Perez Work Phone: [facility] 09-22-2023 10:10-0500 Systolic blood pressure 115 mm[Hg] Dr. Nirav Perez Work Phone: [facility] 09-19-2023 08:05-0500 Body mass index (BMI) [Ratio] 31.2 kg/m2 Dr. Nirav Perez Work Phone: [facility] 09-19-2023 08:05-0500 Body weight 82.[address] Nirav Perez Work Phone: [facility] 09-19-2023 08:05-0500 Diastolic blood pressure 74 mm[Hg] Dr. Nirav Perez Work Phone: [facility] 09-19-2023 08:05-0500 Systolic blood pressure 106 mm[Hg] Dr. Nirav Perez Work Phone: [facility] 09-12-2023 10:56-0500 Body mass index (BMI) [Ratio] 31.7 kg/m2 Dr. Nirav Perez Work Phone: [facility] 09-12-2023 10:56-0500 Body weight 83.[address] Nirav Perez Work Phone: [facility] 09-12-2023 10:56-0500 Diastolic blood pressure 72 mm[Hg] Dr. Nirav Perez Work Phone: [facility] 09-12-2023 10:56-0500 Systolic blood pressure 108 mm[Hg] Dr. Nirav Perez Work Phone: [facility] 08-29-2023 09:59-0400 Body weight [address] Nirav Perez Work Phone: [facility] 08-29-2023 09:41-0400 Body mass index (BMI) [Ratio] 0.8 kg/m2 Dr. Nirav Perez Work Phone: [facility] 08-29-2023 09:41-0400 Diastolic blood pressure 74 mm[Hg] Dr. Nirav Perez Work Phone: [facility] 08-29-2023 09:41-0400 Systolic blood pressure 110 mm[Hg] Dr. Nirav Perez Work Phone: [facility] 08-12-2023 14:52-0400 Body weight 82.[address] Nirav Perez Work Phone: [facility] 08-12-2023 14:04-0400 Body mass index (BMI) [Ratio] 0.8 kg/m2 Dr. Nirav Perez Work Phone: [facility] 08-12-2023 14:04-0400 Diastolic blood pressure 74 mm[Hg] Dr. Nirav Perez Work Phone: [facility] 08-12-2023 14:04-0400 Systolic blood pressure 123 mm[Hg] Dr. Nirav Perez Work Phone: [facility] 08-09-2023 10:09-0400 Body temperature 98.6 [degF] Dr. Nirav Perez Work Phone: [facility] 08-09-2023 10:09-0400 Diastolic blood pressure 79 mm[Hg] Dr. Nirav Perez Work Phone: [facility] 08-09-2023 10:09-0400 Heart rate 97 /min Dr. Nirav Perez Work Phone: [facility] 08-09-2023 10:09-0400 Respiratory rate 16 /min Dr. Nirav Perez Work Phone: [facility] 08-09-2023 10:09-0400 SaO2% (BldA) [Mass fraction] 96 % Dr. Nirav Perez Work Phone: [facility] 08-09-2023 10:09-0400 Systolic blood pressure 115 mm[Hg] Dr. Nirav Perez Work Phone: [facility] 07-18-2023 13:44-0400 Body height 162.[address] Nirav Perez Work Phone: [facility] 06-21-2023 08:34-0400 Body mass index (BMI) [Ratio] 30.2 kg/m2 Dr. Nirav Perez Work Phone: [facility] 06-21-2023 08:34-0400 Body weight 79.[address] Nirav Perez Work Phone: [facility] 06-21-2023 08:34-0400 Diastolic blood pressure 78 mm[Hg] Dr. Nirav Perez Work Phone: [facility] 06-21-2023 08:34-0400 Systolic blood pressure 117 mm[Hg] Dr. Nirav Perez Work Phone: [facility] 06-20-2023 16:03-0400 Body mass index (BMI) [Ratio] 29.4 kg/m2 Dr. Nirav Perez Work Phone: [facility] 06-20-2023 16:03-0400 Body weight 77.[address] Nirav Perez Work Phone: [facility] 06-20-2023 16:03-0400 Diastolic blood pressure 72 mm[Hg] Dr. Nirav Perez Work Phone: [facility] 06-20-2023 16:03-0400 Systolic blood pressure 115 mm[Hg] Dr. Nirav Perez Work Phone: [facility] 05-27-2023 09:57-0400 Body height 162.[address] Nirav Perez Work Phone: [facility] 05-27-2023 09:47-0400 Body mass index (BMI) [Ratio] 28.8 kg/m2 Dr. Nirav Perez Work Phone: [facility] 05-27-2023 09:47-0400 Body weight 76.[address] Nirav Perez Work Phone: [facility] 05-27-2023 09:47-0400 Diastolic blood pressure 69 mm[Hg] Dr. Nirva Perez Work Phone: [facility] 05-27-2023 09:47-0400 Systolic blood pressure 105 mm[Hg] Dr. Nirav Perez Work Phone: [facility] 04-29-2023 13:51-0400 Body height 162.[address] Nirav Perez Work Phone: [facility] 04-29-2023 13:44-0400 Body mass index (BMI) [Ratio] 29.4 kg/m2 Dr. Nirav Perez Work Phone: [facility] 04-29-2023 13:44-0400 Body weight 77.[address] Nirav Perez Work Phone: [facility] 04-29-2023 13:44-0400 Diastolic blood pressure 75 mm[Hg] Dr. Nirav Perez Work Phone: [facility] 04-29-2023 13:44-0400 Systolic blood pressure 111 mm[Hg] Dr. Nirav Perez Work Phone: [facility] 03-30-2023 09:26-0400 Body mass index (BMI) [Ratio] 28.5 kg/m2 Dr. Nirav Perez Work Phone: [facility] 03-30-2023 09:26-0400 Body weight 75.[address] Nirav Perez Work Phone: [facility] 03-30-2023 09:26-0400 Diastolic blood pressure 75 mm[Hg] Dr. Nirav Perez Work Phone: [facility] 03-30-2023 09:26-0400 Systolic blood pressure 123 mm[Hg] Dr. Nirav Perez Work Phone: [facility] 12-13-2022 06:21-0500 Body temperature 98.2 [degF] Dr. Nirav Perez Work Phone: [facility] 12-13-2022 06:21-0500 Diastolic blood pressure 64 mm[Hg] Dr. Nirav Perez Work Phone: [facility] 12-13-2022 06:21-0500 Heart rate 72 /min Dr. Nirav Perez Work Phone: [facility] 12-13-2022 06:21-0500 Respiratory rate 14 /min Dr. Nirav Perez Work Phone: [facility] 12-13-2022 06:21-0500 Systolic blood pressure 102 mm[Hg] Dr. Nirav Preez Work Phone: [facility] 12-13-2022 06:12-0500 Body height 162.[address] Nirav Perez Work Phone: [facility] 12-07-2022 08:08-0500 Body mass index (BMI) [Ratio] 30.2 kg/m2 Dr. Nirav Perez Work Phone: [facility] 12-07-2022 08:08-0500 Body weight [address] Nirav Perez Work Phone: [facility] 12-07-2022 08:08-0500 Diastolic blood pressure 84 mm[Hg] Dr. Nirav Perez Work Phone: [facility] 12-07-2022 08:08-0500 Systolic blood pressure 122 mm[Hg] Dr. Nirav Perez Work Phone: [facility] 11-06-2022 10:12-0500 Body temperature 98.2 [degF] Dr. Nirav Perez Work Phone: [facility] 11-06-2022 10:12-0500 Diastolic blood pressure 68 mm[Hg] Dr. Nirav Perez Work Phone: [facility] 11-06-2022 10:12-0500 Heart rate 73 /min Dr. Nirav Perez Work Phone: [facility] 11-06-2022 10:12-0500 Respiratory rate 14 /min Dr. Nirav Perez Work Phone: [facility] 11-06-2022 10:12-0500 SaO2% (BldA) [Mass fraction] 97 % Dr. Nirav Perez Work Phone: [facility] 11-06-2022 10:12-0500 Systolic blood pressure 116 mm[Hg] Dr. Nirav Perez Work Phone: [facility] 08-31-2017 08:30-0400 BMI (Body Mass Index) 25.88 kg/m2 Chika Nieto MD [facility] 08-31-2017 08:30-0400 Body Temperature 96.7 [degF] Chika Nieto MD [facility] 08-31-2017 08:30-0400 Body Temperature 96.69 [degF] Chika Nieto MD [facility] 08-31-2017 08:30-0400 BP Diastolic 71 mm[Hg] Chika Nieto MD [facility] 08-31-2017 08:30-0400 BP Systolic 105 mm[Hg] Chika Nieto MD [facility] 08-31-2017 08:30-0400 Height 162.56 cm Chika Nieto MD [facility] 08-31-2017 08:30-0400 Pulse (Heart Rate) 78 /min Chika Nieto MD [facility] 08-31-2017 08:30-0400 Respiratory Rate 16 /min Chika Nieto MD [facility] 08-31-2017 08:30-0400 Weight 68.4 kg Chika Nieto MD [facility] 08-02-2017 16:03-0400 BMI (Body Mass Index) 25.16 kg/m2 Oc WESTP-C [facility] Work Phone: 08-02-2017 16:03-0400 Body Temperature 99.6 [degF] Oc Jean [employer] [facility] Work Phone: 08-02-2017 16:03-0400 BP Diastolic 79 mm[Hg] Oc Vargasder [employer] [facility] Work Phone: 08-02-2017 16:03-0400 BP Systolic 116 mm[Hg] Oc Vargasder [employer] [facility] Work Phone: 08-02-2017 16:03-0400 Height 165.1 cm Oc Vargasder [employer] [facility] Work Phone: 08-02-2017 16:03-0400 Pulse (Heart Rate) 62 /min Oc Jean [employer] [facility] Work Phone: 08-02-2017 16:03-0400 Respiratory Rate 16 /min Oc Vargasder [employer] [facility] Work Phone: 08-02-2017 16:03-0400 Weight 68.58 kg Oc WESTP[facility] Work Phone: 07-30-2017 09:22-0400 BMI (Body Mass Index) 25.29 kg/m2 Oc Carvajal PA-C [facility] Work Phone: 07-30-2017 09:22-0400 Body Temperature 99.1 [degF] Oc Carvajal PA-C [facility] Work Phone: 07-30-2017 09:22-0400 BP Diastolic 72 mm[Hg] Oc Carvajal PA-C [facility] Work Phone: 07-30-2017 09:22-0400 BP Systolic 106 mm[Hg] Oc Carvajal PA-C [facility] Work Phone: 07-30-2017 09:22-0400 Height 165.1 cm Oc Carvajal PA-C [facility] Work Phone: 07-30-2017 09:22-0400 Pulse (Heart Rate) 77 /min Oc Carvajal PA-C [facility] Work Phone: 07-30-2017 09:22-0400 Respiratory Rate 14 /min Oc Carvajal PA-C [facility] Work Phone: 07-30-2017 09:22-0400 Weight 68.95 kg Oc Carvajal PA-C [facility] Work Phone: 07-20-2017 10:42-0400 BMI (Body Mass Index) 25.96 kg/m2 Radha Garcia [facility] Work Phone: 07-20-2017 10:42-0400 Body Temperature 98.4 [degF] Radha Garcia [facility] Work Phone: 07-20-2017 10:42-0400 BP Diastolic 74 mm[Hg] Radha Marthey [facility] Work Phone: 07-20-2017 10:42-0400 BP Systolic 109 mm[Hg] Radha Marthey [facility] Work Phone: 07-20-2017 10:42-0400 Height 165.1 cm Radha Marthey [facility] Work Phone: 07-20-2017 10:42-0400 Pulse (Heart Rate) 66 /min Radha Marthey [facility] Work Phone: 07-20-2017 10:42-0400 Respiratory Rate 16 /min Radha [facility] Work Phone: 07-20-2017 10:42-0400 Weight 70.76 kg Rad[facility] Work Phone: 07-19-2017 06:44-0400 BMI (Body Mass Index) 25.46 kg/m2 Jaci Syed LPN [facility] Work Phone: 07-19-2017 06:44-0400 Body Temperature 97.1 [degF] Jaci Syed LPN [facility] Work Phone: 07-19-2017 06:44-0400 BP Diastolic 72 mm[Hg] Jaci Syed LPN [facility] Work Phone: 07-19-2017 06:44-0400 BP Systolic 108 mm[Hg] Jaci Syed LPN [facility] Work Phone: 07-19-2017 06:44-0400 Height 165.1 cm Jaci Syed LPN [facility] Work Phone: 07-19-2017 06:44-0400 Pulse (Heart Rate) 80 /min Jaci Syed LPN [facility] Work Phone: 07-19-2017 06:44-0400 Respiratory Rate 14 /min Jaci Syed LPN [facility] Work Phone: 07-19-2017 06:44-0400 Weight 69.4 kg Jaci Syed LPN [facility] Work Phone: 06-28-2017 08:05-0400 BMI (Body Mass Index) 25.65 kg/m2 [employer] Work Phone: 06-28-2017 08:05-0400 Body Temperature 98.4 [degF] [facility] Work Phone: 06-28-2017 08:05-0400 BP Diastolic 75 mm[Hg] [facility], [facility] Work Phone: 06-28-2017 08:05-0400 BP Systolic 111 mm[Hg] [facility], [facility] Work Phone: 06-28-2017 08:05-0400 Height 165.1 cm [facility] [employer], [facility] Work Phone: 06-28-2017 08:05-0400 Pulse (Heart Rate) 58 /min [facility] [employer], [facility] Work Phone: 06-28-2017 08:05-0400 Weight 69.91 kg [facility] [employer], [facility] Work Phone: 10-14-2016 11:57-0500 Heart rate 57 /min Harmeet Giordano [facility] [facility] [employer], [facility] Work Phone: 10-14-2016 11:43-0500 BMI (Body Mass Index) 28.16 kg/m2 Harmeet Giordano [facility], [facility] Work Phone: 10-14-2016 11:43-0500 BP Diastolic 68 mm[Hg] Harmeet Giordano [facility] [facility] [employer], [facility] Work Phone: 10-14-2016 11:43-0500 BP Systolic 100 mm[Hg] Harmeet Giordano [facility] [employer] [facility] [employer], [facility] Work Phone: 10-14-2016 11:43-0500 BSA (Body Surface Area) 1.71 m2 Nirav Perez MD [facility] Work Phone: 10-14-2016 11:43-0500 Pulse (Heart Rate) 64 /min Harmeet Giordano [facility] [employer], [facility] Work Phone: 10-14-2016 11:43-0500 Respiratory Rate 16 /min Harmeet Giordano [facility] ical Service, [facility] Work Phone: 10-14-2016 11:43-0500 Weight 69.85 kg Harmeet Giordano [facility] [facility], [facility] Work Phone: 07-13-2016 09:22-0400 Height 157.48 cm Harmeet Giordano [facility], [facility] Work Phone: Encounters Encounter Date Encounter Type Care Provider Facility Start: 05-09-2025 ambulatory Nirav Perez Facili ty:[facility] Start: 05-08-2025 ambulatory Nirav Perez Facili ty:[facility] Start: 05-08-2025 Evaluation and management of inpatient Nirav Perez Facility:[facility] Start: 05-07-2025 End: 05-07-2025 ambulatory Dayanara Christie Facility:[facility] Start: 05-02-2025 End: 05-02-[address] Chika Nieto MD -[facility] Work Phone: Start: 05-02-2025 End: 05-02-[address] [facility] [facility] Start: 05-02-2025 End: 05-02-2025 ambulatory Nirav Perez Facility:[facility] Start: 04-21-2025 ambulatory Chika Hitchcock lity:[facility] Start: 04-21-2025 Non-patient / Non-visit Dr. Cherelle Nieto MD -[facility] Start: 04-18-2025 End: 04-18-[address] Stephania Montoya DO -[facility] Work Phone: Start: 04-18-2025 End: 04-18-[address] Nirav Perez MD Work Phone: [facility] Work Phone: Start: 04-17-2025 End: 04-17-[address] Nirav Perez MD Work Phone: [facility] Work Phone: Start: 04-17-2025 End: 04-17-[address] Chika Nieto MD -[facility] Work Phone: Start: 04-17-2025 ambulatory Nirav Grimes ty:[facility] Start: 04-17-2025 Non-patient / Non-visit Dr. Cherelle Nieto MD -[facility] Start: 04-11-2025 End: 04-11-2025 Patient encounter procedure Vannessa Chirinos INTERVENTIONAL RADIOLOGY RN-C -[facility] Work Phone: Start: 04-11-2025 End: 04-11-[address] Nirav Perez MD Work Phone: [facility] Work Phone: Start: 04-11-2025 End: 04-11-2025 ambulatory Vannessa Chirinos INTERVENTIONAL RADIOLOGY RN Facility:[facility] Start: 04-05-2025 ambulatory Dayanara Christie Facilit y:[facility] Start: 04-05-2025 Non-patient / Non-visit Dayanara snyder CN -[facility] Start: 04-05-2025 End: 04-05-2025 Patient encounter procedure Giuliana Schilling CN -[facility] Work Phone: Start: 04-05-2025 End: 04-05-[address] Nirav Perez MD Work Phone: [facility] Work Phone: Start: 04-04-2025 End: 04-04-[address] Nirav Perez MD Work Phone: [facility] Work Phone: Start: 04-04-2025 End: 04-04-2025 Patient encounter procedure Dayanara BOSCH -[facility] Work Phone: Start: 04-03-2025 End: 04-03-[address] Nirav Perez MD Work Phone: [facility] Work Phone: Start: 04-03-2025 End: 04-03-2025 Patient encounter procedure Dayanara BOSCH -[facility] Work Phone: Start: 03-21-2025 End: 03-21-[address] Chika Nieto MD -[facility] Work Phone: Start: 03-21-2025 End: 03-21-2025 ambulatory Arbenrola Perez Facility:[facility] Start: 03-19-2025 ambulatory [facility] Start: 03-19-2025 Non-patient / Non-visit Giuliana Mojica ms [facility] Start: 03-19-2025 End: 03-19-[address] Nirav Perez MD Work Phone: [facility] Work Phone: Start: 03-19-2025 End: 03-19-2025 Patient encounter procedure Giuliana Schilling [facility] Work Phone: Start: 03-06-2025 End: 03-06-2025 Patient encounter procedure Vannessa RODARTE -[facility] Work Phone: Start: 03-06-2025 End: 03-06-[address] Nirav Perez MD Work Phone: [facility] Work Phone: Start: 03-06-2025 End: 03-06-2025 ambulatory [facility] Ana Facility:[facility] Start: 02-22-2025 ambulatory Dayanara Christie Facilit y:[facility] Start: 02-22-2025 Non-patient / Non-visit Dayanara snyder [facility] Start: 02-22-2025 End: 02-22-[address] Nirav Perez MD Work Phone: [facility] Work Phone: Start: 02-22-2025 End: 02-22-2025 Patient encounter procedure Dayanara Christie [facility] -[facility] Work Phone: Start: 02-07-2025 End: 02-07-2025 Patient encounter procedure Vannessa RODARTE -[facility] Work Phone: Start: 02-07-2025 End: 02-07-2025 ambulatory Nirav Perez Facility:[facility] Start: 01-31-2025 End: 01-31-2025 ambulatory LACY D [facility] Start: 01-16-2025 End: 01-16-2025 Subsequent hospital visit by physician Rashmi Taylor DO Work Phone: [facility] Comment on above: Maternal care for (s uspected) central nervous system malformation or damage in fetus, choroid plexus cysts, fetus 1 Start: 01-16-2025 End: 01-16-2025 ambulatory [facility] Start: 01-16-2025 End: 01-16-2025 ambulatory [facility] Start: 01-11-2025 End: 01-11-[address] Chika Nieto MD -[facility] Work Phone: Start: 01-11-2025 End: 01-11-2025 [facility] Start: 01-02-2025 End: 01-02-2025 ambulatory [facility] Start: 12-27-2024 End: 12-27-2024 Patient encounter procedure Vannessa RODARTE -[facility] Work Phone: Start: 12-27-2024 End: 12-27-[address] Nirav Perez MD Work Phone: [facility] Work Phone: Start: 12-27-2024 End: 12-27-2024 ambulatory [facility] Facility:[facility] Start: 12-20-2024 End: 12-20-[address] Chika Nieto MD -[facility] Work Phone: Start: 12-20-2024 End: 12-20-2024 ambulatory Efewongbe Rae Facility:[facility] Start: 12-19-2024 End: 12-19-2024 ambulatory STEPHANIA CA [facility] Start: 12-14-2024 End: 12-14-2024 Emergency department patient visit Dr. Jerardo Patricio-Magali DO -Emergency Department Work Phone: Start: 12-13-2024 End: 12-13-2024 Patient encounter procedure Vannessa RODARTE -[facility] Work Phone: Start: 12-13-2024 End: 12-13-2024 ambulatory Efewongbe Rae Facility:[facility] Start: 11-16-2024 End: 11-16-[address] Stephania Montoya DO -[facility] Work Phone: Start: 11-16-2024 End: 11-16-2024 ambulatory Efewongbe Oleghe Facility:[facility] Start: 10-19-2024 End: 10-19-2024 Patient encounter procedure Dayanara Christie [facility] -[facility] Work Phone: Start: 10-19-2024 End: 10-19-2024 ambulatory Efewongbe Oleghe Facility:[facility] Start: 10-19-2024 End: 10-19-2024 ambulatory Dayanara Christie Facility:[facility] Start: 08-14-2024 End: 08-14-2024 ambulatory Efewongbe Oleghe Facility:[facility] Start: 07-17-2024 End: 07-18-2024 ambulatory Efewnapabe Olee Facility:[facility] Start: 09-22-2023 Non-patient / Non-visit Dr. Arben Perez Work Phone: [facility] Start: 09-22-2023 End: 09-22-[address] Nirav Perez Work Phone: [facility] Work Phone: Start: 09-22-2023 End: 09-22-[address] [facility] Perez [facility] Work Phone: Start: 09-19-2023 End: 09-19-[address] Nirav Perez Work Phone: [facility] Work Phone: Start: 09-19-2023 End: 09-19-[address] Nirav Perez Work Phone: [facility] Work Phone: Start: 09-19-2023 End: 09-19-[address] Nirav Perez Work Phone: [facility] Work Phone: Start: 09-12-2023 End: 09-12-[address] Nirav Perez Work Phone: [facility] Work Phone: Start: 08-29-2023 End: 08-29-[address] Nirav Perez Work Phone: [facility] Work Phone: Start: 08-12-2023 End: 08-12-[address] Nirav Perez Work Phone: [facility] Work Phone: Start: 08-09-2023 End: 08-09-[address] Nirav Perez Work Phone: [facility] Work Phone: Start: 07-19-2023 End: 07-19-[address] Nirav Perez Work Phone: [facility] Work Phone: Start: 07-19-2023 End: 07-19-[address] Nirav Perez Work Phone: [facility] Start: 07-18-2023 End: 07-18-[address] Nirav Perez Work Phone: [facility] Work Phone: Start: 06-20-2023 End: 06-20-[address] Nirav Perez Work Phone: [facility] Work Phone: Start: 05-27-2023 End: 05-27-[address] Nirav Perez Work Phone: [facility] Work Phone: Start: 05-27-2023 End: 05-27-[address] Nirav Perez Work Phone: [facility] Work Phone: Start: 04-29-2023 End: 04-29-[address] Nirav Perez Work Phone: [facility] Work Phone: Start: 03-30-2023 End: 03-30-[address] Nirav Perze Work Phone: [facility] Work Phone: Start: 03-30-2023 End: 03-30-[address] Nirav Perez Work Phone: [facility] Work Phone: Start: 03-30-2023 End: 03-30-[address] Nirav Perez Work Phone: [facility] Work Phone: Start: 12-13-2022 End: 12-13-[address] Nirav Perez Work Phone: [facility] Start: 12-07-2022 End: 12-07-[address] Nirav Perez Work Phone: [facility] Work Phone: Start: 12-07-2022 End: 12-07-[address] Nirav Perez Work Phone: [facility] Start: 12-07-2022 End: 12-07-[address] Nirav Perez Work Phone: [facility] Start: 11-06-2022 End: 11-06-[address] Nirav Perez Work Phone: [facility] Start: 06-23-2012 End: 06-23-2012 Telephone encounter [...] 08-06-2017 End: 08-06-2017 Throat culture Oc Jean [employer] Start: 08-05-2017 End: 08-05-2017 Throat culture Oc Jean [employer] Start: 08-04-2017 End: 08-04-2017 Throat culture Oc Jean [employer]-C Start: 08-03-2017 End: 08-03-2017 Throat culture Josafattjdeb Holley Start: 08-02-2017 End: 08-03-2017 *CBC with Differential Oc Jean [employer]- C Start: 08-02-2017 End: 08-09-2017 Bacteria identified in Throat by Culture Oc Jean [employer]-C Start: 08-02-2017 End: 08-03-2017 Heterophile Ab [Presence] in Serum Oc Jean [employer] Start: 08-02-2017 End: 08-02-2017 Iaadiadoo streptococcus group a Oc Jean [employer]-C Start: 07-30-2017 End: 07-30-2017 Iaadiadoo streptococcus group a Oc Carvajal PA-C Work Phone: Start: 07-30-2017 End: 07-30-2017 Rapid strep test Oc Carvajal PA-C Work Phone: Start: 07-20-2017 End: 07-21-2017 ENT Referral Oc Jean [employer]-C Start: 06-28-2017 End: 06-28-2017 Urinalysis iNrav Perez MD Start: 06-28-2017 End: 06-28-2017 Dietary [...] Activity Detail Author Start: 04-17-2025 Nonstress test [facility] Start: 04-17-2025 Obstetric monitoring [facility] Start: 04-17-2025 [facility] Start: 04-17-2025 Vital signs measurements [facility] Start: 04-17-2025 Patient discharge [facility] Start: 04-11-2025 [facility] Start: 04-04-2025 Nonstress test [facility] Start: 04-04-2025 Obstetric monitoring [facility] Start: 04-04-2025 Vital signs measurements [facility] Start: 04-04-2025 [facility] Start: 04-04-2025 Therapeutic prophylactic/dx injection subq/im THER/PROPH/DIAG INJ SC/IM [facility] Start: 04-03-2025 Nonstress test [facility] Start: 04-03-2025 Obstetric monitoring [facility] Start: 04-03-2025 Vital signs measurements [facility] Start: 04-03-2025 [facility] Start: 04-03-2025 Patient discharge [facility] Start: 03-19-2025 Nonstress test [facility] Start: 03-19-2025 Obstetric monitoring [facility] Start: 03-19-2025 [facility] Start: 03-19-2025 Vital signs measurements [facility] Start: 03-19-2025 Patient discharge [facility] Start: 02-22-2025 Bacteria identified in Urine by Culture Urine Culture [facility] Start: 02-22-2025 Nonstress test [facility] Start: 02-22-2025 Obstetric monitoring [facility] Start: 02-22-2025 Vital signs measurements [facility] Start: 02-22-2025 End: 02-22-2025 [facility] Start: 02-22-2025 Patient discharge [facility] Start: 01-31-2025 End: 01-31-2025 Professional / ancillary services management 01/31/2025 11:00 AM EDT Ancillary Procedure Visit [facility] [address], [address] [place], [place] [address] Return for 60 min US in 2 weeks. [facility] Comment on above: Return for 60 min US in 2 weeks. Start: 12-14-2024 [facility] Start: 12-13-2024 Patient referral [facility] Work Phone: Start: 07-01-2024 COVID-19 (2023-12 season) COVID-19 ( season) [facility] Start: 07-01-2024 FLU (#1) FLU (#1) [facility] Start: 09-22-2023 Nonstress test [facility] Start: 09-22-2023 Obstetric monitoring [facility] Start: 09-22-2023 Vital signs measurements [facility] Start: 09-22-2023 [facility] Start: 09-22-2023 Patient discharge [facility] Start: 09-12-2023 Patient referral [facility] Work Phone: Start: 07-01-2021 Influenza vaccination INFLUENZA (Sea son Ended) [facility] Start: 07-16-2019 PAP TESTING PAP TESTING [facility] Start: 08-31-2017 End: 08-31-2017 [facility] Work Phone: Start: 08-02-2017 End: 08-02-2017 Appointment Appointment [facility] Work Phone: Start: 08-02-2017 End: 08-03-2017 *CBC with Differential *CBC with Differential [facility] Work Phone: Start: 08-02-2017 End: 08-09-2017 Bacteria identified in Throat by Culture *CUT - Throat Culture [facility] Work Phone: Start: 08-02-2017 End: 08-03-2017 Heterophile antibody presence *Infectious Boundary Screen [facility] Work Phone: Start: 07-30-2017 End: 07-30-2017 Streptococcus.beta-hemol ytic [Presence] in Throat by Organism specific culture *Culture, R/O Strep A Swab [facility] Work Phone: Start: 07-30-2017 End: 07-30-2017 Appointment Appointment [facility] Work Phone: Start: 07-30-2017 End: 07-30-2017 Streptococcus.beta-hemol ytic [Presence] in Throat by Organism specific culture *Culture, R/O Strep A Swab [facility] Work Phone: Start: 07-20-2017 End: 08-09-2017 ENT Referral ENT Referral [facility] Work Phone: Start: 07-20-2017 End: 07-20-2017 Appointment Appointment [facility] Work Phone: Start: 07-20-2017 End: 07-20-2017 ENT Referral ENT Referral [facility] Work Phone: Start: 07-19-2017 End: 07-19-2017 Appointment Appointment [facility] Work Phone: Start: 06-28-2017 End: 06-28-2017 Dermatology Referral Dermatology Referral Lou Ballesteros, [address] [place], [address] [facility] Work Phone: Start: 06-28-2017 End: 06-28-2017 Follow Up Appt 1 year Follow Up Appt 1 year [facility] Work Phone: Start: 06-28-2017 End: 06-28-2017 Appointment Appointment [facility] Work Phone: Start: 06-28-2017 End: 06-28-2017 Dermatology Referral Dermatology Referral Lou Ballesteros, [address] [place], [address] [facility] Work Phone: Start: 06-28-2017 End: 06-28-2017 Follow Up Appt 1 year Follow Up Appt 1 year [facility] Work Phone: Start: 10-14-2016 End: 10-14-2016 Ecg routine ecg w/least 12 lds w/i&r EKG (In office) [facility] Work Phone: Start: 10-14-2016 End: 10-14-2016 Follow Up Appt Other Follow Up Appt Other [facility] Work Phone: Start: 10-14-2016 End: 10-14-2016 PFM PFM [facility] Work Phone: Start: 10-14-2016 End: 10-14-2016 Transesophageal echocardiogram (MIKE) Transesophageal echocardiogram (MIKE) [facility] Work Phone: Start: 10-14-2016 End: 10-14-2016 Electrocardiogram, complete EKG (In office) [employer] [facility] Work Phone: Start: 10-14-2016 End: 10-14-2016 Follow Up Appt Other Follow Up Appt Other [facility] Work Phone: Start: 10-14-2016 End: 10-14-2016 [facility] [employer] [facility] Work Phone: Start: 10-14-2016 End: 10-14-2016 Transesophageal echocardiogram (MIKE) Transesophageal echocardiogram (MIKE) [employer] [facility] Work Phone: Start: 07-20-2016 End: 07-20-2016 Follow up Appt 2x/week Follow up Appt 2x/week [facility] Work Phone: Start: 07-20-2016 End: 07-20-2016 Follow up Appt 2x/week Follow up Appt 2x/week [employer] Work Phone: Start: 07-15-2016 End: 07-15-2016 Follow up Appt 2x/week Follow up Appt 2x/week [facility] Work Phone: Start: 07-15-2016 End: 07-15-2016 Follow up Appt 2x/week Follow up Appt 2x/week [employer] Work Phone: Start: 07-13-2016 End: 07-13-2016 Follow up Appt 3x/week Follow up Appt 3x/week [facility] Work Phone: Start: 07-13-2016 End: 07-13-2016 Follow up Appt 3x/week Follow up Appt 3x/week [employer] [facility] Work Phone: Start: 04-11-2016 Urine microalbumin profile DTAP,TDAP,TD (7 - Td) [facility] Start: 2014 Microscopic observat ion [Identifier] in Cervix by Cyto stain Pap Smear [facility] Start: 2012 Hepatitis B (1 of 3 - 19+ 3-dose series) Hepatitis B (1 of 3 - 19+ 3-dose series) [facility] Start: 2009 MenB (1 of 2 - MenB 2-Dose Series Bexsero) MenB (1 of 2 - MenB 2-Dose Series Bexsero) [facility] Start: 2006 Varicella (1 of 2 - 13+ 2-dose series) Varicella (1 of 2 - 13+ 2-dose series) [facility] Start: 2005 Adult depression screening assessment DEPRESSION SCREENING [facility] Start: 2000 Tetanus Diphtheria a nd Pertussis Vaccines (1 - Tdap) Tetanus Diphtheria and Pertussis Vaccines (1 - Tdap) [facility] Start: 1994 MMR (1 of 1 - Standa rd series) MMR (1 of 1 - Standard series) [facility] CBC W Auto Different ial panel - Blood [facility] CBC W Auto Different ial panel - Blood [facility] Hepatitis B surface antigen measurement [facility] Hepatitis C antibody measurement [facility] HIV 1+2 Ab+HIV1 p24 Ag [Presence] in Serum or Plasma by Immunoassay [facility] Measurement of gluco se 2 hours after glucose challenge for glucose tolerance test [facility] Measurement of pH in vaginal fluid specimen using nitrazine yellow for detection of rupture of amniotic membrane [facility] Microscopic urinalysis [facility] Organism count, microscopic method [facility] End: 01-16-2025 PANORAMA TEST [facility] Work Phone: Comment on above: 1 Occurrences starti ng 01/16/2025 until 01/16/2025 Patient Education [facility] Work Phone: Patient referral [facility] Work Phone: Rubella IgG measurement [facility] Serologic test for syphilis [facility] Streptococcus agalac tiae [Presence] in Unspecified specimen by Organism specific culture [facility] Treponema sp Ab [Presence] in Serum [facility] Urine culture [facility] Urine microscopy: epithelial cells [facility] Urine microscopy: re d cells [facility] White blood cell count [facility] Immunizations Immunization Date Immunization Notes Care Provider Fa [facility] 03-06-2025 tetanus toxoid, redu patsy diphtheria toxoid, and acellular pertussis vaccine, adsorbed Dr. Nirav Perez MD Work Phone: [facility] 08-12-2023 tetanus toxoid, redu patsy diphtheria toxoid, and acellular pertussis vaccine, adsorbed Dr. Nirav Perez Work Phone: [facility] 08-16-[address] Nirav Perez Work Phone: [facility] 07-28-2018 influenza, injectabl e, quadrivalent, preservative free Dr. Nirav Perez Work Phone: [facility] 07-28-2018 influenza, seasonal, injectable Dr. Nirav Perez Work Phone: [facility] 07-27-2017 influenza, injectabl e, quadrivalent, preservative free Dr. Nirav Perez Work Phone: [facility] 07-27-2017 influenza, seasonal, injectable Dr. Nirav Perez Work Phone: [facility] 09-22-2016 hepatitis B vaccine, pediatric or pediatric/adolescent dosage Dr. Nirav Perez Work Phone: [facility] 07-29-2016 influenza, injectabl e, quadrivalent, preservative free Dr. Nirav Perez Work Phone: [facility] 07-29-2016 influenza, seasonal, injectable Dr. Nirav Perez Work Phone: [facility] 04-21-2016 hepatitis B vaccine, pediatric or pediatric/adolescent dosage Dr. Nirav Perez Work Phone: [facility] 03-17-2016 hepatitis B vaccine, pediatric or pediatric/adolescent dosage Dr. Nirav Perez Work Phone: [facility] 02-12-2016 tetanus and diphther ia toxoids, adsorbed, preservative free, for adult use (2 Lf of tetanus toxoid and 2 Lf of diphtheria toxoid) Dr. Nirav Perez Work Phone: [facility] 06-13-2012 hepatitis A vaccine, unspecified formulation Kailee Carbajal Work Phone: [facility] 06-13-2012 human papilloma viru s vaccine, quadrivalent Kailee Carbajal Work Phone: [facility] 06-13-2012 Meningococcal, MCV4, unspecified conjugate formulation(groups A, C, Y and W-135) Kailee Carbajal Work Phone: [facility] 06-05-2010 hepatitis A vaccine, unspecified formulation Kailee Carbajal Work Phone: [facility] 10-22-2008 influenza virus vaccine, live, attenuated, for intranasal use Kailee Carbajal Work Phone: [facility] 04-11-2006 Meningococcal, MCV4, unspecified conjugate formulation(groups A, C, Y and W-135) Kailee Carbajal Work Phone: [facility] 04-11-2006 tetanus toxoid, redu patsy diphtheria toxoid, and acellular pertussis vaccine, adsorbed Kailee Carbajal Work Phone: [facility] 05-27-1999 diphtheria, tetanus toxoids and acellular pertussis vaccine Kailee Carbajal Work Phone: [facility] 05-27-1999 measles, mumps and rubella virus vaccine Kailee Carbajal Work Phone: [facility] 05-27-1999 trivalent poliovirus vaccine, live, oral Kailee Carbajal Work Phone: [facility] 04-18-1998 Chicken Pox (disease) Kailee Carbajal Work Phone: [facility] 03-08-1995 diphtheria, tetanus toxoids and acellular pertussis vaccine Kailee Carbajal Work Phone: [facility] 03-08-1995 haemophilus influenz ae type b vaccine, HbOC conjugate Kailee Carbajal Work Phone: [facility] 12-07-1994 measles, mumps and rubella virus vaccine Kailee Carbajal Work Phone: [facility] 08-12-1994 hepatitis B vaccine, pediatric or pediatric/adolescent dosage Kailee Carbajal Work Phone: [facility] 06-29-1994 diphtheria, tetanus toxoids and pertussis vaccine Kailee Carbajal Work Phone: [facility] 06-29-1994 haemophilus influenz ae type b vaccine, HbOC conjugate Kailee Carbajal Work Phone: [facility] 06-29-1994 trivalent poliovirus vaccine, live, oral Kailee Carbajal Work Phone: [facility] 04-29-1994 diphtheria, tetanus toxoids and pertussis vaccine Kailee Carbajal Work Phone: [facility] 04-29-1994 haemophilus influenz ae type b vaccine, HbOC conjugate Kailee Carbajal Work Phone: [facility] 04-29-1994 hepatitis B vaccine, pediatric or pediatric/adolescent dosage Kailee Carbajal Work Phone: [facility] 04-29-1994 trivalent poliovirus vaccine, live, oral Kailee Carbajal Work Phone: [facility] 02-04-1994 diphtheria, tetanus toxoids and pertussis vaccine Kailee Carbajal Work Phone: [facility] 02-04-1994 haemophilus influenz ae type b vaccine, HbOC conjugate Kailee Carbajal Work Phone: [facility] 02-04-1994 hepatitis B vaccine, pediatric or pediatric/adolescent dosage Kailee Carbajal Work Phone: [facility] 02-04-1994 trivalent poliovirus vaccine, live, oral Kailee Carbajal Work Phone: [facility] Payers Date Payer Category Payer Unknown [employer] Member Subscriber Plan / Payer (Effective 2024-Present) Name: Isadora Velazquezica Relation to Subscriber: Self Name: Janice Velazquez Payer ID: [id number] Group ID: [id number] Type: Not on file Address: [place] [id number] 2024 Unknown [id number] 2024 Unknown [id number] 2024 Self-pay [id number] 2024 Unknown [id number] 2016 Unknown [id number] 2005 Self-pay SELF PAY HSP/MED ICAL SELF PAY [id number] 2005-2015 SELF PAY Indemnity [id number]. [id number] 2004 Unknown [employer] [id number] 2004-2016 Indemnity [id number] 1.2.840.663885.1.13.159.2.7.3. [id number] 1993 Unknown [id number] 2.16840.1.740723.3.579.2.479 1993 Unknown [id number] 2.16840.1.997186.3.579.2.479 1993 Unknown [id number] 2.16840.1.889962.3.579.2.479 1993 Unknown [id number] 2.16840.1.316355.3.579.2.479 1993 Unknown [id number] 2.16840.1.041956.3.579.2.479 1993 Unknown [id number] 2.16840.1.417148.3.579.2.479 Unknown [facility] [id number] Unknown [id number] 2.16.840.1.038642.3.579.2.462 Unknown [id number] 2.16.840.1.534191.3.579.2.462 Unknown [id number] 2.16.840.1.985479.3.579.2.462 Unknown [id number] 2.16.840.1.674329.3.579.2.462 Unknown [id number] 2.16840.1.449828.3.579.2.462 Unknown [id number] 2.16.840.1.827461.3.579.2.462 Unknown [id number] 2.16840.1.090732.3.579.2.462 Unknown [id number] 2.16.840.1.287809.3.579.2.462 Unknown [id number] 2.16840.1.112674.3.579.2.462 Unknown [id number] 2.840.1.986853.3.579.2.462 Unknown [id number] .840.1.432803.3.579.2.462 Unknown [id number] 2.840.1.893287.3.579.2.462 Unknown [id number] 2.840.1.826871.3.579.2.462 Unknown [id number] 2.840.1.646960.3.579.2.462 Unknown [id number] 2.840.1.267996.3.579.2.462 Unknown [id number] 2.840.1.463793.3.579.2.462 Unknown [id number] 2.840.1.518926.3.579.2.462 Unknown [id number] 2.840.1.137639.3.579.2.462 Unknown [id number] .840.1.766097.3.579.2.462 Unknown [id number] .840.1.406065.3.579.2.462 Unknown [id number] 2.840.1.237490.3.579.2.462 Unknown [id number] 2.840.1.922118.3.579.2.462 Unknown [id number] 2.840.1.386790.3.579.2.462 Unknown [id number] 2.16.840.1.665539.3.579.2.462 Unknown [id number] 2.16.840.1.844150.3.579.2.462 Unknown [id number] 2.16.840.1.665635.3.579.2.462 Unknown [id number] 2.16.840.1.188897.3.579.2.462 Unknown [id number] 2.16.840.1.675003.3.579.2.462 Unknown [id number] 2.16.840.1.689974.3.579.2.462 Unknown [id number] 2.16.840.1.124710.3.579.2.462 Unknown [id number] 2.16.840.1.223979.3.579.2.462 Unknown [id number] 2.16.840.1.212989.3.579.2.462 Unknown [id number] 2.16.840.1.916232.3.579.2.462 Unknown [id number] 2.16.840.1.205182.3.579.2.462 Unknown [id number] 2.16.840.1.260223.3.579.2.462 Unknown [id number] 2.16.840.1.576931.3.579.2.462 Unknown [id number] 2.16.840.1.781465.3.579.2.462 Social History Date Type Detail Facility Start: 06-13-2012 End: 02-07-2025 Tobacco smoking status TXIS Never smoker [facility] Start: 06-13-2012 Tobacco use and exposure Never used [facility] Work Phone: Start: 06-13-2012 Alcohol intake 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-dr 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 alcohol (finding) [facility] Start: 1995 Sex Assigned At Not on file [facility] Start: 12-13-2022 End: 09-19-2023 Tobacco smoking status TXIS Unknown if ever smoked [facility] Start: 1995 Sex Assigned At Female [facility] Start: 11-19-2015 None [facility] Start: 11-19-2015 With Family [facility] Gender identity Not on file [facility] Start: 01-10-2025 End: 02-22-2025 Sex Female (finding) [facility] Goals Date Patient Goal Desired Activity /State Clinical Notes 02-05-2010 to 05-02-2025 Note Date & Type Note Facility 05-02-2025 Progress note [facility] 05-02-2025 Progress note Note Date/Time May 02, 2025 3:46pm [facility] [address], [address] [place] [address] OFFICE VISIT Date of Service: 05/02/25 MR#: [id number] Acct: [id number] Name: JANICE VELAZQUEZ Rep #: [id number] : 1995 Provider: Dr. Cory Nieto MD Age/Sex: 29/F [place] [facility] [place]: Signed Intake Vital Signs 02/07/25 10:24 04/18/25 16:03 05/02/25 15:33 Height 5 ft 3 in 5 ft 4 in 5 ft 4 in Weight: 188 lb 6 oz BMI 32.3 BP 118/72 Intake Visit Reasons: 36 wk ob Reject Opener And Filler Required: No Is patient in pain?: No Allergies No Known Allergies Allergy (Verified 05/02/25 15:35) Medications ?Medication ?Instructions ?Recorded ?Confirmed ?Type multivit-min no.71-iron fum 28 1 cap PO DAILY 10/12/24 05/02/25 History mg-folate no.1 1 mg-dha 300 mg capsule (PNV-[place]) cephalexin 500 mg capsule 500 mg PO [...] 5-6 times per week duration: 45-60 minutes/day ross/lutheran: Hinduism seatbelt use: always do you feel safe [...] way he re. 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 States did not have any [...] of fetus: Status: Acute Comment: Met with [facility] genetic counselors and had testing there. (6) History of premature rupture of membranes (PPROM): Status: Acute Comment: Delivered at 34 weeks. CL at 16-24 weeks: 36 mm @16 wk. Recheck 22 wk:35mm (7) Supervision of high-risk : Status: Acute Qualifiers: Trimester: third trimester Qualified Code(s): O09.93 - Supervision of high risk , unspecified, third trimester Comment: [id number], DEE 05/29/25, LEOBARDO Gavin, Bon (8) : [...] inflammation Increase circulation Barriers Weight lifting 05/02/25 1157 <Electronically signed by Chika dubois MD> Date _ Chika Nieto MD [facility] Signature: Date (if applicable) CC: ~ [facility] Work Phone: 1(544) 751-825606-12-2025 Progress [facility] [address] [place] [address], [address] [place] [address] OFFICE VISIT Date of Service: 04/11/25 MR#: [id number] Acct: [id number] Name: JANICE VELAZQUEZ Rep #: [id number] : 1995 Provider: ASTER Chirinos Age/Sex: 29/F Location[place] [facility] [place] Status: Signed Intake Vital Signs 04/05/25 14:48 04/11/25 08:19 Height 5 ft 4 in 5 ft 4 in Weight: 182 lb 6 oz BMI 31.3 BP 118/74 Intake Visit Reasons: ROM CHECK Chief Complaint: ROM check Reject Opener And Filler Required: No Is patient in pain?: No Allergies No Known Allergies Allergy (Verified 04/11/25 08:21) Medications ?Medication ?Instructions ?Recorded ?Confirmed ?Type multivit-min no.71-iron fum 28 1 cap PO DAILY 10/12/24 04/11/25 History mg-folate no.1 1 mg-dha 300 mg capsule (PNV-[place]) cephalexin 500 mg capsule 500 mg PO [...] 5-6 times per week duration: 45-60 minutes/day ross/lutheran: Hinduism seatbelt use: always do you feel safe [...] way he re. 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 States did not have any [...] high risk , unspecified, third trimester Comment: [id number], DEE 05/29/25, LEOBARDO Gavin, Bon (2) : [...] of fetus: Status: Acute Comment: Met with [facility] genetic counselors and had testing there. (5) [...] circulation Barriers Weight lifting 04/11/25 0839 s INTERVENTIONAL RADIOLOGY RN INTERVENTIONAL RADIOLOGY RN-C> Date _ Vannessa Taran INTERVENTIONAL RADIOLOGY RN INTERVENTIONAL RADIOLOGY RN-C [place] Signature: Date (if applicable) CC: ~ [facility]06-06-2025 [facility] [address] [place] [address], [address] [place] [address] OFFICE VISIT Date of Service: 04/05/25 MR#: [id number] Acct: [id number] Name: JANICE VELAZQUEZ Rep #: [id number] : 1995 Provider: DEEP Schilling Age/Sex: 29/F Location: [facility] Status: Signed Intake Vital Signs 02/07/25 10:24 04/04/25 17:28 04/05/25 14:43 04/05/25 14:48 Height 5 ft 3 in 5 ft 4 in 5 ft 4 in 5 ft 4 in Weight: 186 lb 5 oz BMI 31.9 BP 116/75 Intake Visit Reasons: 32 wk ob Chief Complaint: 32 Week OB Reject Opener And Filler Required: No Is patient in pain?: No Allergies No Known Allergies Allergy (Verified 04/05/25 14:43) Medications ?Medication ?Instructions ?Recorded ?Confirmed ?Type multivit-min no.71-iron fum 28 1 cap PO DAILY 10/12/24 04/05/25 History mg-folate no.1 1 mg-dha 300 mg capsule (PNV-[place]) nitrofurantoin 100 mg PO Q12H 7 days [...] 5-6 times per week duration: 45-60 minutes/day ross/lutheran: Hinduism seatbelt use: always do you feel safe [...] way he re. 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 CL at 16-24 weeks: 36 mm @16 wk. Recheck 22 wk:35mm (4) Choroid plexus cyst of fetus: Status: Acute Comment: Met with [facility] genetic counselors and had testing there. (5) [...] Cosigner Signature: Date (if applicable) CC: ~ [facility] [id number] Progress note Author Giuliana Schilling [facility] Note Date/Time April 05, 2025 3:02p [facility] [address] [place] [address], [address] [place] [address] OFFICE VISIT Date of Service: 04/05/25 MR#: [id number] Acct: [id number] Name: JANICE VELAZQUEZ Rep #: [id number] : 1995 Provider: DEEP Schilling Age/Sex: 29/F Location[place] [facility] [place] Status: Signed Intake Vital Signs 02/07/25 10:24 04/04/25 17:28 04/05/25 14:43 04/05/25 14:48 Height 5 ft 3 in 5 ft 4 in 5 ft 4 in 5 ft 4 in Weight: 186 lb 5 oz BMI 31.9 BP 116/75 Intake Visit Reasons: 32 wk ob Chief Complaint: 32 Week OB Reject Opener And Filler Required: No Is patient in pain?: No Allergies No Known Allergies Allergy (Verified 04/05/25 14:43) Medications ?Medication ?Instructions ?Recorded ?Confirmed ?Type multivit-min no.71-iron fum 28 1 cap PO DAILY 10/12/24 04/05/25 History mg-folate no.1 1 mg-dha 300 mg capsule (PNV-[place]) nitrofurantoin 100 mg PO Q12H 7 days [...] 5-6 times per week duration: 45-60 minutes/day ross/lutheran: Hinduism seatbelt use: always do you feel safe [...] live - 5# 15oz Male epidu ral [facility] Bon Delivery Date: 09/27/23 Last [...] way he re. 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 States did not have any [...] high risk , unspecified, third trimester Comment: [id number], DEE 05/29/25, PC Romaine, Bon (3) History of premature rupture of membranes (PPROM): Status: Acute Comment: Delivered at 34 weeks. CL at 16-24 weeks: 36 mm @16 wk. Recheck 22 wk:35mm (4) Choroid plexus cyst of fetus: Status: Acute Comment: Met with [facility] genetic counselors and had testing there. (5) [...] Cosigner Signature: Date (if applicable) CC: ~ [facility] Work Phone: 1(289) 309-853105-20-2025 Progress note [facility] Medical Records Department [address] [place] [address] OB Triage Progress Note 03/19/25 1332 MR#: [id number] Acct: [id number] Name: JANICE VELAZQUEZ Rep #:[id number] : 1995 29 From: Giuliana Schilling CNM PCP: Dr. Nirav Perez MD Status:R EG CLI Y DOS: Location: [place] [address] Progress Notes Date of Service: 03/19/25 Progress Note: Patient presents for triage evaluation secondary to back pain and pelvic pressure at 29 weeks. Hx of delivery at 34 weeks FHT: 145 Moderate variability reactive no decelerations category I tracing [place]: no recorded Contractions Assessment and plan: Discussed [...] pH 8.0 (5.0 - 8.0) Ur Specific [place] 1.010 (1.002-1.030) Urine Protein Negative (Negative) mg/dl [...] Multi Select Codes Urinary/Genital Urinary/Genital CPT Codes: 15810-29 non-stress test Interp Assessment & Plan (1) [...] plexus cyst of fetus: COMMENT: Met with [facility] genetic counselors and had testing there. (5) History of premature rupture of membranes (PPROM): COMMENT: Delivered at 34 weeks. CL at 16-24 weeks: 36 mm @16 wk. Recheck 22 wk:35mm (6) Supervision of high-risk : QUALIFIERS: Trimester: third trimester Qualified Code(s): O09.93 - Supervision of high risk , unspecified, third trimester COMMENT: [id number], DEE 05/29/25, PC Romaine, Bon (7) : [...] Schilling; Dr. Nirav Perez MD ~ Signed [facility]03-14-2025 Evaluation note* Diagnosis Onset Date Resolution [...] tract infection) acute May 02, 2025 3:20pm [facility] Work Phone: 1(648) 638-482003-14-2025 Evaluation note* Diagnosis Onset Date Resolution Status [...] tract infection) acute May 02, 2025 3:20pm [facility] Work Phone: 1(851) 987-151602-20-2025 Evaluation note* Diagnosis Onset Date Resolution Status [...] tract infection) acute April 11, 2025 8:15am [facility] Work Phone: 1(418) 716-734002-13-2025 Evaluation note* Diagnosis Onset Date Resolution Status Admit Date Depression acute December 13, 2024 10:39am History of premature rupture of membranes (PPROM) acute [facility] 2024 10:39am acute December 13, 2024 10:39am [...] tract infection) acute March 19, 2025 9:30am [facility] Work Phone: 1(954) 150-422002-13-2025 Evaluation note* Diagnosis Onset Date Resolution Status Admit Date Depression acute December 13, 2024 10:39am History of premature rupture of membranes (PPROM) acute [facility] 2024 10:39am acute December 13, 2024 10:39am Supervision of high-risk acute December 13 10:39am External constriction of lower back and pelvis, sequela resolved December 13 10:39am Depression acute December 20, 2024 11:20am Dysplasia of cervix, low grade (KARAN 1) acute December 20 11:20am History of premature rupture of membranes (PPROM) acute [facility] 2024 11:20am acute December 20, 2024 11:20am PTSD (post-traumatic stress disorder) acute December 20 11:20am Supervision of high-risk acute December 20 11:20am Placenta previa inactive December 20, 2024 11:20am Depression acute December 27, 2024 8:54am Dysplasia of cervix, low grade (KARAN 1) acute December 27 8:54am History of premature rupture of membranes (PPROM) acute [facility] 2024 8:54am acute December 27, 2024 8:54am [...] tract infection) acute March 21, 2025 10:03am [facility] Work Phone: 1(982) 583-631802-13-2025 Evaluation note* Diagnosis Onset Date Resolution Status Admit Date Depression acute December 13, 2024 10:39am History of premature rupture of membranes (PPROM) acute Feb [place] 2024 10:39am acute December 13, 2024 10:39am Supervision of high-risk acute December 13 10:39am External constriction of lower back and pelvis, sequela resolved December 13 10:39am Depression acute December 20, 2024 11:20am Dysplasia of cervix, low grade (KARAN 1) acute December 20 11:20am History of premature rupture of membranes (PPROM) acute Feb [place] 2024 11:20am acute December 20, 2024 11:20am PTSD (post-traumatic stress disorder) acute December 20 11:20am Supervision of high-risk acute December 20 11:20am Placenta previa inactive December 20, 2024 11:20am Depression acute December 27, 2024 8:54am Dysplasia of cervix, low grade (KARAN 1) acute December 27 8:54am History of premature rupture of membranes (PPROM) acute Feb [place] 2024 8:54am acute December 27, 2024 8:54am [...] tract infection) acute April 05, 2025 2:39pm [facility] Work Phone: 1(522) 873-397402-13-2025 Evaluation note* Diagnosis Onset Date Resolution Status Admit Date Depression acute December 13, 2024 10:39am History of premature rupture of membranes (PPROM) acute [facility] 2024 10:39am acute December 13, 2024 10:39am Supervision of high-risk acute December 13 10:39am External constriction of lower back and pelvis, sequela resolved December 13 10:39am Depression acute December 20, 2024 11:20am Dysplasia of cervix, low grade (KARAN 1) acute December 20 11:20am History of premature rupture of membranes (PPROM) acute [facility] 2024 11:20am acute December 20, 2024 11:20am PTSD (post-traumatic stress disorder) acute December 20 11:20am Supervision of high-risk acute December 20 11:20am Placenta previa inactive December 20, 2024 11:20am Depression acute December 27, 2024 8:54am Dysplasia of cervix, low grade (KARAN 1) acute December 27 8:54am History of premature rupture of membranes (PPROM) acute [facility] 2024 8:54am acute December 27, 2024 8:54am [...] tract infection) acute April 11, 2025 8:15am [facility] Work Phone: 1(552) 757-246101-17-2025 Evaluation note* Diagnosis Onset Date Resolution Status [...] of premature rupture of membranes (PPROM) acute [facility] 2024 10:39am acute December 13, 2024 10:39am Supervision of high-risk acute December 13 10:39am External constriction of lower back and pelvis, sequela resolved December 13 10:39am Depression acute December 20, 2024 11:20am Dysplasia of cervix, low grade (KARAN 1) acute December 20 11:20am History of premature rupture of membranes (PPROM) acute [facility] 2024 11:20am acute December 20, 2024 11:20am PTSD (post-traumatic stress disorder) acute December 20 11:20am Supervision of high-risk acute December 20 11:20am Placenta previa inactive December 20, 2024 11:20am Depression acute December 27, 2024 8:54am Dysplasia of cervix, low grade (KARAN 1) acute December 27 8:54am History of premature rupture of membranes (PPROM) acute [facility] 2024 8:54am acute December 27, 2024 8:54am [...] of high-risk acute February 07, 2025 10:22am [facility] Work Phone: 1(630) 363-955101-17-2025 Evaluation note* Diagnosis Onset Date Resolution Status [...] tract infection) acute March 06, 2025 12:50pm [facility] Work Phone: 1(728) 632-853001-08-2025 Progress note Author Giuliana Schilling [facility] Note Date/Time March 19, 2025 1:35p m [facility] Medical Records Department [address] [place] [address] OB Triage Progress Note 03/19/25 1332 MR#: [id number] Acct: [id number] Name: JANICE VELAZQUEZ Rep #:[id number] : 1995 29 From: Giuliana Schilling CNM PCP: Dr. Nirav Perez MD Status:R EG CLI Y DOS: Location: [place] [address] Progress Notes Date of Service: 03/19/25 Progress Note: Patient presents for triage evaluation secondary to back pain and pelvic pressure at 29 weeks. Hx of delivery at 34 weeks FHT: 145 Moderate variability reactive no decelerations category I tracing [place]: no recorded Contractions Assessment and plan: Discussed plan with Dr aC and agrees if urine and FFN negative, [...] pH 8.0 (5.0 - 8.0) Ur Specific [place] 1.010 (1.002-1.030) Urine Protein Negative (Negative) mg/dl [...] Multi Select Codes Urinary/Genital Urinary/Genital CPT Codes: 28519-60 non-stress test Interp Assessment & Plan (1) [...] plexus cyst of fetus: COMMENT: Met with [facility] genetic counselors and had testing there. (5) History of premature rupture of membranes (PPROM): COMMENT: Delivered at 34 weeks. CL at 16-24 weeks: 36 mm @16 wk. Recheck 22 wk:35mm (6) Supervision of high-risk : QUALIFIERS: Trimester: third trimester Qualified Code(s): O09.93 - Supervision of high risk , unspecified, third trimester COMMENT: [id number], DEE 05/29/25, LEOBARDO Gavin, Bon (7) : [...] applicable): Date CC: DEEP Schilling; Dr. Nirav Preez MD ~ Signed [facility] Work Phone: 1([phone]) 317-721512-20-2024 Evaluation note* Diagnosis Onset Date Resolution Status [...] Vaginal discharge resolved Februar y 2024 8:54am [facility] Work Phone: 1([phone]) 857-607102-07-2023 NotePap Smear Specimen AdequacyFebruary 2022 11:38amComment.Satisfactory for evaluation. Endocervical and/or squamous metaplasticcells (endocervical component)are present.[facility] INTERFACED A#[id number] HealthComment on above:Satisfactory for evaluation. Endocervical and/or squamous metaplasticcells (endocervical component)are present.06-23-2012 Miscellaneous Notes* Telephone Encounter - Kailee Carbajal ([place]) - 06/23/2012 10:26 AM EDT Please inform patient/parent that sickle test is negative. [facility] of Past illness Narrative* Problem Noted Date Resolved Date Tachycardia 02/05/2010 08/17/2013 documented as of this encounter (statuses as of 02/18/2021) [facility] Diagnosis Onset Date Resolution Status Dysplasia of cervix, low grade (KARAN 1) acute Family history of breast cancer acute Encounter for routine gynecological examination noneactive Acute streptococcal pharyngitis acute [facility] Work Phone: Evaluation note* Diagnosis Onset [...] Seasonal allergies acute Supervision of high-risk acute [facility] Work Phone: Evaluation note* Diagnosis Onset [...] Seasonal allergies acute Supervision of high-risk acute [facility] Work Phone: Evaluation note* Diagnosis Onset [...] Seasonal allergies acute Supervision of high-risk acute [facility] Work Phone: Evaluation note* Diagnosis Onset [...] of high-risk acute Decreased movement acu te [facility] Work Phone: Evaluation note* Diagnosis Maternal care for (suspected) central nervous system malformation or damage in fetus, choroid plexus cysts, fetus 1 documented in this encounter [facility] Author Dayanara Christie [facility] September 22, 2023 10:33am Note Date/Time September 22, 2023 10:33am [facility] Medical Records Department [address] [place] [address] OB Triage Physician Note 11/23/23 1030 MR#: [id number] Acct: [id number] Name: JANICE VELAZQUEZ Rep #:[id number] : 1995 27 From: Dayanara Christie CNM PCP: Dr. 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 current occupational exposures/hazards: No pets [...] 5-6 times per week duration: 45-60 minutes/day ross/lutheran: Hinduism seatbelt use: always do you feel safe [...] variability reactive no decelerations category I tracing [place]: irreg Contractions, not felt by patient Assessment and plan: Reactive NST, reassuring maternal and status patient discharged to home to follow-up in office, has appt on tuesday. See problem list details for additional plan information. Charges/Coding Visit Charges Office Visits / Consults: 14438 OV L3 Est Multi Select Codes Urinary/Genital Urinary/Genital CPT Codes: 01382-75 non-stress test Interp 09/22/23 1033 <Electronically signed by Dayanara mario CNM> Date _ Dayanara Christie CNM Cosigner Signature (if applicable): Date CC: DEEP Christie; Dr. Nirav Perez MD ~ Signed [facility] Work Phone: Hospital Discharge instructions Additional Instructions return on 04/04/2025 at 5:30 (1730) for second injection of celestone.[facility] Work Phone: Progress note Author Vannessa Chirinos [facility] Note Date/Time April 11, 2025 8:39 am [facility]alt System [facility] [address] [place] [address], [address] [place] [address] OFFICE VISIT Date of Service: 04/11/25 MR#: [id number] Acct: [id number] Name: JANICE VELAZQUEZ Rep #: [id number] : 1995 Provider: ASTER Chirinos Age/Sex: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
[2025-05-09 04:15] VITALS: BP 111/76; PULSE 85; RESP 16; TEMP 36.2; O2SAT 99
--- NOTE | 2025-05-09 08:04 | PN.OBGYN_ITS ---
Subjective Subjective Patient doing well without complaints. Tolerating PO. Ambulating and voiding without difficulty. Feeding well. Denies chest pain, shortness of breath, calf pain/swelling, fevers, chills, lightheadedness. Objective Data Objective Data Vital Signs: Vital Signs Temp Pulse Resp BP Pulse Ox O2 Del Method 97.2 F L 85 16 111/76 99 Room Air 05/09/25 04:15 05/09/25 04:15 05/09/25 04:15 05/09/25 04:15 05/09/25 04:15 05/09/25 04:15 Oxygen Delivery Method Room Air Weight: 189 lb Body Mass Index (BMI) 32.4 Intake & Output: Intake and Output for Last 24 Hours 05/07/25 05/08/25 05/09/25 23:59 23:59 23:59 Intake Total 3228.08 / 3228.08 Output Total 1700 / 1700 Balance 1528.08 / 1528.08 Lab / Micro Data 05/08/25 09:20 Labs: Laboratory Results - last 24 hr 05/08/25 09:20: WBC 13.3 H, RBC 4.00 L, Hgb 11.4 L, Hct 35.1 L, MCV 87.8, MCH 28.5, MCHC 32.5, RDW Std Deviation 42.7, RDW Coeff of Dayne 13.4, Plt Count 332, MPV 10.3, Immature Gran % (Auto) 0.900, Neut % (Auto) 82.1 H, Lymph % (Auto) 10.6 L, B[place]le % (Auto) 5.5, Eos % (Auto) 0.7, Baso % (Auto) 0.2, Absolute Neuts (auto) 10.9 H, Absolute Lymphs (auto) 1.41, Nucleated RBC % 0, Syphilis Total Ab Nonreactive, Blood Type A POSITIVE, Antibody Screen NEGATIVE 05/09/25 06:03: POC Glucose 80 Physical Exam Const alert and oriented x3 HEENT normocephalic Eyes PERRL Neck full ROM Resp normal respiratory effort GI soft to palpation GI Narrative: FF below U Assessment & Plan (1) Spontaneous vaginal delivery: COMMENT: 05/08/25 JV Vickie 37w (2) Depression: QUALIFIERS: Depression Type: major depressive disorder Major depression recurrence: recurrent Active/Remission status: in partial remission Qualified Code(s): F33.41 - Major depressive disorder, recurrent, in partial remission COMMENT: counseling, zoloft ordered; stable PLAN: Plan s/p PPD # 1 1. routine post delivery care 2. breast feeding- support given 3. rh positive 4. rubella immune 5. home today if baby able to go home
[2025-05-09 08:20] VITALS: BP 109/80; PULSE 78; RESP 16; TEMP 36.8
[2025-05-09] MEDS: Benzocaine/Lanolin/Aloe Vera 85 GM Spray 1 SPRAY TOPICAL (10:35)
--- NOTE | 2025-05-09 11:39 | CASEMGMT ---
Social Work Brief Assessment - Labor and Delivery Unit Patient Address: [facility] [place] [address] Phone number: [phone] Date and Time of Referral:?05/08/2025; 0914 Referred By: Stephania Montoya, DO Date and time of intervention:?05/09/2025; 1100 Reason for Referral:?substance use/patient's father alcoholic Informant:?? Medical records and mother of baby (MOB) History:?MOB is a 29 year old female who is 2, para 1 - now 2, following labor and delivery of . MOB received routine care during with [place]. MILLICENT presented to hospital due to early active labor at 37 weeks gestation on 05/08/2025. [place] baby girl, Vickie Caraballo, was born weighing 6 lbs, 15.8 oz with apgars of 8 and 9 at one and five minutes of life respectively. MOB is breast feeding and baby will be followed by Dr. Stanley for pediatrics. MOB reports that living in her home is herself, her 2 year old son Romaine, and her /FOB Bon with baby to be added to home when ready for discharge. MOB reports housing to be safe and secure. 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 MOB reports having obtained all necessary baby supplies including: car seat, safe sleep space, clothes, diapers, and wipes. MOB reports that she along with FOB will be the primary caretakers of baby along with MOB's mother. MOB and FOB both have valid [employer] driver's licenses and safe transportation. MOB knows the programs and agencies that are available to MOB. MOB states having no legal issues or children's services involvement. MOB states that MOB's father is a family stressor currently. Reportedly, MOB's father has been out of MOB's life for many years, but showed up yesterday at the hospital and attempted to see MOB. MOB's father was not allowed in to see MOB per MOB's wishes. Other than this, MOB denies any further concerns or stressors. Assessment: MOB and baby admitted following labor and delivery. MOB has own mental health history and family history of substance abuse. This is MOB's 2nd child and MOB has had both children with patient's , Bon. 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 MOB has a mental health diagnosis of depression that was previously managed with medication, but MOB reports not taking any medication at this time. MOB reports knowing signs and symptoms of baby blues and depression, as well as knowing resources and having supports should MOB begin to feel distress. MOB talkative and open with SW during completion of assessment. MOB was receptive to discussions with this SW. Plan:?No further needs requested or indicated. MOB and baby to be discharged when medically ready. Baby to be transferred to [facility] due to hypoglycemia concerns. Parents expressed being aware of this due to patient's older son being in SCN for 9 days in 2022. 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 Patient denied needing any resources at this time, but patient stated knowing where to go for resources in the future should patient start to struggle. Shaye Robledo, GAS OPERATION MANAGER, COMMUNICABLE DISEASE SPECIALIST
== END 2025-05-09 10:40 | disposition home or self-care (01) | DRG 807 ==
LOC: WP 09:00
PROVIDERS: Admitting Provider Obstetrics & Gynecology; PCP Internal Medicine; Referring Provider Obstetrics & Gynecology; Visit Provider Obstetrics & Gynecology
DX: O42.02 Full-term premature rupture of membranes, onset of labor within 24 hours of rupture (principal); Z37.0 Single live birth; O99.344 Other mental disorders complicating childbirth; O35.03X0 Maternal care for (suspected) central nervous system malformation or damage in fetus, choroid plexus cysts, not applicable or unspecified; F33.41 Major depressive disorder, recurrent, in partial remission; F43.12 Post-traumatic stress disorder, chronic; O99.814 Abnormal glucose complicating childbirth; Z3A.37 37 weeks gestation of pregnancy; Z87.59 Personal history of other complications of pregnancy, childbirth and the puerperium
CPT/HCPCS: 59025; 59050; 82962; 85025; 86780; 86850; 86900; 86901; 99221; G0378